=== PATIENT | male | born 1970 | race Caucasian/White ===

== ENCOUNTER 2016-05-20 09:16 | Inpatient (IN) | payer OTHER ==
[2016-05-20 10:53] VITALS: BMI 33.2
--- NOTE | 2016-05-20 13:49 | HP ---
CIWA Score - CIWA Score Nausea/Vomitin Muscle Tremors: 3 Anxiety: 3 Agitation: 3 Paroxysmal Sweats: 2 Orientation: 0-Oriented Tacttile Disturbances: 2-Mild Itch/Numbness/Burn Auditory Disturbances: 2-Mild Harshness/Frighten Visual Disturbances: 2-Mild Sensitivity Headache: 2-Mild CIWA-Ar Total Score: 22 Admission ROS BHS - HPI Chief Complaint: i need help to stop drinking Allergies/Adverse Reactions: Allergies Allergy/AdvReac Type Severity Reaction Status Date / Time Fish Containing Products Allergy Severe Rash Verified 05/20/16 13:40 No Known Drug Allergies Allergy Verified 05/20/16 13:40 lactose AdvReac Lactose Verified 05/20/16 13:40 Intolerance LACTOSE INTOLERANCE Allergy Nausea Uncoded 05/20/16 13:40 History of Present Illness: this 46 years old male with alcohol dependence.withdrawal symptom,last detox 09/27 to 04/21/16 seizure syncope anxiety and depression htn longest period of sobriety 9 months Exam Limitations: No Limitations - Ebola screening Have you traveled outside of the country in the last 21 days: No Have you had contact with anyone from an Ebola affected area: No Have you been sick,other than usual withdrawal symptoms: No Do you have a fever: No - Review of Systems Constitutional: Loss of Appetite, Malaise, Changes in sleep, Weakness EENT: reports: Nose Congestion Respiratory: reports: No Symptoms reported Cardiac: reports: Palpitations GI: reports: Diarrhea, Nausea, Vomiting, Abdominal cramping : reports: No Symptoms Reported Musculoskeletal: reports: Back Pain, Muscle Pain Integumentary: reports: Dryness Neuro: reports: Headache, Tremors Endocrine: reports: No Symptoms Reported Hematology: reports: No Symptoms Reported Psychiatric: reports: Anxious, Depressed Patient History - Patient Medical History Hx Anemia: No Hx Asthma: No Hx Chronic Obstructive Pulmonary Disease (COPD): No Hx Cancer: No Hx Cardiac Disorders: No Hx Congestive Heart Failure: No Hx Hypertension: Yes Hx Hypercholesterolemia: No Hx Pacemaker: No HX Cerebrovascular Accident: No Hx Seizures: Yes (alcohol related-last episode was 1 1/2 mos. ago) Hx Dementia: No Hx Diabetes: No Hx Gastrointestinal Disorders: No Hx Liver Disease: No Hx Genitourinary Disorders: No Hx Sexually Transmitted Disorders: Yes (syphilis) Hx Renal Disease (ESRD): No Hx Thyroid Disease: No Hx Human Immunodeficiency Virus (HIV): No (NEGATIVE HX last 03/30) Hx Hepatitis C: No Hx Depression: Yes (anxiety) Hx Suicide Attempt: No Hx Bipolar Disorder: No Hx Schizophrenia: No Other Medical History: no suicidal,no homicidal - Patient Surgical History Past Surgical History: Yes Hx Neurologic Surgery: No Hx Cataract Extraction: No Hx Cardiac Surgery: No Hx Lung Surgery: No Hx Breast Surgery: No Hx Breast Biopsy: No Hx Abdominal Surgery: No Hx Appendectomy: No Hx Cholecystectomy: Yes (08/27 laproscopic) Hx Genitourinary Surgery: No Hx Section: No Hx Orthopedic Surgery: Yes (fx, left leg at age 21) Anesthesia Reaction: No - PPD History Previous Implant?: Yes Documented Results: Positive w/proof Results: positive PPD to be Administered?: No - Smoking Cessation Smoking history: Former smoker Have you smoked in the past 12 months: No Aproximately how many cigarettes per day: 0 If you are a former smoker, when did you quit?: at age 32 Hx Chewing Tobacco Use: No Initiated information on smoking cessation: Yes 'Breaking Loose' booklet given: 05/20/16 - Substance & Tx. History Hx Alcohol Use: Yes Hx Substance Use: No Substance Use Type: Alcohol Hx Substance Use Treatment: Yes ([facility] 04/18/16 to 04/21/16) - Substances Abused Alcohol Route: Oral Frequency: Daily Amount used: 2 6PKS BEER Age of first use: 17 Date of Last Use: 05/20/16 Family Disease History - Family Disease History Family Disease History: Other: Father (ALCOHOL) Admission Physical Exam BHS - Vital Signs Vital Signs: Vital Signs - 24 hr 05/20/16 10:51 Temperature 97.2 F L Pulse Rate 94 H Respiratory 20 Rate Blood Pressure 152/96 - Physical General Appearance: Yes: Moderate Distress, Tremorous, Irritable, Sweating, Anxious HEENTM: Yes: Nasal Congestion Respiratory: Yes: Lungs Clear Neck: Yes: Within Normal Limits Breast: Yes: Within Normal Limits Cardiology: Yes: Within Normal Limits, Regular Rhythm, Regular Rate, S1, S2 Abdominal: Yes: Within Normal Limits, Normal Bowel Sounds, Non Tender, Flat, Soft Genitourinary: Yes: Within Normal Limits Back: Yes: Muscle Spasm Musculoskeletal: Yes: Back pain, Muscle Pain Extremities: Yes: Tremors Neurological: Yes: traffic rate clerk II-XII NML intact, Fully Oriented, Alert, Motor Strength 5/5 Integumentary: Yes: Dry Lymphatic: Yes: Within Normal Limits - Diagnostic (1) Alcohol dependence with uncomplicated intoxication Current Visit: No Status: Acute (2) Alcohol dependence with withdrawal, uncomplicated Current Visit: No Status: Acute (3) Alcohol related seizure Current Visit: No Status: Chronic (4) Constipation Current Visit: No Status: Chronic Qualifiers: Constipation type: unspecified constipation type Qualified Code(s): K59.00 - Constipation, unspecified (5) GERD (gastroesophageal reflux disease) Current Visit: No Status: Chronic Qualifiers: Esophagitis presence: without esophagitis Qualified Code(s): K21.9 - Gastro-esophageal reflux disease without esophagitis (6) HTN (hypertension) Current Visit: No Status: Chronic Qualifiers: Hypertension type: essential hypertension Qualified Code(s): I10 - Essential (primary) hypertension (7) Nicotine dependence Current Visit: No Status: Chronic Qualifiers: Nicotine product type: cigarettes Substance use status: uncomplicated Qualified Code(s): F17.210 - Nicotine dependence, cigarettes, uncomplicated (8) History of seizure Current Visit: No Status: Suspected (9) Syncope Current Visit: Yes Status: Acute Cleared for Admission [facility] - Detox or Rehab [facility] Level of Care: Medically Managed Detox Regimen/Protocol: Librium S Breath Alcohol Content Breath Alcohol Content: 0.187 Urine Drug Screen - Results Drug Screen Negative: No Urine Drug Screen Results: BZO-Benzodiazepines
[2016-05-20] MEDS ORDERED: P-EPHED 60MG/TRIPROLIDI 2.5MG TABLET PO PRN (14:01)
[2016-05-20] MEDS ORDERED: LOPERAMIDE HCL 2 MG CAPSULE PO PRN (14:01)
[2016-05-20] MEDS ORDERED: chlordiazePOXIDE HCL 25 MG CAPSULE PO PRN (14:01)
[2016-05-20] MEDS ORDERED: MENTHOL/PHENOL 1 EACH UD MM PRN (14:01)
[2016-05-20] MEDS ORDERED: guaiFENesin/D-METHORPHAN HB 10 ML UNIT-DOSE CUPS PO PRN (14:01)
[2016-05-20] MEDS ORDERED: MAGNESIUM CITRATE 300 ML BOTTLE PO PRN (14:01)
[2016-05-20] MEDS ORDERED: IBUPROFEN 400 MG TABLET (FP) PO PRN (14:01)
[2016-05-20] MEDS ORDERED: hydrOXYzine PAMOATE 50 MG CAPSULE (FP) PO PRN (14:01)
[2016-05-20] MEDS ORDERED: ACETAMINOPHEN 325 MG TABLET (FP) PO PRN (14:01)
[2016-05-20] MEDS ORDERED: chlordiazePOXIDE HCL 25 MG CAPSULE PO ONE (14:40)
[2016-05-20] MEDS ORDERED: cloNIDine HCL 0.1 MG TABLET PO ONE (14:41)
[2016-05-20] MEDS: chlordiazePOXIDE HCL 25 MG CAPSULE PO SCH ×2 (17:24→22:16)
[2016-05-20 19:59] LABS: URINE APPEARANCE CLEAR; URINE BILIRUBIN NEGATIVE (NEGATIVE); URINE BLOOD NEGATIVE (NEGATIVE); URINE COLOR YELLOW; URINE GLUCOSE (UA) NEGATIVE (NEGATIVE); URINE KETONE NEGATIVE (NEGATIVE); URINE LEUK ESTERASE NEGATIVE (NEGATIVE); URINE NITRITE NEGATIVE (NEGATIVE); URINE UROBILINOGEN 2.0 E.U/dl E.U./dl (0.2-1.0)
[2016-05-20 20:01] LABS: URINE PROTEIN 1+ (NEGATIVE)
[2016-05-20 20:09] LABS: URINE MUCUS FEW; URINE RBC 1 /hpf (0-3); URINE WBC 1 /hpf (3-5)
[2016-05-20] MEDS: diphenhydrAMINE HCL 50 MG CAPSULE PO PRN (22:16)
[2016-05-20] MEDS: THIAMINE HCL 100 MG TABLET (FP) PO SCH (22:16)
[2016-05-20] MEDS: MAGNESIUM HYDROX 2400MG/30ML ORAL SUSPENSION 30 ML CUP PO PRN (22:17)
[2016-05-21] MEDS: chlordiazePOXIDE HCL 25 MG CAPSULE PO SCH ×4 (05:54→22:28)
[2016-05-21] MEDS: levETIRAcetam 500 MG TABLET (FP) PO SCH (10:06)
[2016-05-21] MEDS: PRENATAL VITAMINS W/ FOLIC ACID TABLET (FP) PO SCH (10:06)
[2016-05-21] MEDS: PROPRANOLOL HCL 10 MG TABLET (FP) PO SCH (10:06)
[2016-05-21 10:40] LABS: MCH 27.4 pg (25.7-33.7); MCHC 32.7 g/dl (32.0-35.9); MEAN CELL VOLUME 83.8 fl (80-96); MEAN PLT VOLUME 9.1 fl (7.5-11.1); PLATELET COUNT 93 K/MM3 (134-434); RDW 16.2 % (11.9-15.9); WHITE BLOOD COUNT 4.3 K/mm3 (4.0-10.0)
[2016-05-21 11:03] LABS: ALBUMIN 4.3 g/dl (3.4-5.0); ALK PHOS 134 U/L (45-117); ANION GAP 10 (8-16); BILIRUBIN,TOTAL 0.7 mg/dL (0.2-1.0); CALCIUM 8.1 mg/dL (8.5-10.1); CO2 26 mmol/L (21-32); CREATININE 0.7 mg/dL (0.7-1.3); GLUCOSE,RANDOM 144 mg/dL (74-106); SGOT/AST 134 U/L (15-37); SGPT/ALT 111 U/L (12-78); TOT PROT 8.5 g/dl (6.4-8.2)
--- NOTE | 2016-05-21 12:05 | CONSULT ---
[facility] Psychiatric Consult - Data Date of interview: 05/21/16 Admission source: [facility] Identifying data: Readmission to [facility] for this 46 y/o [place]-born male seeking detox treatment on for alcohol and cocaine dependence.Patient is without children,homeless,unemployed and dependent on food stamps. Substance Abuse History: - Smoking Cessation. Smoking history: Former smoker. Have you smoked in the past 12 months: No. Aproximately how many cigarettes per day: 0. If you are a former smoker, when did you quit?: at age 32. Hx Chewing Tobacco Use: No. Initiated information on smoking cessation: Yes. ' Breaking Loose' booklet given: 05/20/16. - Substance & Tx. History. Hx Alcohol Use: Yes. Hx Substance Use: No. Substance Use Type: Alcohol. Hx Substance Use Treatment: Yes ([facility] 04/18/16 to 04/21/16). - Substances Abused. Alcohol. Route: Oral. Frequency: Daily. Amount used: 2 6PKS BEER. Age of first use: 17. Date of Last Use: 05/20/16. Patient confirmed. Medical History: Significant for hypertension,seizure disorder and past treatment for syphilis. Psychiatric History: Patient denies history of psychiatric hospitalizations.He, however,reports being on prozac and vistaril for " depression and anxiety ", diagnosed and managed by is primary care physician.Mr Owens denies history of suicide attempts. Physical/Sexual Abuse/Trauma History: Patient denies. Additional Comment: Urine Drug Screen Results: BZO-Benzodiazepines.Noted. Mental Status Exam - Mental Status Exam Alert and Oriented to: Time, Place, Person Cognitive Function: Good Patient Appearance: Well Groomed Mood: Nervous, Withdrawn, Anxious, Apprehensive Affect: Appropriate Patient Behavior: Sedated (mild sedation), Fatigued Speech Pattern: Clear Voice Loudness: Normal Thought Process: Intact Thought Disorder: Not Present Hallucinations: Denies Suicidal Ideation: Denies Homicidal Ideation: Denies Insight/Judgement: Poor Sleep: Poorly, Difficulty falling asleep Appetite: Good Muscle strength/Tone: Normal Gait/Station: Normal Psychiatric Findings - Problem List ([place] 1, 2,3) (1) Alcohol dependence with withdrawal, uncomplicated Current Visit: Yes Status: Acute (2) Alcohol-induced anxiety disorder Current Visit: Yes Status: Acute (3) Substance induced mood disorder Current Visit: Yes Status: Acute (4) Insomnia Current Visit: No Status: Acute (5) Alcohol related seizure Current Visit: Yes Status: Chronic - Initial Treatment Plan Initial Treatment Plan: Psychoeducation.Detoxification.Medications : prozac 20 mg po daily + vistaril 50 mg po q 4h prn.Side effects/benefits discussed with patient.
[2016-05-21] MEDS: MAG HYDROX/AL HYDROX/SIMETH 30 ML UNIT-DOSE CUP PO PRN ×2 (13:08→20:23)
[2016-05-21] MEDS: FLUoxetine HCL 20 MG CAPSULE (FP) PO SCH (13:08)
[2016-05-21] MEDS ORDERED: RANITIDINE HCL 150 MG TABLET (FP) PO ONE (20:58)
[2016-05-21] MEDS: diphenhydrAMINE HCL 50 MG CAPSULE PO PRN (22:28)
[2016-05-21] MEDS: THIAMINE HCL 100 MG TABLET (FP) PO SCH (22:28)
--- NOTE | 2016-05-21 23:18 | PN ---
[id number] Anxiety: 4-Mod. Anxious/Guarded Agitation: 3 Paroxysmal Sweats: 3 Orientation: 0-Oriented Tacttile Disturbances: 0-None Auditory Disturbances: 0-None Visual Disturbances: 0-None Headache: 0-None Present CIWA-Ar Total Score: 13 BHS Progress Note (SOAP) Subjective: ANXIETY,TREMORS,SWEATING,INTERRUPTED SLEEP,RESTLESS Objective: 05/21/16 23:15 Vital Signs - 8 hr 05/21/16 20:05 Temperature 97.4 F L Pulse Rate 71 Respiratory 16 Rate Blood Pressure 104/63 Assessment: 05/21/16 23:15 withdrawal sx. Plan: CONTINUE DETOX
[2016-05-22] MEDS: MAGNESIUM HYDROX 2400MG/30ML ORAL SUSPENSION 30 ML CUP PO PRN (05:07)
[2016-05-22] MEDS: chlordiazePOXIDE HCL 25 MG CAPSULE PO SCH ×2 (05:07→10:27)
[2016-05-22] MEDS ORDERED: RANITIDINE HCL 150 MG TABLET (FP) PO SCH (10:00)
[2016-05-22] MEDS ORDERED: CLOTRIMAZOLE 1% CREAM 15 GM TUBE TP SCH (10:00)
[2016-05-22] MEDS: PRENATAL VITAMINS W/ FOLIC ACID TABLET (FP) PO SCH (10:26)
[2016-05-22] MEDS: FLUoxetine HCL 20 MG CAPSULE (FP) PO SCH (10:27)
[2016-05-22] MEDS: PROPRANOLOL HCL 10 MG TABLET (FP) PO SCH (10:27)
[2016-05-22] MEDS: levETIRAcetam 500 MG TABLET (FP) PO SCH (10:27)
[2016-05-22 10:57] VITALS: BP 134/93; PULSE 89; TEMP 97.5
--- NOTE | 2016-05-22 12:40 | DS ---
[facility] Detox Discharge Summary Admission Date: 05/20/16 Discharge Date: 05/22/16 - History Present History: Alcohol Dependence Pertinent Past History: Alcohol related seizure disorder HTN - Physical Exam Results Vital Signs: Vital Signs Temperature 97.5 F L 05/22/16 10:56 Pulse Rate 89 05/22/16 10:56 Respiratory Rate 20 05/22/16 10:56 Blood Pressure 134/93 05/22/16 10:56 O2 Sat by Pulse Oximetry (%) Pertinent Admission Physical Exam Findings: Withdrawal symptoms Laboratory Tests 05/20/16 05/21/16 05/21/16 15:00 06:00 06:00 WBC 4.3 RBC 4.89 Hgb 13.4 Hct 41.0 MCV 83.8 MCHC 32.7 RDW 16.2 H Plt Count 93 L D MPV 9.1 Sodium 137 Potassium 3.8 Chloride 101 Carbon Dioxide 26 Anion Gap 10 BUN 6 L D Creatinine 0.7 Creat Clearance w eGFR > 60 Random Glucose 144 H Calcium 8.1 L Total Bilirubin 0.7 D AST 134 H D ALT 111 H D Alkaline Phosphatase 134 H D Total Protein 8.5 H D Albumin 4.3 D Urine Color Yellow Urine Appearance Clear Urine pH 6.0 Ur Specific [place] 1.018 Urine Protein 1+ H Urine Glucose (UA) Negative Urine Ketones Negative Urine Blood Negative Urine Nitrite Negative Urine Bilirubin Negative Urine Urobilinogen 2.0 e.u/dl Ur Leukocyte Esterase Negative Urine RBC 1 Urine WBC 1 Ur Epithelial Cells Rare Urine Mucus Few RPR Titer 05/21/16 06:00 WBC RBC Hgb Hct MCV MCHC RDW Plt Count MPV Sodium Potassium Chloride Carbon Dioxide Anion Gap BUN Creatinine Creat Clearance w eGFR Random Glucose Calcium Total Bilirubin AST ALT Alkaline Phosphatase Total Protein Albumin Urine Color Urine Appearance Urine pH Ur Specific [place] Urine Protein Urine Glucose (UA) Urine Ketones Urine Blood Urine Nitrite Urine Bilirubin Urine Urobilinogen Ur Leukocyte Esterase Urine RBC Urine WBC Ur Epithelial Cells Urine Mucus RPR Titer Nonreactive Labs noted: Noted with hyperglycemia, elevated LFTs, proteinuria - Medication Discharge Medications: Ambulatory Orders Fluoxetine HCl [Prozac -] 20 mg PO DAILY 06/11/15 Quetiapine Fumarate [Seroquel -] 100 mg PO BID #30 tablet 06/11/15 Propranolol HCl [Inderal -] 10 mg PO DAILY #30 tablet 06/15/15 Hydroxyzine HCl [Atarax -] 50 mg PO HS 05/20/16 Levetiracetam [Keppra -] 500 mg PO DAILY 05/20/16 Fluoxetine HCl [Prozac -] 20 mg PO DAILY #30 capsule 05/21/16 Hydroxyzine Pamoate [Vistaril -] 25 mg PO TID PRN #30 capsule 05/21/16 - Diagnosis (1) Alcohol dependence with withdrawal, uncomplicated Status: Acute (2) Alcohol related seizure Status: Chronic (3) HTN (hypertension), benign Status: Acute - AMA Did Patient Leave Against Medical Advice: Yes (refused further testing for hyperglycemia, elevated LFTs and proteinuria)
[2016-05-22] MEDS ORDERED: chlordiazePOXIDE 5 MG CAPSULE PO SCH (17:00)
[2016-05-23] MEDS ORDERED: chlordiazePOXIDE HCL 10 MG CAPSULE PO SCH (17:00)
--- NOTE | 2016-05-25 09:43 | EKG ---
Test Reason : Blood Pressure : / mmHG Vent. Rate : 095 BPM Atrial Rate : 095 BPM P-R Int : 174 ms QRS Dur : 096 ms QT Int : 350 ms P-R-T Axes : 062 -17 033 degrees QTc Int : 439 ms NORMAL SINUS RHYTHM INFERIOR INFARCT , AGE UNDETERMINED ABNORMAL ECG NO PREVIOUS ECGS AVAILABLE Confirmed by CAREY CLINE MD ([id number]) on 05/25/2016 9:42:40 AM Referred By: Confirmed By:CAREY CLINE MD
== END 2016-05-22 11:10 | disposition left against medical advice (07) | DRG 770 ==
LOC: YASAS 09:16 → Y3N 14:06
PROVIDERS: ADMIT Internal Medicine; ATTEND Internal Medicine
PROC: HZ2ZZZZ Detoxification Services for Substance Abuse Treatment (ICD-10-PCS; principal; 2016-05-20)
DX: F10.230 Alcohol dependence with withdrawal, uncomplicated (principal); F10.280 Alcohol dependence with alcohol-induced anxiety disorder; F19.24 Other psychoactive substance dependence with psychoactive substance-induced mood disorder; I10 Essential (primary) hypertension; G47.00 Insomnia, unspecified; G40.909 Epilepsy, unspecified, not intractable, without status epilepticus; K21.9 Gastro-esophageal reflux disease without esophagitis; K59.00 Constipation, unspecified; Z87.438 Personal history of other diseases of male genital organs; Z87.891 Personal history of nicotine dependence; Z86.79 Personal history of other diseases of the circulatory system
CPT/HCPCS: 36415; 80053; 81003; 81015; 85027; 86593; 93005; 93010

== ENCOUNTER 2016-07-03 09:16 | Inpatient (IN) | payer OTHER ==
[2016-07-03 09:46] VITALS: BMI 31.6
--- NOTE | 2016-07-03 11:29 | HP ---
CIWA Score - CIWA Score Nausea/Vomitin Muscle Tremors: 5 Anxiety: 4-Mod. Anxious/Guarded Agitation: 2 Paroxysmal Sweats: 3 Orientation: 0-Oriented Tacttile Disturbances: 0-None Auditory Disturbances: 3-Moderate Harsh/Frighten Visual Disturbances: 2-Mild Sensitivity Headache: 3-Moderate CIWA-Ar Total Score: 27 Admission ROS BHS - HPI Chief Complaint: "I am here to stay alive." Pt. is here to Detox from alcohol. Allergies/Adverse Reactions: Allergies Allergy/AdvReac Type Severity Reaction Status Date / Time Fish Containing Products Allergy Severe Rash Verified 07/03/16 10:41 No Known Drug Allergies Allergy Verified 07/03/16 10:41 lactose AdvReac Lactose Verified 07/03/16 10:41 Intolerance LACTOSE INTOLERANCE Allergy Nausea Uncoded 07/03/16 10:41 History of Present Illness: Pt. is a 46 YO male here to Detox from Alcohol. Pt. has had several previous Detox admissions at [facility]. Exam Limitations: Intoxication, Other (Lethargy.) - Ebola screening Have you traveled outside of the country in the last 21 days: No Have you had contact with anyone from an Ebola affected area: No Have you been sick,other than usual withdrawal symptoms: No Do you have a fever: No - Review of Systems Constitutional: Chills, Diaphoresis, Fever, Loss of Appetite, Malaise, Night Sweats, Changes in sleep EENT: reports: No Symptoms Reported Respiratory: reports: No Symptoms reported Cardiac: reports: Palpitations GI: reports: Nausea, Poor Appetite, Vomiting, Abdominal cramping : reports: No Symptoms Reported Musculoskeletal: reports: Joint Pain, Muscle Pain, Joint Stiffness Integumentary: reports: No Symptoms Reported Neuro: reports: Headache, Numbness, Seizure (Due to Withdrawal.), Tingling ( Bilateral toes), Tremors Endocrine: reports: No Symptoms Reported Hematology: reports: No Symptoms Reported Psychiatric: reports: Judgement Intact, Mood/Affect Appropiate, Orientated x3, Anxious Other Systems: Reviewed and Negative Patient History - Patient Medical History Hx Anemia: No Hx Asthma: No Hx Chronic Obstructive Pulmonary Disease (COPD): No Hx Cancer: No Hx Cardiac Disorders: No Hx Congestive Heart Failure: No Hx Hypertension: Yes (Takes medication intermittently.) Hx Hypercholesterolemia: No Hx Pacemaker: No HX Cerebrovascular Accident: No Hx Seizures: Yes (Due to Alcohol withdrawal; last one approx. 1 week ago (went to ER).) Hx Dementia: No Hx Diabetes: No Hx Gastrointestinal Disorders: No Hx Liver Disease: No Hx Genitourinary Disorders: No Hx Sexually Transmitted Disorders: No Hx Renal Disease (ESRD): No Hx Thyroid Disease: No Hx Human Immunodeficiency Virus (HIV): No (NEGATIVE HX last 03/30) Hx Hepatitis C: No (NEGATIVE HX, cannot remember when last tested.) Hx Depression: No Hx Suicide Attempt: No (PATIENT DENIES CURRENT SI / HI.) Hx Bipolar Disorder: No Hx Schizophrenia: No - Patient Surgical History Past Surgical History: Yes Hx Neurologic Surgery: No Hx Cataract Extraction: No Hx Cardiac Surgery: No Hx Lung Surgery: No Hx Breast Surgery: No Hx Breast Biopsy: No Hx Abdominal Surgery: No Hx Appendectomy: No Hx Cholecystectomy: Yes (08/27 laproscopic) Hx Genitourinary Surgery: No Hx Section: No Hx Orthopedic Surgery: Yes (fx, left leg at age 21) Anesthesia Reaction: No - PPD History Previous Implant?: Yes (+ppd) Documented Results: Positive w/o proof Implanted On Prior [facility] Admission?: No Results: positive PPD to be Administered?: No - Reproductive History Patient is a Female of Child Bearing Age (11 -55 yrs old): No (PATIENT IS MALE.) - Smoking Cessation Smoking history: Former smoker Have you smoked in the past 12 months: No Aproximately how many cigarettes per day: 0 If you are a former smoker, when did you quit?: at age 32 Cigars Per Day: 0 Hx Chewing Tobacco Use: No Initiated information on smoking cessation: No - Substance & Tx. History Hx Alcohol Use: Yes Hx Substance Use: Yes Substance Use Type: Alcohol Hx Substance Use Treatment: Yes (Previous Detox admissions at [facility].) - Substances Abused Alcohol Route: Oral Frequency: Daily Amount used: 18 beers Age of first use: 17 Date of Last Use: 07/03/16 Family Disease History - Family Disease History Family Disease History: Other: Father (ALCOHOL) Admission Physical Exam BHS - Vital Signs Vital Signs: Vital Signs - 24 hr 07/03/16 09:41 Temperature 98.1 F Pulse Rate 108 H Respiratory 20 Rate Blood Pressure 143/82 - Physical General Appearance: Yes: Nourished, Appropriately Dressed, Moderate Distress, Tremorous, Irritable, Sweating, Anxious HEENTM: Yes: Hearing grossly Normal, Normocephalic, Normal Voice, AG, Pharynx Normal Respiratory: Yes: Chest Non-Tender, Lungs Clear, No Respiratory Distress Neck: Yes: No masses,lesions,Nodules, Supple, Trachea in good position Breast: Yes: Breast Exam Deferred Cardiology: Yes: Regular Rhythm, Regular Rate, S1, S2 Abdominal: Yes: Normal Bowel Sounds, Non Tender, Soft, Protuberent Genitourinary: Yes: Within Normal Limits Back: Yes: Decreased Range of Motion Musculoskeletal: Yes: Gait Steady, Joint Stiffness, Muscle Pain Extremities: Yes: Non-Tender, Tremors Neurological: Yes: Fully Oriented, Normal Mood/Affect, Normal Response Integumentary: Yes: Normal Color, Warm, Diaphoresis Lymphatic: Yes: Within Normal Limits - Diagnostic (1) Alcohol dependence with withdrawal, uncomplicated Current Visit: Yes Status: Acute (2) Anxiety disorder Current Visit: Yes Status: Chronic Qualifiers: Anxiety disorder type: unspecified anxiety disorder Qualified Code(s ): F41.9 - Anxiety disorder, unspecified (3) Alcohol withdrawal seizure Current Visit: Yes Status: Chronic Qualifiers: Complication of substance-induced condition: uncomplicated Qualified Code(s): F10.230 - Alcohol dependence with withdrawal, uncomplicated (4) HTN (hypertension) Current Visit: Yes Status: Chronic Qualifiers: Hypertension type: essential hypertension Qualified Code(s): I10 - Essential (primary) hypertension Cleared for Admission [facility] - Detox or Rehab [facility] Level of Care: Medically Managed Detox Regimen/Protocol: Librium [facility] Breath Alcohol Content Breath Alcohol Content: 0.195 Urine Drug Screen - Results Drug Screen Negative: No Urine Drug Screen Results: KASIE-Cocaine, BZO-Benzodiazepines
[2016-07-03] MEDS ORDERED: ACETAMINOPHEN 325 MG TABLET (FP) PO PRN (11:55)
[2016-07-03] MEDS ORDERED: guaiFENesin/D-METHORPHAN HB 10 ML UNIT-DOSE CUPS PO PRN (11:55)
[2016-07-03] MEDS ORDERED: IBUPROFEN 400 MG TABLET (FP) PO PRN (11:55)
[2016-07-03] MEDS ORDERED: MAGNESIUM HYDROX 2400MG/30ML ORAL SUSPENSION 30 ML CUP PO PRN (11:55)
[2016-07-03] MEDS ORDERED: MAGNESIUM CITRATE 300 ML BOTTLE PO PRN (11:55)
[2016-07-03] MEDS ORDERED: chlordiazePOXIDE HCL 25 MG CAPSULE PO PRN (11:55)
[2016-07-03] MEDS ORDERED: MAG HYDROX/AL HYDROX/SIMETH 30 ML UNIT-DOSE CUP PO PRN (11:55)
[2016-07-03] MEDS ORDERED: hydrOXYzine PAMOATE 50 MG CAPSULE (FP) PO PRN (11:55)
[2016-07-03] MEDS ORDERED: diphenhydrAMINE HCL 50 MG CAPSULE PO PRN (11:55)
[2016-07-03] MEDS ORDERED: MENTHOL/PHENOL 1 EACH UD MM PRN (11:55)
[2016-07-03] MEDS ORDERED: P-EPHED 60MG/TRIPROLIDI 2.5MG TABLET PO PRN (11:55)
[2016-07-03] MEDS ORDERED: LOPERAMIDE HCL 2 MG CAPSULE PO PRN (11:55)
[2016-07-03] MEDS ORDERED: chlordiazePOXIDE HCL 25 MG CAPSULE PO ONE (11:55)
[2016-07-03] MEDS: levETIRAcetam 500 MG TABLET (FP) PO SCH ×2 (12:42→22:24)
[2016-07-03] MEDS: PROPRANOLOL HCL 10 MG TABLET (FP) PO SCH (12:43)
[2016-07-03 16:51] LABS: URINE APPEARANCE CLEAR; URINE BILIRUBIN NEGATIVE (NEGATIVE); URINE BLOOD NEGATIVE (NEGATIVE); URINE COLOR YELLOW; URINE GLUCOSE (UA) NEGATIVE (NEGATIVE); URINE KETONE NEGATIVE (NEGATIVE); URINE LEUK ESTERASE NEGATIVE (NEGATIVE); URINE NITRITE NEGATIVE (NEGATIVE); URINE PROTEIN NEGATIVE (NEGATIVE); URINE UROBILINOGEN NEGATIVE E.U./dl (0.2-1.0)
[2016-07-03] MEDS: chlordiazePOXIDE HCL 25 MG CAPSULE PO SCH ×2 (17:50→22:24)
[2016-07-03] MEDS: THIAMINE HCL 100 MG TABLET (FP) PO SCH (22:24)
--- NOTE | 2016-07-04 00:47 | EKG ---
Test Reason : Blood Pressure : / mmHG Vent. Rate : 108 BPM Atrial Rate : 108 BPM P-R Int : 158 ms QRS Dur : 098 ms QT Int : 326 ms P-R-T Axes : 055 -02 037 degrees QTc Int : 436 ms SINUS TACHYCARDIA POSSIBLE LEFT ATRIAL ENLARGEMENT INCOMPLETE RIGHT BUNDLE BRANCH BLOCK INFERIOR INFARCT (CITED ON OR BEFORE 20-MAY-2016) ABNORMAL ECG WHEN COMPARED WITH ECG OF 20-MAY-2016 15:18, NO SIGNIFICANT CHANGE WAS FOUND Confirmed by SYLVIA JOHN MD ([id number]) on 07/04/2016 12:47:05 AM Referred By: Confirmed By:SYLVIA JOHN MD
[2016-07-04] MEDS: chlordiazePOXIDE HCL 25 MG CAPSULE PO SCH ×4 (05:59→22:35)
[2016-07-04 10:07] LABS: ALBUMIN 3.7 g/dl (3.4-5.0); ANION GAP 11 (8-16); CALCIUM 8.5 mg/dL (8.5-10.1); CO2 26 mmol/L (21-32); GLUCOSE,RANDOM 93 mg/dL (74-106)
[2016-07-04 10:10] LABS: ALK PHOS 112 U/L (45-117); BILIRUBIN,TOTAL 0.6 mg/dL (0.2-1.0); CREATININE 0.7 mg/dL (0.7-1.3); SGOT/AST 108 U/L (15-37); SGPT/ALT 122 U/L (12-78)
[2016-07-04 10:16] LABS: MCH 26.5 pg (25.7-33.7); MEAN CELL VOLUME 82.8 fl (80-96); PLATELET COUNT 106 K/MM3 (134-434); RDW 16.7 % (11.9-15.9); WHITE BLOOD COUNT 6.4 K/mm3 (4.0-10.0)
[2016-07-04] MEDS: levETIRAcetam 500 MG TABLET (FP) PO SCH ×2 (10:48→22:35)
[2016-07-04] MEDS: PRENATAL VITAMINS W/ FOLIC ACID TABLET (FP) PO SCH (10:48)
[2016-07-04] MEDS: PROPRANOLOL HCL 10 MG TABLET (FP) PO SCH (11:19)
--- NOTE | 2016-07-04 12:04 | PN ---
S CIWA - CIWA Score Nausea/Vomitin Muscle Tremors: 3 Anxiety: 3 Agitation: 2 Paroxysmal Sweats: 1-Minimal Palms Moist Orientation: 0-Oriented Tacttile Disturbances: 1-Very Mild Itch/Numbness Auditory Disturbances: 1-Very Mild Visual Disturbances: 1-Very Mild Sensitivity Headache: 2-Mild CIWA-Ar Total Score: 17 BHS Progress Note (SOAP) Subjective: ALERT,IRRITABLE,ANXIOUS,TREMOR,INTERRUPTED SLEEP,INTERRUPTED SLEEP Objective: 07/04/16 12:01 Vital Signs Temperature 97.2 F L 07/04/16 10:00 Pulse Rate 93 H 07/04/16 10:00 Respiratory Rate 16 07/04/16 10:00 Blood Pressure 121/83 07/04/16 10:00 O2 Sat by Pulse Oximetry (%) EKG SINUS TACHYCARDIA 108/MIN Laboratory Last Values WBC 6.4 K/mm3 (4.0-10.0) D 07/04/16 06:15 RBC 5.02 M/mm3 (4.00-5.60) 07/04/16 06:15 Hgb 13.3 GM/dL (11.7-16.9) 07/04/16 06:15 Hct 41.6 % (35.4-49) 07/04/16 06:15 MCV 82.8 fl (80-96) 07/04/16 06:15 MCHC 32.0 g/dl (32.0-35.9) 07/04/16 06:15 RDW 16.7 % (11.9-15.9) H 07/04/16 06:15 Plt Count 106 K/MM3 (134-434) L 07/04/16 06:15 MPV 9.0 fl (7.5-11.1) 07/04/16 06:15 Sodium 138 mmol/L (136-145) 07/04/16 06:15 Potassium 3.7 mmol/L (3.5-5.1) 07/04/16 06:15 Chloride 101 mmol/L (98-107) 07/04/16 06:15 Carbon Dioxide 26 mmol/L (21-32) 07/04/16 06:15 Anion Gap 11 (8-16) 07/04/16 06:15 BUN 7 mg/dL (7-18) 07/04/16 06:15 Creatinine 0.7 mg/dL (0.7-1.3) 07/04/16 06:15 Creat Clearance w eGFR > 60 (>60) 07/04/16 06:15 Random Glucose 93 mg/dL (74-106) D 07/04/16 06:15 Calcium 8.5 mg/dL (8.5-10.1) 07/04/16 06:15 Total Bilirubin 0.6 mg/dL (0.2-1.0) 07/04/16 06:15 AST 108 U/L (15-37) H 07/04/16 06:15 ALT 122 U/L (12-78) H 07/04/16 06:15 Alkaline Phosphatase 112 U/L (45-117) 07/04/16 06:15 Total Protein 8.0 g/dl (6.4-8.2) 07/04/16 06:15 Albumin 3.7 g/dl (3.4-5.0) 07/04/16 06:15 Urine Color Yellow 07/03/16 16:28 Urine Appearance Clear 07/03/16 16:28 Urine pH 5.0 (5.0-8.0) 07/03/16 16:28 Ur Specific [place] 1.015 (1.001-1.035) 07/03/16 16:28 Urine Protein Negative (NEGATIVE) 07/03/16 16:28 Urine Glucose (UA) Negative (NEGATIVE) 07/03/16 16:28 Urine Ketones Negative (NEGATIVE) 07/03/16 16:28 Urine Blood Negative (NEGATIVE) 07/03/16 16:28 Urine Nitrite Negative (NEGATIVE) 07/03/16 16:28 Urine Bilirubin Negative (NEGATIVE) 07/03/16 16:28 Urine Urobilinogen Negative E.U./dl (0.2-1.0) 07/03/16 16:28 Ur Leukocyte Esterase Negative (NEGATIVE) 07/03/16 16:28 Assessment: 07/04/16 12:03 WITHDRAWAL SYMPTOM Plan: CONTINUE DETOX,AST 108.ALT 122,D/C TYLENOL,REPEAT AST,ALT,INR IN AM
--- NOTE | 2016-07-04 15:07 | CONSULT ---
[facility] Psychiatric Consult - Data Date of interview: 07/04/16 Admission source: [facility] Identifying data: Readmission to [facility] for this 46 y/o male seeking detox treatment on for alcohol dependence.Patient is single without childrendomiciled,unemployed and supported on Public Assistance. Substance Abuse History: - Smoking Cessation. Smoking history: Former smoker. Have you smoked in the past 12 months: No. Aproximately how many cigarettes per day: 0. If you are a former smoker, when did you quit?: at age 32. Cigars Per Day: 0. Hx Chewing Tobacco Use: No. Initiated information on smoking cessation: No. - Substance & Tx. History. Hx Alcohol Use: Yes. Hx Substance Use: Yes. Substance Use Type: Alcohol. Hx Substance Use Treatment: Yes ( Previous Detox admissions at [facility] - Substances Abused. Alcohol. Route: Oral. Frequency: Daily. Amount used: 18 beers. Age of first use: 17. Date of Last Use: 07/03/16 Medical History: Hypertension,seizure disorder and past treatment for syphilis. Psychiatric History: No reported history of psychiatric hospitalizations (to other clinicians this patient reported one previous psychiatric hospitalization at [facility] and the diagnoses of bipolar disorder/MDD).Mr Roman continues to get scripts for prozac from his primary care physician.No OPD care providers.Patient states that he was diagnosed with MDD and Anxiety Disorder.No history of suicide attempts. Physical/Sexual Abuse/Trauma History: Patient denies. Additional Comment: Urine Drug Screen Results: KASIE-Cocaine, BZO- Benzodiazepines.Noted. Mental Status Exam - Mental Status Exam Alert and Oriented to: Time, Place, Person Cognitive Function: Good Patient Appearance: Well Groomed Mood: Withdrawn, Apprehensive Affect: Mood Congruent Patient Behavior: Appropriate, Cooperative Speech Pattern: Clear Voice Loudness: Normal Thought Process: Goal Oriented Thought Disorder: Not Present Hallucinations: Denies Suicidal Ideation: Denies Homicidal Ideation: Denies Insight/Judgement: Poor Sleep: Poorly, Difficulty falling asleep Appetite: Good Muscle strength/Tone: Normal Gait/Station: Normal Psychiatric Findings - Problem List ([place] 1, 2,3) (1) Alcohol dependence with withdrawal, uncomplicated Current Visit: Yes Status: Acute (2) Substance induced mood disorder Current Visit: Yes Status: Acute (3) Substance-induced anxiety disorder Current Visit: Yes Status: Acute (4) HTN (hypertension) Current Visit: Yes Status: Chronic Qualifiers: Hypertension type: essential hypertension Qualified Code(s): I10 - Essential (primary) hypertension (5) Insomnia Current Visit: No Status: Acute (6) GERD (gastroesophageal reflux disease) Current Visit: Yes Status: Chronic Qualifiers: Esophagitis presence: without esophagitis Qualified Code(s): K21.9 - Gastro-esophageal reflux disease without esophagitis - Initial Treatment Plan Initial Treatment Plan: Psychoeducation.Detoxification.Medications : seroquel 50 mg po hs + prozac 20 mg po daily.Side effects/benefits discussed with the patient.[facility].Observation.
[2016-07-04] MEDS ORDERED: QUEtiapine FUMARATE 50 MG TABLET PO SCH (22:00)
[2016-07-04] MEDS: THIAMINE HCL 100 MG TABLET (FP) PO SCH (22:35)
[2016-07-04] MEDS: QUEtiapine FUMARATE 100 MG TABLET (FP) PO SCH (22:35)
[2016-07-05] MEDS: chlordiazePOXIDE HCL 25 MG CAPSULE PO SCH ×2 (06:02→10:38)
[2016-07-05 10:28] LABS: INR 1.12 (0.82-1.09); PROTHROMBIN TIME (PATIENT) 12.3 SEC (9.98-11.88)
[2016-07-05 10:31] LABS: SGOT/AST 62 U/L (15-37)
[2016-07-05] MEDS: FLUoxetine HCL 20 MG CAPSULE (FP) PO SCH (10:38)
[2016-07-05] MEDS: PRENATAL VITAMINS W/ FOLIC ACID TABLET (FP) PO SCH (10:38)
[2016-07-05] MEDS: PROPRANOLOL HCL 10 MG TABLET (FP) PO SCH (10:38)
[2016-07-05] MEDS: levETIRAcetam 500 MG TABLET (FP) PO SCH ×2 (10:38→22:23)
[2016-07-05 10:52] LABS: SGPT/ALT 91 U/L (12-78)
--- NOTE | 2016-07-05 12:25 | PN ---
[facility] CIWA - CIWA Score Nausea/Vomitin Muscle Tremors: 3 Anxiety: 3 Agitation: 2 Paroxysmal Sweats: 3 Orientation: 0-Oriented Tacttile Disturbances: 1-Very Mild Itch/Numbness Auditory Disturbances: 0-None Visual Disturbances: 0-None Headache: 0-None Present CIWA-Ar Total Score: 15 S Progress Note (SOAP) Subjective: interrupted sleep, sweats, shakes, anxiety , nausea Objective: 07/05/16 12:23 Vital Signs Temperature 97.7 F 07/05/16 09:51 Pulse Rate 98 H 07/05/16 09:51 Respiratory Rate 16 07/05/16 09:51 Blood Pressure 130/97 07/05/16 09:51 O2 Sat by Pulse Oximetry (%) Laboratory Tests 07/03/16 07/04/16 07/04/16 16:28 06:15 06:15 WBC 6.4 D RBC 5.02 Hgb 13.3 Hct 41.6 MCV 82.8 MCHC 32.0 RDW 16.7 H Plt Count 106 L MPV 9.0 INR Sodium 138 Potassium 3.7 Chloride 101 Carbon Dioxide 26 Anion Gap 11 BUN 7 Creatinine 0.7 Creat Clearance w eGFR > 60 Random Glucose 93 D Calcium 8.5 Total Bilirubin 0.6 AST 108 H ALT 122 H Alkaline Phosphatase 112 Total Protein 8.0 Albumin 3.7 Urine Color Yellow Urine Appearance Clear Urine pH 5.0 Ur Specific Dalton 1.015 Urine Protein Negative Urine Glucose (UA) Negative Urine Ketones Negative Urine Blood Negative Urine Nitrite Negative Urine Bilirubin Negative Urine Urobilinogen Negative Ur Leukocyte Esterase Negative RPR Titer T.pallidum Ab (MHA) 07/04/16 07/05/16 07/05/16 06:15 08:00 08:00 WBC RBC Hgb Hct MCV MCHC RDW Plt Count MPV INR Sodium Potassium Chloride Carbon Dioxide Anion Gap BUN Creatinine Creat Clearance w eGFR Random Glucose Calcium Total Bilirubin AST 62 H D ALT Cancelled 91 H D Alkaline Phosphatase Total Protein Albumin Urine Color Urine Appearance Urine pH Ur Specific Dalton Urine Protein Urine Glucose (UA) Urine Ketones Urine Blood Urine Nitrite Urine Bilirubin Urine Urobilinogen Ur Leukocyte Esterase RPR Titer Reactive 1:1 H D T.pallidum Ab (MHA) Reactive 07/05/16 08:00 WBC RBC Hgb Hct MCV MCHC RDW Plt Count MPV INR 1.12 Sodium Potassium Chloride Carbon Dioxide Anion Gap BUN Creatinine Creat Clearance w eGFR Random Glucose Calcium Total Bilirubin AST ALT Alkaline Phosphatase Total Protein Albumin Urine Color Urine Appearance Urine pH Ur Specific Dalton Urine Protein Urine Glucose (UA) Urine Ketones Urine Blood Urine Nitrite Urine Bilirubin Urine Urobilinogen Ur Leukocyte Esterase RPR Titer T.pallidum Ab ([facility]) pt aox3 in nad ambulating , irritable Assessment: 07/05/16 12:24 withdrawl sx;s Plan: cont. detox increase fluids librium prn gingerale imodium prn
[2016-07-05] MEDS: chlordiazePOXIDE 5 MG CAPSULE PO SCH ×2 (18:00→22:22)
[2016-07-05] MEDS: QUEtiapine FUMARATE 100 MG TABLET (FP) PO SCH (22:23)
[2016-07-05] MEDS: THIAMINE HCL 100 MG TABLET (FP) PO SCH (22:23)
[2016-07-06] MEDS: chlordiazePOXIDE 5 MG CAPSULE PO SCH ×2 (05:42→10:18)
[2016-07-06 09:56] VITALS: BP 141/87; PULSE 98; TEMP 98.2
[2016-07-06] MEDS: levETIRAcetam 500 MG TABLET (FP) PO SCH (09:56)
[2016-07-06] MEDS: PRENATAL VITAMINS W/ FOLIC ACID TABLET (FP) PO SCH (09:56)
[2016-07-06] MEDS: FLUoxetine HCL 20 MG CAPSULE (FP) PO SCH (09:56)
[2016-07-06] MEDS: PROPRANOLOL HCL 10 MG TABLET (FP) PO SCH (09:56)
--- NOTE | 2016-07-06 10:01 | DS ---
[facility] Detox Discharge Summary Admission Date: 07/03/16 Discharge Date: 07/06/16 - History Present History: Alcohol Dependence, Cocaine Dependence - Physical Exam Results Vital Signs: Vital Signs Temperature 98.2 F 07/06/16 09:55 Pulse Rate 98 H 07/06/16 09:55 Respiratory Rate 18 07/06/16 09:55 Blood Pressure 141/87 07/06/16 09:55 O2 Sat by Pulse Oximetry (%) - Treatment Hospital Course: Detox Protocol Followed, Detoxed Safely, Responded well, Discharged Condition Good - Medication Discharge Medications: Ambulatory Orders Fluoxetine HCl [Prozac -] 20 mg PO DAILY 06/11/15 Quetiapine Fumarate [Seroquel -] 100 mg PO BID #30 tablet 06/11/15 Propranolol HCl [Inderal -] 10 mg PO DAILY #30 tablet 06/15/15 Hydroxyzine HCl [Atarax -] 50 mg PO HS 05/20/16 Levetiracetam [Keppra -] 500 mg PO DAILY 05/20/16 Fluoxetine HCl [Prozac -] 20 mg PO DAILY #30 capsule 05/21/16 Hydroxyzine Pamoate [Vistaril -] 25 mg PO TID PRN #30 capsule 05/21/16 Fluoxetine HCl [Prozac] 20 mg PO DAILY #30 capsule 07/04/16 Quetiapine Fumarate [Seroquel -] 50 mg PO HS #30 tablet 07/04/16 - Diagnosis (1) Alcohol dependence with withdrawal, uncomplicated Current Visit: Yes Status: Chronic (2) Anxiety disorder Current Visit: Yes Status: Chronic Qualifiers: Anxiety disorder type: unspecified anxiety disorder Qualified Code(s ): F41.9 - Anxiety disorder, unspecified (3) GERD (gastroesophageal reflux disease) Current Visit: Yes Status: Chronic Qualifiers: Esophagitis presence: without esophagitis Qualified Code(s): K21.9 - Gastro-esophageal reflux disease without esophagitis (4) HTN (hypertension) Current Visit: Yes Status: Chronic Qualifiers: Hypertension type: essential hypertension Qualified Code(s): I10 - Essential (primary) hypertension (5) Cocaine dependence Current Visit: No Status: Acute Qualifiers: Substance use status: uncomplicated Qualified Code(s): F14.20 - Cocaine dependence, uncomplicated - AMA Did Patient Leave Against Medical Advice: No
[2016-07-06] MEDS ORDERED: chlordiazePOXIDE HCL 10 MG CAPSULE PO SCH (17:00)
== END 2016-07-06 10:18 | disposition home or self-care (01) | DRG 774 ==
LOC: YASAS 09:16 → Y6N 11:12
PROVIDERS: ADMIT Internal Medicine; ATTEND Internal Medicine Addiction Medicine
PROC: HZ2ZZZZ Detoxification Services for Substance Abuse Treatment (ICD-10-PCS; principal; 2016-07-03)
DX: F10.230 Alcohol dependence with withdrawal, uncomplicated (principal); F14.20 Cocaine dependence, uncomplicated; F19.24 Other psychoactive substance dependence with psychoactive substance-induced mood disorder; F19.280 Other psychoactive substance dependence with psychoactive substance-induced anxiety disorder; G47.00 Insomnia, unspecified; K21.9 Gastro-esophageal reflux disease without esophagitis; I10 Essential (primary) hypertension; R00.0 Tachycardia, unspecified; Z86.69 Personal history of other diseases of the nervous system and sense organs; Z87.438 Personal history of other diseases of male genital organs; Z87.891 Personal history of nicotine dependence
CPT/HCPCS: 36415; 80053; 81003; 84450; 84460; 85027; 85610; 86593; 86780; 93005; 93010

== ENCOUNTER 2016-09-02 21:45 | Emergency (ER) | payer OTHER ==
[2016-09-02 21:53] VITALS: BP 130/85; PULSE 90; TEMP 97.6; BMI 31.4
== END 2016-09-02 23:29 | disposition left against medical advice (07) ==
LOC: JER 21:45 → JERFT 21:45 → JER 23:29
DX: Z53.21 Procedure and treatment not carried out due to patient leaving prior to being seen by health care provider (principal)
CPT/HCPCS: 99281-25

== ENCOUNTER 2016-09-02 23:34 | Emergency (ER) | payer OTHER ==
[2016-09-03 00:08] VITALS: BP 100/60; PULSE 102; TEMP 98; BMI 31.4
--- NOTE | 2016-09-03 03:44 | PDOC ---
History of Present Illness - General History Source: Patient - History of Present Illness Initial Comments: 09/03/16 05:15 The patient is a 46-year-old male with a significant past medical history of syphilis, alcohol intoxication, HTN, and presents to the emergency department with alcohol intoxication and right foot pain. The patient reports that his right foot is swollen and in a boot. He requests detoxification. The patient denies chest pain, shortness of breath, headache and dizziness. The patient denies fever, chills, nausea, vomit, diarrhea and constipation. The patient denies dysuria, frequency, urgency and hematuria. Allergies: lactose, fish containing products Past Surgical History: None reported Social History: current everyday smoker, alcohol use <Lisa Wallis - Last Filed: 09/03/16 05:15> <Angeles Block - Last Filed: 09/05/16 02:36> - General Chief Complaint: Alcohol intoxication Stated Complaint: INJURY Time Seen by Provider: 09/03/16 03:29 Past History <Lisa Wallis - Last Filed: 09/03/16 05:15> - Past Medical History Anemia: No Asthma: No Cancer: No Cardiac Disorders: No CVA: No COPD: No CHF: No Dementia: No Diabetes: No GI Disorders: No Disorders: No HTN: Yes (Takes medication intermittently.) Hypercholesterolemia: No Kidney Stones: No Liver Disease: No Suicide Attempt (Hx): No (PATIENT DENIES CURRENT SI / HI.) Seizures: Yes (Due to Alcohol withdrawal; last one approx. 1 week ago (went to ER).) Thyroid Disease: No - Surgical History Abdominal Surgery: No Appendectomy: No Cardiac Surgery: No Cholecystectomy: Yes (08/27 laproscopic) Lung Surgery: No Neurologic Surgery: No Orthopedic Surgery: Yes (fx, left leg at age 21) - Reproductive History Testicular Surgery: No - Psycho/Social/Smoking Cessation Hx Anxiety: No Suicidal Ideation: No Smoking History: Current every day smoker Have you smoked in the past 12 months: Yes Number of Cigarettes Smoked Daily: 0 If you are a former smoker, when did you quit?: at age 32 Cigars Per Day: 0 Information on smoking cessation initiated: No 'Breaking Loose' booklet given: 05/20/16 Hx Alcohol Use: Yes Drug/Substance Use Hx: Yes Substance Use Type: Alcohol Hx Substance Use Treatment: Yes (Previous Detox admissions at [facility].) <Angeles Block - Last Filed: 09/05/16 02:36> - Past Medical History Allergies/Adverse Reactions: Allergies Allergy/AdvReac Type Severity Reaction Status Date / Time Fish Containing Products Allergy Severe Rash Verified 09/03/16 00:04 No Known Drug Allergies Allergy Verified 09/03/16 00:04 lactose AdvReac Lactose Verified 09/03/16 00:04 Intolerance LACTOSE INTOLERANCE Allergy Nausea Uncoded 09/03/16 00:04 Home Medications: Ambulatory Orders Hydroxyzine HCl [Atarax -] 50 mg PO HS 05/20/16 Fluoxetine HCl [Prozac] 20 mg PO DAILY #30 capsule 07/04/16 Quetiapine Fumarate [Seroquel -] 50 mg PO HS #30 tablet 07/04/16 Fluoxetine HCl [Prozac -] 20 mg PO DAILY #30 cap 09/03/16 Quetiapine Fumarate [Seroquel -] 50 mg PO HS #30 tablet 09/03/16 Tolnaftate 1% Powder [Tinactin] 1 dose TP BID #108 g 09/03/16 Review of Systems - Review of Systems Comments:: 09/03/16 05:15 CONSTITUTIONAL: Absent: fever, chills, diaphoresis, generalized weakness, malaise, loss of appetite HEENT: Absent: rhinorrhea, nasal congestion, throat pain, throat swelling, difficulty swallowing, mouth swelling, ear pain, eye pain, visual changes CARDIOVASCULAR: Absent: chest pain, syncope, palpitations, irregular heart rate, lightheadedness , peripheral edema RESPIRATORY: Absent: cough, shortness of breath, dyspnea with exertion, orthopnea, wheezing, stridor, hemoptysis GASTROINTESTINAL: Absent: abdominal pain, abdominal distension, nausea, vomiting, diarrhea, constipation, melena, hematochezia GENITOURINARY: Absent: dysuria, frequency, urgency, hesitancy, hematuria, flank pain, genital pain MUSCULOSKELETAL: Present: (+) right foot pain, (+) right foot swelling Absent: myalgia SKIN: Absent: rash, itching, pallor HEMATOLOGIC/IMMUNOLOGIC: Absent: easy bleeding, easy bruising, lymphadenopathy, frequent infections ENDOCRINE: Absent: unexplained weight gain, unexplained weight loss, heat intolerance, cold intolerance NEUROLOGIC: Absent: headache, focal weakness or paresthesias, dizziness, seizure, mental status changes, bladder or bowel incontinence PSYCHIATRIC: Absent: anxiety, depression, suicidal or homicidal ideation, hallucinations. <Lisa Wallis - Last Filed: 09/03/16 05:15> *Physical Exam - Vital Signs Last Vital Signs Temp Pulse Resp BP Pulse Ox 98 F 102 H 18 100/60 95 09/03/16 00:06 09/03/16 00:06 09/03/16 00:06 09/03/16 00:06 09/03/16 00:06 - Physical Exam Comments: 09/03/16 05:15 GENERAL: Well developed, well nourished. Awake and alert. No acute distress. (+) Afebrile. HEENT: Normocephalic, atraumatic. PERRLA, EOMI. No conjunctival pallor. Sclera are non- icteric. Moist mucous membranes. Oropharynx is clear. NECK: Supple. Full ROM. No JVD. Carotid pulses 2+ and symmetric, without bruits. No thyromegaly. No lymphadenopathy. CARDIOVASCULAR: Regular rate and rhythm. No murmurs, rubs, or gallops. Distal pulses are 2+ and symmetric. PULMONARY: No evidence of respiratory distress. Lungs clear to auscultation bilaterally. No wheezing, rales or rhonchi. ABDOMINAL: Soft. Non-tender. Non-distended. No rebound or guarding. No organomegaly. Normoactive bowel sounds. MUSCULOSKELETAL Normal range of motion at all joints. No bony deformities or tenderness. No CVA tenderness. EXTREMITIES: (+)Right foot fungal infection between the 1st and 2nd toe. No cyanosis. No clubbing. No edema. No calf tenderness. SKIN: Warm and dry. Normal capillary refill. No rashes. No jaundice. NEUROLOGICAL: Alert, awake, appropriate. Cranial nerves 2-12 intact. No deficits to light touch and temperature in face, upper extremities and lower extremities. No motor deficits in the in face, upper extremities and lower extremities. Normoreflexic in the upper and lower extremities. Normal speech. Toes are down- going bilaterally. PSYCHIATRIC: Cooperative. Good eye contact. Appropriate mood and affect. <Lisa Wallis - Last Filed: 09/03/16 05:15> - Vital Signs Last Vital Signs Temp Pulse Resp BP Pulse Ox 98 F 102 H 18 100/60 95 09/03/16 00:06 09/03/16 00:06 09/03/16 00:06 09/03/16 00:06 09/03/16 00:06 <Angeles Block - Last Filed: 09/05/16 02:36> ED Treatment Course - Medications Given in the ED: ED Medications Discontinued Medications Generic Name Dose Route Start Last Admin Trade Name Rakel PRN Reason Stop Dose Admin Penicillin G Benzathine 2,400,000 unit 09/03/16 03:52 09/03/16 04:05 Bicillin L-A - IM 09/03/16 03:53 2,400,000 unit ONCE ONE Administration <Lisa Wallis - Last Filed: 09/03/16 05:15> Medical Decision Making - Medical Decision Making 09/05/16 02:34 PT COMES WITH ALCOHOL INTOX. HE IS REQUESTING DETOX. EXAM IN THE ER IS NORMAL. HE IS DRUNK. HE HAS OLD FUNGAL INFECTION OF HIS LEFT TOES. HE WILL BE GIVEN ANTIFUNGAL POWDER. I SPOKE TO DR. FUNK, WHO ACCEPTS PATIENT TO DETOX AT [facility] [place], THEY HAVE ONE MORE BED LEFT. <Angeles Block - Last Filed: 09/05/16 02:36> *DC/Admit/Observation/Transfer - Attestations Scribe Attestion: 09/03/16 05:15 Documentation prepared by Lisa Wallis, acting as rn medical surgical for Angeles Block MD. <Lisa Wallis - Last Filed: 09/03/16 05:15> <Angeles Block - Last Filed: 09/05/16 02:36> Diagnosis at time of Disposition: Alcohol dependence - Discharge Dispostion Disposition: I.P. ALCOHOL/SUBS ABUSE REHAB Condition at time of disposition: Stable - Prescriptions Prescriptions: Tolnaftate 1% Powder [Tinactin] 1 dose TP BID #108 g - Patient Instructions Printed Discharge Instructions: DI for Alcohol Abuse, DI for Athlete's Foot
[2016-09-03] MEDS ORDERED: PENICILLIN G BENZATHINE 2,400,000 UNIT/4 ML PFS IM ONE (03:52)
[2016-09-03] MEDS ORDERED: PENICILLIN G BENZATHINE 2,400,000 UNIT/4 ML PFS ONE (04:01)
== END 2016-09-03 04:33 | disposition other institution (70) ==
LOC: JER 23:34
DX: F10.220 Alcohol dependence with intoxication, uncomplicated (principal); B35.3 Tinea pedis
CPT/HCPCS: 96372; 99282-25

== ENCOUNTER 2016-09-03 05:04 | Inpatient (IN) | payer OTHER ==
--- NOTE | 2016-09-03 05:24 | HP ---
CIWA Score - CIWA Score Nausea/Vomitin Muscle Tremors: 3 Anxiety: 3 Agitation: 3 Paroxysmal Sweats: 2 Orientation: 0-Oriented Tacttile Disturbances: 2-Mild Itch/Numbness/Burn Auditory Disturbances: 2-Mild Harshness/Frighten Visual Disturbances: 2-Mild Sensitivity Headache: 2-Mild CIWA-Ar Total Score: 22 Admission ROS BHS - HPI Chief Complaint: i need help to stop drinking alcohol,seen in er [facility] refer for alcohol detox Allergies/Adverse Reactions: Allergies Allergy/AdvReac Type Severity Reaction Status Date / Time Fish Containing Products Allergy Severe Rash Verified 09/03/16 00:04 No Known Drug Allergies Allergy Verified 09/03/16 00:04 lactose AdvReac Lactose Verified 09/03/16 00:04 Intolerance LACTOSE INTOLERANCE Allergy Nausea Uncoded 09/03/16 00:04 History of Present Illness: this 46 years old male with alcohol dependence,withdrawal symptom,seen in [facility] er refer for detox,medically clear last detox [facility] 07/03/16 to 02/03/17 seizure last 6 moths ago no med anxiety and insomnia longest period of sobriety 8 months old injury to right foot 3 weeks ago treated in [facility] wearing special shoe and ambulate with cane Exam Limitations: No Limitations - Ebola screening Have you traveled outside of the country in the last 21 days: No Have you had contact with anyone from an Ebola affected area: No Have you been sick,other than usual withdrawal symptoms: No Do you have a fever: No - Review of Systems Constitutional: Loss of Appetite, Malaise, Night Sweats, Changes in sleep, Weakness EENT: reports: Nose Congestion Respiratory: reports: No Symptoms reported Cardiac: reports: Palpitations GI: reports: Nausea, Vomiting, Abdominal cramping : reports: No Symptoms Reported Musculoskeletal: reports: Back Pain, Muscle Pain, Other (old injury right foot wearnig special shoe and cnae ambulation) Integumentary: reports: Dryness Neuro: reports: Headache, Tremors Endocrine: reports: No Symptoms Reported Hematology: reports: No Symptoms Reported Psychiatric: reports: Anxious (insomnia) Patient History - Patient Medical History Hx Anemia: No Hx Asthma: No Hx Chronic Obstructive Pulmonary Disease (COPD): No Hx Cancer: No Hx Cardiac Disorders: No Hx Congestive Heart Failure: No Hx Hypertension: Yes (Takes medication intermittently.) Hx Hypercholesterolemia: No Hx Pacemaker: No HX Cerebrovascular Accident: No Hx Seizures: Yes (Due to Alcohol withdrawal; last one approx. 1 week ago (went to ER).) Hx Dementia: No Hx Diabetes: No Hx Gastrointestinal Disorders: No Hx Liver Disease: No Hx Genitourinary Disorders: No Hx Sexually Transmitted Disorders: No Hx Renal Disease (ESRD): No Hx Thyroid Disease: No Hx Human Immunodeficiency Virus (HIV): No (NEGATIVE HX lAST 07/29) Hx Hepatitis C: No (NEGATIVE HX, cannot remember when last tested.) Hx Depression: No Hx Suicide Attempt: No (PATIENT DENIES CURRENT SI / HI.) Hx Bipolar Disorder: No Hx Schizophrenia: No Other Medical History: ANXIETY,INSOMNIA,NO SUICIDAL,NO HOMICIDAL - Patient Surgical History Past Surgical History: Yes Hx Neurologic Surgery: No Hx Cataract Extraction: No Hx Cardiac Surgery: No Hx Lung Surgery: No Hx Breast Surgery: No Hx Breast Biopsy: No Hx Abdominal Surgery: No Hx Appendectomy: No Hx Cholecystectomy: Yes (08/27 laproscopic) Hx Genitourinary Surgery: No Hx Section: No Hx Orthopedic Surgery: Yes (fx, left leg at age 21) Anesthesia Reaction: No - PPD History Previous Implant?: Yes Documented Results: Positive w/proof PPD to be Administered?: No - Smoking Cessation Smoking history: Never smoked Aproximately how many cigarettes per day: 0 If you are a former smoker, when did you quit?: at age 32 Cigars Per Day: 0 Hx Chewing Tobacco Use: No - Substance & Tx. History Hx Alcohol Use: Yes Hx Substance Use: No Substance Use Type: Alcohol Hx Substance Use Treatment: Yes ([facility] 07/03/16 TO 02/03/17) - Substances Abused Alcohol Route: Oral Frequency: Daily Amount used: 1 PINT OF VODKA/15 OD 12 OZS OF BEER Age of first use: 17 Date of Last Use: 09/02/16 Family Disease History - Family Disease History Family Disease History: Other: Father (ALCOHOL) Admission Physical Exam BHS - Vital Signs Vital Signs: Vital Signs Temperature 97.1 F L 09/03/16 05:44 Pulse Rate 84 09/03/16 05:44 Respiratory Rate 20 09/03/16 05:44 Blood Pressure 121/83 09/03/16 05:44 O2 Sat by Pulse Oximetry (%) - Physical General Appearance: Yes: Moderate Distress, Tremorous, Irritable, Sweating, Anxious HEENTM: Yes: Normal ENT Inspection, Pharynx Normal, Nasal Congestion Respiratory: Yes: Lungs Clear, Normal Breath Sounds, No Respiratory Distress Neck: Yes: Supple, Trachea in good position Breast: Yes: Within Normal Limits Cardiology: Yes: Within Normal Limits, Regular Rhythm, Regular Rate, S1, S2 Abdominal: Yes: Normal Bowel Sounds, Non Tender, Flat, Soft, Surgical Scar Genitourinary: Yes: Within Normal Limits Back: Yes: Muscle Spasm Musculoskeletal: Yes: Back pain, Muscle Pain Extremities: Yes: Within Normal Limits, Normal Range of Motion, Tremors Neurological: Yes: mental health program manager II-XII NML intact, Fully Oriented, Alert, Motor Strength 5/5 Integumentary: Yes: Dry Lymphatic: Yes: Within Normal Limits - Diagnostic (1) Alcohol dependence with withdrawal, uncomplicated Current Visit: No Status: Chronic (2) Alcohol dependence with uncomplicated intoxication Current Visit: No Status: Acute (3) Right foot injury Current Visit: Yes Status: Acute (4) Use of cane as ambulatory aid Current Visit: Yes Status: Acute (5) History of seizure Current Visit: No Status: Suspected (6) Anxiety Current Visit: Yes Status: Acute Cleared for Admission [facility] - Detox or Rehab [facility] Level of Care: Medically Managed Detox Regimen/Protocol: Librium [facility] Breath Alcohol Content Breath Alcohol Content: 0.094 Vital Signs - Vital Signs Vital Signs Refused: No Temperature: 97.1 F Temperature Source: Oral Pulse Rate: 84 Respiratory Rate: 20 Blood Pressure: 121/83 BP Location: Left Arm - Height Height: 5 ft 6 in - Weight Weight: 196 lb Body Mass Index (BMI): 31.6 Urine Drug Screen - Test Device Lot Number: [id number] Expiration Date: 04/13/18 - Control Is Test Valid: Yes - Results Drug Screen Negative: No Urine Drug Screen Results: OPI-Opiates, BZO-Benzodiazepines
[2016-09-03 05:44] VITALS: BMI 31.6
[2016-09-03] MEDS ORDERED: LOPERAMIDE HCL 2 MG CAPSULE PO PRN (05:54)
[2016-09-03] MEDS ORDERED: guaiFENesin/D-METHORPHAN HB 10 ML UNIT-DOSE CUPS PO PRN (05:54)
[2016-09-03] MEDS ORDERED: MAGNESIUM HYDROX 2400MG/30ML ORAL SUSPENSION 30 ML CUP PO PRN (05:54)
[2016-09-03] MEDS ORDERED: P-EPHED 60MG/TRIPROLIDI 2.5MG TABLET PO PRN (05:54)
[2016-09-03] MEDS ORDERED: chlordiazePOXIDE HCL 25 MG CAPSULE PO ONE (05:54)
[2016-09-03] MEDS ORDERED: MENTHOL/PHENOL 1 EACH UD MM PRN (05:54)
[2016-09-03] MEDS ORDERED: MAGNESIUM CITRATE 300 ML BOTTLE PO PRN (05:54)
--- NOTE | 2016-09-03 06:01 | PN ---
S Progress Note Note: ADDENDUM URINE FOR DRUG SCREEN SHOWED POSITIVE FOR OPIATE,TCA,PATIENT DENIED OPIATE DEPENDENCE, PSTATED THAT I AM ALCOHOLIC AND NEED HELP TO STOP DRINKING
--- NOTE | 2016-09-03 10:06 | EKG ---
Test Reason : Blood Pressure : / mmHG Vent. Rate : 071 BPM Atrial Rate : 071 BPM P-R Int : 172 ms QRS Dur : 094 ms QT Int : 406 ms P-R-T Axes : 064 023 044 degrees QTc Int : 441 ms NORMAL SINUS RHYTHM NORMAL ECG WHEN COMPARED WITH ECG OF 03-JUL-2016 12:53, VENT. RATE HAS DECREASED BY 37 BPM CRITERIA FOR INFERIOR INFARCT ARE NO LONGER PRESENT Confirmed by RICHARD PARSONS MD ([id number]) on 09/03/2016 10:05:44 AM Referred By: Confirmed By:RICHARD PARSONS MD
[2016-09-03] MEDS: ACETAMINOPHEN 325 MG TABLET (FP) PO PRN ×2 (10:10→17:46)
[2016-09-03] MEDS: PRENATAL VITAMINS W/ FOLIC ACID TABLET (FP) PO SCH (10:11)
[2016-09-03] MEDS: chlordiazePOXIDE HCL 25 MG CAPSULE PO SCH ×3 (10:12→22:01)
[2016-09-03 10:23] LABS: MCH 26.4 pg (25.7-33.7); MCHC 32.3 g/dl (32.0-35.9); MEAN CELL VOLUME 81.8 fl (80-96); MEAN PLT VOLUME 8.9 fl (7.5-11.1); PLATELET COUNT 93 K/MM3 (134-434); RDW 17.7 % (11.9-15.9); WHITE BLOOD COUNT 2.8 K/mm3 (4.0-10.0)
[2016-09-03 11:17] LABS: ALBUMIN 3.7 g/dl (3.4-5.0); ALK PHOS 125 U/L (45-117); ANION GAP 11 (8-16); BILIRUBIN,TOTAL 0.4 mg/dL (0.2-1.0); CO2 23 mmol/L (21-32); COCKROFT - GAULT 197.56; CREATININE 0.6 mg/dL (0.7-1.3); GLUCOSE,RANDOM 96 mg/dL (74-106); SGOT/AST 289 U/L (15-37); SGPT/ALT 149 U/L (12-78); TOT PROT 8.2 g/dl (6.4-8.2)
--- NOTE | 2016-09-03 12:26 | CONSULT ---
[facility] Psychiatric Consult - Data Date of interview: 09/03/16 Admission source: [facility] Identifying data: This is 46 years oold male with no psychiatroic hospoitalization history, jhistory of Bipolar Disorder, intoxicated with Alcohol , Cocaine and Opioids Substance Abuse History: - Smoking Cessation. Smoking history: Never smoked. Aproximately how many cigarettes per day: 0. If you are a former smoker, when did you quit?: at age 32. Cigars Per Day: 0. Hx Chewing Tobacco Use: No. - Substance & Tx. History. Hx Alcohol Use: Yes. Hx Substance Use: No. Substance Use Type: Alcohol. Hx Substance Use Treatment: Yes ([facility] 07/03/16 TO 02/03/17). - Substances Abused. Alcohol. Route: Oral. Frequency: Daily. Amount used: 1 PINT OF VODKA/15 OD 12 OZS OF BEER. Age of first use: 17. Date of Last Use: 09/02/16 Medical History: HTN, Syncope history, Seizure history, Right foot injury, patient using cane for ambulating, Psychiatric History: Patient reports history of anxiety, reports using prior to admission: Seroquel 5mg po qhs. Prozac 20mg poqd Physical/Sexual Abuse/Trauma History: Denies Additional Comment: Seroquel 5mg po qhs. Prozac 20mg poqd Mental Status Exam - Mental Status Exam Alert and Oriented to: Person Cognitive Function: Fair Patient Appearance: Well Groomed Mood: Anxious Affect: Mood Congruent Patient Behavior: Cooperative Speech Pattern: Appropriate Voice Loudness: Normal Thought Process: Circumstantial Thought Disorder: Being Controlled Hallucinations: Denies Suicidal Ideation: Denies Homicidal Ideation: Denies Insight/Judgement: Fair Sleep: Difficulty falling asleep Appetite: Weight gain Muscle strength/Tone: Mild Hypertonicity Gait/Station: Other Additional Comments: Seroquel 5mg po qhs. Prozac 20mg poqd Psychiatric Findings - Problem List ([place] 1, 2,3) (1) Anxiety Current Visit: Yes Status: Acute (2) Alcohol dependence with uncomplicated intoxication Current Visit: No Status: Acute (3) Alcohol intoxication Current Visit: No Status: Acute (4) Alcohol-induced anxiety disorder Current Visit: No Status: Acute (5) Cocaine dependence Current Visit: No Status: Acute Qualifiers: Substance use status: uncomplicated Qualified Code(s): F14.20 - Cocaine dependence, uncomplicated (6) Drug-induced mood disorder Current Visit: No Status: Acute (7) Heroin dependence Current Visit: No Status: Acute (8) Substance-induced anxiety disorder Current Visit: No Status: Acute (9) Alcohol dependence Current Visit: No Status: Chronic (10) Alcohol dependence with withdrawal, uncomplicated Current Visit: No Status: Chronic (11) Bipolar disorder Current Visit: No Status: Chronic (12) Cocaine abuse Current Visit: No Status: Chronic - Initial Treatment Plan Initial Treatment Plan: Seroquel 5mg po qhs. Prozac 20mg poqd
[2016-09-03] MEDS: chlordiazePOXIDE HCL 25 MG CAPSULE PO PRN (13:06)
[2016-09-03] MEDS: FLUoxetine HCL 20 MG CAPSULE (FP) PO SCH (13:06)
[2016-09-03] MEDS: IBUPROFEN 400 MG TABLET (FP) PO PRN ×2 (13:07→22:03)
[2016-09-03 19:18] LABS: URINE APPEARANCE CLEAR; URINE BILIRUBIN NEGATIVE (NEGATIVE); URINE BLOOD NEGATIVE (NEGATIVE); URINE COLOR YELLOW; URINE GLUCOSE (UA) NEGATIVE (NEGATIVE); URINE KETONE NEGATIVE (NEGATIVE); URINE LEUK ESTERASE NEGATIVE (NEGATIVE); URINE NITRITE NEGATIVE (NEGATIVE); URINE PROTEIN NEGATIVE (NEGATIVE); URINE UROBILINOGEN NEGATIVE E.U./dl (0.2-1.0)
[2016-09-03] MEDS: THIAMINE HCL 100 MG TABLET (FP) PO SCH (22:01)
[2016-09-03] MEDS: QUEtiapine FUMARATE 100 MG TABLET (FP) PO SCH (22:02)
[2016-09-03] MEDS: diphenhydrAMINE HCL 50 MG CAPSULE PO PRN (22:04)
[2016-09-04] MEDS: chlordiazePOXIDE HCL 25 MG CAPSULE PO SCH ×4 (05:31→22:11)
[2016-09-04] MEDS: ACETAMINOPHEN 325 MG TABLET (FP) PO PRN (05:32)
[2016-09-04] MEDS: FLUoxetine HCL 20 MG CAPSULE (FP) PO SCH (10:15)
[2016-09-04] MEDS: PRENATAL VITAMINS W/ FOLIC ACID TABLET (FP) PO SCH (10:15)
[2016-09-04] MEDS: IBUPROFEN 400 MG TABLET (FP) PO PRN ×2 (10:17→17:27)
[2016-09-04] MEDS: MAG HYDROX/AL HYDROX/SIMETH 30 ML UNIT-DOSE CUP PO PRN ×2 (10:17→17:33)
--- NOTE | 2016-09-04 12:40 | PN ---
[facility] CIWA - CIWA Score Nausea/Vomitin-Mild Nausea/No Vomiting Muscle Tremors: 4-Moderate,w/Arms Extend Anxiety: 4-Mod. Anxious/Guarded Agitation: 4-Moderately Restless Paroxysmal Sweats: No Perspiration Orientation: 0-Oriented Tacttile Disturbances: 1-Very Mild Itch/Numbness Auditory Disturbances: 0-None Visual Disturbances: 0-None Headache: 1-Very Mild CIWA-Ar Total Score: 15 BHS Progress Note (SOAP) Subjective: Sweating, nausea, tremor, chills; c/o right foot pain (pain scale 7/10) stated he fell outside couple days prior to coming to detox. He reports having xray of his right foot done at [facility] 2 days ago which was negative. Objective: 09/04/16 12:37 Last Vital Signs Temp Pulse Resp BP Pulse Ox 98.9 F 66 18 146/99 09/04/16 09:06 09/04/16 09:06 09/04/16 09:06 09/04/16 09:06 PE: Right foot mild swelling, ppp in both feet, no redness noted, FROM, toenails elongated Laboratory Tests 09/03/16 09/03/16 09/03/16 07:50 07:50 07:50 WBC 2.8 L D RBC 4.46 Hgb 11.8 D Hct 36.5 MCV 81.8 MCHC 32.3 RDW 17.7 H Plt Count 93 L MPV 8.9 Sodium 141 Potassium 3.7 Chloride 107 Carbon Dioxide 23 Anion Gap 11 BUN 5 L D Creatinine 0.6 L Creat Clearance w eGFR > 60 Random Glucose 96 Calcium 8.0 L Total Bilirubin 0.4 D AST 289 H D ALT 149 H D Alkaline Phosphatase 125 H Total Protein 8.2 Albumin 3.7 Urine Color Urine Appearance Urine pH Ur Specific [place] Urine Protein Urine Glucose (UA) Urine Ketones Urine Blood Urine Nitrite Urine Bilirubin Urine Urobilinogen Ur Leukocyte Esterase RPR Titer Reactive 1:1 H T.pallidum Ab (MHA) Previously reactive 09/03/16 11:55 WBC RBC Hgb Hct MCV MCHC RDW Plt Count MPV Sodium Potassium Chloride Carbon Dioxide Anion Gap BUN Creatinine Creat Clearance w eGFR Random Glucose Calcium Total Bilirubin AST ALT Alkaline Phosphatase Total Protein Albumin Urine Color Yellow Urine Appearance Clear Urine pH 5.0 Ur Specific [place] 1.018 Urine Protein Negative Urine Glucose (UA) Negative Urine Ketones Negative Urine Blood Negative Urine Nitrite Negative Urine Bilirubin Negative Urine Urobilinogen Negative Ur Leukocyte Esterase Negative RPR Titer T.pallidum Ab (A) Labs noted Assessment: 09/04/16 12:39 Withdrawal symptoms C/O right foot pain/swelling after he fell couple days prior to coming to detox Plan: Continue detox Right foot swelling/pain: encouraged motrin prn, instructed to elevate right foot on blankets/pillow while in bed, continue to monitor. Xray done at [facility] as per patient which was negative.
[2016-09-04] MEDS: chlordiazePOXIDE HCL 25 MG CAPSULE PO PRN (13:09)
[2016-09-04] MEDS: hydrOXYzine PAMOATE 50 MG CAPSULE (FP) PO PRN ×2 (14:07→18:06)
[2016-09-04] MEDS ORDERED: ONDANSETRON *ODT* 4 MG TABLET SL PRN (19:30)
[2016-09-04] MEDS: diphenhydrAMINE HCL 50 MG CAPSULE PO PRN (22:11)
[2016-09-04] MEDS: QUEtiapine FUMARATE 100 MG TABLET (FP) PO SCH (22:11)
[2016-09-04] MEDS: THIAMINE HCL 100 MG TABLET (FP) PO SCH (22:11)
[2016-09-05] MEDS: chlordiazePOXIDE HCL 25 MG CAPSULE PO SCH (05:44)
[2016-09-05 06:08] VITALS: BP 142/99; PULSE 71; TEMP 96
--- NOTE | 2016-09-05 07:42 | PN ---
[facility] Progress Note Note: MD'S NOTE: INFORMED AT ABOUT 7:15AM THAT THE PT. WANTS TO SIGN OUT AMA BECAUSE OF FAMILY EMERGENCY SO, THE PT. SIGNED OUT AMA AND ABOUT TO LEAVE THE FACILITY SOON. RECOMMENDED: TO F/U WITH PMD AND OUT PT. PROGRAMS. PROVIDER: FEDERICO HIGGINS MD
[2016-09-05] MEDS ORDERED: chlordiazePOXIDE 5 MG CAPSULE PO SCH (11:00)
[2016-09-06] MEDS ORDERED: chlordiazePOXIDE HCL 10 MG CAPSULE PO SCH (11:00)
--- NOTE | 2016-09-06 13:01 | DS ---
[facility] Detox Discharge Summary Admission Date: 09/03/16 Discharge Date: 09/05/16 - History Present History: Alcohol Dependence Pertinent Past History: GERD HTN - Physical Exam Results Vital Signs: Vital Signs Temperature 96 F L 09/05/16 06:06 Pulse Rate 71 09/05/16 06:06 Respiratory Rate 18 09/05/16 06:06 Blood Pressure 142/99 09/05/16 06:06 O2 Sat by Pulse Oximetry (%) Pertinent Admission Physical Exam Findings: Withdrawal sx. Laboratory Tests 09/03/16 09/03/16 09/03/16 07:50 07:50 07:50 WBC 2.8 L D RBC 4.46 Hgb 11.8 D Hct 36.5 MCV 81.8 MCHC 32.3 RDW 17.7 H Plt Count 93 L MPV 8.9 Sodium 141 Potassium 3.7 Chloride 107 Carbon Dioxide 23 Anion Gap 11 BUN 5 L D Creatinine 0.6 L Creat Clearance w eGFR > 60 Random Glucose 96 Calcium 8.0 L Total Bilirubin 0.4 D AST 289 H D ALT 149 H D Alkaline Phosphatase 125 H Total Protein 8.2 Albumin 3.7 Urine Color Urine Appearance Urine pH Ur Specific [place] Urine Protein Urine Glucose (UA) Urine Ketones Urine Blood Urine Nitrite Urine Bilirubin Urine Urobilinogen Ur Leukocyte Esterase RPR Titer Reactive 1:1 H T.pallidum Ab (A) Previously reactive 09/03/16 11:55 WBC RBC Hgb Hct MCV MCHC RDW Plt Count MPV Sodium Potassium Chloride Carbon Dioxide Anion Gap BUN Creatinine Creat Clearance w eGFR Random Glucose Calcium Total Bilirubin AST ALT Alkaline Phosphatase Total Protein Albumin Urine Color Yellow Urine Appearance Clear Urine pH 5.0 Ur Specific [place] 1.018 Urine Protein Negative Urine Glucose (UA) Negative Urine Ketones Negative Urine Blood Negative Urine Nitrite Negative Urine Bilirubin Negative Urine Urobilinogen Negative Ur Leukocyte Esterase Negative RPR Titer T.pallidum Ab (MHA) labs noted - Medication Discharge Medications: Ambulatory Orders Hydroxyzine HCl [Atarax -] 50 mg PO HS 05/20/16 Fluoxetine HCl [Prozac] 20 mg PO DAILY #30 capsule 07/04/16 Quetiapine Fumarate [Seroquel -] 50 mg PO HS #30 tablet 07/04/16 Fluoxetine HCl [Prozac -] 20 mg PO DAILY #30 cap 09/03/16 Quetiapine Fumarate [Seroquel -] 50 mg PO HS #30 tablet 09/03/16 Tolnaftate 1% Powder [Tinactin] 1 dose TP BID #108 g 09/03/16 - Diagnosis (1) Alcohol dependence with withdrawal, uncomplicated Status: Acute (2) GERD (gastroesophageal reflux disease) Status: Chronic Qualifiers: Esophagitis presence: without esophagitis Qualified Code(s): K21.9 - Gastro-esophageal reflux disease without esophagitis (3) HTN (hypertension) Status: Chronic Qualifiers: Hypertension type: essential hypertension Qualified Code(s): I10 - Essential (primary) hypertension - AMA Did Patient Leave Against Medical Advice: Yes
== END 2016-09-05 07:40 | disposition left against medical advice (07) | DRG 770 ==
LOC: YASAS 05:04 → Y3N 05:28
PROVIDERS: ADMIT Internal Medicine; ATTEND Internal Medicine
PROC: HZ2ZZZZ Detoxification Services for Substance Abuse Treatment (ICD-10-PCS; principal; 2016-09-03)
DX: F10.230 Alcohol dependence with withdrawal, uncomplicated (principal); F10.280 Alcohol dependence with alcohol-induced anxiety disorder; F14.20 Cocaine dependence, uncomplicated; F11.20 Opioid dependence, uncomplicated; F19.24 Other psychoactive substance dependence with psychoactive substance-induced mood disorder; F19.280 Other psychoactive substance dependence with psychoactive substance-induced anxiety disorder; F31.9 Bipolar disorder, unspecified; F41.9 Anxiety disorder, unspecified; G47.00 Insomnia, unspecified; I10 Essential (primary) hypertension; R26.2 Difficulty in walking, not elsewhere classified; M79.671 Pain in right foot; Z86.69 Personal history of other diseases of the nervous system and sense organs
CPT/HCPCS: 36415; 80053; 81003; 85027; 86593; 86780; 93005; 93010

== ENCOUNTER 2016-10-11 10:06 | Inpatient (IN) | payer OTHER ==
[2016-10-11 11:00] VITALS: BMI 29.5
--- NOTE | 2016-10-11 12:27 | HP ---
CIWA Score - CIWA Score Nausea/Vomitin-No Nausea/No Vomiting Muscle Tremors: 4-Moderate,w/Arms Extend Anxiety: 3 Agitation: 4-Moderately Restless Paroxysmal Sweats: 3 Orientation: 0-Oriented Tacttile Disturbances: 0-None Auditory Disturbances: 0-None Visual Disturbances: 0-None Headache: 0-None Present CIWA-Ar Total Score: 14 Admission ROS S - HPI Chief Complaint: I am here for detox. Allergies/Adverse Reactions: Allergies Allergy/AdvReac Type Severity Reaction Status Date / Time Fish Containing Products Allergy Severe Rash Verified 10/11/16 11:12 No Known Drug Allergies Allergy Verified 10/11/16 11:12 lactose AdvReac Lactose Verified 10/11/16 11:12 Intolerance LACTOSE INTOLERANCE AdvReac Nausea Uncoded 10/11/16 11:11 History of Present Illness: pt is a 46yr old male with a history of alcohol dependence seeking detox for treatment. Exam Limitations: No Limitations - Ebola screening Have you traveled outside of the country in the last 21 days: No Have you had contact with anyone from an Ebola affected area: No Have you been sick,other than usual withdrawal symptoms: No Do you have a fever: No - Review of Systems Constitutional: No Symptoms Reported EENT: reports: No Symptoms Reported Respiratory: reports: No Symptoms reported Cardiac: reports: No Symptoms Reported GI: reports: No Symptoms Reported : reports: No Symptoms Reported Musculoskeletal: reports: No Symptoms Reported Integumentary: reports: Flushing, Sweating Neuro: reports: Seizure (six months ago last seizure), Tingling, Tremors Endocrine: reports: Excessive Sweating, Flushing, Intolerance to Cold, Intolerance to Heat Hematology: reports: No Symptoms Reported Psychiatric: reports: Judgement Intact, Mood/Affect Appropiate, Orientated x3, Agitated, Anxious Other Systems: Reviewed and Negative Patient History - Patient Medical History Hx Anemia: No Hx Asthma: No Hx Chronic Obstructive Pulmonary Disease (COPD): No Hx Cancer: No Hx Cardiac Disorders: No Hx Congestive Heart Failure: No Hx Hypertension: No Hx Hypercholesterolemia: No Hx Pacemaker: No HX Cerebrovascular Accident: No Hx Seizures: Yes (alcohol related-last episode was 6 mos. ago) Hx Dementia: No Hx Diabetes: No Hx Gastrointestinal Disorders: No Hx Liver Disease: No Hx Genitourinary Disorders: No Hx Sexually Transmitted Disorders: Yes (syphilis) Hx Renal Disease (ESRD): No Hx Thyroid Disease: No Hx Human Immunodeficiency Virus (HIV): No (NEGATIVE HX lAST 07/29) Hx Hepatitis C: No (NEGATIVE HX, cannot remember when last tested.) Hx Depression: No Hx Suicide Attempt: No Hx Bipolar Disorder: No Hx Schizophrenia: No - Patient Surgical History Past Surgical History: Yes Hx Neurologic Surgery: No Hx Cataract Extraction: No Hx Cardiac Surgery: No Hx Lung Surgery: No Hx Breast Surgery: No Hx Breast Biopsy: No Hx Abdominal Surgery: No Hx Appendectomy: No Hx Cholecystectomy: Yes (08/27 laproscopic) Hx Genitourinary Surgery: No Hx Section: No Hx Orthopedic Surgery: Yes (fx, left leg at age 21) Anesthesia Reaction: No - PPD History Previous Implant?: Yes Documented Results: Positive w/o proof Results: cxray(-), 04/29 PPD to be Administered?: No - Reproductive History Patient is a Female of Child Bearing Age (11 -55 yrs old): No - Smoking Cessation Smoking history: Never smoked Have you smoked in the past 12 months: No Aproximately how many cigarettes per day: 0 If you are a former smoker, when did you quit?: at age 32 Cigars Per Day: 0 Hx Chewing Tobacco Use: No Initiated information on smoking cessation: No - Substance & Tx. History Hx Alcohol Use: Yes Substance Use Type: Alcohol Hx Substance Use Treatment: Yes - Substances Abused Alcohol-beer Route: Oral Frequency: Daily Amount used: 3-4 6 pks. Age of first use: 17 Date of Last Use: 10/10/16 Family Disease History - Family Disease History Family Disease History: Other: Father (ALCOHOL) Admission Physical Exam BHS - Vital Signs Vital Signs: Vital Signs - 24 hr 10/11/16 10:58 Temperature 96.4 F L Pulse Rate 95 H Respiratory 20 Rate Blood Pressure 105/67 - Physical General Appearance: Yes: Appropriately Dressed, Moderate Distress, Tremorous, Irritable, Sweating, Anxious HEENTM: Yes: Normal Voice, Nasal Congestion Respiratory: Yes: Lungs Clear, Normal Breath Sounds, No Respiratory Distress Neck: Yes: No masses,lesions,Nodules Breast: Yes: Within Normal Limits Cardiology: Yes: Regular Rhythm, Regular Rate, S1, S2 Abdominal: Yes: Normal Bowel Sounds, Non Tender, Soft Genitourinary: Yes: Within Normal Limits Back: Yes: Normal Inspection Musculoskeletal: Yes: full range of Motion Extremities: Yes: Normal Capillary Refill, Normal Inspection, Tremors Neurological: Yes: Fully Oriented, Alert, Normal Response Integumentary: Yes: Normal Color, Diaphoresis Lymphatic: Yes: Within Normal Limits - Diagnostic (1) Alcohol dependence with withdrawal, uncomplicated Current Visit: Yes Status: Chronic (2) History of seizure Current Visit: No Status: Suspected Cleared for Admission [facility] - Detox or Rehab [facility] Level of Care: Medically Managed Detox Regimen/Protocol: Librium [facility] Breath Alcohol Content Breath Alcohol Content: 0.066 Urine Drug Screen - Results Drug Screen Negative: No Urine Drug Screen Results: BZO-Benzodiazepines
[2016-10-11] MEDS ORDERED: LOPERAMIDE HCL 2 MG CAPSULE PO PRN (12:32)
[2016-10-11] MEDS ORDERED: MENTHOL/PHENOL 1 EACH UD MM PRN (12:32)
[2016-10-11] MEDS ORDERED: MAG HYDROX/AL HYDROX/SIMETH 30 ML UNIT-DOSE CUP PO PRN (12:32)
[2016-10-11] MEDS ORDERED: MAGNESIUM HYDROX 2400MG/30ML ORAL SUSPENSION 30 ML CUP PO PRN (12:32)
[2016-10-11] MEDS ORDERED: P-EPHED 60MG/TRIPROLIDI 2.5MG TABLET PO PRN (12:32)
[2016-10-11] MEDS ORDERED: guaiFENesin/D-METHORPHAN HB 10 ML UNIT-DOSE CUPS PO PRN (12:32)
[2016-10-11] MEDS ORDERED: hydrOXYzine PAMOATE 50 MG CAPSULE (FP) PO PRN (12:32)
[2016-10-11] MEDS ORDERED: ACETAMINOPHEN 325 MG TABLET (FP) PO PRN (12:32)
[2016-10-11] MEDS ORDERED: diphenhydrAMINE HCL 50 MG CAPSULE PO PRN (12:32)
[2016-10-11] MEDS ORDERED: MAGNESIUM CITRATE 300 ML BOTTLE PO PRN (12:32)
[2016-10-11] MEDS ORDERED: chlordiazePOXIDE HCL 25 MG CAPSULE PO PRN (12:32)
[2016-10-11] MEDS ORDERED: chlordiazePOXIDE HCL 25 MG CAPSULE PO ONE (14:03)
[2016-10-11] MEDS: chlordiazePOXIDE HCL 25 MG CAPSULE PO SCH ×2 (17:41→22:19)
[2016-10-11 18:44] LABS: URINE APPEARANCE CLEAR; URINE BILIRUBIN NEGATIVE (NEGATIVE); URINE BLOOD NEGATIVE (NEGATIVE); URINE COLOR LTYELLOW; URINE GLUCOSE (UA) NEGATIVE (NEGATIVE); URINE KETONE NEGATIVE (NEGATIVE); URINE LEUK ESTERASE NEGATIVE (NEGATIVE); URINE NITRITE NEGATIVE (NEGATIVE); URINE PROTEIN NEGATIVE (NEGATIVE); URINE UROBILINOGEN NEGATIVE E.U./dl (0.2-1.0)
[2016-10-11] MEDS: THIAMINE HCL 100 MG TABLET (FP) PO SCH (22:19)
[2016-10-12] MEDS: chlordiazePOXIDE HCL 25 MG CAPSULE PO SCH ×4 (05:23→22:28)
--- NOTE | 2016-10-12 09:54 | CONSULT ---
[facility] Psychiatric Consult - Data Date of interview: 10/12/16 Admission source: [facility] Identifying data: This is 46 years old male with no psychiatric hospitalization history intoxicated with Alcohol Substance Abuse History: - Smoking Cessation. Smoking history: Never smoked. Have you smoked in the past 12 months: No. Aproximately how many cigarettes per day: 0. If you are a former smoker, when did you quit?: at age 32. Cigars Per Day: 0. Hx Chewing Tobacco Use: No. Initiated information on smoking cessation: No. - Substance & Tx. History. Hx Alcohol Use: Yes. Substance Use Type: Alcohol. Hx Substance Use Treatment: Yes. - Substances Abused. Alcohol-beer. Route: Oral. Frequency: Daily. Amount used: 3-4 6 pks. Age of first use: 17. Date of Last Use: 10/10/16 Medical History: Seizure history Psychiatric History: Patient reprots history of depression and anxiety, reports taking prior to admsision: Seroquel 50mg po qhs. Prozac 20mg poqd. Vistaril 50mg p[o qhs Physical/Sexual Abuse/Trauma History: Denies Additional Comment: Seroquel 50mg po qhs. Prozac 20mg poqd. Vistaril 50mg p[o qhs Mental Status Exam - Mental Status Exam Alert and Oriented to: Person Cognitive Function: Fair Patient Appearance: Unkempt Mood: Anxious Affect: Mood Congruent Patient Behavior: Cooperative Speech Pattern: Delayed Voice Loudness: Mildly Soft/Quiet Thought Process: Circumstantial Thought Disorder: Being Controlled Hallucinations: Denies Suicidal Ideation: Denies Homicidal Ideation: Denies Insight/Judgement: Fair Sleep: Difficulty falling asleep Appetite: Weight loss Muscle strength/Tone: Mild Hypotonicity Gait/Station: Shuffling Additional Comments: Seroquel 50mg po qhs. Prozac 20mg poqd. 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 Prozac 20mg poqd. Vistaril 50mg p[o qhs
[2016-10-12] MEDS ORDERED: FLUoxetine HCL 20 MG CAPSULE (FP) PO SCH (10:00)
[2016-10-12] MEDS ORDERED: PRENATAL VITAMINS W/ FOLIC ACID TABLET (FP) PO SCH (10:00)
[2016-10-12 10:09] LABS: MCH 26.2 pg (25.7-33.7); MCHC 32.1 g/dl (32.0-35.9); MEAN CELL VOLUME 81.5 fl (80-96); MEAN PLT VOLUME 9.6 fl (7.5-11.1); PLATELET COUNT 101 K/MM3 (134-434); RDW 17.5 % (11.9-15.9); WHITE BLOOD COUNT 4.4 K/mm3 (4.0-10.0)
[2016-10-12 10:40] LABS: ALBUMIN 4.1 g/dl (3.4-5.0); ALK PHOS 118 U/L (45-117); ANION GAP 12 (8-16); BILIRUBIN,TOTAL 0.5 mg/dL (0.2-1.0); CALCIUM 8.7 mg/dL (8.5-10.1); CO2 25 mmol/L (21-32); CREATININE 0.7 mg/dL (0.7-1.3); GLUCOSE,RANDOM 85 mg/dL (74-106); SGOT/AST 165 U/L (15-37); SGPT/ALT 97 U/L (12-78); TOT PROT 8.5 g/dl (6.4-8.2)
--- NOTE | 2016-10-12 10:46 | PN ---
S CIWA - CIWA Score Nausea/Vomitin-No Nausea/No Vomiting Muscle Tremors: 4-Moderate,w/Arms Extend Anxiety: 3 Agitation: 4-Moderately Restless Paroxysmal Sweats: 3 Orientation: 0-Oriented Tacttile Disturbances: 0-None Auditory Disturbances: 0-None Visual Disturbances: 0-None Headache: 0-None Present CIWA-Ar Total Score: 14 BHS Progress Note (SOAP) Subjective: sweats shakes interrupted sleep agitation Objective: 10/12/16 10:43 Vital Signs Temperature 97.2 F L 10/12/16 10:00 Pulse Rate 80 10/12/16 10:00 Respiratory Rate 18 10/12/16 10:00 Blood Pressure 124/78 10/12/16 10:00 O2 Sat by Pulse Oximetry (%) Laboratory Tests 10/11/16 10/12/16 10/12/16 14:00 06:00 06:00 WBC 4.4 D RBC 4.49 Hgb 11.8 Hct 36.6 MCV 81.5 MCHC 32.1 RDW 17.5 H Plt Count 101 L MPV 9.6 Sodium 137 Potassium 3.4 L Chloride 100 Carbon Dioxide 25 Anion Gap 12 BUN 8 D Creatinine 0.7 Creat Clearance w eGFR > 60 Random Glucose 85 Calcium 8.7 Total Bilirubin 0.5 D AST 165 H D ALT 97 H D Alkaline Phosphatase 118 H Total Protein 8.5 H Albumin 4.1 Urine Color Ltyellow Urine Appearance Clear Urine pH 5.0 Ur Specific [place] <= 1.005 Urine Protein Negative Urine Glucose (UA) Negative Urine Ketones Negative Urine Blood Negative Urine Nitrite Negative Urine Bilirubin Negative Urine Urobilinogen Negative Ur Leukocyte Esterase Negative elevated ast/alt; tylenol d/c repeat labs potassium 3.4; k-dur 20meq x 4 days awake/alert ambulating no acute distress Assessment: 10/12/16 10:45 withdrawal sx Plan: continue detox increase fluids f/u pending labs
--- NOTE | 2016-10-12 11:59 | EKG ---
Test Reason : Blood Pressure : / mmHG Vent. Rate : 067 BPM Atrial Rate : 067 BPM P-R Int : 168 ms QRS Dur : 098 ms QT Int : 406 ms P-R-T Axes : 059 021 053 degrees QTc Int : 429 ms NORMAL SINUS RHYTHM NORMAL ECG WHEN COMPARED WITH ECG OF 03-SEP-2016 05:26, NO SIGNIFICANT CHANGE WAS FOUND Confirmed by CAREY CLINE MD ([id number]) on 10/12/2016 11:59:14 AM Referred By: Confirmed By:CAREY CLINE MD
[2016-10-12] MEDS: IBUPROFEN 400 MG TABLET (FP) PO PRN ×2 (17:38→23:30)
[2016-10-12] MEDS ORDERED: QUEtiapine FUMARATE 50 MG TABLET PO SCH (22:00)
[2016-10-12] MEDS ORDERED: hydrOXYzine PAMOATE 50 MG CAPSULE (FP) PO SCH (22:00)
[2016-10-12] MEDS: THIAMINE HCL 100 MG TABLET (FP) PO SCH (22:28)
[2016-10-13] MEDS: chlordiazePOXIDE HCL 25 MG CAPSULE PO SCH (06:03)
[2016-10-13 06:24] VITALS: BP 109/60; PULSE 64; TEMP 96.9
--- NOTE | 2016-10-13 08:12 | PN ---
S CIWA - CIWA Score Nausea/Vomitin Muscle Tremors: 3 Anxiety: 2 Agitation: 2 Paroxysmal Sweats: 1-Minimal Palms Moist Orientation: 0-Oriented Tacttile Disturbances: 1-Very Mild Itch/Numbness Auditory Disturbances: 1-Very Mild Visual Disturbances: 1-Very Mild Sensitivity Headache: 2-Mild CIWA-Ar Total Score: 16 S Progress Note (SOAP) Subjective: alert,irritable,anxious,interrupted sleep,tremor Objective: 10/13/16 08:11 Vital Signs Temperature 96.9 F L 10/13/16 06:24 Pulse Rate 64 10/13/16 06:24 Respiratory Rate 16 10/13/16 06:24 Blood Pressure 109/60 10/13/16 06:24 O2 Sat by Pulse Oximetry (%) Laboratory Last Values WBC 4.4 K/mm3 (4.0-10.0) D 10/12/16 06:00 RBC 4.49 M/mm3 (4.00-5.60) 10/12/16 06:00 Hgb 11.8 GM/dL (11.7-16.9) 10/12/16 06:00 Hct 36.6 % (35.4-49) 10/12/16 06:00 MCV 81.5 fl (80-96) 10/12/16 06:00 MCHC 32.1 g/dl (32.0-35.9) 10/12/16 06:00 RDW 17.5 % (11.9-15.9) H 10/12/16 06:00 Plt Count 101 K/MM3 (134-434) L 10/12/16 06:00 MPV 9.6 fl (7.5-11.1) 10/12/16 06:00 Sodium 137 mmol/L (136-145) 10/12/16 06:00 Potassium 3.4 mmol/L (3.5-5.1) L 10/12/16 06:00 Chloride 100 mmol/L (98-107) 10/12/16 06:00 Carbon Dioxide 25 mmol/L (21-32) 10/12/16 06:00 Anion Gap 12 (8-16) 10/12/16 06:00 BUN 8 mg/dL (7-18) D 10/12/16 06:00 Creatinine 0.7 mg/dL (0.7-1.3) 10/12/16 06:00 Creat Clearance w eGFR > 60 (>60) 10/12/16 06:00 Random Glucose 85 mg/dL (74-106) 10/12/16 06:00 Calcium 8.7 mg/dL (8.5-10.1) 10/12/16 06:00 Total Bilirubin 0.5 mg/dL (0.2-1.0) D 10/12/16 06:00 AST 165 U/L (15-37) H D 10/12/16 06:00 ALT 97 U/L (12-78) H D 10/12/16 06:00 Alkaline Phosphatase 118 U/L (45-117) H 10/12/16 06:00 Total Protein 8.5 g/dl (6.4-8.2) H 10/12/16 06:00 Albumin 4.1 g/dl (3.4-5.0) 10/12/16 06:00 Urine Color Ltyellow 10/11/16 14:00 Urine Appearance Clear 10/11/16 14:00 Urine pH 5.0 (5.0-8.0) 10/11/16 14:00 Ur Specific [place] <= 1.005 (1.005-1.025) 10/11/16 14:00 Urine Protein Negative (NEGATIVE) 10/11/16 14:00 Urine Glucose (UA) Negative (NEGATIVE) 10/11/16 14:00 Urine Ketones Negative (NEGATIVE) 10/11/16 14:00 Urine Blood Negative (NEGATIVE) 10/11/16 14:00 Urine Nitrite Negative (NEGATIVE) 10/11/16 14:00 Urine Bilirubin Negative (NEGATIVE) 10/11/16 14:00 Urine Urobilinogen Negative E.U./dl (0.2-1.0) 10/11/16 14:00 Ur Leukocyte Esterase Negative (NEGATIVE) 10/11/16 14:00 RPR Titer Reactive 1:1 (NONREACTIVE) H 10/12/16 06:00 T.pallidum Ab (MHA) Previously reactive (NONREACTIVE) 10/12/16 06:00 10/13/16 08:15 previously treated for syphilis before 10/13/16 08:15 on k dur replacement Assessment: 10/13/16 08:16 withdrawal symptom Plan: continue detox
--- NOTE | 2016-10-13 08:23 | PN ---
S Progress Note Note: patient did not want to complete treatment ,signed release ama,
--- NOTE | 2016-10-13 08:28 | DS ---
[facility] Detox Discharge Summary Admission Date: 10/11/16 Discharge Date: 10/13/16 - History Present History: Alcohol Dependence Additional Comments: patient did not want to complete treatment,signed release ama Pertinent Past History: history of seizure - Physical Exam Results Vital Signs: Vital Signs Temperature 96.9 F L 10/13/16 06:24 Pulse Rate 64 10/13/16 06:24 Respiratory Rate 16 10/13/16 06:24 Blood Pressure 109/60 10/13/16 06:24 O2 Sat by Pulse Oximetry (%) Pertinent Admission Physical Exam Findings: withdrawal symptom - Treatment Patient has Accepted a Rehab Referral to: declined - Medication Discharge Medications: Ambulatory Orders Hydroxyzine HCl [Atarax -] 50 mg PO HS 05/20/16 Quetiapine Fumarate [Seroquel -] 50 mg PO HS #30 tablet 07/04/16 Fluoxetine HCl [Prozac -] 20 mg PO DAILY #30 cap 09/03/16 Fluoxetine HCl [Prozac -] 20 mg PO DAILY #30 cap 10/12/16 Hydroxyzine Pamoate [Vistaril -] 50 mg PO HS #30 cap 10/12/16 Quetiapine Fumarate [Seroquel -] 50 mg PO HS #30 tablet 10/12/16 - Diagnosis (1) Hypokalemia Status: Acute - AMA Did Patient Leave Against Medical Advice: Yes
[2016-10-13] MEDS ORDERED: POTASSIUM CHLORIDE TABS 20 MEQ TABLET.ER (FP) PO SCH (11:23)
[2016-10-13] MEDS ORDERED: chlordiazePOXIDE 5 MG CAPSULE PO SCH (17:00)
[2016-10-14] MEDS ORDERED: chlordiazePOXIDE HCL 10 MG CAPSULE PO SCH (17:00)
== END 2016-10-13 07:15 | disposition left against medical advice (07) | DRG 770 ==
LOC: YASAS 10:06 → Y6N 13:23
PROVIDERS: ADMIT Internal Medicine Addiction Medicine; ATTEND Internal Medicine Addiction Medicine
PROC: HZ2ZZZZ Detoxification Services for Substance Abuse Treatment (ICD-10-PCS; principal; 2016-10-13)
DX: F10.230 Alcohol dependence with withdrawal, uncomplicated (principal); F10.24 Alcohol dependence with alcohol-induced mood disorder; F10.282 Alcohol dependence with alcohol-induced sleep disorder; G40.509 Epileptic seizures related to external causes, not intractable, without status epilepticus
CPT/HCPCS: 36415; 80053; 81003; 85027; 86593; 86780; 93005; 93010

== ENCOUNTER 2017-02-02 14:44 | Inpatient (IN) | payer OTHER ==
[2017-02-02 18:03] VITALS: BMI 29.0
--- NOTE | 2017-02-02 20:47 | HP ---
CIWA Score - CIWA Score Nausea/Vomitin-Mild Nausea/No Vomiting Muscle Tremors: 4-Moderate,w/Arms Extend Anxiety: 4-Mod. Anxious/Guarded Agitation: 4-Moderately Restless Paroxysmal Sweats: 1-Minimal Palms Moist Orientation: 0-Oriented Tacttile Disturbances: 0-None Auditory Disturbances: 0-None Visual Disturbances: 0-None Headache: 0-None Present CIWA-Ar Total Score: 14 Admission ROS S - HPI Chief Complaint: WITHDRAWAL SX PATIENT FELL 09/2016 TREATED AT ER, NEGATIVE X RAY Allergies/Adverse Reactions: Allergies Allergy/AdvReac Type Severity Reaction Status Date / Time Fish Containing Products Allergy Severe Rash Verified 02/02/17 18:32 No Known Drug Allergies Allergy Verified 02/02/17 18:32 lactose AdvReac Lactose Verified 02/02/17 18:32 Intolerance LACTOSE INTOLERANCE AdvReac Nausea Uncoded 02/02/17 18:32 History of Present Illness: 47 YEARS OLD MALE WITH LONG HISTORY OF ALCOHOL DEPENDENCE HAS POSITIVE PPD AND DEPRESSION IS ADMITTED TO DETOX Exam Limitations: No Limitations - Ebola screening Have you traveled outside of the country in the last 21 days: No Have you had contact with anyone from an Ebola affected area: No Have you been sick,other than usual withdrawal symptoms: No Do you have a fever: No - Review of Systems Constitutional: Changes in sleep, Weight Stable EENT: reports: No Symptoms Reported Respiratory: reports: No Symptoms reported Cardiac: reports: No Symptoms Reported GI: reports: Nausea, Poor Fluid Intake, Abdominal cramping : reports: No Symptoms Reported Musculoskeletal: reports: No Symptoms Reported Integumentary: reports: No Symptoms Reported Neuro: reports: Seizure (LAST EPISODE 08/2016 ALCOHOL RELATED), Tremors Endocrine: reports: No Symptoms Reported Hematology: reports: No Symptoms Reported Psychiatric: reports: Judgement Intact, Orientated x3, Anxious, Depressed Other Systems: Reviewed and Negative Patient History - Patient Medical History Hx Anemia: No Hx Asthma: No Hx Chronic Obstructive Pulmonary Disease (COPD): No Hx Cancer: No Hx Cardiac Disorders: No Hx Congestive Heart Failure: No Hx Hypertension: No Hx Hypercholesterolemia: No Hx Pacemaker: No HX Cerebrovascular Accident: No Hx Seizures: Yes (alcohol related 8 mos ago) Hx Dementia: No Hx Diabetes: No Hx Gastrointestinal Disorders: No Hx Liver Disease: No Hx Genitourinary Disorders: No Hx Sexually Transmitted Disorders: No Hx Renal Disease (ESRD): No Hx Thyroid Disease: No Hx Human Immunodeficiency Virus (HIV): No (NEGATIVE HX lAST 07/29) Hx Hepatitis C: No (NEGATIVE HX, cannot remember when last tested.) Hx Depression: Yes Hx Suicide Attempt: No Hx Bipolar Disorder: No Hx Schizophrenia: No - Patient Surgical History Past Surgical History: Yes Hx Neurologic Surgery: No Hx Cataract Extraction: No Hx Cardiac Surgery: No Hx Lung Surgery: No Hx Breast Surgery: No Hx Breast Biopsy: No Hx Abdominal Surgery: No Hx Appendectomy: No Hx Cholecystectomy: Yes (08/27 laproscopic) Hx Genitourinary Surgery: No Hx Orthopedic Surgery: Yes (fx, left leg at age 21) Anesthesia Reaction: No - PPD History Previous Implant?: Yes Documented Results: Positive w/o proof Implanted On Prior [facility] Admission?: No Results: cxray(-), 04/29 PPD to be Administered?: No - Smoking Cessation Smoking history: Never smoked Have you smoked in the past 12 months: No Aproximately how many cigarettes per day: 0 If you are a former smoker, when did you quit?: at age 32 Cigars Per Day: 0 Hx Chewing Tobacco Use: No Initiated information on smoking cessation: No - Substance & Tx. History Hx Alcohol Use: Yes Hx Substance Use: No Substance Use Type: Alcohol Hx Substance Use Treatment: Yes (10/06-10/13/16 [facility]) - Substances Abused Alcohol Route: Oral Frequency: Daily Amount used: 2 of 6 packs of beer 24OZ Age of first use: 17 Date of Last Use: 02/02/17 Family Disease History - Family Disease History Family Disease History: Other: Father (ALCOHOL) Admission Physical Exam [facility] - Vital Signs Vital Signs: Vital Signs - 24 hr 02/02/17 18:00 Temperature 98.3 F Pulse Rate 100 H Respiratory 18 Rate Blood Pressure 130/70 - Physical General Appearance: Yes: Appropriately Dressed, Mild Distress, Alcohol on Breath , Obese, Tremorous, Irritable, Sweating, Anxious HEENTM: Yes: Hearing grossly Normal, Normal ENT Inspection, Normocephalic, Normal Voice Respiratory: Yes: Chest Non-Tender, Lungs Clear, Normal Breath Sounds, No Respiratory Distress, No Accessory Muscle Use Neck: Yes: Supple, Trachea in good position Breast: Yes: Breasts Symetrical Cardiology: Yes: Regular Rhythm, S1, S2, Tachycardia Abdominal: Yes: Non Tender, Soft, Increased Bowel Sounds Genitourinary: Yes: Within Normal Limits Back: Yes: Normal Inspection Musculoskeletal: Yes: full range of Motion, Gait Steady Extremities: Yes: Normal Inspection, Normal Range of Motion, Non-Tender, Tremors Neurological: Yes: Fully Oriented, Alert, Motor Strength 5/5, Normal Response Integumentary: Yes: Warm Lymphatic: Yes: Within Normal Limits - Diagnostic (1) Alcohol dependence with withdrawal, uncomplicated Current Visit: Yes Status: Acute (2) Positive PPD, treated Current Visit: Yes Status: Resolved (3) Depression (emotion) Current Visit: Yes Status: Suspected Qualifiers: Depression Type: dysthymia Qualified Code(s): F34.1 - Dysthymic disorder Cleared for Admission [facility] - Detox or Rehab [facility] Level of Care: Medically Managed Detox Regimen/Protocol: Librium [facility] Breath Alcohol Content Breath Alcohol Content: 0.183 Urine Drug Screen - Results Drug Screen Negative: No Urine Drug Screen Results: BZO-Benzodiazepines
[2017-02-02] MEDS ORDERED: MAGNESIUM CITRATE 300 ML BOTTLE PO PRN (20:53)
[2017-02-02] MEDS ORDERED: guaiFENesin/D-METHORPHAN HB 10 ML UNIT-DOSE CUPS PO PRN (20:53)
[2017-02-02] MEDS ORDERED: MENTHOL/PHENOL 1 EACH UD MM PRN (20:53)
[2017-02-02] MEDS ORDERED: ACETAMINOPHEN 325 MG TABLET (FP) PO PRN (20:53)
[2017-02-02] MEDS ORDERED: LOPERAMIDE HCL 2 MG CAPSULE PO PRN (20:53)
[2017-02-02] MEDS ORDERED: chlordiazePOXIDE HCL 25 MG CAPSULE PO ONE (20:53)
[2017-02-02] MEDS ORDERED: P-EPHED 60MG/TRIPROLIDI 2.5MG TABLET PO PRN (20:53)
[2017-02-02] MEDS: chlordiazePOXIDE HCL 25 MG CAPSULE PO SCH (22:00)
[2017-02-02] MEDS: THIAMINE HCL 100 MG TABLET (FP) PO SCH (22:00)
[2017-02-02 23:36] LABS: URINE APPEARANCE CLEAR; URINE BILIRUBIN NEGATIVE (NEGATIVE); URINE BLOOD NEGATIVE (NEGATIVE); URINE COLOR STRAW; URINE GLUCOSE (UA) NEGATIVE (NEGATIVE); URINE KETONE NEGATIVE (NEGATIVE); URINE LEUK ESTERASE NEGATIVE (NEGATIVE); URINE NITRITE NEGATIVE (NEGATIVE); URINE PROTEIN NEGATIVE (NEGATIVE); URINE UROBILINOGEN NEGATIVE mg/dL (0.2-1.0)
[2017-02-03] MEDS: chlordiazePOXIDE HCL 25 MG CAPSULE PO SCH ×4 (05:38→22:10)
[2017-02-03] MEDS: MAGNESIUM HYDROX 2400MG/30ML ORAL SUSPENSION 30 ML CUP PO PRN (05:39)
[2017-02-03] MEDS: cloNIDine HCL 0.1 MG TABLET PO PRN (08:02)
--- NOTE | 2017-02-03 09:14 | CONSULT ---
[facility] Psychiatric Consult - Data Date of interview: 02/03/17 Admission source: Self-referred Identifying data: Mr Owens is a 47 years old [place]-born male, unemployed with no source of income, homeless seeking detox treatment for alcohol Substance Abuse History: Reports history of alcohol abuse. He started drinking alcohol at age 17, consumes 2x 6pk(24oz) daily. Last drink on 02/02/17 Medical History: Significant for hypertension, alcohol-related seizure, past treatment for syphilis, +PPD and history of surgery for removal of gallbladder laparoscopically and fracture of left leg. Psychiatric History: Reports receiving treatment for alcohol-related anxiety by his primary care physician. He is prescribed Prozac 20 mg po daily, Seroquel 50 mg po HS and Atarax 50 mg po HS. Denies previous hospitalization or suicidal attempt. At present, Reports feeling anxious, irritable and sleeping poorly Physical/Sexual Abuse/Trauma History: Denies history of verbal, physical or sexual abuse as well as DV relationship Additional Comment: Denies criminal history Mental Status Exam - Mental Status Exam Alert and Oriented to: Time, Place, Person Cognitive Function: Fair Patient Appearance: Well Groomed Mood: Anxious, Irritable Affect: Appropriate Patient Behavior: Cooperative (superficially) Speech Pattern: Clear Voice Loudness: Normal Thought Process: Intact, Goal Oriented Thought Disorder: Not Present Hallucinations: Denies Suicidal Ideation: Denies Homicidal Ideation: Denies Insight/Judgement: Poor Sleep: Poorly Appetite: Fair Muscle strength/Tone: Normal Gait/Station: Normal Psychiatric Findings - Problem List ([place] 1, 2,3) (1) Alcohol-induced anxiety disorder Current Visit: No Status: Acute (2) Alcohol-induced sleep disorder Current Visit: Yes Status: Acute (3) Alcohol dependence with withdrawal, uncomplicated Current Visit: Yes Status: Acute (4) Positive PPD, treated Current Visit: Yes Status: Resolved (5) History of seizure Current Visit: No Status: Suspected - Initial Treatment Plan Initial Treatment Plan: 1) Continue Prozac 20 mg po daily and Seroquel 50 mg po HS. 2) Continue inpatient detoxification
--- NOTE | 2017-02-03 09:21 | EKG ---
Test Reason : Blood Pressure : / mmHG Vent. Rate : 081 BPM Atrial Rate : 081 BPM P-R Int : 166 ms QRS Dur : 096 ms QT Int : 390 ms P-R-T Axes : 058 008 035 degrees QTc Int : 453 ms NORMAL SINUS RHYTHM NONSPECIFIC INTRAVENTRICULAR CONDUCTION DEFECT Confirmed by RICHARD PARSONS MD ([id number]) on 02/03/2017 9:20:40 AM Referred By: Johnnie Antunez Confirmed By:RICHARD PARSONS MD
[2017-02-03 10:17] LABS: MCH 22.7 pg (25.7-33.7); MCHC 30.4 g/dl (32.0-35.9); MEAN CELL VOLUME 74.5 fl (80-96); PLATELET COUNT 103 K/MM3 (134-434); RDW 19.3 % (11.9-15.9); WHITE BLOOD COUNT 2.5 K/mm3 (4.0-10.0)
[2017-02-03] MEDS: PRENATAL VITAMINS W/ FOLIC ACID TABLET (FP) PO SCH (10:18)
[2017-02-03] MEDS: FLUoxetine HCL 20 MG CAPSULE (FP) PO SCH (10:19)
[2017-02-03 11:27] LABS: ALBUMIN 3.5 g/dl (3.4-5.0); ALK PHOS 96 U/L (45-117); ANION GAP 8 (8-16); BILIRUBIN,TOTAL 0.4 mg/dL (0.2-1.0); CALCIUM 8.4 mg/dL (8.5-10.1); CO2 30 mmol/L (21-32); CREATININE 0.6 mg/dL (0.7-1.3); GLUCOSE,RANDOM 95 mg/dL (74-106); SGOT/AST 117 U/L (15-37); SGPT/ALT 97 U/L (12-78); TOT PROT 7.6 g/dl (6.4-8.2)
--- NOTE | 2017-02-03 12:06 | PN ---
[facility] CIWA - CIWA Score Nausea/Vomitin-No Nausea/No Vomiting Muscle Tremors: 4-Moderate,w/Arms Extend Anxiety: 4-Mod. Anxious/Guarded Agitation: 3 Paroxysmal Sweats: 1-Minimal Palms Moist Orientation: 0-Oriented Tacttile Disturbances: 3-Moderate Itch/Numb/Burn Auditory Disturbances: 0-None Visual Disturbances: 0-None Headache: 0-None Present CIWA-Ar Total Score: 15 S Progress Note (SOAP) Subjective: ANXIETY,SWEATS,CHILLS,INTERMITTENT SLEEP. Objective: 02/03/17 12:08 Vital Signs - 8 hr 02/03/17 02/03/17 06:09 10:29 Temperature 98 F 98.4 F Pulse Rate 111 H 80 Respiratory 18 18 Rate Blood Pressure 152/88 142/97 Laboratory Last Values WBC 2.5 K/mm3 (4.0-10.0) L D 02/03/17 07:40 RBC 4.47 M/mm3 (4.00-5.60) 02/03/17 07:40 Hgb 10.1 GM/dL (11.7-16.9) L D 02/03/17 07:40 Hct 33.3 % (35.4-49) L 02/03/17 07:40 MCV 74.5 fl (80-96) L 02/03/17 07:40 MCH 22.7 pg (25.7-33.7) L 02/03/17 07:40 MCHC 30.4 g/dl (32.0-35.9) L 02/03/17 07:40 RDW 19.3 % (11.9-15.9) H D 02/03/17 07:40 Plt Count 103 K/MM3 (134-434) L 02/03/17 07:40 MPV 9.0 fl (7.5-11.1) 02/03/17 07:40 Sodium 142 mmol/L (136-145) 02/03/17 07:40 Potassium 3.7 mmol/L (3.5-5.1) 02/03/17 07:40 Chloride 104 mmol/L (98-107) 02/03/17 07:40 Carbon Dioxide 30 mmol/L (21-32) 02/03/17 07:40 Anion Gap 8 (8-16) 02/03/17 07:40 BUN 6 mg/dL (7-18) L D 02/03/17 07:40 Creatinine 0.6 mg/dL (0.7-1.3) L 02/03/17 07:40 Creat Clearance w eGFR > 60 (>60) 02/03/17 07:40 Random Glucose 95 mg/dL (74-106) 02/03/17 07:40 Calcium 8.4 mg/dL (8.5-10.1) L 02/03/17 07:40 Total Bilirubin 0.4 mg/dL (0.2-1.0) 02/03/17 07:40 AST 117 U/L (15-37) H D 02/03/17 07:40 ALT 97 U/L (12-78) H 02/03/17 07:40 Alkaline Phosphatase 96 U/L (45-117) 02/03/17 07:40 Total Protein 7.6 g/dl (6.4-8.2) 02/03/17 07:40 Albumin 3.5 g/dl (3.4-5.0) 02/03/17 07:40 Urine Color Straw 02/02/17 15:44 Urine Appearance Clear 02/02/17 15:44 Urine pH 6.0 (5.0-8.0) 02/02/17 15:44 Ur Specific [place] <= 1.005 (1.005-1.025) 02/02/17 15:44 Urine Protein Negative (NEGATIVE) 02/02/17 15:44 Urine Glucose (UA) Negative (NEGATIVE) 02/02/17 15:44 Urine Ketones Negative (NEGATIVE) 02/02/17 15:44 Urine Blood Negative (NEGATIVE) 02/02/17 15:44 Urine Nitrite Negative (NEGATIVE) 02/02/17 15:44 Urine Bilirubin Negative (NEGATIVE) 02/02/17 15:44 Urine Urobilinogen Negative mg/dL (0.2-1.0) 02/02/17 15:44 RPR Titer Reactive 1:1 (NONREACTIVE) H 02/03/17 07:40 T.pallidum Ab ([facility]) Previously reactive (NONREACTIVE) 02/03/17 07:40 Assessment: 02/03/17 12:12 WITHDRAWAL SX Plan: CONTINUE DETOX
[2017-02-03] MEDS: chlordiazePOXIDE HCL 25 MG CAPSULE PO PRN ×2 (12:24→21:14)
[2017-02-03] MEDS: MAG HYDROX/AL HYDROX/SIMETH 30 ML UNIT-DOSE CUP PO PRN (17:08)
[2017-02-03] MEDS: hydrOXYzine PAMOATE 50 MG CAPSULE (FP) PO PRN (17:52)
[2017-02-03] MEDS: THIAMINE HCL 100 MG TABLET (FP) PO SCH (22:10)
[2017-02-03] MEDS: QUEtiapine FUMARATE 50 MG TABLET PO SCH (22:10)
[2017-02-03] MEDS: diphenhydrAMINE HCL 50 MG CAPSULE PO PRN (22:11)
[2017-02-04] MEDS: chlordiazePOXIDE HCL 25 MG CAPSULE PO SCH ×3 (05:46→17:33)
[2017-02-04] MEDS: MAGNESIUM HYDROX 2400MG/30ML ORAL SUSPENSION 30 ML CUP PO PRN (05:47)
[2017-02-04] MEDS: FLUoxetine HCL 20 MG CAPSULE (FP) PO SCH (10:14)
[2017-02-04] MEDS: PRENATAL VITAMINS W/ FOLIC ACID TABLET (FP) PO SCH (10:14)
[2017-02-04] MEDS: hydrOXYzine PAMOATE 50 MG CAPSULE (FP) PO PRN ×2 (10:16→17:35)
[2017-02-04 10:30] LABS: BASOPHIL 2.4 % (0-2.0); EOSINOPHIL 4.5 % (0-4.5); MCH 22.8 pg (25.7-33.7); MCHC 30.8 g/dl (32.0-35.9); NEUTROPHILS 47.4 % (42.8-82.8); PLATELET COUNT 120 K/MM3 (134-434); RDW 18.9 % (11.9-15.9); WHITE BLOOD COUNT 2.7 K/mm3 (4.0-10.0)
[2017-02-04 11:22] LABS: ALBUMIN 3.5 g/dl (3.4-5.0); ANION GAP 6 (8-16); CALCIUM 8.7 mg/dL (8.5-10.1); CO2 30 mmol/L (21-32); CREATININE 0.5 mg/dL (0.7-1.3); GLUCOSE,RANDOM 99 mg/dL (74-106); SGOT/AST 97 U/L (15-37); SGPT/ALT 85 U/L (12-78)
[2017-02-04 11:23] LABS: ALK PHOS 92 U/L (45-117); BILIRUBIN,TOTAL 0.6 mg/dL (0.2-1.0); TOT PROT 7.8 g/dl (6.4-8.2)
[2017-02-04] MEDS: chlordiazePOXIDE HCL 25 MG CAPSULE PO PRN (12:53)
--- NOTE | 2017-02-04 14:38 | PN ---
[facility] CIWA - CIWA Score Nausea/Vomitin-No Nausea/No Vomiting Muscle Tremors: 4-Moderate,w/Arms Extend Anxiety: 3 Agitation: 3 Paroxysmal Sweats: 3 Orientation: 0-Oriented Tacttile Disturbances: 1-Very Mild Itch/Numbness Auditory Disturbances: 2-Mild Harshness/Frighten Visual Disturbances: 2-Mild Sensitivity Headache: 0-None Present CIWA-Ar Total Score: 18 S Progress Note (SOAP) Subjective: Interrupted sleep, Tremors, Sweating, Body Aches, Sweating. Objective: PT. A & O X 3, OBSERVED AMBULATING ON UNIT. NO ACUTE DISTRESS. PT. DENIES CHEST PAIN. 02/04/17 14:35 Vital Signs Temperature 96.8 F L 02/04/17 09:43 Pulse Rate 75 02/04/17 09:43 Respiratory Rate 18 02/04/17 09:43 Blood Pressure 132/90 02/04/17 09:43 O2 Sat by Pulse Oximetry (%) Laboratory Tests 02/02/17 02/03/17 02/03/17 15:44 07:40 07:40 WBC 2.5 L D RBC 4.47 Hgb 10.1 L D Hct 33.3 L MCV 74.5 L MCH 22.7 L MCHC 30.4 L RDW 19.3 H D Plt Count 103 L MPV 9.0 Neutrophils % Lymphocytes % Monocytes % Eosinophils % Basophils % Sodium 142 Potassium 3.7 Chloride 104 Carbon Dioxide 30 Anion Gap 8 BUN 6 L D Creatinine 0.6 L Creat Clearance w eGFR > 60 Random Glucose 95 Calcium 8.4 L Total Bilirubin 0.4 AST 117 H D ALT 97 H Alkaline Phosphatase 96 Total Protein 7.6 Albumin 3.5 Urine Color Straw Urine Appearance Clear Urine pH 6.0 Ur Specific [place] <= 1.005 Urine Protein Negative Urine Glucose (UA) Negative Urine Ketones Negative Urine Blood Negative Urine Nitrite Negative Urine Bilirubin Negative Urine Urobilinogen Negative RPR Titer T.pallidum Ab ([facility]) 02/03/17 02/04/17 02/04/17 07:40 08:00 08:00 WBC 2.7 L RBC 4.72 Hgb 10.8 L Hct 34.9 L MCV 74.0 L MCH 22.8 L MCHC 30.8 L RDW 18.9 H Plt Count 120 L MPV 9.0 Neutrophils % 47.4 Lymphocytes % 30.0 Monocytes % 15.7 H Eosinophils % 4.5 Basophils % 2.4 H Sodium 139 Potassium 3.7 Chloride 103 Carbon Dioxide 30 Anion Gap 6 L BUN 6 L Creatinine 0.5 L Creat Clearance w eGFR > 60 Random Glucose 99 Calcium 8.7 Total Bilirubin 0.6 D AST 97 H ALT 85 H Alkaline Phosphatase 92 Total Protein 7.8 Albumin 3.5 Urine Color Urine Appearance Urine pH Ur Specific [place] Urine Protein Urine Glucose (UA) Urine Ketones Urine Blood Urine Nitrite Urine Bilirubin Urine Urobilinogen RPR Titer Reactive 1:1 H T.pallidum Ab ([facility]) Previously reactive LABS NOTED. RESULTS OF REPEAT CBC AND CMP NOTED. PT. HAS HAD LOW WBC LEVELS ON MULTIPLE PREVIOUS ADMISSIONS. PT. REPORTS THAT HE COMPLETED ANTIBIOTIC TREATMENT FOR SYPHILIS APPROX. 3 MONTHS AGO. 02/04/17 14:43 02/04/17 14:50 Assessment: 02/04/17 14:36 WITHDRAWAL SYMPTOMS. Plan: CONTINUE DETOX. FEOSOL, 325 MG PO BIDWM. INCREASE DAILY PO FLUID INTAKE.
[2017-02-04] MEDS: FERROUS SO4 325 MG TABLET (FP) PO SCH (17:34)
[2017-02-04] MEDS: MAG HYDROX/AL HYDROX/SIMETH 30 ML UNIT-DOSE CUP PO PRN (17:35)
[2017-02-04] MEDS: ONDANSETRON *ODT* 4 MG TABLET SL PRN (20:23)
[2017-02-04] MEDS: chlordiazePOXIDE 5 MG CAPSULE PO SCH (22:19)
[2017-02-04] MEDS: THIAMINE HCL 100 MG TABLET (FP) PO SCH (22:19)
[2017-02-04] MEDS: QUEtiapine FUMARATE 50 MG TABLET PO SCH (22:19)
[2017-02-04] MEDS: diphenhydrAMINE HCL 50 MG CAPSULE PO PRN (22:20)
[2017-02-05] MEDS: MAGNESIUM HYDROX 2400MG/30ML ORAL SUSPENSION 30 ML CUP PO PRN (05:45)
[2017-02-05] MEDS: chlordiazePOXIDE 5 MG CAPSULE PO SCH ×3 (05:45→17:37)
[2017-02-05] MEDS: FERROUS SO4 325 MG TABLET (FP) PO SCH ×2 (08:45→17:34)
[2017-02-05] MEDS: FLUoxetine HCL 20 MG CAPSULE (FP) PO SCH (10:03)
[2017-02-05] MEDS: hydrOXYzine PAMOATE 50 MG CAPSULE (FP) PO PRN (10:03)
[2017-02-05] MEDS: PRENATAL VITAMINS W/ FOLIC ACID TABLET (FP) PO SCH (10:05)
[2017-02-05] MEDS: cloNIDine HCL 0.1 MG TABLET PO PRN (10:57)
[2017-02-05] MEDS: MAG HYDROX/AL HYDROX/SIMETH 30 ML UNIT-DOSE CUP PO PRN (10:57)
[2017-02-05] MEDS: chlordiazePOXIDE HCL 25 MG CAPSULE PO PRN (13:09)
--- NOTE | 2017-02-05 13:58 | PN ---
[facility] Progress Note (SOAP) Subjective: Anxious, restless, sweating, tremor, chills, nausea Objective: 02/05/17 13:57 Last Vital Signs Temp Pulse Resp BP Pulse Ox 97.9 F 88 18 122/70 02/05/17 13:43 02/05/17 13:43 02/05/17 13:43 02/05/17 13:43 Laboratory Tests 02/02/17 02/03/17 02/03/17 15:44 07:40 07:40 WBC 2.5 L D RBC 4.47 Hgb 10.1 L D Hct 33.3 L MCV 74.5 L MCH 22.7 L MCHC 30.4 L RDW 19.3 H D Plt Count 103 L MPV 9.0 Neutrophils % Lymphocytes % Monocytes % Eosinophils % Basophils % Sodium 142 Potassium 3.7 Chloride 104 Carbon Dioxide 30 Anion Gap 8 BUN 6 L D Creatinine 0.6 L Creat Clearance w eGFR > 60 Random Glucose 95 Calcium 8.4 L Total Bilirubin 0.4 AST 117 H D ALT 97 H Alkaline Phosphatase 96 Total Protein 7.6 Albumin 3.5 Urine Color Straw Urine Appearance Clear Urine pH 6.0 Ur Specific [place] <= 1.005 Urine Protein Negative Urine Glucose (UA) Negative Urine Ketones Negative Urine Blood Negative Urine Nitrite Negative Urine Bilirubin Negative Urine Urobilinogen Negative RPR Titer T.pallidum Ab ([facility]) 02/03/17 02/04/17 02/04/17 07:40 08:00 08:00 WBC 2.7 L RBC 4.72 Hgb 10.8 L Hct 34.9 L MCV 74.0 L MCH 22.8 L MCHC 30.8 L RDW 18.9 H Plt Count 120 L MPV 9.0 Neutrophils % 47.4 Lymphocytes % 30.0 Monocytes % 15.7 H Eosinophils % 4.5 Basophils % 2.4 H Sodium 139 Potassium 3.7 Chloride 103 Carbon Dioxide 30 Anion Gap 6 L BUN 6 L Creatinine 0.5 L Creat Clearance w eGFR > 60 Random Glucose 99 Calcium 8.7 Total Bilirubin 0.6 D AST 97 H ALT 85 H Alkaline Phosphatase 92 Total Protein 7.8 Albumin 3.5 Urine Color Urine Appearance Urine pH Ur Specific [place] Urine Protein Urine Glucose (UA) Urine Ketones Urine Blood Urine Nitrite Urine Bilirubin Urine Urobilinogen RPR Titer Reactive 1:1 H T.pallidum Ab (A) Previously reactive Labs noted Assessment: 02/05/17 13:58 Withdrawal symptoms Plan: Continue detox
[2017-02-05] MEDS: IBUPROFEN 400 MG TABLET (FP) PO PRN ×2 (17:36→23:47)
[2017-02-05] MEDS: ONDANSETRON *ODT* 4 MG TABLET SL PRN ×2 (17:37→23:12)
[2017-02-05] MEDS: QUEtiapine FUMARATE 50 MG TABLET PO SCH (22:19)
[2017-02-05] MEDS: THIAMINE HCL 100 MG TABLET (FP) PO SCH (22:19)
[2017-02-05] MEDS: chlordiazePOXIDE HCL 10 MG CAPSULE PO SCH (22:20)
[2017-02-05] MEDS: diphenhydrAMINE HCL 50 MG CAPSULE PO PRN (22:20)
[2017-02-06] MEDS: chlordiazePOXIDE HCL 10 MG CAPSULE PO SCH (05:25)
[2017-02-06] MEDS: IBUPROFEN 400 MG TABLET (FP) PO PRN (06:27)
[2017-02-06] MEDS: FERROUS SO4 325 MG TABLET (FP) PO SCH (07:19)
--- NOTE | 2017-02-06 09:05 | DS ---
[facility] Detox Discharge Summary Admission Date: 02/02/17 Discharge Date: 02/06/17 - History Present History: Alcohol Dependence Pertinent Past History: PPD+ - Physical Exam Results Vital Signs: Vital Signs Temperature 96.6 F L 02/06/17 06:12 Pulse Rate 69 02/06/17 06:12 Respiratory Rate 18 02/06/17 06:12 Blood Pressure 128/88 02/06/17 06:12 O2 Sat by Pulse Oximetry (%) Pertinent Admission Physical Exam Findings: Withdrawal sx Laboratory Last Values WBC 2.7 K/mm3 (4.0-10.0) L 02/04/17 08:00 RBC 4.72 M/mm3 (4.00-5.60) 02/04/17 08:00 Hgb 10.8 GM/dL (11.7-16.9) L 02/04/17 08:00 Hct 34.9 % (35.4-49) L 02/04/17 08:00 MCV 74.0 fl (80-96) L 02/04/17 08:00 MCH 22.8 pg (25.7-33.7) L 02/04/17 08:00 MCHC 30.8 g/dl (32.0-35.9) L 02/04/17 08:00 RDW 18.9 % (11.9-15.9) H 02/04/17 08:00 Plt Count 120 K/MM3 (134-434) L 02/04/17 08:00 MPV 9.0 fl (7.5-11.1) 02/04/17 08:00 Neutrophils % 47.4 % (42.8-82.8) 02/04/17 08:00 Lymphocytes % 30.0 % (8-40) 02/04/17 08:00 Monocytes % 15.7 % (3.8-10.2) H 02/04/17 08:00 Eosinophils % 4.5 % (0-4.5) 02/04/17 08:00 Basophils % 2.4 % (0-2.0) H 02/04/17 08:00 Sodium 139 mmol/L (136-145) 02/04/17 08:00 Potassium 3.7 mmol/L (3.5-5.1) 02/04/17 08:00 Chloride 103 mmol/L (98-107) 02/04/17 08:00 Carbon Dioxide 30 mmol/L (21-32) 02/04/17 08:00 Anion Gap 6 (8-16) L 02/04/17 08:00 BUN 6 mg/dL (7-18) L 02/04/17 08:00 Creatinine 0.5 mg/dL (0.7-1.3) L 02/04/17 08:00 Creat Clearance w eGFR > 60 (>60) 02/04/17 08:00 Random Glucose 99 mg/dL (74-106) 02/04/17 08:00 Calcium 8.7 mg/dL (8.5-10.1) 02/04/17 08:00 Total Bilirubin 0.6 mg/dL (0.2-1.0) D 02/04/17 08:00 AST 97 U/L (15-37) H 02/04/17 08:00 ALT 85 U/L (12-78) H 02/04/17 08:00 Alkaline Phosphatase 92 U/L (45-117) 02/04/17 08:00 Total Protein 7.8 g/dl (6.4-8.2) 02/04/17 08:00 Albumin 3.5 g/dl (3.4-5.0) 02/04/17 08:00 Urine Color Straw 02/02/17 15:44 Urine Appearance Clear 02/02/17 15:44 Urine pH 6.0 (5.0-8.0) 02/02/17 15:44 Ur Specific [place] <= 1.005 (1.005-1.025) 02/02/17 15:44 Urine Protein Negative (NEGATIVE) 02/02/17 15:44 Urine Glucose (UA) Negative (NEGATIVE) 02/02/17 15:44 Urine Ketones Negative (NEGATIVE) 02/02/17 15:44 Urine Blood Negative (NEGATIVE) 02/02/17 15:44 Urine Nitrite Negative (NEGATIVE) 02/02/17 15:44 Urine Bilirubin Negative (NEGATIVE) 02/02/17 15:44 Urine Urobilinogen Negative mg/dL (0.2-1.0) 02/02/17 15:44 RPR Titer Reactive 1:1 (NONREACTIVE) H 02/03/17 07:40 T.pallidum Ab ([facility]) Previously reactive (NONREACTIVE) 02/03/17 07:40 labs noted - Treatment Hospital Course: Detox Protocol Followed, Detoxed Safely, Responded well, Discharged Condition Good Patient has Accepted a Rehab Referral to: [facility] out-pt. - Medication Discharge Medications: Ambulatory Orders Hydroxyzine HCl [Atarax -] 50 mg PO HS 05/20/16 Quetiapine Fumarate [Seroquel -] 50 mg PO HS #30 tablet 07/04/16 Fluoxetine HCl [Prozac -] 20 mg PO DAILY #30 cap 10/12/16 Fluoxetine HCl [Prozac] 20 mg PO DAILY #30 capsule 02/03/17 Quetiapine Fumarate [Seroquel -] 50 mg PO HS #30 tablet 02/03/17 - Diagnosis (1) Alcohol dependence with withdrawal, uncomplicated Current Visit: Yes Status: Acute (2) Alcohol-induced sleep disorder Current Visit: Yes Status: Acute (3) Positive PPD, treated Current Visit: Yes Status: Resolved (4) Alcohol-induced anxiety disorder Current Visit: Yes Status: Acute - AMA Did Patient Leave Against Medical Advice: No
[2017-02-06 09:07] VITALS: BP 128/79; PULSE 75; TEMP 97.8
[2017-02-06] MEDS: FLUoxetine HCL 20 MG CAPSULE (FP) PO SCH (09:25)
[2017-02-06] MEDS: PRENATAL VITAMINS W/ FOLIC ACID TABLET (FP) PO SCH (09:25)
[2017-02-06] MEDS: hydrOXYzine PAMOATE 50 MG CAPSULE (FP) PO PRN (09:25)
[2017-02-06] MEDS: cloNIDine HCL 0.1 MG TABLET PO PRN (09:26)
== END 2017-02-06 09:45 | disposition home or self-care (01) | DRG 775 ==
LOC: YASAS 14:44 → Y3N 19:35
PROVIDERS: ADMIT Internal Medicine; ATTEND Internal Medicine
PROC: HZ2ZZZZ Detoxification Services for Substance Abuse Treatment (ICD-10-PCS; principal; 2017-02-02)
DX: F10.230 Alcohol dependence with withdrawal, uncomplicated (principal); F10.280 Alcohol dependence with alcohol-induced anxiety disorder; F10.282 Alcohol dependence with alcohol-induced sleep disorder; F34.1 Dysthymic disorder; E87.6 Hypokalemia; E66.9 Obesity, unspecified; E73.9 Lactose intolerance, unspecified; R76.11 Nonspecific reaction to tuberculin skin test without active tuberculosis; R00.0 Tachycardia, unspecified; Z86.69 Personal history of other diseases of the nervous system and sense organs; Z87.438 Personal history of other diseases of male genital organs; Z91.013 Allergy to seafood; Z91.011 Allergy to milk products; Z68.29 Body mass index [BMI] 29.0-29.9, adult
CPT/HCPCS: 36415; 80053; 81003; 85025; 85027; 86593; 86780; 93005; 93010

== ENCOUNTER 2018-02-24 10:54 | Inpatient (IN) | payer OTHER ==
[2018-02-24 11:56] VITALS: BMI 31.6
--- NOTE | 2018-02-24 12:05 | HP ---
CIWA Score - CIWA Score Nausea/Vomitin-Mild Nausea/No Vomiting Muscle Tremors: 1-None Visible, but [place] Anxiety: 4-Mod. Anxious/Guarded Agitation: 0-Normal Activity Paroxysmal Sweats: No Perspiration Orientation: 0-Oriented Tacttile Disturbances: 0-None Auditory Disturbances: 1-Very Mild Visual Disturbances: 2-Mild Sensitivity Headache: 3-Moderate CIWA-Ar Total Score: 12 Admission ROS S - HPI Allergies/Adverse Reactions: Allergies Allergy/AdvReac Type Severity Reaction Status Date / Time Fish Containing Products Allergy Severe Rash Verified 02/24/18 12:18 No Known Drug Allergies Allergy Verified 02/24/18 12:18 lactose AdvReac Lactose Verified 02/24/18 12:18 Intolerance LACTOSE INTOLERANCE AdvReac Nausea Uncoded 02/24/18 12:18 History of Present Illness: pt here requesting detox from etoh use , reports 12 beers/day , relapse x 2 mo ago ,prior sobriety x 1 yr , h/o etoh abuse x 15 years , + w/d seizures most recently 1 mo ago , denies prior detox . Denies blackouts, + tremors , nausea , sweating , diarrhea . latest use yesterday 10 p.m. Starts drinking around 1 p.m. . denies illicits and tobacco . JUAN FRANCISCO 0.04 utox + BAR, + BZO pmhx :insomnia pshx :mike 5 yrs ago , left knee [employer]IF hardware 10 years ago 2/2 fall denies intoxication at the time meds : denies Exam Limitations: Clinical Condition - Ebola screening Have you been sick,other than usual withdrawal symptoms: No - Review of Systems Constitutional: See HPI EENT: reports: See HPI Respiratory: reports: No Symptoms reported Cardiac: reports: No Symptoms Reported GI: reports: See HPI : reports: No Symptoms Reported Musculoskeletal: reports: No Symptoms Reported Integumentary: reports: No Symptoms Reported Neuro: reports: See HPI Endocrine: reports: No Symptoms Reported Hematology: reports: No Symptoms Reported Psychiatric: reports: Orientated x3, Anxious Patient History - Patient Medical History Hx Anemia: No Hx Asthma: No Hx Chronic Obstructive Pulmonary Disease (COPD): No Hx Cancer: No Hx Cardiac Disorders: No Hx Congestive Heart Failure: No Hx Hypertension: Yes Hx Hypercholesterolemia: No Hx Pacemaker: No HX Cerebrovascular Accident: No Hx Seizures: Yes (alcohol related-last episode was in 09/2017) Hx Dementia: No Hx Diabetes: No Hx Gastrointestinal Disorders: No Hx Liver Disease: No Hx Genitourinary Disorders: No Hx Sexually Transmitted Disorders: No Hx Renal Disease (ESRD): No Hx Thyroid Disease: No Hx Human Immunodeficiency Virus (HIV): No (NEGATIVE HX lAST 07/29) Hx Hepatitis C: No (NEGATIVE HX, cannot remember when last tested.) Hx Depression: No Hx Suicide Attempt: No Hx Bipolar Disorder: No Hx Schizophrenia: No - Patient Surgical History Past Surgical History: Yes Hx Neurologic Surgery: No Hx Cataract Extraction: No Hx Cardiac Surgery: No Hx Lung Surgery: No Hx Breast Surgery: No Hx Breast Biopsy: No Hx Abdominal Surgery: No Hx Appendectomy: No Hx Cholecystectomy: Yes (08/27 laproscopic) Hx Genitourinary Surgery: No Hx Section: No Hx Orthopedic Surgery: Yes (fx, left leg at age 21) Anesthesia Reaction: No - PPD History Results: cxray(-)04/19/16 - Smoking Cessation Smoking history: Never smoked Have you smoked in the past 12 months: No Aproximately how many cigarettes per day: 0 If you are a former smoker, when did you quit?: at age 32 Cigars Per Day: 0 Hx Chewing Tobacco Use: No - Substances Abused Alcohol Route: Oral Frequency: Daily Amount used: 12-12 oz cans of beer Age of first use: 17 Date of Last Use: 02/23/18 Family Disease History - Family Disease History Family Disease History: Other: Father (ALCOHOL) Admission Physical Exam [facility] - Vital Signs Vital Signs: Vital Signs - 24 hr 02/24/18 11:54 Temperature 97.8 F Pulse Rate 78 Respiratory 18 Rate Blood Pressure 134/86 - Physical General Appearance: Yes: Moderate Distress, Irritable, Anxious HEENTM: Yes: Hearing grossly Normal, Normocephalic, Normal Voice Respiratory: Yes: Chest Non-Tender, Lungs Clear, Normal Breath Sounds, No Respiratory Distress Neck: Yes: No masses,lesions,Nodules, Trachea in good position Breast: Yes: Breast Exam Deferred Cardiology: Yes: Regular Rhythm, Regular Rate Abdominal: Yes: Normal Bowel Sounds, Soft Genitourinary: Yes: Within Normal Limits Back: Yes: Normal Inspection Musculoskeletal: Yes: Gait Steady Extremities: Yes: Normal Capillary Refill, Normal Range of Motion, Tremors Neurological: Yes: Fully Oriented, Motor Strength 5/5 Integumentary: Yes: Within Normal Limits, Normal Color, Warm - Diagnostic (1) Alcohol dependence with withdrawal, uncomplicated Current Visit: Yes Status: Acute Comment: . (2) History of seizure Current Visit: No Status: Suspected [facility] Breath Alcohol Content Breath Alcohol Content: 0.014 Urine Drug Screen - Results Drug Screen Negative: No Urine Drug Screen Results: BAR-Barbiturates, BZO-Benzodiazepines
[2018-02-24] MEDS ORDERED: IBUPROFEN 400 MG TABLET (FP) PO PRN (12:09)
[2018-02-24] MEDS ORDERED: chlordiazePOXIDE HCL 25 MG CAPSULE PO PRN (12:09)
[2018-02-24] MEDS ORDERED: MAGNESIUM HYDROX 2400MG/30ML ORAL SUSPENSION 30 ML CUP PO PRN (12:09)
[2018-02-24] MEDS ORDERED: MENTHOL/PHENOL 1 EACH UD MM PRN (12:09)
[2018-02-24] MEDS ORDERED: guaiFENesin/D-METHORPHAN HB 10 ML UNIT-DOSE CUPS PO PRN (12:09)
[2018-02-24] MEDS ORDERED: P-EPHED 60MG/TRIPROLIDI 2.5MG TABLET PO PRN (12:09)
[2018-02-24] MEDS ORDERED: MAGNESIUM CITRATE 300 ML BOTTLE PO PRN (12:09)
[2018-02-24] MEDS: chlordiazePOXIDE HCL 25 MG CAPSULE PO SCH ×2 (16:23→23:00)
[2018-02-24] MEDS: MAG HYDROX/AL HYDROX/SIMETH 30 ML UNIT-DOSE CUP PO PRN (16:25)
[2018-02-24] MEDS: ACETAMINOPHEN 325 MG TABLET (FP) PO PRN (20:16)
[2018-02-24] MEDS: MELATONIN 5 MG TABLETS PO PRN (23:00)
[2018-02-24] MEDS: THIAMINE HCL 100 MG TABLET (FP) PO SCH (23:00)
[2018-02-25] MEDS: chlordiazePOXIDE HCL 25 MG CAPSULE PO SCH ×4 (06:01→22:35)
[2018-02-25] MEDS: MAG HYDROX/AL HYDROX/SIMETH 30 ML UNIT-DOSE CUP PO PRN ×3 (06:02→22:57)
--- NOTE | 2018-02-25 10:28 | CONSULT ---
[facility] Psychiatric Consult - Data Date of interview: 02/25/18 Admission source: [facility] Identifying data: Patient is a 48 y/o male, , unemeployed, homeless, childless, on public assistance Substance Abuse History: Patient reports past admissions to [facility]. Admitted for alcohol abuse. He drinks 6 packs of beer daily , he had an alcohol related seizure last month, denies black out spells. Please refer to addiction counsleor note for more detailed chronological history of his substance use disorder Medical History: Medical history of HTN. Past treatment for Zyphilis,. Treated for PPD converter. Surgical repair of fracture leg during his teenage years and a histry of Cholescystectomy Psychiatric History: He denies prior psychiatric admission, he experiences anxiety symptoms and mecciated by his PCP with Prozac and Hydroxyzine. Compliance with medication treatment is unclear. He denies depression, psychosis, jair or mood swings, feels somewhat anxious. Denies suicidal or homicidal ideation Physical/Sexual Abuse/Trauma History: Denied Additional Comment: No history of domestic violence or prior trouble with the law Mental Status Exam - Mental Status Exam Alert and Oriented to: Place, Person Cognitive Function: Fair Patient Appearance: Well Groomed Mood: Nervous, Anxious, Apprehensive Affect: Constricted Patient Behavior: Fatigued, Distractible, Cooperative Speech Pattern: Slurred Voice Loudness: Mildly Loud Thought Process: Intact Thought Disorder: Not Present Hallucinations: Denies Suicidal Ideation: Denies Homicidal Ideation: Denies Insight/Judgement: Poor Sleep: Poorly Appetite: Fair Muscle strength/Tone: Normal Gait/Station: Normal Psychiatric Findings - Problem List ([place] 1, 2,3) (1) Alcohol dependence with withdrawal, uncomplicated Current Visit: No Status: Acute (2) Alcohol induced insomnia Current Visit: No Status: Acute (3) Alcohol-induced anxiety disorder Current Visit: No Status: Acute (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 Psychoeducation. Renew Prozac 20 mg po daily. Atarax 50 mg po q hs. Monitor response
[2018-02-25] MEDS: PRENATAL VITAMINS W/ FOLIC ACID TABLET (FP) PO SCH (10:38)
[2018-02-25] MEDS ORDERED: FLUoxetine HCL 20 MG CAPSULE (FP) PO ONE (10:39)
[2018-02-25 11:12] LABS: HEMATOCRIT 33.1 % (35.4-49); HEMOGLOBIN 10.3 GM/dL (11.7-16.9); MCH 23.4 pg (25.7-33.7); MEAN CELL VOLUME 75.4 fl (80-96); MEAN PLT VOLUME 9.1 fl (7.5-11.1); PLATELET COUNT 47 K/MM3 (134-434); RBC 4.39 M/mm3 (4.00-5.60); RDW 19.2 % (11.9-15.9); WHITE BLOOD COUNT 3.3 K/mm3 (4.0-10.0)
[2018-02-25 11:38] LABS: ALBUMIN 3.1 g/dl (3.4-5.0); ALK PHOS 131 U/L (45-117); ANION GAP 2 MMOL/L (8-16); BILIRUBIN,TOTAL 0.8 mg/dL (0.2-1); BLOOD UREA NITROGEN 5 mg/dL (7-18); CALCIUM 8.5 mg/dL (8.5-10.1); CHLORIDE 104 mmol/L (98-107); CO2 28 mmol/L (21-32); CREATININE 0.5 mg/dL (0.55-1.3); GLUCOSE,RANDOM 96 mg/dL (74-106); POTASSIUM 3.4 mmol/L (3.5-5.1); SGOT/AST 124 U/L (15-37); SGPT/ALT 46 U/L (13-61); SODIUM 135 mmol/L (136-145); TOT PROT 7.6 g/dl (6.4-8.2)
[2018-02-25 12:02] LABS: URINE APPEARANCE TURBID; URINE BILIRUBIN NEGATIVE (<2.0 mg/dL); URINE COLOR YELLOW; URINE GLUCOSE (UA) NEGATIVE (NEGATIVE); URINE KETONE NEGATIVE (NEGATIVE); URINE LEUK ESTERASE TRACE (NEGATIVE); URINE NITRITE NEGATIVE (NEGATIVE); URINE PROTEIN 1+ (NEGATIVE); URINE UROBILINOGEN 4.0 E.U/dl mg/dL (0.2-1.0)
[2018-02-25 12:06] LABS: URINE BACTERIA FEW /hpf (NONE SEEN); URINE MUCUS MANY
[2018-02-25] MEDS: ONDANSETRON *ODT* 4 MG TABLET SL PRN (12:09)
[2018-02-25 12:20] LABS: RPR REACTIVE 1:1 (NONREACTIVE)
[2018-02-25 12:21] LABS: TREPONEMA ANTIBODY PREVIOUSLY REACTIVE (NONREACTIVE)
--- NOTE | 2018-02-25 17:22 | PN ---
S CIWA - CIWA Score Nausea/Vomitin Muscle Tremors: 4-Moderate,w/Arms Extend Anxiety: 4-Mod. Anxious/Guarded Agitation: 4-Moderately Restless Paroxysmal Sweats: 3 Orientation: 0-Oriented Tacttile Disturbances: 0-None Auditory Disturbances: 0-None Visual Disturbances: 0-None Headache: 0-None Present CIWA-Ar Total Score: 18 [facility] Progress Note (SOAP) Subjective: Nausea, tremor, anxious Objective: 02/25/18 17:17 Last Vital Signs Temp Pulse Resp BP Pulse Ox 97.5 F L 86 16 104/73 02/25/18 13:59 02/25/18 13:59 02/25/18 13:59 02/25/18 13:59 Laboratory Tests 02/25/18 02/25/18 02/25/18 07:30 07:30 07:30 WBC 3.3 L RBC 4.39 Hgb 10.3 L Hct 33.1 L MCV 75.4 L MCH 23.4 L MCHC 31.0 L RDW 19.2 H Plt Count 47 L D MPV 9.1 Sodium 135 L Potassium 3.4 L Chloride 104 Carbon Dioxide 28 Anion Gap 2 L BUN 5 L Creatinine 0.5 L Creat Clearance w eGFR > 60 Random Glucose 96 Calcium 8.5 Total Bilirubin 0.8 AST 124 H ALT 46 Alkaline Phosphatase 131 H Total Protein 7.6 Albumin 3.1 L Urine Color Yellow Urine Appearance Turbid Urine pH 5.0 Ur Specific [place] 1.025 Urine Protein 1+ H Urine Glucose (UA) Negative Urine Ketones Negative Urine Blood Negative Urine Nitrite Negative Urine Bilirubin Negative Urine Urobilinogen 4.0 e.u/dl Ur Leukocyte Esterase Trace Urine WBC (Auto) 5 Urine RBC (Auto) None Urine Bacteria Few Urine Mucus Many RPR Titer T.pallidum Ab (MHA) 02/25/18 07:30 WBC RBC Hgb Hct MCV MCH MCHC RDW Plt Count MPV Sodium Potassium Chloride Carbon Dioxide Anion Gap BUN Creatinine Creat Clearance w eGFR Random Glucose Calcium Total Bilirubin AST ALT Alkaline Phosphatase Total Protein Albumin Urine Color Urine Appearance Urine pH Ur Specific [place] Urine Protein Urine Glucose (UA) Urine Ketones Urine Blood Urine Nitrite Urine Bilirubin Urine Urobilinogen Ur Leukocyte Esterase Urine WBC (Auto) Urine RBC (Auto) Urine Bacteria Urine Mucus RPR Titer Reactive 1:1 H T.pallidum Ab (MHA) Previously reactive Labs reviewed: RPR 1:1, abnormal UA, k 3.4 Assessment: 02/25/18 17:18 Withdrawal sxs Noted with mild hypokalemia and abnormal UA Plan: Continue detox Will follow up on RPR test result (need to discuss with patient regarding any previous treatment) Mild hypokalemia: K Dur 40 Meq PO x 1 dose, repeat K level in AM Abnormal UA: encouraged PO water intake, repeat UA
[2018-02-25] MEDS ORDERED: POTASSIUM CHLORIDE TABS 20 MEQ TABLET.ER (FP) PO ONE (17:23)
[2018-02-25] MEDS: ACETAMINOPHEN 325 MG TABLET (FP) PO PRN (17:27)
[2018-02-25] MEDS: hydrOXYzine PAMOATE 50 MG CAPSULE (FP) PO PRN ×2 (17:27→22:36)
[2018-02-25] MEDS: THIAMINE HCL 100 MG TABLET (FP) PO SCH (22:35)
[2018-02-25] MEDS: MELATONIN 5 MG TABLETS PO PRN (22:35)
[2018-02-26] MEDS: chlordiazePOXIDE HCL 25 MG CAPSULE PO SCH ×2 (05:08→10:24)
[2018-02-26] MEDS: PRENATAL VITAMINS W/ FOLIC ACID TABLET (FP) PO SCH (10:25)
[2018-02-26] MEDS: ONDANSETRON *ODT* 4 MG TABLET SL PRN (10:26)
[2018-02-26 10:40] LABS: URINE APPEARANCE CLEAR; URINE BILIRUBIN NEGATIVE (<2.0 mg/dL); URINE COLOR YELLOW; URINE GLUCOSE (UA) NEGATIVE (NEGATIVE); URINE KETONE NEGATIVE (NEGATIVE); URINE LEUK ESTERASE NEGATIVE (NEGATIVE); URINE NITRITE NEGATIVE (NEGATIVE); URINE PROTEIN NEGATIVE (NEGATIVE); URINE UROBILINOGEN NEGATIVE mg/dL (0.2-1.0)
--- NOTE | 2018-02-26 13:57 | PN ---
Psychiatric Progress Note Vital Signs: Vital Signs Period Temp Pulse Resp BP Sys/Fox Pulse Ox Last 24 Hr 97.3 F-98.6 F 71-92 16-20 104-142/73-101 Date of Session: 02/26/18 Chief Complaint:: " I need my seroquel for sleep ." ROS: Psychiatric re-evaluation requested to address patient's complaint of insomnia. Mr Owens indicates that he has done well in the past with 100 mg of seroquel at bedtime. wants to resume that medication. Hospital course is unremarkable otherwise. Current Medications: Active Medications Generic Name Dose Route Start Last Admin Trade Name Freq PRN Reason Stop Dose Admin Acetaminophen 650 mg 02/24/18 12:09 02/25/18 17:27 Tylenol - PO 650 mg Q4H PRN Administration FEVER Al Hydroxide/Mg Hydroxide 30 ml 02/24/18 12:09 02/25/18 22:57 Mylanta Oral Suspension - PO 30 ml Q6H PRN Administration DYSPEPSIA Chlordiazepoxide HCl 15 mg 02/26/18 17:00 Librium - PO 02/27/18 11:01 [id number] CASI Chlordiazepoxide HCl 25 mg 02/24/18 12:09 02/24/18 20:16 Librium - PO 02/27/18 12:08 25 mg Q4H PRN Administration WITHDRAWAL(CONT SUBST) Chlordiazepoxide HCl 10 mg 02/27/18 17:00 Librium - PO 02/28/18 11:01 [id number] CASI Eucalyptus/Menthol/Phenol/Sorbitol 1 each 02/24/18 12:09 Cepastat Lozenge - MM Q4H PRN SORE THROAT Guaifenesin 10 ml 02/24/18 12:09 Robitussin Dm - PO Q6H PRN COUGH Hydroxyzine Pamoate 50 mg 02/25/18 09:43 02/25/18 22:36 Vistaril - PO 50 mg Q6H PRN Administration FOR ITCHING Ibuprofen 400 mg 02/24/18 12:09 Motrin - PO Q6H PRN PAIN LEVEL 4-6 Magnesium Citrate 300 ml 02/24/18 12:09 Citroma - PO Q48H PRN CONSTIPATION Magnesium Hydroxide 30 ml 02/24/18 12:09 Milk Of Magnesia - PO DAILY PRN CONSTIPATION Melatonin 5 mg 02/24/18 22:00 02/25/18 22:35 Melatonin PO 5 mg HS PRN Administration INSOMNIA Ondansetron HCl 4 mg 02/25/18 09:41 02/26/18 10:26 Zofran Odt - SL 4 mg Q8H PRN Administration NAUSEA AND/OR VOMITING Multivit/Folic Acid/Iron 1 tab 02/25/18 10:00 02/26/18 10:25 Vitamins (Sjr) - PO 1 tab DAILY CASI Administration Pseudoephedrine/Triprolidine 1 combo 02/24/18 12:09 Actifed - PO TID PRN NASAL CONGESTION Thiamine HCl 100 mg 02/24/18 22:00 02/25/18 22:35 Vitamin B1 - PO 100 mg HS CASI Administration Medication(s) Change(s): Seroquel 100 mg po hs is added to the regimen. Patient is made aware of side effects/benefits.Agrees to this careplan. Current Side Effect: No Lab tests ordered: No Lab tests reviewed: Yes Provider note:: Chart reviewed.Dr Velez's consult note of 02/25/18 : revisited. Patient seen at bedside. Mr Owens indicates that he needs seroquel for sleep management. No other issue. Unremarkable mental status. Total face to face time:: 15 Mental Status Exam - Mental Status Exam Alert and Oriented to: Time, Place, Person Cognitive Function: Good Patient Appearance: Well Groomed Mood: Withdrawn Affect: Appropriate, Normal Range Patient Behavior: Fatigued, Cooperative Speech Pattern: Clear Voice Loudness: Normal Thought Process: Goal Oriented Thought Disorder: Not Present Hallucinations: Denies Suicidal Ideation: Denies Homicidal Ideation: Denies Insight/Judgement: Fair Sleep: Poorly, Difficulty falling asleep Appetite: Good Muscle strength/Tone: Normal Gait/Station: Other (not observed ; in bed for entire interview) Psychiatric Treatment Plan - Problem List (1) Alcohol dependence with withdrawal, uncomplicated Current Visit: Yes Comment: . (2) Insomnia Current Visit: Yes Comment: .
--- NOTE | 2018-02-26 14:10 | PN ---
S CIWA - CIWA Score Nausea/Vomitin Muscle Tremors: 3 Anxiety: 4-Mod. Anxious/Guarded Agitation: 3 Paroxysmal Sweats: 3 Orientation: 0-Oriented Tacttile Disturbances: 0-None Auditory Disturbances: 0-None Visual Disturbances: 0-None Headache: 0-None Present CIWA-Ar Total Score: 15 S Progress Note (SOAP) Subjective: Interrupted sleep, sweating, nausea; patient noted with Positive Syphilis titer stating he was treated in 2017 with 3 injections at [facility] in [facility]. Objective: 02/26/18 14:09 Last Vital Signs Temp Pulse Resp BP Pulse Ox 97.4 F L 92 H 18 142/97 02/26/18 13:35 02/26/18 13:35 02/26/18 13:35 02/26/18 13:35 Laboratory Tests 02/25/18 02/25/18 02/25/18 07:30 07:30 07:30 WBC 3.3 L RBC 4.39 Hgb 10.3 L Hct 33.1 L MCV 75.4 L MCH 23.4 L MCHC 31.0 L RDW 19.2 H Plt Count 47 L D MPV 9.1 Sodium 135 L Potassium 3.4 L Chloride 104 Carbon Dioxide 28 Anion Gap 2 L BUN 5 L Creatinine 0.5 L Creat Clearance w eGFR > 60 Random Glucose 96 Calcium 8.5 Total Bilirubin 0.8 AST 124 H ALT 46 Alkaline Phosphatase 131 H Total Protein 7.6 Albumin 3.1 L Urine Color Yellow Urine Appearance Turbid Urine pH 5.0 Ur Specific [place] 1.025 Urine Protein 1+ H Urine Glucose (UA) Negative Urine Ketones Negative Urine Blood Negative Urine Nitrite Negative Urine Bilirubin Negative Urine Urobilinogen 4.0 e.u/dl Ur Leukocyte Esterase Trace Urine WBC (Auto) 5 Urine RBC (Auto) None Urine Bacteria Few Urine Mucus Many RPR Titer T.pallidum Ab (A) 02/25/18 02/26/18 02/26/18 07:30 06:17 07:00 WBC RBC Hgb Hct MCV MCH MCHC RDW Plt Count MPV Sodium Potassium 3.9 Chloride Carbon Dioxide Anion Gap BUN Creatinine Creat Clearance w eGFR Random Glucose Calcium Total Bilirubin AST ALT Alkaline Phosphatase Total Protein Albumin Urine Color Yellow Urine Appearance Clear Urine pH 8.0 D Ur Specific [place] 1.018 Urine Protein Negative Urine Glucose (UA) Negative Urine Ketones Negative Urine Blood Negative Urine Nitrite Negative Urine Bilirubin Negative Urine Urobilinogen Negative Ur Leukocyte Esterase Negative Urine WBC (Auto) Urine RBC (Auto) Urine Bacteria Urine Mucus RPR Titer Reactive 1:1 H T.pallidum Ab (MHA) Previously reactive Labs reviewed: RPR titer reactive, 1:1 Assessment: 02/26/18 14:10 Withdrawal sxs Noted with latent syphilis Plan: Continue detox Latent syphilis: treated in 2017 as per patient, denies any present symptoms
[2018-02-26] MEDS: hydrOXYzine PAMOATE 50 MG CAPSULE (FP) PO PRN (15:10)
[2018-02-26] MEDS: chlordiazePOXIDE 5 MG CAPSULE PO SCH ×2 (17:22→22:51)
[2018-02-26] MEDS: THIAMINE HCL 100 MG TABLET (FP) PO SCH (22:51)
[2018-02-26] MEDS: QUEtiapine FUMARATE 100 MG TABLET (FP) PO SCH (22:51)
[2018-02-26] MEDS: MAG HYDROX/AL HYDROX/SIMETH 30 ML UNIT-DOSE CUP PO PRN (22:52)
[2018-02-27] MEDS: MELATONIN 5 MG TABLETS PO PRN ×2 (00:38→22:22)
[2018-02-27] MEDS: chlordiazePOXIDE 5 MG CAPSULE PO SCH ×2 (05:31→10:32)
[2018-02-27] MEDS: PRENATAL VITAMINS W/ FOLIC ACID TABLET (FP) PO SCH (10:32)
[2018-02-27] MEDS: MAG HYDROX/AL HYDROX/SIMETH 30 ML UNIT-DOSE CUP PO PRN ×2 (10:33→17:31)
[2018-02-27] MEDS: ONDANSETRON *ODT* 4 MG TABLET SL PRN (13:17)
--- NOTE | 2018-02-27 14:08 | PN ---
[facility] Progress Note (SOAP) Subjective: Interrupted sleep, sweating Objective: 02/27/18 14:07 Last Vital Signs Temp Pulse Resp BP Pulse Ox 97.6 F 81 18 118/76 02/27/18 13:42 02/27/18 13:42 02/27/18 13:42 02/27/18 13:42 Laboratory Tests 02/25/18 02/25/18 02/25/18 07:30 07:30 07:30 WBC 3.3 L RBC 4.39 Hgb 10.3 L Hct 33.1 L MCV 75.4 L MCH 23.4 L MCHC 31.0 L RDW 19.2 H Plt Count 47 L D MPV 9.1 Sodium 135 L Potassium 3.4 L Chloride 104 Carbon Dioxide 28 Anion Gap 2 L BUN 5 L Creatinine 0.5 L Creat Clearance w eGFR > 60 Random Glucose 96 Calcium 8.5 Total Bilirubin 0.8 AST 124 H ALT 46 Alkaline Phosphatase 131 H Total Protein 7.6 Albumin 3.1 L Urine Color Yellow Urine Appearance Turbid Urine pH 5.0 Ur Specific [place] 1.025 Urine Protein 1+ H Urine Glucose (UA) Negative Urine Ketones Negative Urine Blood Negative Urine Nitrite Negative Urine Bilirubin Negative Urine Urobilinogen 4.0 e.u/dl Ur Leukocyte Esterase Trace Urine WBC (Auto) 5 Urine RBC (Auto) None Urine Bacteria Few Urine Mucus Many RPR Titer T.pallidum Ab (MHA) 02/25/18 02/26/18 02/26/18 07:30 06:17 07:00 WBC RBC Hgb Hct MCV MCH MCHC RDW Plt Count MPV Sodium Potassium 3.9 Chloride Carbon Dioxide Anion Gap BUN Creatinine Creat Clearance w eGFR Random Glucose Calcium Total Bilirubin AST ALT Alkaline Phosphatase Total Protein Albumin Urine Color Yellow Urine Appearance Clear Urine pH 8.0 D Ur Specific [place] 1.018 Urine Protein Negative Urine Glucose (UA) Negative Urine Ketones Negative Urine Blood Negative Urine Nitrite Negative Urine Bilirubin Negative Urine Urobilinogen Negative Ur Leukocyte Esterase Negative Urine WBC (Auto) Urine RBC (Auto) Urine Bacteria Urine Mucus RPR Titer Reactive 1:1 H T.pallidum Ab (MHA) Previously reactive Labs reviewed Assessment: 02/27/18 14:07 Withdrawal symptoms Plan: Continue detox Encouraged PO water hydration
[2018-02-27] MEDS: hydrOXYzine PAMOATE 50 MG CAPSULE (FP) PO PRN (14:15)
[2018-02-27] MEDS: chlordiazePOXIDE HCL 10 MG CAPSULE PO SCH ×2 (17:26→22:21)
[2018-02-27] MEDS: QUEtiapine FUMARATE 100 MG TABLET (FP) PO SCH (22:21)
[2018-02-27] MEDS: THIAMINE HCL 100 MG TABLET (FP) PO SCH (22:21)
[2018-02-28] MEDS: hydrOXYzine PAMOATE 50 MG CAPSULE (FP) PO PRN ×2 (01:03→09:07)
[2018-02-28] MEDS: chlordiazePOXIDE HCL 10 MG CAPSULE PO SCH (05:53)
[2018-02-28 06:37] VITALS: BP 123/80; PULSE 75; TEMP 97.1
[2018-02-28] MEDS: MAG HYDROX/AL HYDROX/SIMETH 30 ML UNIT-DOSE CUP PO PRN (09:07)
--- NOTE | 2018-02-28 10:10 | DS ---
[facility] Detox Discharge Summary Admission Date: 02/24/18 - History Present History: Alcohol Dependence Pertinent Past History: Denies - Physical Exam Results Vital Signs: Vital Signs Temperature 97.1 F L 02/28/18 06:37 Pulse Rate 75 02/28/18 06:37 Respiratory Rate 18 02/28/18 06:37 Blood Pressure 123/80 02/28/18 06:37 O2 Sat by Pulse Oximetry (%) Pertinent Admission Physical Exam Findings: Withdrawal symptoms Laboratory Tests 02/25/18 02/25/18 02/25/18 07:30 07:30 07:30 WBC 3.3 L RBC 4.39 Hgb 10.3 L Hct 33.1 L MCV 75.4 L MCH 23.4 L MCHC 31.0 L RDW 19.2 H Plt Count 47 L D MPV 9.1 Sodium 135 L Potassium 3.4 L Chloride 104 Carbon Dioxide 28 Anion Gap 2 L BUN 5 L Creatinine 0.5 L Creat Clearance w eGFR > 60 Random Glucose 96 Calcium 8.5 Total Bilirubin 0.8 AST 124 H ALT 46 Alkaline Phosphatase 131 H Total Protein 7.6 Albumin 3.1 L Urine Color Yellow Urine Appearance Turbid Urine pH 5.0 Ur Specific [place] 1.025 Urine Protein 1+ H Urine Glucose (UA) Negative Urine Ketones Negative Urine Blood Negative Urine Nitrite Negative Urine Bilirubin Negative Urine Urobilinogen 4.0 e.u/dl Ur Leukocyte Esterase Trace Urine WBC (Auto) 5 Urine RBC (Auto) None Urine Bacteria Few Urine Mucus Many RPR Titer T.pallidum Ab (MHA) 02/25/18 02/26/18 02/26/18 07:30 06:17 07:00 WBC RBC Hgb Hct MCV MCH MCHC RDW Plt Count MPV Sodium Potassium 3.9 Chloride Carbon Dioxide Anion Gap BUN Creatinine Creat Clearance w eGFR Random Glucose Calcium Total Bilirubin AST ALT Alkaline Phosphatase Total Protein Albumin Urine Color Yellow Urine Appearance Clear Urine pH 8.0 D Ur Specific [place] 1.018 Urine Protein Negative Urine Glucose (UA) Negative Urine Ketones Negative Urine Blood Negative Urine Nitrite Negative Urine Bilirubin Negative Urine Urobilinogen Negative Ur Leukocyte Esterase Negative Urine WBC (Auto) Urine RBC (Auto) Urine Bacteria Urine Mucus RPR Titer Reactive 1:1 H T.pallidum Ab (MHA) Previously reactive Labs reviewed - Treatment Hospital Course: Detox Protocol Followed, Detoxed Safely, Responded well, Discharged Condition Good - Medication Discharge Medications: Ambulatory Orders hydrOXYzine HCL [Atarax -] 50 mg PO HS 05/20/16 Fluoxetine HCl [Prozac] 20 mg PO DAILY #30 capsule 02/03/17 Quetiapine Fumarate [Seroquel -] 100 mg PO HS 12/15/17 Hydralazine HCl 50 mg PO BID 02/24/18 - Diagnosis (1) Hypokalemia Current Visit: Yes Status: Resolved (2) Abnormal finding on urinalysis Current Visit: Yes Status: Resolved (3) Alcohol dependence with withdrawal, uncomplicated Current Visit: Yes Status: Acute (4) 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
== END 2018-02-28 11:04 | disposition home or self-care (01) | DRG 775 ==
LOC: YASAS 10:54 → Y3N 14:50
PROC: HZ2ZZZZ Detoxification Services for Substance Abuse Treatment (ICD-10-PCS; principal; 2018-02-24)
DX: F10.230 Alcohol dependence with withdrawal, uncomplicated (principal); F10.24 Alcohol dependence with alcohol-induced mood disorder; F10.280 Alcohol dependence with alcohol-induced anxiety disorder; F10.282 Alcohol dependence with alcohol-induced sleep disorder; I10 Essential (primary) hypertension; E87.6 Hypokalemia; R82.90 Unspecified abnormal findings in urine; A53.0 Latent syphilis, unspecified as early or late; G47.00 Insomnia, unspecified; Z91.011 Allergy to milk products; Z91.013 Allergy to seafood; Z86.69 Personal history of other diseases of the nervous system and sense organs
CPT/HCPCS: 36415; 71046-TC-FY; 80053; 81003; 81015; 84132; 85027; 86593; 86780; Q0162

== ENCOUNTER 2018-05-11 08:16 | Inpatient (IN) | payer OTHER ==
[2018-05-11 08:53] VITALS: BMI 35.2
--- NOTE | 2018-05-11 09:05 | HP ---
CIWA Score Nausea/Vomitin Muscle Tremors: 2 Anxiety: 2 Agitation: 2 Paroxysmal Sweats: 1-Minimal Palms Moist Orientation: 0-Oriented Tacttile Disturbances: 1-Very Mild Itch/Numbness Auditory Disturbances: 0-None Visual Disturbances: 1-Very Mild Sensitivity Headache: 2-Mild CIWA-Ar Total Score: 13 - Admission Criteria OASAS Guidelines: Admission for Medically Managed Detox: Requires at least one of the followin. CIWA greater than 12 2. Seizures within the past 24 hours 3. Delirium tremens within the past 24 hours 4. Hallucinations within the past 24 hours 5. Acute intervention needed for co occurring medical disorder 6. Acute intervention needed for co occurring psychiatric disorder 7. Severe withdrawal that cannot be handled at a lower level of care (continued vomiting, continued diarrhea, abnormal vital signs) requiring intravenous medication and/or fluids 8. Patient presents the following: CIWA greater than 12 Admission Criteria Met: Admission criteria met Admission ROS S - [facility] Chief Complaint: i nne help to stop drinking alcohol Allergies/Adverse Reactions: Allergies Allergy/AdvReac Type Severity Reaction Status Date / Time Fish Containing Products Allergy Severe Rash Verified 05/11/18 08:52 No Known Drug Allergies Allergy Verified 05/11/18 08:52 lactose AdvReac Lactose Verified 05/11/18 08:52 Intolerance LACTOSE INTOLERANCE AdvReac Nausea Uncoded 05/11/18 08:52 History of Present Illness: this 48 years old male with alcohol dependence,seeking detox,withdrawal symptom, multiple admissions in detox but keep relapsing,seen in [facility] last week ,seen in [place] this morning, has been coughing for 2 days syncope alcohol related obesity last detox [facility] 02/24/18 to longest period of sobriety 1 year history of lap cholecystectomy in 1014 history of fx of left leg 10 years ago Exam Limitations: No Limitations - Ebola screening Have you traveled outside of the country in the last 21 days: No Have you had contact with anyone from an Ebola affected area: No Do you have a fever: No - Review of Systems Constitutional: Loss of Appetite, Malaise, Night Sweats, Changes in sleep EENT: reports: Nose Congestion Respiratory: reports: No Symptoms reported Cardiac: reports: No Symptoms Reported GI: reports: Diarrhea, Nausea, Vomiting, Abdominal cramping : reports: No Symptoms Reported Musculoskeletal: reports: Back Pain, Muscle Pain Integumentary: reports: Dryness Neuro: reports: Headache, Tremors Endocrine: reports: No Symptoms Reported Hematology: reports: No Symptoms Reported Psychiatric: reports: No Sypmtoms Reported, Judgement Intact, Mood/Affect Appropiate, Orientated x3, other (insomnia) Patient History - Patient Medical History Hx Anemia: No Hx Asthma: No Hx Chronic Obstructive Pulmonary Disease (COPD): No Hx Cancer: No Hx Cardiac Disorders: No Hx Congestive Heart Failure: No Hx Hypertension: Yes (non compliance ,no med) Hx Hypercholesterolemia: No Hx Pacemaker: No HX Cerebrovascular Accident: No Hx Seizures: Yes (alcohol related-last episode was in 09/2017) Hx Dementia: No Hx Diabetes: No Hx Gastrointestinal Disorders: No Hx Liver Disease: No Hx Genitourinary Disorders: No Hx Sexually Transmitted Disorders: Yes (syphilis) Hx Renal Disease (ESRD): No Hx Thyroid Disease: No Hx Human Immunodeficiency Virus (HIV): No (NEGATIVE HX lAST 2017) Hx Hepatitis C: No (NEGATIVE HX, cannot remember when last tested.) Hx Depression: No Hx Suicide Attempt: No Hx Bipolar Disorder: No Hx Schizophrenia: No Other Medical History: insomnia,no suicidal,no homicidal - Patient Surgical History Past Surgical History: Yes Hx Neurologic Surgery: No Hx Cataract Extraction: No Hx Cardiac Surgery: No Hx Lung Surgery: No Hx Breast Surgery: No Hx Breast Biopsy: No Hx Abdominal Surgery: No Hx Appendectomy: No Hx Cholecystectomy: Yes (08/27 laproscopic) Hx Genitourinary Surgery: No Hx Section: No Hx Orthopedic Surgery: Yes (fx, left leg at age 21) Anesthesia Reaction: No - PPD History Previous Implant?: Yes Documented Results: Positive w/proof Implanted On Prior [facility] Admission?: No Results: chest 02/28/18 PPD to be Administered?: No - Smoking Cessation Smoking history: Never smoked Have you smoked in the past 12 months: No Aproximately how many cigarettes per day: 0 If you are a former smoker, when did you quit?: at age 32 Cigars Per Day: 0 Hx Chewing Tobacco Use: No - Substance & Tx. History Hx Alcohol Use: Yes Hx Substance Use: No Substance Use Type: Alcohol Hx Substance Use Treatment: Yes ([facility] 02/24/18 to 02/28/18) - Substances Abused Alcohol Route: Oral Frequency: Daily Amount used: 12 6/ PACK Age of first use: 17 Date of Last Use: 05/10/18 Family Disease History - Family Disease History Family Disease History: Other: Father (ALCOHOL) Admission Physical Exam [facility] - Vital Signs Vital Signs: Vital Signs Temperature 98.8 F 05/11/18 08:51 Pulse Rate 106 H 05/11/18 08:51 Respiratory Rate 20 05/11/18 08:51 Blood Pressure 137/81 05/11/18 08:51 O2 Sat by Pulse Oximetry (%) - Physical General Appearance: Yes: Moderate Distress, Obese, Tremorous, Irritable, Sweating, Anxious HEENTM: Yes: Normal ENT Inspection, Normocephalic, AG, Pharynx Normal Respiratory: Yes: Lungs Clear, Normal Breath Sounds, No Respiratory Distress Neck: Yes: Supple, Trachea in good position Breast: Yes: Within Normal Limits Cardiology: Yes: Within Normal Limits, Regular Rhythm, Regular Rate, S1, S2 Abdominal: Yes: Within Normal Limits, Normal Bowel Sounds, Non Tender, Flat, Soft, Surgical Scar (s/p lap cholecystectomy) Genitourinary: Yes: Within Normal Limits Musculoskeletal: Yes: Back pain, Muscle Pain Extremities: Yes: Tremors 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 (2) Insomnia Status: Acute Qualifiers: Insomnia type: unspecified Qualified Code(s): G47.00 - Insomnia, unspecified Comment: . (3) History of seizure Status: Chronic (4) Obese Status: Chronic Qualifiers: Obesity type: unspecified obesity type Obesity classification: adult class 2 (BMI 35 - 39.9) Serious obesity comorbidity presence: unspecified whether serious comorbidity present Body mass index: BMI 35.0-35.9 Qualified Code(s) : E66.9 - Obesity, unspecified; Z68.35 - Body mass index (BMI) 35.0-35.9, adult (5) History of laparoscopic cholecystectomy Status: Acute (6) Fracture of left lower extremity Status: Acute Qualifiers: Encounter type: sequela Fracture type: closed Qualified Code(s): S82.92XS - Unspecified fracture of left lower leg, sequela Cleared for Admission [facility] - Detox or Rehab [facility] Level of Care: Medically Managed Detox Regimen/Protocol: Librium [facility] Breath Alcohol Content Breath Alcohol Content: 0.014
[2018-05-11] MEDS ORDERED: MENTHOL/PHENOL 1 EACH UD MM PRN (09:17)
[2018-05-11] MEDS ORDERED: MAGNESIUM HYDROX 2400MG/30ML ORAL SUSPENSION 30 ML CUP PO PRN (09:17)
[2018-05-11] MEDS ORDERED: P-EPHED 60MG/TRIPROLIDI 2.5MG TABLET PO PRN (09:17)
[2018-05-11] MEDS ORDERED: guaiFENesin/D-METHORPHAN HB 10 ML UNIT-DOSE CUPS PO PRN (09:17)
[2018-05-11] MEDS ORDERED: chlordiazePOXIDE HCL 25 MG CAPSULE PO PRN (09:17)
[2018-05-11] MEDS ORDERED: ACETAMINOPHEN 325 MG TABLET (FP) PO PRN (09:17)
[2018-05-11] MEDS ORDERED: LOPERAMIDE HCL 2 MG CAPSULE PO PRN (09:17)
[2018-05-11] MEDS ORDERED: hydrOXYzine PAMOATE 50 MG CAPSULE (FP) PO PRN (09:17)
[2018-05-11] MEDS ORDERED: MAGNESIUM CITRATE 300 ML BOTTLE PO PRN (09:17)
[2018-05-11] MEDS ORDERED: IBUPROFEN 400 MG TABLET (FP) PO PRN (09:17)
[2018-05-11] MEDS: chlordiazePOXIDE HCL 25 MG CAPSULE PO SCH ×3 (11:35→22:19)
[2018-05-11] MEDS: PRENATAL VITAMINS W/ FOLIC ACID TABLET (FP) PO SCH (11:36)
[2018-05-11] MEDS: MAG HYDROX/AL HYDROX/SIMETH 30 ML UNIT-DOSE CUP PO PRN (17:31)
--- NOTE | 2018-05-11 18:54 | PN ---
S Progress Note Note: Called patient's home pharmacy ([facility]) and patient picked up a 1x prescription for Keppra 500 mg PO BID on 02/12/18. No prior Keppra pick-ups. Patient states seizures are r/t alcohol withdrawal and he has not taken keppra in weeks. Will maintain patient on Librium detox and monitor. [facility] has nothing on Seroquel or Proxac.
[2018-05-11] MEDS: THIAMINE HCL 100 MG TABLET (FP) PO SCH (22:19)
[2018-05-11] MEDS: MELATONIN 5 MG TABLETS PO PRN (22:19)
[2018-05-11 23:04] LABS: URINE APPEARANCE CLEAR; URINE BILIRUBIN NEGATIVE (<2.0 mg/dL); URINE COLOR YELLOW; URINE GLUCOSE (UA) NEGATIVE (NEGATIVE); URINE KETONE NEGATIVE (NEGATIVE); URINE LEUK ESTERASE NEGATIVE (NEGATIVE); URINE NITRITE NEGATIVE (NEGATIVE); URINE PROTEIN NEGATIVE (NEGATIVE); URINE UROBILINOGEN NEGATIVE mg/dL (0.2-1.0)
[2018-05-12] MEDS: chlordiazePOXIDE HCL 25 MG CAPSULE PO SCH ×4 (05:38→22:03)
[2018-05-12] MEDS: PRENATAL VITAMINS W/ FOLIC ACID TABLET (FP) PO SCH (10:18)
[2018-05-12 11:11] LABS: HEMATOCRIT 30.7 % (35.4-49); HEMOGLOBIN 9.4 GM/dL (11.7-16.9); MCH 22.8 pg (25.7-33.7); MCHC 30.7 g/dl (32.0-35.9); MEAN CELL VOLUME 74.2 fl (80-96); MEAN PLT VOLUME 9.5 fl (7.5-11.1); PLATELET COUNT 119 K/MM3 (134-434); RBC 4.14 M/mm3 (4.00-5.60); RDW 19.9 % (11.9-15.9)
[2018-05-12 11:47] LABS: ALBUMIN 3.3 g/dl (3.4-5.0); ALK PHOS 117 U/L (45-117); ANION GAP 8 MMOL/L (8-16); BILIRUBIN,TOTAL 0.5 mg/dL (0.2-1); BLOOD UREA NITROGEN 4 mg/dL (7-18); CALCIUM 7.3 mg/dL (8.5-10.1); CHLORIDE 104 mmol/L (98-107); CO2 26 mmol/L (21-32); CREATININE 0.7 mg/dL (0.55-1.3); GLUCOSE,RANDOM 157 mg/dL (74-106); POTASSIUM 3.7 mmol/L (3.5-5.1); SGOT/AST 94 U/L (15-37); SGPT/ALT 61 U/L (13-61); SODIUM 139 mmol/L (136-145)
[2018-05-12 13:17] LABS: RPR REACTIVE 1:1 (NONREACTIVE)
[2018-05-12 13:35] LABS: TREPONEMA ANTIBODY PREVIOUSLY REACTIVE (NONREACTIVE)
--- NOTE | 2018-05-12 15:08 | PN ---
S CIWA - CIWA Score Nausea/Vomitin-No Nausea/No Vomiting Muscle Tremors: 3 Anxiety: 4-Mod. Anxious/Guarded Agitation: 1-Slight > Activity Paroxysmal Sweats: 3 Orientation: 0-Oriented Tacttile Disturbances: 2-Mild Itch/Numbness/Burn Auditory Disturbances: 1-Very Mild Visual Disturbances: 0-None Headache: 3-Moderate CIWA-Ar Total Score: 17 [facility] Progress Note (SOAP) Subjective: Diarrhea, Sweating, Poor Appetite, Body Aches, H/A, Tremors. Objective: PATIENT A & O X 3, OBSERVED AMBULATING ON UNIT. IN NO ACUTE DISTRESS. 05/12/18 15:11 Vital Signs Temperature 97.9 F 05/12/18 14:00 Pulse Rate 70 05/12/18 14:00 Respiratory Rate 18 05/12/18 14:00 Blood Pressure 103/68 05/12/18 14:00 O2 Sat by Pulse Oximetry (%) Laboratory Tests 05/11/18 05/12/18 05/12/18 23:10 05:45 05:45 WBC 3.0 L RBC 4.14 Hgb 9.4 L Hct 30.7 L MCV 74.2 L MCH 22.8 L MCHC 30.7 L RDW 19.9 H Plt Count 119 L D MPV 9.5 Sodium 139 Potassium 3.7 Chloride 104 Carbon Dioxide 26 Anion Gap 8 BUN 4 L Creatinine 0.7 Creat Clearance w eGFR > 60 Random Glucose 157 H Calcium 7.3 L Total Bilirubin 0.5 AST 94 H ALT 61 Alkaline Phosphatase 117 Total Protein 8.0 Albumin 3.3 L Urine Color Yellow Urine Appearance Clear Urine pH 6.0 D Ur Specific [place] 1.013 Urine Protein Negative Urine Glucose (UA) Negative Urine Ketones Negative Urine Blood Negative Urine Nitrite Negative Urine Bilirubin Negative Urine Urobilinogen Negative Ur Leukocyte Esterase Negative RPR Titer T.pallidum Ab (A) 05/12/18 05:45 WBC RBC Hgb Hct MCV MCH MCHC RDW Plt Count MPV Sodium Potassium Chloride Carbon Dioxide Anion Gap BUN Creatinine Creat Clearance w eGFR Random Glucose Calcium Total Bilirubin AST ALT Alkaline Phosphatase Total Protein Albumin Urine Color Urine Appearance Urine pH Ur Specific [place] Urine Protein Urine Glucose (UA) Urine Ketones Urine Blood Urine Nitrite Urine Bilirubin Urine Urobilinogen Ur Leukocyte Esterase RPR Titer Reactive 1:1 H T.pallidum Ab (A) Previously reactive LABS NOTED. PATIENT REPORTS THAT HE COMPLETED A FULL COURSE OF ANTIBIOTIC TREATMENT FOR SYPHILIS IN THE PAST. 05/12/18 15:58 Assessment: 05/12/18 15:12 WITHDRAWAL SYMPTOMS. Plan: CONTINUE DETOX.
[2018-05-12] MEDS: MAG HYDROX/AL HYDROX/SIMETH 30 ML UNIT-DOSE CUP PO PRN (18:30)
[2018-05-12] MEDS: THIAMINE HCL 100 MG TABLET (FP) PO SCH (22:03)
[2018-05-12] MEDS: MELATONIN 5 MG TABLETS PO PRN (22:03)
[2018-05-12] MEDS: TRIMETHOBENZAMIDE HCL 200MG/2ML INJ IM PRN (22:07)
[2018-05-13] MEDS: chlordiazePOXIDE HCL 25 MG CAPSULE PO SCH (05:12)
[2018-05-13] MEDS: PRENATAL VITAMINS W/ FOLIC ACID TABLET (FP) PO SCH (10:39)
[2018-05-13] MEDS: chlordiazePOXIDE 5 MG CAPSULE PO SCH ×3 (10:39→22:22)
--- NOTE | 2018-05-13 11:51 | PN ---
[facility] CIWA - CIWA Score Nausea/Vomitin Muscle Tremors: 3 Anxiety: 3 Agitation: 3 Paroxysmal Sweats: 3 Orientation: 0-Oriented Tacttile Disturbances: 0-None Auditory Disturbances: 0-None Visual Disturbances: 0-None Headache: 0-None Present CIWA-Ar Total Score: 14 [facility] Progress Note (SOAP) Subjective: Chills, sweating, tremor, diarrhea, interrupted sleep Objective: 05/13/18 11:48 Last Vital Signs Temp Pulse Resp BP Pulse Ox 97.9 F 89 18 116/76 05/13/18 09:49 05/13/18 09:49 05/13/18 09:49 05/13/18 09:49 Laboratory Tests 05/11/18 05/12/18 05/12/18 23:10 05:45 05:45 WBC 3.0 L RBC 4.14 Hgb 9.4 L Hct 30.7 L MCV 74.2 L MCH 22.8 L MCHC 30.7 L RDW 19.9 H Plt Count 119 L D MPV 9.5 Sodium 139 Potassium 3.7 Chloride 104 Carbon Dioxide 26 Anion Gap 8 BUN 4 L Creatinine 0.7 Creat Clearance w eGFR > 60 Random Glucose 157 H Calcium 7.3 L Total Bilirubin 0.5 AST 94 H ALT 61 Alkaline Phosphatase 117 Total Protein 8.0 Albumin 3.3 L Urine Color Yellow Urine Appearance Clear Urine pH 6.0 D Ur Specific [place] 1.013 Urine Protein Negative Urine Glucose (UA) Negative Urine Ketones Negative Urine Blood Negative Urine Nitrite Negative Urine Bilirubin Negative Urine Urobilinogen Negative Ur Leukocyte Esterase Negative RPR Titer T.pallidum Ab (A) 05/12/18 05:45 WBC RBC Hgb Hct MCV MCH MCHC RDW Plt Count MPV Sodium Potassium Chloride Carbon Dioxide Anion Gap BUN Creatinine Creat Clearance w eGFR Random Glucose Calcium Total Bilirubin AST ALT Alkaline Phosphatase Total Protein Albumin Urine Color Urine Appearance Urine pH Ur Specific [place] Urine Protein Urine Glucose (UA) Urine Ketones Urine Blood Urine Nitrite Urine Bilirubin Urine Urobilinogen Ur Leukocyte Esterase RPR Titer Reactive 1:1 H T.pallidum Ab (MHA) Previously reactive Labs reviewed: pancytopenia noted; elevated glucose 157 and low calcium 7.3 Assessment: 05/13/18 11:50 Withdrawal symptoms Noted with pancytopenia, hyperglycemia and hypocalcemia Plan: Continue detox Encouraged PO water hydration Pancytopenia: chronic; stable, follow up with PCP for monitoring/management; no need to repeat CBC as this is chronic Hyperglycemia: most likely withdrawal related, repeat fasting glucose in AM Hypocalcemia: start calcium carbonate 650mg PO bid, repeat serum calcium level in AM
[2018-05-13] MEDS: CALCIUM CARBONATE 650 MG TABLET PO SCH ×2 (17:09→22:22)
[2018-05-13] MEDS: MAG HYDROX/AL HYDROX/SIMETH 30 ML UNIT-DOSE CUP PO PRN (17:10)
[2018-05-13] MEDS: TRIMETHOBENZAMIDE HCL 200MG/2ML INJ IM PRN (19:00)
[2018-05-13] MEDS: MELATONIN 5 MG TABLETS PO PRN (22:22)
[2018-05-13] MEDS: THIAMINE HCL 100 MG TABLET (FP) PO SCH (22:22)
[2018-05-14] MEDS: chlordiazePOXIDE 5 MG CAPSULE PO SCH (05:17)
[2018-05-14 09:18] VITALS: BP 103/56; PULSE 88; TEMP 97.4
[2018-05-14] MEDS: PRENATAL VITAMINS W/ FOLIC ACID TABLET (FP) PO SCH (10:13)
[2018-05-14] MEDS: CALCIUM CARBONATE 650 MG TABLET PO SCH (10:13)
[2018-05-14] MEDS: MAG HYDROX/AL HYDROX/SIMETH 30 ML UNIT-DOSE CUP PO PRN (10:14)
[2018-05-14] MEDS ORDERED: chlordiazePOXIDE HCL 10 MG CAPSULE PO SCH (11:00)
--- NOTE | 2018-05-14 11:43 | DS ---
[facility] Detox Discharge Summary Admission Date: 05/11/18 Discharge Date: 05/14/18 - History Present History: Alcohol Dependence Additional Comments: 48 years old male admitted on 05/11/18 for alcohol withdrawal stabilization feeling better today alert no acute distress no suicidal no homocidall no self destructive behavior aftercare [facility] - Physical Exam Results Vital Signs: Vital Signs Temperature 97.4 F L 05/14/18 09:18 Pulse Rate 88 05/14/18 09:18 Respiratory Rate 18 05/14/18 09:18 Blood Pressure 103/56 L 05/14/18 09:18 O2 Sat by Pulse Oximetry (%) Pertinent Admission Physical Exam Findings: alcohol withdrawal sx Vital Signs Temperature 97.4 F L 05/14/18 09:18 Pulse Rate 88 05/14/18 09:18 Respiratory Rate 18 05/14/18 09:18 Blood Pressure 103/56 L 05/14/18 09:18 O2 Sat by Pulse Oximetry (%) Laboratory Last Values WBC 3.0 K/mm3 (4.0-10.0) L 05/12/18 05:45 RBC 4.14 M/mm3 (4.00-5.60) 05/12/18 05:45 Hgb 9.4 GM/dL (11.7-16.9) L 05/12/18 05:45 Hct 30.7 % (35.4-49) L 05/12/18 05:45 MCV 74.2 fl (80-96) L 05/12/18 05:45 MCH 22.8 pg (25.7-33.7) L 05/12/18 05:45 MCHC 30.7 g/dl (32.0-35.9) L 05/12/18 05:45 RDW 19.9 % (11.9-15.9) H 05/12/18 05:45 Plt Count 119 K/MM3 (134-434) L D 05/12/18 05:45 MPV 9.5 fl (7.5-11.1) 05/12/18 05:45 Sodium 139 mmol/L (136-145) 05/12/18 05:45 Potassium 3.7 mmol/L (3.5-5.1) 05/12/18 05:45 Chloride 104 mmol/L (98-107) 05/12/18 05:45 Carbon Dioxide 26 mmol/L (21-32) 05/12/18 05:45 Anion Gap 8 MMOL/L (8-16) 05/12/18 05:45 BUN 4 mg/dL (7-18) L 05/12/18 05:45 Creatinine 0.7 mg/dL (0.55-1.3) 05/12/18 05:45 Creat Clearance w eGFR > 60 (>60) 05/12/18 05:45 Random Glucose 157 mg/dL (74-106) H 05/12/18 05:45 Fasting Glucose 131 mg/dL (74-106) H 05/14/18 07:30 Calcium 8.3 mg/dL (8.5-10.1) L 05/14/18 07:30 Total Bilirubin 0.5 mg/dL (0.2-1) 05/12/18 05:45 AST 94 U/L (15-37) H 05/12/18 05:45 ALT 61 U/L (13-61) 05/12/18 05:45 Alkaline Phosphatase 117 U/L (45-117) 05/12/18 05:45 Total Protein 8.0 g/dl (6.4-8.2) 05/12/18 05:45 Albumin 3.3 g/dl (3.4-5.0) L 05/12/18 05:45 Urine Color Yellow 05/11/18 23:10 Urine Appearance Clear 05/11/18 23:10 Urine pH 6.0 (5.0-8.0) D 05/11/18 23:10 Ur Specific [place] 1.013 (1.010-1.035) 05/11/18 23:10 Urine Protein Negative (NEGATIVE) 05/11/18 23:10 Urine Glucose (UA) Negative (NEGATIVE) 05/11/18 23:10 Urine Ketones Negative (NEGATIVE) 05/11/18 23:10 Urine Blood Negative (NEGATIVE) 05/11/18 23:10 Urine Nitrite Negative (NEGATIVE) 05/11/18 23:10 Urine Bilirubin Negative (<2.0 mg/dL) 05/11/18 23:10 Urine Urobilinogen Negative mg/dL (0.2-1.0) 05/11/18 23:10 Ur Leukocyte Esterase Negative (NEGATIVE) 05/11/18 23:10 RPR Titer Reactive 1:1 (NONREACTIVE) H 05/12/18 05:45 T.pallidum Ab (MHA) Previously reactive (NONREACTIVE) 05/12/18 05:45 lab noted - Treatment Hospital Course: Detox Protocol Followed, Detoxed Safely, Responded well, Discharged Condition Good, Rehab Referral Accepted Patient has Accepted a Rehab Referral to: [facility] - Medication Discharge Medications: Ambulatory Orders Fluoxetine HCl [Prozac] 20 mg PO DAILY #30 capsule 02/03/17 Quetiapine Fumarate [Seroquel -] 100 mg PO HS 12/15/17 - Diagnosis (1) Alcohol dependence with withdrawal, uncomplicated Current Visit: Yes Status: Acute (2) HTN (hypertension), benign Current Visit: Yes Status: Chronic (3) PPD positive Current Visit: Yes Status: Resolved - AMA Did Patient Leave Against Medical Advice: No
== END 2018-05-14 11:57 | disposition home or self-care (01) | DRG 775 ==
LOC: YASAS 08:16 → Y3N 09:13
PROC: HZ2ZZZZ Detoxification Services for Substance Abuse Treatment (ICD-10-PCS; principal; 2018-05-11)
DX: F10.230 Alcohol dependence with withdrawal, uncomplicated (principal); I10 Essential (primary) hypertension; G47.00 Insomnia, unspecified; R76.11 Nonspecific reaction to tuberculin skin test without active tuberculosis; R73.9 Hyperglycemia, unspecified; E83.51 Hypocalcemia; E66.9 Obesity, unspecified; Z68.35 Body mass index [BMI] 35.0-35.9, adult; E73.9 Lactose intolerance, unspecified; Z86.69 Personal history of other diseases of the nervous system and sense organs; Z91.013 Allergy to seafood; Z87.438 Personal history of other diseases of male genital organs; Z91.14 Patient's other noncompliance with medication regimen
CPT/HCPCS: 36415; 80053; 81003; 82310; 82947; 85027; 86593; 86780

== ENCOUNTER 2018-06-06 08:24 | Inpatient (IN) | payer OTHER ==
[2018-06-06 08:57] VITALS: BMI 33.2
--- NOTE | 2018-06-06 11:19 | HP ---
CIWA Score Nausea/Vomitin-No Nausea/No Vomiting Muscle Tremors: 4-Moderate,w/Arms Extend Anxiety: 3 Agitation: 3 Paroxysmal Sweats: 3 Orientation: 0-Oriented Tacttile Disturbances: 0-None Auditory Disturbances: 0-None Visual Disturbances: 0-None Headache: 3-Moderate CIWA-Ar Total Score: 16 - Admission Criteria [facility] Guidelines: Admission for Medically Managed Detox: Requires at least one of the followin. CIWA greater than 12 2. Seizures within the past 24 hours 3. Delirium tremens within the past 24 hours 4. Hallucinations within the past 24 hours 5. Acute intervention needed for co occurring medical disorder 6. Acute intervention needed for co occurring psychiatric disorder 7. Severe withdrawal that cannot be handled at a lower level of care (continued vomiting, continued diarrhea, abnormal vital signs) requiring intravenous medication and/or fluids 8. Admission ROS [facility] Chief Complaint: I was sober for a while and recently relapsed Allergies/Adverse Reactions: Allergies Allergy/AdvReac Type Severity Reaction Status Date / Time Fish Containing Products Allergy Severe Rash Verified 06/06/18 10:02 No Known Drug Allergies Allergy Verified 06/06/18 10:02 lactose AdvReac Lactose Verified 06/06/18 10:02 Intolerance LACTOSE INTOLERANCE AdvReac Nausea Uncoded 06/06/18 10:02 History of Present Illness: pt is a 48yr old male with a history of alcohol dependence seeking detox for treatment. Exam Limitations: No Limitations - Ebola screening Have you traveled outside of the country in the last 21 days: No Have you had contact with anyone from an Ebola affected area: No Have you been sick,other than usual withdrawal symptoms: No Do you have a fever: No - Review of Systems Constitutional: Chills, Diaphoresis, Loss of Appetite, Night Sweats, Changes in sleep EENT: reports: No Symptoms Reported Respiratory: reports: No Symptoms reported Cardiac: reports: No Symptoms Reported GI: reports: Nausea, Poor Fluid Intake, Indigestion : reports: No Symptoms Reported Musculoskeletal: reports: No Symptoms Reported, Joint Pain Integumentary: reports: Flushing, Sweating Neuro: reports: Headache, Tingling, Tremors Endocrine: reports: Excessive Sweating, Flushing, Intolerance to Cold, Intolerance to Heat Hematology: reports: No Symptoms Reported Psychiatric: reports: Judgement Intact, Mood/Affect Appropiate, Orientated x3, Agitated, Anxious Other Systems: Reviewed and Negative Patient History - Patient Medical History Hx Anemia: No Hx Asthma: No Hx Chronic Obstructive Pulmonary Disease (COPD): No Hx Cancer: No Hx Cardiac Disorders: No Hx Congestive Heart Failure: No Hx Hypertension: No Hx Hypercholesterolemia: No Hx Pacemaker: No HX Cerebrovascular Accident: No Hx Seizures: No Hx Dementia: No Hx Diabetes: No Hx Gastrointestinal Disorders: No Hx Liver Disease: No Hx Genitourinary Disorders: No Hx Sexually Transmitted Disorders: Yes (syphilis) Hx Renal Disease (ESRD): No Hx Thyroid Disease: No Hx Human Immunodeficiency Virus (HIV): No (NEGATIVE HX lAST 2017) Hx Hepatitis C: No (NEGATIVE HX, cannot remember when last tested.) Hx Depression: No Hx Suicide Attempt: No Hx Bipolar Disorder: No Hx Schizophrenia: No Other Medical History: insomnia - Patient Surgical History Past Surgical History: Yes Hx Neurologic Surgery: No Hx Cataract Extraction: No Hx Cardiac Surgery: No Hx Lung Surgery: No Hx Breast Surgery: No Hx Breast Biopsy: No Hx Abdominal Surgery: No Hx Appendectomy: No Hx Cholecystectomy: Yes (08/27 laproscopic) Hx Genitourinary Surgery: No Hx Section: No Hx Orthopedic Surgery: Yes (fx, left leg at age 21) Anesthesia Reaction: No - PPD History Previous Implant?: Yes Documented Results: Positive w/o proof Results: CXR(-)02/28/18 PPD to be Administered?: No - Reproductive History Patient is a Female of Child Bearing Age (11 -55 yrs old): No - Smoking Cessation Smoking history: Never smoked Have you smoked in the past 12 months: No Aproximately how many cigarettes per day: 0 If you are a former smoker, when did you quit?: at age 32 Cigars Per Day: 0 Hx Chewing Tobacco Use: No Initiated information on smoking cessation: No - Substance & Tx. History Hx Alcohol Use: Yes Hx Substance Use: No Substance Use Type: Alcohol Hx Substance Use Treatment: Yes (last detox [facility] 2017) - Substances Abused Alcohol-beer Route: Oral Frequency: Daily Amount used: 2-6 pks. Age of first use: 17 Date of Last Use: 06/05/18 Family Disease History - Family Disease History Family Disease History: Other: Father (ALCOHOL) Admission Physical Exam [facility] - Vital Signs Vital Signs: Vital Signs - 24 hr 06/06/18 08:51 Temperature 98 F Pulse Rate 106 H Respiratory 18 Rate Blood Pressure 120/64 - Physical General Appearance: Yes: Appropriately Dressed, Moderate Distress, Obese, Tremorous, Irritable, Sweating, Anxious HEENTM: Yes: Hearing grossly Normal, Normal Voice, Nasal Congestion, Rhinorrhea Respiratory: Yes: Lungs Clear, Normal Breath Sounds, No Respiratory Distress Neck: Yes: No masses,lesions,Nodules Breast: Yes: Within Normal Limits Cardiology: Yes: Regular Rhythm, Regular Rate, S1, S2 Abdominal: Yes: Normal Bowel Sounds, Non Tender, Flat Genitourinary: Yes: Within Normal Limits Back: Yes: Normal Inspection Musculoskeletal: Yes: Back pain, Muscle Pain Extremities: Yes: Normal Capillary Refill, Normal Inspection, Non-Tender, Tremors Neurological: Yes: Fully Oriented, Alert, Normal Response Integumentary: Yes: Normal Color, Diaphoresis Lymphatic: Yes: Within Normal Limits - Diagnostic (1) Alcohol dependence with withdrawal, uncomplicated Current Visit: Yes Status: Chronic Comment: . (2) Alcohol-induced anxiety disorder Current Visit: No Status: Acute (3) Fracture of left lower extremity Current Visit: No Status: Resolved Qualifiers: Encounter type: sequela Fracture type: closed Qualified Code(s): S82.92XS - Unspecified fracture of left lower leg, sequela (4) History of laparoscopic cholecystectomy Current Visit: No Status: Resolved (5) Insomnia Current Visit: Yes Status: Chronic Qualifiers: Insomnia type: alcohol-induced Qualified Code(s): F10.982 - Alcohol use, unspecified with alcohol-induced sleep disorder Comment: . (6) HTN (hypertension), benign Current Visit: Yes Status: Chronic (7) Obese Current Visit: Yes Status: Chronic Qualifiers: Obesity type: due to excess calories Obesity classification: unspecified obesity classification Serious obesity comorbidity presence: unspecified whether serious comorbidity present Qualified Code(s): E66.09 - Other obesity due to excess calories (8) Depression (emotion) Current Visit: No Status: Suspected Qualifiers: (9) PPD positive Current Visit: No Status: Chronic Cleared for Admission S - Detox or Rehab [facility] Level of Care: Medically Managed Detox Regimen/Protocol: Librium [facility] Breath Alcohol Content Breath Alcohol Content: 0.203 Urine Drug Screen - Results Drug Screen Negative: No Urine Drug Screen Results: BZO-Benzodiazepines
[2018-06-06] MEDS ORDERED: ACETAMINOPHEN 325 MG TABLET (FP) PO PRN (11:22)
[2018-06-06] MEDS ORDERED: LOPERAMIDE HCL 2 MG CAPSULE PO PRN (11:22)
[2018-06-06] MEDS ORDERED: guaiFENesin/D-METHORPHAN HB 10 ML UNIT-DOSE CUPS PO PRN (11:22)
[2018-06-06] MEDS ORDERED: MENTHOL/PHENOL 1 EACH UD MM PRN (11:22)
[2018-06-06] MEDS ORDERED: P-EPHED 60MG/TRIPROLIDI 2.5MG TABLET PO PRN (11:22)
[2018-06-06] MEDS ORDERED: MAGNESIUM HYDROX 2400MG/30ML ORAL SUSPENSION 30 ML CUP PO PRN (11:22)
[2018-06-06] MEDS ORDERED: IBUPROFEN 400 MG TABLET (FP) PO PRN ×2 (11:22→11:25)
[2018-06-06] MEDS ORDERED: MAGNESIUM CITRATE 300 ML BOTTLE PO PRN (11:22)
[2018-06-06] MEDS ORDERED: chlordiazePOXIDE HCL 25 MG CAPSULE PO ONE (11:22)
[2018-06-06] MEDS: RANITIDINE HCL 150 MG TABLET (FP) PO SCH ×2 (12:23→22:15)
[2018-06-06] MEDS: BACLOFEN 10 MG TABLET (FP) PO SCH ×2 (14:57→22:15)
[2018-06-06] MEDS: chlordiazePOXIDE HCL 25 MG CAPSULE PO SCH ×2 (17:20→22:15)
[2018-06-06] MEDS: MAG HYDROX/AL HYDROX/SIMETH 30 ML UNIT-DOSE CUP PO PRN (17:22)
[2018-06-06] MEDS ORDERED: MELATONIN 5 MG TABLETS PO PRN (22:00)
[2018-06-06] MEDS: THIAMINE HCL 100 MG TABLET (FP) PO SCH (22:15)
[2018-06-07] MEDS: chlordiazePOXIDE HCL 25 MG CAPSULE PO SCH ×4 (04:27→22:24)
[2018-06-07] MEDS: BACLOFEN 10 MG TABLET (FP) PO SCH ×3 (06:18→22:24)
--- NOTE | 2018-06-07 08:42 | CONSULT ---
[facility] Psychiatric Consult - Data Date of interview: 06/07/18 Admission source: [facility] Identifying data: This is a 48 years old male, father of one, living with friend, unemployed, on [place] support, with no psychiatric hospitalization history, with long history of Alcohol dependdence, reports withdrawal symptoms and seeking detox. Substance Abuse History: Smoking history: Never smoked. Have you smoked in the past 12 months: No. Aproximately how many cigarettes per day: 0. If you are a former smoker, when did you quit?: at age 32. Cigars Per Day: 0. Hx Chewing Tobacco Use: No. Initiated information on smoking cessation: No. - Substance & Tx. History. Hx Alcohol Use: Yes. Hx Substance Use: No. Substance Use Type : Alcohol. Hx Substance Use Treatment: Yes (last detox [facility] 2017). - Substances Abused. Alcohol-beer. Route: Oral. Frequency: Daily. Amount used: 2-6 pks. Age of first use: 17. Date of Last Use: 06/05/18 Medical History: HTN, Obesity, PPD history, , Cholecystectomy history Psychiatric History: Patient reports history of anxiety and depression, reports no psychiatric hospitalization history, reports no suicidal, hosmicidal history. Patient tajisng prior to admission: Prozac 20mg poqd. Seroquel 100mg po qhs Physical/Sexual Abuse/Trauma History: Denies Additional Comment: Prozac 20mg poqd. Seroquel 100mg po qhs Mental Status Exam - Mental Status Exam Alert and Oriented to: Person Cognitive Function: Fair Patient Appearance: Unkempt Mood: Sad Affect: Flat Patient Behavior: Sedated Speech Pattern: Delayed Voice Loudness: Mildly Soft/Quiet Thought Process: Circumstantial Thought Disorder: Being Controlled Hallucinations: Denies Suicidal Ideation: Denies Homicidal Ideation: Denies Insight/Judgement: Fair Sleep: Difficulty falling asleep Appetite: Weight gain Muscle strength/Tone: Mild Hypotonicity Gait/Station: Shuffling Additional Comments: Prozac 20mg poqd. Seroquel 100mg po qhs Psychiatric Findings - Problem List ([place] 1, 2,3) (1) Alcohol dependence with withdrawal, uncomplicated Current Visit: Yes Status: Chronic Comment: . (2) HTN (hypertension), benign Current Visit: Yes Status: Chronic (3) Obese Current Visit: Yes Status: Chronic Qualifiers: Obesity type: due to excess calories Obesity classification: unspecified obesity classification Serious obesity comorbidity presence: unspecified whether serious comorbidity present Qualified Code(s): E66.09 - Other obesity due to excess calories (4) Alcohol-induced anxiety disorder Current Visit: No Status: Acute (5) PPD positive Current Visit: No Status: Chronic (6) Fracture of left lower extremity Current Visit: No Status: Resolved Qualifiers: Encounter type: sequela Fracture type: closed Qualified Code(s): S82.92XS - Unspecified fracture of left lower leg, sequela (7) History of laparoscopic cholecystectomy Current Visit: No Status: Resolved - Initial Treatment Plan Initial Treatment Plan: Prozac 20mg poqd. Seroquel 100mg po qhs
[2018-06-07] MEDS: RANITIDINE HCL 150 MG TABLET (FP) PO SCH ×2 (10:11→22:24)
[2018-06-07] MEDS: PRENATAL VITAMINS W/ FOLIC ACID TABLET (FP) PO SCH (10:11)
[2018-06-07] MEDS: MAG HYDROX/AL HYDROX/SIMETH 30 ML UNIT-DOSE CUP PO PRN ×2 (10:12→22:26)
[2018-06-07] MEDS: FLUoxetine HCL 20 MG CAPSULE (FP) PO SCH (10:12)
[2018-06-07 10:21] LABS: HEMATOCRIT 33.2 % (35.4-49); HEMOGLOBIN 10.4 GM/dL (11.7-16.9); MCH 23.1 pg (25.7-33.7); MCHC 31.4 g/dl (32.0-35.9); MEAN CELL VOLUME 73.5 fl (80-96); MEAN PLT VOLUME 9.6 fl (7.5-11.1); PLATELET COUNT 160 K/MM3 (134-434); RBC 4.52 M/mm3 (4.00-5.60); RDW 19.9 % (11.9-15.9); WHITE BLOOD COUNT 6.2 K/mm3 (4.0-10.0)
[2018-06-07 10:23] LABS: ALBUMIN 3.8 g/dl (3.4-5.0); ALK PHOS 100 U/L (45-117); ANION GAP 11 MMOL/L (8-16); BILIRUBIN,TOTAL 0.4 mg/dL (0.2-1); BLOOD UREA NITROGEN 8 mg/dL (7-18); CHLORIDE 106 mmol/L (98-107); CO2 23 mmol/L (21-32); CREATININE 0.7 mg/dL (0.55-1.3); GLUCOSE,RANDOM 97 mg/dL (74-106); POTASSIUM 3.7 mmol/L (3.5-5.1); SGOT/AST 167 U/L (15-37); SGPT/ALT 82 U/L (13-61); SODIUM 140 mmol/L (136-145); TOT PROT 8.7 g/dl (6.4-8.2)
[2018-06-07 11:41] LABS: RPR REACTIVE 1:1 (NONREACTIVE)
[2018-06-07 11:45] LABS: TREPONEMA ANTIBODY PREVIOUSLY REACTIVE (NONREACTIVE)
[2018-06-07] MEDS ORDERED: CYCLOBENZAPRINE HCL 10 MG TABLET (FP) PO PRN (12:01)
[2018-06-07] MEDS: chlordiazePOXIDE HCL 25 MG CAPSULE PO PRN (13:07)
--- NOTE | 2018-06-07 14:07 | PN ---
S CIWA - CIWA Score Nausea/Vomitin Muscle Tremors: 3 Anxiety: 3 Agitation: 1-Slight > Activity Paroxysmal Sweats: 3 Orientation: 0-Oriented Tacttile Disturbances: 0-None Auditory Disturbances: 0-None Visual Disturbances: 2-Mild Sensitivity Headache: 3-Moderate CIWA-Ar Total Score: 18 [facility] Progress Note (SOAP) Subjective: Nausea, Sweating, Body Aches, Tremors, Interrupted Sleep, H/A, Poor Appetite. Objective: PATIENT A & O X 3, OBSERVED AMBULATING ON UNIT. IN NO ACUTE DISTRESS. 06/07/18 14:05 Vital Signs Temperature 97.5 F L 06/07/18 13:37 Pulse Rate 69 06/07/18 13:37 Respiratory Rate 18 06/07/18 13:37 Blood Pressure 121/65 06/07/18 13:37 O2 Sat by Pulse Oximetry (%) Laboratory Tests 06/07/18 06/07/18 06/07/18 06:00 06:00 06:00 WBC 6.2 RBC 4.52 Hgb 10.4 L Hct 33.2 L MCV 73.5 L MCH 23.1 L MCHC 31.4 L RDW 19.9 H Plt Count 160 D MPV 9.6 Sodium 140 Potassium 3.7 Chloride 106 Carbon Dioxide 23 Anion Gap 11 BUN 8 Creatinine 0.7 Creat Clearance w eGFR > 60 Random Glucose 97 Calcium 8.0 L Total Bilirubin 0.4 AST 167 H ALT 82 H Alkaline Phosphatase 100 Total Protein 8.7 H Albumin 3.8 RPR Titer Reactive 1:1 H T.pallidum Ab (MHA) Previously reactive LABS NOTED. RPR RESULT NOTED (1:1, MHATP: PREVIOUSLY REACTIVE). PATIENT REPORTED HISTORY OF SYPHILIS ON ADMISSION. 06/07/18 14:10 Assessment: 06/07/18 14:06 WITHDRAWAL SYMPTOMS. ANEMIA (MICOCYTIC). 06/07/18 14:10 Plan: CONTINUE DETOX. FEOSOL, 325 MG PO BIDWM FOR ANEMIA. RE-CHECK CBC TO SEE FOR EFFECT OF FEOSOL ON 06/09/2018. PATIENT CURRENTLY RECEIVING DAILY MVI THAT CONTAINS B-VITAMINS AND IRON WHILE ADMITTED FOR DETOX. RE-CHECK AST ON 06/09/2018 FOR ELEVATED ADMISSION LEVEL. PRN ZOFRAN SL FOR NAUSEA.
[2018-06-07] MEDS: ONDANSETRON *ODT* 4 MG TABLET SL PRN (17:48)
[2018-06-07] MEDS: FERROUS SO4 325 MG TABLET (FP) PO SCH (17:48)
[2018-06-07] MEDS: QUEtiapine FUMARATE 100 MG TABLET (FP) PO SCH (22:24)
[2018-06-07] MEDS: THIAMINE HCL 100 MG TABLET (FP) PO SCH (22:25)
[2018-06-08] MEDS: BACLOFEN 10 MG TABLET (FP) PO SCH ×3 (05:59→22:20)
[2018-06-08] MEDS: chlordiazePOXIDE HCL 25 MG CAPSULE PO SCH ×2 (05:59→10:16)
[2018-06-08] MEDS: FERROUS SO4 325 MG TABLET (FP) PO SCH ×2 (07:07→18:38)
[2018-06-08] MEDS: RANITIDINE HCL 150 MG TABLET (FP) PO SCH ×2 (10:16→22:20)
[2018-06-08] MEDS: FLUoxetine HCL 20 MG CAPSULE (FP) PO SCH (10:16)
[2018-06-08] MEDS: PRENATAL VITAMINS W/ FOLIC ACID TABLET (FP) PO SCH (10:16)
[2018-06-08] MEDS: chlordiazePOXIDE HCL 25 MG CAPSULE PO PRN (12:26)
--- NOTE | 2018-06-08 12:36 | PN ---
S CIWA - CIWA Score Nausea/Vomitin-No Nausea/No Vomiting Muscle Tremors: 4-Moderate,w/Arms Extend Anxiety: 3 Agitation: 3 Paroxysmal Sweats: 3 Orientation: 0-Oriented Tacttile Disturbances: 0-None Auditory Disturbances: 0-None Visual Disturbances: 0-None Headache: 0-None Present CIWA-Ar Total Score: 13 [facility] Progress Note (SOAP) Subjective: anxiety sweats irritable agitation Objective: 06/08/18 12:34 Vital Signs Temperature 99.9 F H 06/08/18 09:20 Pulse Rate 103 H 06/08/18 09:20 Respiratory Rate 18 06/08/18 09:20 Blood Pressure 133/76 06/08/18 09:20 O2 Sat by Pulse Oximetry (%) Laboratory Tests 06/07/18 06/07/18 06/07/18 06:00 06:00 06:00 WBC 6.2 RBC 4.52 Hgb 10.4 L Hct 33.2 L MCV 73.5 L MCH 23.1 L MCHC 31.4 L RDW 19.9 H Plt Count 160 D MPV 9.6 Sodium 140 Potassium 3.7 Chloride 106 Carbon Dioxide 23 Anion Gap 11 BUN 8 Creatinine 0.7 Creat Clearance w eGFR > 60 Random Glucose 97 Calcium 8.0 L Total Bilirubin 0.4 AST 167 H ALT 82 H Alkaline Phosphatase 100 Total Protein 8.7 H Albumin 3.8 RPR Titer Reactive 1:1 H T.pallidum Ab (MHA) Previously reactive aaox3 ambulating no acute distress Assessment: 06/08/18 12:34 withdrawal sx Plan: continue detox increase fluids
[2018-06-08] MEDS: chlordiazePOXIDE 5 MG CAPSULE PO SCH ×2 (18:25→22:19)
[2018-06-08] MEDS: QUEtiapine FUMARATE 100 MG TABLET (FP) PO SCH (22:20)
[2018-06-08] MEDS: THIAMINE HCL 100 MG TABLET (FP) PO SCH (22:20)
[2018-06-09] MEDS: hydrOXYzine PAMOATE 50 MG CAPSULE (FP) PO PRN ×2 (03:51→14:38)
[2018-06-09] MEDS: chlordiazePOXIDE 5 MG CAPSULE PO SCH ×2 (05:14→10:17)
[2018-06-09] MEDS: BACLOFEN 10 MG TABLET (FP) PO SCH ×3 (05:15→23:29)
[2018-06-09] MEDS: PRENATAL VITAMINS W/ FOLIC ACID TABLET (FP) PO SCH (10:16)
[2018-06-09] MEDS: FLUoxetine HCL 20 MG CAPSULE (FP) PO SCH (10:17)
[2018-06-09] MEDS: RANITIDINE HCL 150 MG TABLET (FP) PO SCH ×2 (10:17→23:30)
[2018-06-09] MEDS: FERROUS SO4 325 MG TABLET (FP) PO SCH (10:20)
[2018-06-09 11:12] LABS: BASO % 0.8 % (0-2.0); EOS % 2.5 % (0-4.5); HEMATOCRIT 33.8 % (35.4-49); HEMOGLOBIN 10.9 GM/dL (11.7-16.9); LYMPH % 25.5 % (8-40); MCH 23.8 pg (25.7-33.7); MCHC 32.1 g/dl (32.0-35.9); MEAN CELL VOLUME 74.2 fl (80-96); MEAN PLT VOLUME 8.9 fl (7.5-11.1); MONO % 9.8 % (3.8-10.2); NEUT % 61.4 % (42.8-82.8); PLATELET COUNT 135 K/MM3 (134-434); RBC 4.55 M/mm3 (4.00-5.60); RDW 20.4 % (11.9-15.9); WHITE BLOOD COUNT 5.3 K/mm3 (4.0-10.0)
--- NOTE | 2018-06-09 13:04 | PN ---
[facility] Progress Note (SOAP) Subjective: Sweats, tremors,nausea without vomiting, anxiety and interrupted sleep Objective: 06/09/18 13:02 Vital Signs 06/09/18 06/09/18 06/09/18 06:00 06:21 09:44 Temperature 97.7 F 97.8 F Pulse Rate 68 69 Respiratory 18 18 18 Rate Blood Pressure 134/86 138/84 Laboratory Last Values WBC 5.3 K/mm3 (4.0-10.0) 06/09/18 07:50 RBC 4.55 M/mm3 (4.00-5.60) 06/09/18 07:50 Hgb 10.9 GM/dL (11.7-16.9) L 06/09/18 07:50 Hct 33.8 % (35.4-49) L 06/09/18 07:50 MCV 74.2 fl (80-96) L 06/09/18 07:50 MCH 23.8 pg (25.7-33.7) L 06/09/18 07:50 MCHC 32.1 g/dl (32.0-35.9) 06/09/18 07:50 RDW 20.4 % (11.9-15.9) H 06/09/18 07:50 Plt Count 135 K/MM3 (134-434) 06/09/18 07:50 MPV 8.9 fl (7.5-11.1) 06/09/18 07:50 Absolute Neuts (auto) 3.2 K/mm3 (1.5-8.0) 06/09/18 07:50 Neutrophils % 61.4 % (42.8-82.8) D 06/09/18 07:50 Lymphocytes % 25.5 % (8-40) 06/09/18 07:50 Monocytes % 9.8 % (3.8-10.2) 06/09/18 07:50 Eosinophils % 2.5 % (0-4.5) 06/09/18 07:50 Basophils % 0.8 % (0-2.0) 06/09/18 07:50 Nucleated RBC % 0 % (0-0) 06/09/18 07:50 Sodium 140 mmol/L (136-145) 06/07/18 06:00 Potassium 3.7 mmol/L (3.5-5.1) 06/07/18 06:00 Chloride 106 mmol/L (98-107) 06/07/18 06:00 Carbon Dioxide 23 mmol/L (21-32) 06/07/18 06:00 Anion Gap 11 MMOL/L (8-16) 06/07/18 06:00 BUN 8 mg/dL (7-18) 06/07/18 06:00 Creatinine 0.7 mg/dL (0.55-1.3) 06/07/18 06:00 Creat Clearance w eGFR > 60 (>60) 06/07/18 06:00 Random Glucose 97 mg/dL (74-106) 06/07/18 06:00 Calcium 8.0 mg/dL (8.5-10.1) L 06/07/18 06:00 Total Bilirubin 0.4 mg/dL (0.2-1) 06/07/18 06:00 AST 103 U/L (15-37) H 06/09/18 07:50 ALT 74 U/L (13-61) H 06/09/18 08:29 Alkaline Phosphatase 100 U/L (45-117) 06/07/18 06:00 Total Protein 8.7 g/dl (6.4-8.2) H 06/07/18 06:00 Albumin 3.8 g/dl (3.4-5.0) 06/07/18 06:00 RPR Titer Reactive 1:1 (NONREACTIVE) H 06/07/18 06:00 T.pallidum Ab (MHA) Previously reactive (NONREACTIVE) 06/07/18 06:00 Labs noted, no panic values Assessment: 06/09/18 13:03 Withdrawal sx Plan: Continue detox
[2018-06-09] MEDS: chlordiazePOXIDE HCL 10 MG CAPSULE PO SCH ×2 (17:41→23:29)
[2018-06-09] MEDS: ONDANSETRON *ODT* 4 MG TABLET SL PRN (17:42)
[2018-06-09] MEDS: QUEtiapine FUMARATE 100 MG TABLET (FP) PO SCH (23:31)
[2018-06-09] MEDS: THIAMINE HCL 100 MG TABLET (FP) PO SCH (23:31)
[2018-06-10] MEDS: chlordiazePOXIDE HCL 10 MG CAPSULE PO SCH (05:59)
[2018-06-10] MEDS: BACLOFEN 10 MG TABLET (FP) PO SCH (05:59)
[2018-06-10 06:14] VITALS: BP 121/76; PULSE 74; TEMP 97.5
[2018-06-10] MEDS: FERROUS SO4 325 MG TABLET (FP) PO SCH (07:17)
[2018-06-10] MEDS: FLUoxetine HCL 20 MG CAPSULE (FP) PO SCH (09:20)
[2018-06-10] MEDS: RANITIDINE HCL 150 MG TABLET (FP) PO SCH (09:20)
[2018-06-10] MEDS: PRENATAL VITAMINS W/ FOLIC ACID TABLET (FP) PO SCH (09:20)
--- NOTE | 2018-06-10 16:16 | DS ---
[facility] Detox Discharge Summary Admission Date: 06/06/18 Discharge Date: 06/10/18 - History Present History: Alcohol Dependence Additional Comments: Patient completed detox successfully and discharged safely. Patient instructed to follow up with his PCP within 1-2 weeks. Pertinent Past History: Obesity Alcohol dependence - Physical Exam Results Vital Signs: Vital Signs Temperature 97.5 F L 06/10/18 06:00 Pulse Rate 74 06/10/18 06:00 Respiratory Rate 18 06/10/18 06:00 Blood Pressure 121/76 06/10/18 06:00 O2 Sat by Pulse Oximetry (%) Pertinent Admission Physical Exam Findings: Withdrawal symptoms Laboratory Tests 06/07/18 06/07/18 06/07/18 06:00 06:00 06:00 WBC 6.2 RBC 4.52 Hgb 10.4 L Hct 33.2 L MCV 73.5 L MCH 23.1 L MCHC 31.4 L RDW 19.9 H Plt Count 160 D MPV 9.6 Absolute Neuts (auto) Neutrophils % Lymphocytes % Monocytes % Eosinophils % Basophils % Nucleated RBC % Sodium 140 Potassium 3.7 Chloride 106 Carbon Dioxide 23 Anion Gap 11 BUN 8 Creatinine 0.7 Creat Clearance w eGFR > 60 Random Glucose 97 Calcium 8.0 L Total Bilirubin 0.4 AST 167 H ALT 82 H Alkaline Phosphatase 100 Total Protein 8.7 H Albumin 3.8 RPR Titer Reactive 1:1 H T.pallidum Ab ([facility]) Previously reactive 06/09/18 06/09/18 06/09/18 07:50 07:50 08:29 WBC 5.3 RBC 4.55 Hgb 10.9 L Hct 33.8 L MCV 74.2 L MCH 23.8 L MCHC 32.1 RDW 20.4 H Plt Count 135 MPV 8.9 Absolute Neuts (auto) 3.2 Neutrophils % 61.4 D Lymphocytes % 25.5 Monocytes % 9.8 Eosinophils % 2.5 Basophils % 0.8 Nucleated RBC % 0 Sodium Potassium Chloride Carbon Dioxide Anion Gap BUN Creatinine Creat Clearance w eGFR Random Glucose Calcium Total Bilirubin AST 103 H ALT 74 H Alkaline Phosphatase Total Protein Albumin RPR Titer T.pallidum Ab ([facility]) Labs reviewed - Treatment Hospital Course: Detox Protocol Followed, Detoxed Safely, Responded well, Discharged Condition Good - Medication Discharge Medications: Ambulatory Orders Quetiapine Fumarate [Seroquel -] 100 mg PO HS 12/15/17 Fluoxetine HCl [Prozac -] 20 mg PO DAILY #30 capsule 06/07/18 Fluoxetine HCl [Prozac] 20 mg PO DAILY #30 capsule 06/07/18 - Diagnosis (1) Alcohol dependence with withdrawal, uncomplicated Status: Acute (2) Insomnia Status: Chronic Qualifiers: Insomnia type: alcohol-induced Qualified Code(s): F10.982 - Alcohol use, unspecified with alcohol-induced sleep disorder (3) Obese Status: Chronic Qualifiers: Obesity type: due to excess calories Obesity classification: unspecified obesity classification Serious obesity comorbidity presence: unspecified whether serious comorbidity present Qualified Code(s): E66.09 - Other obesity due to excess calories (4) PPD positive Status: Chronic - AMA Did Patient Leave Against Medical Advice: No (F/U with PCP within 1-2 weeks)
== END 2018-06-10 09:29 | disposition home or self-care (01) | DRG 775 ==
LOC: YASAS 08:24 → Y6N 11:35
PROVIDERS: ADMIT Neuromusculoskeletal Medicine & OMM; ATTEND Neuromusculoskeletal Medicine & OMM
PROC: HZ2ZZZZ Detoxification Services for Substance Abuse Treatment (ICD-10-PCS; principal; 2018-06-06)
DX: F10.230 Alcohol dependence with withdrawal, uncomplicated (principal); F10.980 Alcohol use, unspecified with alcohol-induced anxiety disorder; F10.982 Alcohol use, unspecified with alcohol-induced sleep disorder; G47.00 Insomnia, unspecified; I10 Essential (primary) hypertension; D50.9 Iron deficiency anemia, unspecified; R76.11 Nonspecific reaction to tuberculin skin test without active tuberculosis; E66.09 Other obesity due to excess calories; Z68.31 Body mass index [BMI] 31.0-31.9, adult; Z86.19 Personal history of other infectious and parasitic diseases; Z86.69 Personal history of other diseases of the nervous system and sense organs
CPT/HCPCS: 36415; 80053; 84450; 84460; 85025; 85027; 86593; 86780; J0475; Q0162

== ENCOUNTER 2018-07-23 14:55 | Inpatient (IN) | payer OTHER ==
[2018-07-23 17:22] VITALS: BMI 34.4
--- NOTE | 2018-07-23 17:35 | HP ---
"CIWA Score Nausea/Vomitin Muscle Tremors: 4-Moderate,w/Arms Extend Anxiety: 4-Mod. Anxious/Guarded Agitation: 4-Moderately Restless Paroxysmal Sweats: 3 (Increased facial moisture) Orientation: 3-Disoriented Date>2 days Tacttile Disturbances: 0-None Auditory Disturbances: 0-None Visual Disturbances: 0-None Headache: 4-Moderately Severe (States really bad r/t not drinking) CIWA-Ar Total Score: 25 - Admission Criteria OAS Guidelines: Admission for Medically Managed Detox: Requires at least one of the followin. CIWA greater than 12 2. Seizures within the past 24 hours 3. Delirium tremens within the past 24 hours 4. Hallucinations within the past 24 hours 5. Acute intervention needed for co occurring medical disorder 6. Acute intervention needed for co occurring psychiatric disorder 7. Severe withdrawal that cannot be handled at a lower level of care (continued vomiting, continued diarrhea, abnormal vital signs) requiring intravenous medication and/or fluids 8. Patient presents the following: CIWA greater than 12 Admission Criteria Met: Admission criteria met Admission ROS [facility] Chief Complaint: Alcohol withdrawal. Allergies/Adverse Reactions: Allergies Allergy/AdvReac Type Severity Reaction Status Date / Time Fish Containing Products Allergy Severe Rash Verified 07/23/18 19:00 No Known Drug Allergies Allergy Verified 07/23/18 19:00 lactose AdvReac Lactose Verified 07/23/18 19:00 Intolerance LACTOSE INTOLERANCE AdvReac Nausea Uncoded 07/23/18 19:00 History of Present Illness: Here for alcohol detox. Alcohol use began at age 16. Has used crack in past. Denies other illicit drug use at this time. Hx seizures. Last 6 months ago. Denies blackouts. Hx: PPD (+). Last CXR 02/28/18. Hx: Arthritis (L) Knee and muscle spasms. Wears a long knee brace States PCP is giving MH meds. Hx anxiety. States on Gabapentin, Prozac, Seroquel, and vistaril. [facility] Pharmacy contacted and the following medications confirmed: Keppra, gabapentin, omeprazole, fluoxetine, folic acid, tylenol) Denies depression. Denies thoughts of harming self or others. Search Terms: George Bolton, 1970 Search Date: 07/23/2018 05:36:32 PM The Drug Utilization Report below displays all of the controlled substance prescriptions, if any, that your patient has filled in the last twelve months. The information displayed on this report is compiled from pharmacy submissions to the Department, and accurately reflects the information as submitted by the pharmacies. This report was requested by: Raysa Velazquez | Reference #: [id number] There are no results for the search terms that you entered. Exam Limitations: No Limitations - Ebola screening Have you traveled outside of the country in the last 21 days: No Have you had contact with anyone from an Ebola affected area: No Have you been sick,other than usual withdrawal symptoms: No Do you have a fever: No - Review of Systems Constitutional: Diaphoresis, Changes in sleep (Difficulty falling and staying asleep) EENT: reports: No Symptoms Reported Respiratory: reports: No Symptoms reported Cardiac: reports: No Symptoms Reported GI: reports: Nausea, Indigestion (Occ acid reflux - relieved w/ mylanta) : reports: No Symptoms Reported Musculoskeletal: reports: Joint Pain ((L) knee) Integumentary: reports: No Symptoms Reported Neuro: reports: Headache (States bad - r/t withdrawal), Seizure (6 months ago), Tremors Endocrine: reports: No Symptoms Reported Hematology: reports: No Symptoms Reported Psychiatric: reports: Judgement Intact, Agitated, Anxious, Disorientated (Knows year. Unsure of month) Patient History - Patient Medical History Hx Anemia: No Hx Asthma: No Hx Chronic Obstructive Pulmonary Disease (COPD): No Hx Cancer: No Hx Cardiac Disorders: No Hx Congestive Heart Failure: No Hx Hypertension: No Hx Hypercholesterolemia: No Hx Pacemaker: No HX Cerebrovascular Accident: No Hx Seizures: No Hx Dementia: No Hx Diabetes: No Hx Gastrointestinal Disorders: No Hx Liver Disease: No Hx Genitourinary Disorders: No Hx Sexually Transmitted Disorders: Yes (syphilis) Hx Renal Disease (ESRD): No Hx Thyroid Disease: No Hx Human Immunodeficiency Virus (HIV): No (NEGATIVE HX lAST 2018) Hx Hepatitis C: No (NEGATIVE HX, cannot remember when last tested.) Hx Depression: No Hx Suicide Attempt: No Hx Bipolar Disorder: No Hx Schizophrenia: No - Patient Surgical History Past Surgical History: Yes Hx Neurologic Surgery: No Hx Cataract Extraction: No Hx Cardiac Surgery: No Hx Lung Surgery: No Hx Breast Surgery: No Hx Breast Biopsy: No Hx Abdominal Surgery: No Hx Appendectomy: No Hx Cholecystectomy: Yes (08/27 laproscopic) Hx Genitourinary Surgery: No Hx Section: No Hx Orthopedic Surgery: Yes (fx, left leg at age 21) Anesthesia Reaction: No - PPD History Previous Implant?: Yes Results: CXR(-)02/28/18 PPD to be Administered?: No - Smoking Cessation Smoking history: Never smoked Have you smoked in the past 12 months: No Aproximately how many cigarettes per day: 0 If you are a former smoker, when did you quit?: at age 32 Cigars Per Day: 0 Hx Chewing Tobacco Use: No Initiated information on smoking cessation: No - Substance & Tx. History Hx Alcohol Use: Yes Hx Substance Use: Yes Substance Use Type: Alcohol Hx Substance Use Treatment: Yes (detox, rehab) Family Disease History - Family Disease History Family Disease History: Other: Father (ALCOHOL) Admission Physical Exam BHS - Vital Signs Vital Signs: Vital Signs - 24 hr 07/23/18 17:20 Temperature 98.7 F Pulse Rate 106 H Respiratory 18 Rate Blood Pressure 130/90 - Physical General Appearance: Yes: Nourished, Appropriately Dressed, Moderate Distress, Obese, Tremorous, Irritable, Sweating, Anxious HEENTM: Yes: EOMI, Hearing grossly Normal, Normocephalic, Normal Voice, AG Respiratory: Yes: Chest Non-Tender, Lungs Clear, Normal Breath Sounds, No Respiratory Distress Neck: Yes: No masses,lesions,Nodules, Supple Breast: Yes: Within Normal Limits Cardiology: Yes: Regular Rate, S1, S2, Irregular (Irregular rhythm) Abdominal: Yes: Non Tender, Soft, Protuberent (Increased abdominal adiposity) Genitourinary: Yes: Within Normal Limits Back: Yes: Normal Inspection Musculoskeletal: Yes: Joint Stiffness ((L) knee stiffness. No swelling. No increased warmth. Indentations r/t tightness of kaylynn bandage.), Other (Gait unsteady.) Extremities: Yes: Swelling ((L) foot and ankle area. 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 Knows year. Conversation appropriate.), Other Integumentary: Yes: Normal Color, Warm, Diaphoresis (Increased facial misture) Lymphatic: Yes: Within Normal Limits - Diagnostic (1) Alcohol dependence with withdrawal, uncomplicated Current Visit: No Status: Acute Comment: . (2) Obese Current Visit: No Status: Chronic Qualifiers: Obesity type: due to excess calories Obesity classification: unspecified obesity classification Serious obesity comorbidity presence: unspecified whether serious comorbidity present Qualified Code(s): E66.09 - Other obesity due to excess calories (3) History of positive PPD Current Visit: Yes Status: Acute (4) Chronic pain of left knee Current Visit: Yes Status: Acute Cleared for Admission [facility] - Detox or Rehab [facility] Level of Care: Medically Managed Detox Regimen/Protocol: Librium [facility] Breath Alcohol Content Breath Alcohol Content: 0.020 Urine Drug Screen - Results Drug Screen Negative: No Urine Drug Screen Results: BZO-Benzodiazepines Inpatient Rehab Admission - Rehab Decision to Admit Inpatient rehab admission?: No"
[2018-07-23] MEDS ORDERED: ACETAMINOPHEN 325 MG TABLET (FP) PO PRN (18:08)
[2018-07-23] MEDS ORDERED: MAGNESIUM HYDROX 2400MG/30ML ORAL SUSPENSION 30 ML CUP PO PRN (18:08)
[2018-07-23] MEDS ORDERED: MENTHOL/PHENOL 1 EACH UD MM PRN (18:08)
[2018-07-23] MEDS ORDERED: IBUPROFEN 400 MG TABLET (FP) PO PRN (18:08)
[2018-07-23] MEDS ORDERED: chlordiazePOXIDE HCL 25 MG CAPSULE PO ONE (18:08)
[2018-07-23] MEDS ORDERED: chlordiazePOXIDE HCL 25 MG CAPSULE PO PRN (18:08)
[2018-07-23] MEDS ORDERED: hydrOXYzine PAMOATE 25 MG CAPSULE (FP) PO PRN (18:08)
[2018-07-23] MEDS ORDERED: BISMUTH SUBSALICYLATE 524 MG/30 ML UD PO PRN (18:08)
[2018-07-23] MEDS ORDERED: MAGNESIUM CITRATE 300 ML BOTTLE PO PRN (18:08)
[2018-07-23] MEDS: THIAMINE HCL 100 MG TABLET (FP) PO SCH (21:13)
[2018-07-23] MEDS: METHOCARBAMOL 500 MG TABLET PO PRN (21:14)
[2018-07-23] MEDS: levETIRAcetam 500 MG TABLET (FP) PO SCH (21:15)
[2018-07-23] MEDS: MELATONIN 5 MG TABLETS PO PRN (21:15)
[2018-07-23] MEDS: GABAPENTIN 100 MG CAPSULE (FP) PO SCH (21:15)
[2018-07-23] MEDS: chlordiazePOXIDE HCL 25 MG CAPSULE PO SCH (22:00)
[2018-07-24] MEDS: GABAPENTIN 100 MG CAPSULE (FP) PO SCH ×3 (05:24→22:23)
[2018-07-24] MEDS: chlordiazePOXIDE HCL 25 MG CAPSULE PO SCH ×4 (05:24→22:23)
[2018-07-24] MEDS ORDERED: IBUPROFEN 600 MG TABLET (FP) PO PRN (05:26)
[2018-07-24] MEDS: ACETAMINOPHEN 325 MG TABLET (FP) PO PRN ×3 (05:27→22:24)
[2018-07-24] MEDS: levETIRAcetam 500 MG TABLET (FP) PO SCH ×2 (10:22→22:23)
[2018-07-24] MEDS: PANTOPRAZOLE 20 MG TABLET (FP) PO SCH (10:22)
[2018-07-24] MEDS: PRENATAL VITAMINS W/ FOLIC ACID TABLET (FP) PO SCH (10:22)
--- NOTE | 2018-07-24 11:06 | PN ---
S CIWA - CIWA Score Nausea/Vomitin-Mild Nausea/No Vomiting Muscle Tremors: 4-Moderate,w/Arms Extend Anxiety: 4-Mod. Anxious/Guarded Agitation: 4-Moderately Restless Paroxysmal Sweats: 1-Minimal Palms Moist Orientation: 3-Disoriented Date>2 days Tacttile Disturbances: 0-None Auditory Disturbances: 1-Very Mild Visual Disturbances: 0-None Headache: 2-Mild CIWA-Ar Total Score: 20 BHS Progress Note (SOAP) Subjective: tremor sweating report doing well with the detox regimen Objective: 07/24/18 11:08 Vital Signs Temperature 98.4 F 07/24/18 09:39 Pulse Rate 99 H 07/24/18 09:39 Respiratory Rate 18 07/24/18 09:39 Blood Pressure 142/94 07/24/18 09:39 O2 Sat by Pulse Oximetry (%) lab pending Assessment: 07/24/18 11:08 alcohol withdrawal sx Plan: continue detox
--- NOTE | 2018-07-24 11:17 | CONSULT ---
[facility] Psychiatric Consult - Data Date of interview: 07/24/18 Admission source: [facility] Substance Abuse History: Smoking Cessation. Smoking history: Never smoked. Have you smoked in the past 12 months: No. Aproximately how many cigarettes per day: 0. If you are a former smoker, when did you quit?: at age 32. Cigars Per Day: 0. Hx Chewing Tobacco Use: No. Initiated information on smoking cessation: No. - Substance & Tx. History. Hx Alcohol Use: Yes. Hx Substance Use: Yes. Substance Use Type: Alcohol. Hx Substance Use Treatment: Yes (detox , rehab)
[2018-07-24 12:43] LABS: ALBUMIN 3.1 g/dl (3.4-5.0); ALK PHOS 95 U/L (45-117); ANION GAP 5 MMOL/L (8-16); BILIRUBIN,TOTAL 0.4 mg/dL (0.2-1); BLOOD UREA NITROGEN 8 mg/dL (7-18); CALCIUM 7.9 mg/dL (8.5-10.1); CHLORIDE 106 mmol/L (98-107); CO2 28 mmol/L (21-32); CREATININE 0.7 mg/dL (0.55-1.3); GLUCOSE,RANDOM 123 mg/dL (74-106); POTASSIUM 3.7 mmol/L (3.5-5.1); SGOT/AST 91 U/L (15-37); SGPT/ALT 56 U/L (13-61); SODIUM 138 mmol/L (136-145); TOT PROT 7.6 g/dl (6.4-8.2)
[2018-07-24 13:09] LABS: HEMATOCRIT 32.1 % (35.4-49); HEMOGLOBIN 9.9 GM/dL (11.7-16.9); MCH 22.9 pg (25.7-33.7); MCHC 30.9 g/dl (32.0-35.9); MEAN CELL VOLUME 74.2 fl (80-96); MEAN PLT VOLUME 8.8 fl (7.5-11.1); PLATELET COUNT 107 K/MM3 (134-434); RBC 4.33 M/mm3 (4.00-5.60); RDW 20.8 % (11.9-15.9); WHITE BLOOD COUNT 3.2 K/mm3 (4.0-10.0)
[2018-07-24 16:03] LABS: RPR REACTIVE 1:1 (NONREACTIVE)
[2018-07-24 16:06] LABS: TREPONEMA ANTIBODY PREVIOUSLY REACTIVE (NONREACTIVE)
[2018-07-24 17:30] LABS: URINE APPEARANCE TURBID; URINE BILIRUBIN NEGATIVE (<2.0 mg/dL); URINE COLOR YELLOW; URINE GLUCOSE (UA) NEGATIVE (NEGATIVE); URINE KETONE NEGATIVE (NEGATIVE); URINE LEUK ESTERASE NEGATIVE (NEGATIVE); URINE NITRITE NEGATIVE (NEGATIVE); URINE PROTEIN NEGATIVE (NEGATIVE); URINE UROBILINOGEN 4.0 E.U/dl mg/dL (0.2-1.0)
[2018-07-24] MEDS: THIAMINE HCL 100 MG TABLET (FP) PO SCH (22:23)
[2018-07-24] MEDS: MELATONIN 5 MG TABLETS PO PRN (22:26)
[2018-07-25] MEDS: GABAPENTIN 100 MG CAPSULE (FP) PO SCH ×3 (05:11→22:08)
[2018-07-25] MEDS: chlordiazePOXIDE HCL 25 MG CAPSULE PO SCH ×3 (05:12→17:43)
[2018-07-25] MEDS: ACETAMINOPHEN 325 MG TABLET (FP) PO PRN ×3 (05:12→22:09)
[2018-07-25] MEDS: PRENATAL VITAMINS W/ FOLIC ACID TABLET (FP) PO SCH (10:14)
[2018-07-25] MEDS: PANTOPRAZOLE 20 MG TABLET (FP) PO SCH (10:14)
[2018-07-25] MEDS: levETIRAcetam 500 MG TABLET (FP) PO SCH ×2 (10:14→22:08)
--- NOTE | 2018-07-25 10:57 | PN ---
S CIWA - CIWA Score Nausea/Vomitin-Mild Nausea/No Vomiting Muscle Tremors: 3 Anxiety: 3 Agitation: 2 Paroxysmal Sweats: 1-Minimal Palms Moist Orientation: 2-Disoriented Date<2 days Tacttile Disturbances: 0-None Auditory Disturbances: 0-None Visual Disturbances: 0-None Headache: 2-Mild CIWA-Ar Total Score: 14 S Progress Note (SOAP) Subjective: left knee arthritis pain treated with lidocaine patch at home trouble to fall a sleep at night treated with trazodone tremor sweating restlessness feeling of overwhelmed left knee skin intact denies trauma no swell none tender Objective: 07/25/18 10:54 Vital Signs Temperature 96.5 F L 07/25/18 09:05 Pulse Rate 60 07/25/18 09:05 Respiratory Rate 18 07/25/18 09:05 Blood Pressure 109/62 07/25/18 09:05 O2 Sat by Pulse Oximetry (%) Laboratory Last Values WBC 3.2 K/mm3 (4.0-10.0) L 07/24/18 07:00 RBC 4.33 M/mm3 (4.00-5.60) 07/24/18 07:00 Hgb 9.9 GM/dL (11.7-16.9) L 07/24/18 07:00 Hct 32.1 % (35.4-49) L 07/24/18 07:00 MCV 74.2 fl (80-96) L 07/24/18 07:00 MCH 22.9 pg (25.7-33.7) L 07/24/18 07:00 MCHC 30.9 g/dl (32.0-35.9) L 07/24/18 07:00 RDW 20.8 % (11.9-15.9) H 07/24/18 07:00 Plt Count 107 K/MM3 (134-434) L D 07/24/18 07:00 MPV 8.8 fl (7.5-11.1) 07/24/18 07:00 Sodium 138 mmol/L (136-145) 07/24/18 07:00 Potassium 3.7 mmol/L (3.5-5.1) 07/24/18 07:00 Chloride 106 mmol/L (98-107) 07/24/18 07:00 Carbon Dioxide 28 mmol/L (21-32) 07/24/18 07:00 Anion Gap 5 MMOL/L (8-16) L 07/24/18 07:00 BUN 8 mg/dL (7-18) 07/24/18 07:00 Creatinine 0.7 mg/dL (0.55-1.3) 07/24/18 07:00 Creat Clearance w eGFR > 60 (>60) 07/24/18 07:00 Random Glucose 123 mg/dL (74-106) H 07/24/18 07:00 Calcium 7.9 mg/dL (8.5-10.1) L 07/24/18 07:00 Total Bilirubin 0.4 mg/dL (0.2-1) 07/24/18 07:00 AST 91 U/L (15-37) H 07/24/18 07:00 ALT 56 U/L (13-61) 07/24/18 07:00 Alkaline Phosphatase 95 U/L (45-117) 07/24/18 07:00 Total Protein 7.6 g/dl (6.4-8.2) 07/24/18 07:00 Albumin 3.1 g/dl (3.4-5.0) L 07/24/18 07:00 Urine Color Yellow 07/24/18 15:45 Urine Appearance Turbid 07/24/18 15:45 Urine pH 5.0 (5.0-8.0) 07/24/18 15:45 Ur Specific [place] 1.021 (1.010-1.035) 07/24/18 15:45 Urine Protein Negative (NEGATIVE) 07/24/18 15:45 Urine Glucose (UA) Negative (NEGATIVE) 07/24/18 15:45 Urine Ketones Negative (NEGATIVE) 07/24/18 15:45 Urine Blood Negative (NEGATIVE) 07/24/18 15:45 Urine Nitrite Negative (NEGATIVE) 07/24/18 15:45 Urine Bilirubin Negative (<2.0 mg/dL) 07/24/18 15:45 Urine Urobilinogen 4.0 e.u/dl mg/dL (0.2-1.0) 07/24/18 15:45 Ur Leukocyte Esterase Negative (NEGATIVE) 07/24/18 15:45 RPR Titer Reactive 1:1 (NONREACTIVE) H 07/24/18 07:00 T.pallidum Ab ([facility]) Previously reactive (NONREACTIVE) 07/24/18 07:00 lab noted low calcium Assessment: 07/25/18 10:55 alcohol withdrawal sx hypocalcemia arthritis insomnia Plan: continue detox oscal supplement trazodone for insomnia lidocain patch for left knee arthritis
[2018-07-25] MEDS: LIDOCAINE 5% TOPICAL PATCH TP SCH (12:46)
[2018-07-25] MEDS: CALCIUM 250MG/VIT-D 125 UNITS 1 COMBO TABLET PO SCH ×2 (12:46→22:08)
[2018-07-25] MEDS: MAG HYDROX/AL HYDROX/SIMETH 30 ML UNIT-DOSE CUP PO PRN (12:48)
[2018-07-25] MEDS: METHOCARBAMOL 500 MG TABLET PO PRN (17:45)
[2018-07-25] MEDS ORDERED: traZODone HCL 50 MG TABLET (FP) PO ONE (22:00)
[2018-07-25] MEDS: LIDOCAINE PATCH REMOVAL MC SCH (22:08)
[2018-07-25] MEDS: THIAMINE HCL 100 MG TABLET (FP) PO SCH (22:08)
[2018-07-25] MEDS: chlordiazePOXIDE HCL 10 MG CAPSULE PO SCH (22:08)
[2018-07-25] MEDS ORDERED: chlordiazePOXIDE HCL 10 MG CAPSULE PO PRN (23:00)
[2018-07-26] MEDS: GABAPENTIN 100 MG CAPSULE (FP) PO SCH ×3 (05:15→22:16)
[2018-07-26] MEDS: chlordiazePOXIDE HCL 10 MG CAPSULE PO SCH ×4 (05:15→22:16)
[2018-07-26] MEDS: ACETAMINOPHEN 325 MG TABLET (FP) PO PRN (05:16)
[2018-07-26] MEDS: CALCIUM 250MG/VIT-D 125 UNITS 1 COMBO TABLET PO SCH ×2 (12:39→22:17)
[2018-07-26] MEDS: levETIRAcetam 500 MG TABLET (FP) PO SCH ×2 (12:39→22:16)
[2018-07-26] MEDS: LIDOCAINE 5% TOPICAL PATCH TP SCH (12:40)
[2018-07-26] MEDS: PANTOPRAZOLE 20 MG TABLET (FP) PO SCH (12:40)
[2018-07-26] MEDS: PRENATAL VITAMINS W/ FOLIC ACID TABLET (FP) PO SCH (12:40)
--- NOTE | 2018-07-26 16:58 | PN ---
BHS Progress Note (SOAP) Subjective: Fatigue, Body Aches, Interrupted Sleep. Objective: PATIENT A & O X 3. IN NO ACUTE DISTRESS. 07/26/18 16:56 Vital Signs Temperature 96.7 F L 07/26/18 13:53 Pulse Rate 94 H 07/26/18 13:53 Respiratory Rate 18 07/26/18 13:53 Blood Pressure 121/83 07/26/18 13:53 O2 Sat by Pulse Oximetry (%) Laboratory Tests 07/24/18 07/24/18 07/24/18 07:00 07:00 07:00 WBC 3.2 L RBC 4.33 Hgb 9.9 L Hct 32.1 L MCV 74.2 L MCH 22.9 L MCHC 30.9 L RDW 20.8 H Plt Count 107 L D MPV 8.8 Sodium 138 Potassium 3.7 Chloride 106 Carbon Dioxide 28 Anion Gap 5 L BUN 8 Creatinine 0.7 Creat Clearance w eGFR > 60 Random Glucose 123 H Calcium 7.9 L Total Bilirubin 0.4 AST 91 H ALT 56 Alkaline Phosphatase 95 Total Protein 7.6 Albumin 3.1 L Urine Color Urine Appearance Urine pH Ur Specific [place] Urine Protein Urine Glucose (UA) Urine Ketones Urine Blood Urine Nitrite Urine Bilirubin Urine Urobilinogen Ur Leukocyte Esterase RPR Titer Reactive 1:1 H T.pallidum Ab ([facility]) Previously reactive 07/24/18 15:45 WBC RBC Hgb Hct MCV MCH MCHC RDW Plt Count MPV Sodium Potassium Chloride Carbon Dioxide Anion Gap BUN Creatinine Creat Clearance w eGFR Random Glucose Calcium Total Bilirubin AST ALT Alkaline Phosphatase Total Protein Albumin Urine Color Yellow Urine Appearance Turbid Urine pH 5.0 Ur Specific [place] 1.021 Urine Protein Negative Urine Glucose (UA) Negative Urine Ketones Negative Urine Blood Negative Urine Nitrite Negative Urine Bilirubin Negative Urine Urobilinogen 4.0 e.u/dl Ur Leukocyte Esterase Negative RPR Titer T.pallidum Ab ([facility]) LABS NOTED. PATIENT HAS BEEN ANEMIC ON PREVIOUS DETOX ADMISSIONS. PATIENT NOTED TO HAVE REACTIVE 1:1 RPR (MHATP: PREVIOUSLY REACTIVE. PATIENT REPORTED HISTORY OF SYPHILIS IN PAST. 07/26/18 16:58 Assessment: 07/26/18 16:56 WITHDRAWAL SYMPTOMS. PANCYTOPENIA. 07/26/18 16:57 Plan: CONTINUE DETOX. FEOSOL, 325 MG PO TIDCM. REPEAT CBC TOMORROW AM FOR ANEMIA NOTED ON ADMISSION TO DETOX UNIT.
[2018-07-26] MEDS: FERROUS SO4 325 MG TABLET (FP) PO SCH (17:29)
--- NOTE | 2018-07-26 17:42 | CONSULT ---
[facility] Psychiatric Consult - Data Date of interview: 07/26/18 Admission source: [facility] Identifying data: Patient is 48 year old male, father of two, unemployed, homeless, and is supported by [facility]. This is one of multiple admissions for patient. Patient admitted to for alcohol dependence. Substance Abuse History: Smoking Cessation. Smoking history: Never smoked. Have you smoked in the past 12 months: No. Aproximately how many cigarettes per day: 0. If you are a former smoker, when did you quit?: at age 32. Cigars Per Day: 0. Hx Chewing Tobacco Use: No. Initiated information on smoking cessation: No. - Substance & Tx. History. Hx Alcohol Use: Yes. Hx Substance Use: Yes. Substance Use Type: Alcohol. Hx Substance Use Treatment: Yes (detox , rehab) Medical History: Arthritis (L) Knee and muscle spasms Psychiatric History: Patient denies h/o psychiatric hospitalizations, outpatient care and suicide attempts. Patient reports being prescribed prozac 10mg + seroquel 100mg by his PCP to address his anxiety and insomnia. Patient denies thoughts or urges to hurt himself others. Physical/Sexual Abuse/Trauma History: denies. Mental Status Exam - Mental Status Exam Alert and Oriented to: Time, Place, Person Cognitive Function: Good Patient Appearance: Well Groomed Mood: Anxious Affect: Mood Congruent Patient Behavior: Appropriate Speech Pattern: Appropriate Voice Loudness: Normal Thought Process: Intact, Goal Oriented Thought Disorder: Not Present Hallucinations: Denies Suicidal Ideation: Denies Homicidal Ideation: Denies Insight/Judgement: Poor Sleep: Poorly Appetite: Fair Muscle strength/Tone: Normal Gait/Station: Normal Psychiatric Findings - Problem List ([place] 1, 2,3) (1) Alcohol dependence with withdrawal, uncomplicated Current Visit: Yes Status: Acute Comment: . (2) Alcohol-induced sleep disorder Current Visit: Yes Status: Acute (3) Alcohol-induced anxiety disorder Current Visit: Yes Status: Acute - Initial Treatment Plan Initial Treatment Plan: Psychoeducation provided. Detoxification in progress. Will order prozac 10mg + seroquel 100mg HS. Benefits and side effects dicussed. Verbal consent given.
[2018-07-26] MEDS: QUEtiapine FUMARATE 50 MG TABLET PO SCH (22:16)
[2018-07-26] MEDS: LIDOCAINE PATCH REMOVAL MC SCH (22:17)
[2018-07-26] MEDS: THIAMINE HCL 100 MG TABLET (FP) PO SCH (22:17)
[2018-07-26] MEDS: METHOCARBAMOL 500 MG TABLET PO PRN (22:18)
[2018-07-27] MEDS: GABAPENTIN 100 MG CAPSULE (FP) PO SCH ×3 (05:23→22:07)
[2018-07-27] MEDS: FERROUS SO4 325 MG TABLET (FP) PO SCH ×3 (07:07→18:04)
[2018-07-27] MEDS: METHOCARBAMOL 500 MG TABLET PO PRN (07:09)
[2018-07-27 09:48] LABS: BASO % 0.6 % (0-2.0); EOS % 2.2 % (0-4.5); HEMATOCRIT 35.3 % (35.4-49); HEMOGLOBIN 11.5 GM/dL (11.7-16.9); LYMPH % 23.8 % (8-40); MCHC 32.5 g/dl (32.0-35.9); MEAN CELL VOLUME 73.8 fl (80-96); MEAN PLT VOLUME 9.1 fl (7.5-11.1); MONO % 8.6 % (3.8-10.2); NEUT % 64.8 % (42.8-82.8); PLATELET COUNT 122 K/MM3 (134-434); RBC 4.78 M/mm3 (4.00-5.60); RDW 20.1 % (11.9-15.9); WHITE BLOOD COUNT 5.3 K/mm3 (4.0-10.0)
[2018-07-27] MEDS ORDERED: FLUoxetine HCL 10 MG CAPSULE (FP) PO SCH (10:00)
[2018-07-27] MEDS: PRENATAL VITAMINS W/ FOLIC ACID TABLET (FP) PO SCH (10:28)
[2018-07-27] MEDS: levETIRAcetam 500 MG TABLET (FP) PO SCH ×2 (10:28→22:07)
[2018-07-27] MEDS: PANTOPRAZOLE 20 MG TABLET (FP) PO SCH (10:28)
[2018-07-27] MEDS: LIDOCAINE 5% TOPICAL PATCH TP SCH (10:28)
[2018-07-27] MEDS: CALCIUM 250MG/VIT-D 125 UNITS 1 COMBO TABLET PO SCH ×2 (10:28→22:07)
[2018-07-27] MEDS: chlordiazePOXIDE HCL 10 MG CAPSULE PO SCH ×2 (10:31→22:07)
--- NOTE | 2018-07-27 14:46 | PN ---
S Progress Note (SOAP) Subjective: Seating, Fatigue, Diarrhea, Body Aches. Objective: PATIENT A & O X 2 (UNCERTAIN ABOUT CURRENT DAY / DATE). PATIENT OBSERVED AMBULATING ON UNIT. IN NO ACUTE DISTRESS. 07/27/18 14:42 Vital Signs Temperature 98.1 F 07/27/18 13:39 Pulse Rate 114 H 07/27/18 13:39 Respiratory Rate 18 07/27/18 13:39 Blood Pressure 101/60 07/27/18 13:39 O2 Sat by Pulse Oximetry (%) Laboratory Tests 07/24/18 07/24/18 07/24/18 07:00 07:00 07:00 WBC 3.2 L RBC 4.33 Hgb 9.9 L Hct 32.1 L MCV 74.2 L MCH 22.9 L MCHC 30.9 L RDW 20.8 H Plt Count 107 L D MPV 8.8 Absolute Neuts (auto) Neutrophils % Lymphocytes % Monocytes % Eosinophils % Basophils % Nucleated RBC % Sodium 138 Potassium 3.7 Chloride 106 Carbon Dioxide 28 Anion Gap 5 L BUN 8 Creatinine 0.7 Creat Clearance w eGFR > 60 Random Glucose 123 H Calcium 7.9 L Total Bilirubin 0.4 AST 91 H ALT 56 Alkaline Phosphatase 95 Total Protein 7.6 Albumin 3.1 L Urine Color Urine Appearance Urine pH Ur Specific [place] Urine Protein Urine Glucose (UA) Urine Ketones Urine Blood Urine Nitrite Urine Bilirubin Urine Urobilinogen Ur Leukocyte Esterase RPR Titer Reactive 1:1 H T.pallidum Ab ([facility]) Previously reactive 07/24/18 07/27/18 15:45 07:40 WBC 5.3 RBC 4.78 Hgb 11.5 L Hct 35.3 L MCV 73.8 L MCH 24.0 L MCHC 32.5 RDW 20.1 H Plt Count 122 L MPV 9.1 Absolute Neuts (auto) 3.4 Neutrophils % 64.8 Lymphocytes % 23.8 Monocytes % 8.6 Eosinophils % 2.2 Basophils % 0.6 Nucleated RBC % 0 Sodium Potassium Chloride Carbon Dioxide Anion Gap BUN Creatinine Creat Clearance w eGFR Random Glucose Calcium Total Bilirubin AST ALT Alkaline Phosphatase Total Protein Albumin Urine Color Yellow Urine Appearance Turbid Urine pH 5.0 Ur Specific [place] 1.021 Urine Protein Negative Urine Glucose (UA) Negative Urine Ketones Negative Urine Blood Negative Urine Nitrite Negative Urine Bilirubin Negative Urine Urobilinogen 4.0 e.u/dl Ur Leukocyte Esterase Negative RPR Titer T.pallidum Ab ([facility]) LABS NOTED. RESULTS OF REPEAT CBC NOTED. IMPROVEMENT NOTED IN WBC, HGB, HCT, PLATELET LEVELS. PATIENT REPORTS THAT HE COMPLETED A FULL COURSE OF ANTIBIOTIC TREATMENT FOR SYPHILIS IN THE PAST. 07/27/18 14:43 Assessment: 07/27/18 14:42 WITHDRAWAL SYMPTOMS. ANEMIA. 07/27/18 14:46 Plan: CONTINUE DETOX. INCREASE DAILY PO FLUID INTAKE. ANEMIA. THROMBOCYTOPENIA.
[2018-07-27] MEDS: LOPERAMIDE HCL 2 MG CAPSULE PO PRN (19:14)
[2018-07-27 21:19] VITALS: BP 132/84; PULSE 116; TEMP 98.1
[2018-07-27] MEDS ORDERED: LOPERAMIDE HCL 2 MG CAPSULE PO ONE (21:50)
[2018-07-27] MEDS: LIDOCAINE PATCH REMOVAL MC SCH (22:07)
[2018-07-27] MEDS: THIAMINE HCL 100 MG TABLET (FP) PO SCH (22:07)
[2018-07-27] MEDS: QUEtiapine FUMARATE 50 MG TABLET PO SCH (22:07)
[2018-07-28] MEDS: LOPERAMIDE HCL 2 MG CAPSULE PO PRN (05:09)
[2018-07-28] MEDS: GABAPENTIN 100 MG CAPSULE (FP) PO SCH (05:10)
[2018-07-28] MEDS: MAG HYDROX/AL HYDROX/SIMETH 30 ML UNIT-DOSE CUP PO PRN (06:39)
--- NOTE | 2018-07-28 19:41 | DS ---
[facility] Detox Discharge Summary Admission Date: 07/23/18 Discharge Date: 07/28/18 - History Present History: Alcohol Dependence Additional Comments: PATIENT DECLINES AFTERCARE REFERRAL AT THIS TIME. PATIENT ADVISED TO CONSIDER LOCAL 12-STEP OUTPATIENT SUPPORT GROUP PROGRAM FOR AFTERCARE. PATIENT ADVISED TO FOLLOW-UP WITH PRACTICE SPECIALIST WHEN POSSIBLE AFTER DISCHARGE FROM DETOX UNIT FOR GENERAL MEDICAL ASSESSMENT AND FOR HISTORY OF PANCYTOPENIA NOTED ON LABORATORY ASSESSMENT WHILE ADMITTED FOR DETOX. COPIES OF RESULTS OF ALL LABS DRAWN WHILE ADMITTED FOR DETOX (INCLUDING ADMISSION AND REPEAT CBC'S) GIVEN TO PATIENT AT TIME OF DISCHARGE FROM DETOX UNIT. PATIENT VERBALIZED UNDERSTANDING OF RECOMMENDATION. PATIENT WAS DISCHARGED FROM DETOX UNIT IN STABLE MEDICAL CONDITION. Pertinent Past History: Chronic Pain Of Left Knee, History Of Positive PPD, Pancytopenia, Positive RPR, History of Syphilis (with Treatment). - Physical Exam Results Vital Signs: Vital Signs Temperature 98.1 F 07/27/18 21:14 Pulse Rate 116 H 07/27/18 21:14 Respiratory Rate 18 07/27/18 21:14 Blood Pressure 132/84 07/27/18 21:14 O2 Sat by Pulse Oximetry (%) Pertinent Admission Physical Exam Findings: WITHDRAWAL SYMPTOMS. Laboratory Tests 07/24/18 07/24/18 07/24/18 07:00 07:00 07:00 WBC 3.2 L RBC 4.33 Hgb 9.9 L Hct 32.1 L MCV 74.2 L MCH 22.9 L MCHC 30.9 L RDW 20.8 H Plt Count 107 L D MPV 8.8 Absolute Neuts (auto) Neutrophils % Lymphocytes % Monocytes % Eosinophils % Basophils % Nucleated RBC % Sodium 138 Potassium 3.7 Chloride 106 Carbon Dioxide 28 Anion Gap 5 L BUN 8 Creatinine 0.7 Creat Clearance w eGFR > 60 Random Glucose 123 H Calcium 7.9 L Total Bilirubin 0.4 AST 91 H ALT 56 Alkaline Phosphatase 95 Total Protein 7.6 Albumin 3.1 L Urine Color Urine Appearance Urine pH Ur Specific [place] Urine Protein Urine Glucose (UA) Urine Ketones Urine Blood Urine Nitrite Urine Bilirubin Urine Urobilinogen Ur Leukocyte Esterase RPR Titer Reactive 1:1 H T.pallidum Ab (MHA) Previously reactive 07/24/18 07/27/18 15:45 07:40 WBC 5.3 RBC 4.78 Hgb 11.5 L Hct 35.3 L MCV 73.8 L MCH 24.0 L MCHC 32.5 RDW 20.1 H Plt Count 122 L MPV 9.1 Absolute Neuts (auto) 3.4 Neutrophils % 64.8 Lymphocytes % 23.8 Monocytes % 8.6 Eosinophils % 2.2 Basophils % 0.6 Nucleated RBC % 0 Sodium Potassium Chloride Carbon Dioxide Anion Gap BUN Creatinine Creat Clearance w eGFR Random Glucose Calcium Total Bilirubin AST ALT Alkaline Phosphatase Total Protein Albumin Urine Color Yellow Urine Appearance Turbid Urine pH 5.0 Ur Specific [place] 1.021 Urine Protein Negative Urine Glucose (UA) Negative Urine Ketones Negative Urine Blood Negative Urine Nitrite Negative Urine Bilirubin Negative Urine Urobilinogen 4.0 e.u/dl Ur Leukocyte Esterase Negative RPR Titer T.pallidum Ab (MHA) LABS NOTED. - Treatment Hospital Course: Detox Protocol Followed, Detoxed Safely, Responded well, Discharged Condition Good Patient has Accepted a Rehab Referral to: PT. DECLINED, ADVISED TO CONSIDER LOCAL 12-STEP/AA OP PROGRAMS. - Medication Discharge Medications: Ambulatory Orders Quetiapine Fumarate [Seroquel -] 100 mg PO HS 12/15/17 Fluoxetine HCl [Prozac] 20 mg PO DAILY #30 capsule 06/07/18 Gabapentin 100 mg PO TID 07/23/18 Omeprazole 20 mg PO DAILY 07/23/18 levETIRAcetam [Keppra -] 500 mg PO BID 30 Days #60 tablet 07/27/18 - Diagnosis (1) Alcohol dependence with withdrawal, uncomplicated Status: Acute (2) Alcohol-induced anxiety disorder Status: Acute (3) Alcohol-induced sleep disorder Status: Acute (4) Chronic pain of left knee Status: Chronic (5) History of positive PPD Status: Acute (6) Obese Status: Chronic Qualifiers: Obesity type: due to excess calories Obesity classification: unspecified obesity classification Serious obesity comorbidity presence: unspecified whether serious comorbidity present Qualified Code(s): E66.09 - Other obesity due to excess calories (7) Pancytopenia Status: Acute - AMA Did Patient Leave Against Medical Advice: No
== END 2018-07-28 08:40 | disposition home or self-care (01) | DRG 775 ==
LOC: YASAS 14:55 → Y3N 19:36
PROVIDERS: ADMIT Surgery; ATTEND Surgery
PROC: HZ2ZZZZ Detoxification Services for Substance Abuse Treatment (ICD-10-PCS; principal; 2018-07-23)
DX: F10.230 Alcohol dependence with withdrawal, uncomplicated (principal); F10.280 Alcohol dependence with alcohol-induced anxiety disorder; F10.282 Alcohol dependence with alcohol-induced sleep disorder; D61.818 Other pancytopenia; M25.562 Pain in left knee; G89.29 Other chronic pain; R76.11 Nonspecific reaction to tuberculin skin test without active tuberculosis; M62.838 Other muscle spasm; G47.00 Insomnia, unspecified; E83.51 Hypocalcemia; E66.9 Obesity, unspecified; Z68.34 Body mass index [BMI] 34.0-34.9, adult; Z86.19 Personal history of other infectious and parasitic diseases
CPT/HCPCS: 36415; 80053; 81003; 85025; 85027; 86593; 86780

== ENCOUNTER 2018-09-06 22:59 | Inpatient (IN) | payer OTHER ==
[2018-09-06 23:27] VITALS: BMI 33.3
--- NOTE | 2018-09-06 23:57 | HP ---
CIWA Score Nausea/Vomitin Muscle Tremors: 4-Moderate,w/Arms Extend Anxiety: 3 Agitation: 3 Paroxysmal Sweats: 2 Orientation: 1-Uncertain about Date Tacttile Disturbances: 0-None Auditory Disturbances: 0-None Visual Disturbances: 0-None Headache: 3-Moderate CIWA-Ar Total Score: 19 - Admission Criteria OASAS Guidelines: Admission for Medically Managed Detox: Requires at least one of the followin. CIWA greater than 12 2. Seizures within the past 24 hours 3. Delirium tremens within the past 24 hours 4. Hallucinations within the past 24 hours 5. Acute intervention needed for co occurring medical disorder 6. Acute intervention needed for co occurring psychiatric disorder 7. Severe withdrawal that cannot be handled at a lower level of care (continued vomiting, continued diarrhea, abnormal vital signs) requiring intravenous medication and/or fluids 8. Admission ROS [facility] Chief Complaint: Alcohol withdrawal symptoms Allergies/Adverse Reactions: Allergies Allergy/AdvReac Type Severity Reaction Status Date / Time Fish Containing Products Allergy Severe Rash Verified 09/06/18 23:20 No Known Drug Allergies Allergy Verified 09/06/18 23:20 lactose AdvReac Lactose Verified 09/06/18 23:20 Intolerance LACTOSE INTOLERANCE AdvReac Nausea Uncoded 09/06/18 23:20 History of Present Illness: 48 years old male with a long history of alcohol dependence is seeking admission to detox. Patient has been in previous detox multiple times and reports 18 months of sobriety. He has medical of seizure, anemia, hypertension, PPD positive and anxiety. He denies suicidal ideation at this time. Exam Limitations: No Limitations - Ebola screening Have you traveled outside of the country in the last 21 days: No Have you had contact with anyone from an Ebola affected area: No Have you been sick,other than usual withdrawal symptoms: No Do you have a fever: No - Review of Systems Constitutional: Chills, Loss of Appetite, Changes in sleep, Weakness EENT: reports: No Symptoms Reported Respiratory: reports: No Symptoms reported Cardiac: reports: No Symptoms Reported GI: reports: Nausea, Poor Appetite, Poor Fluid Intake, Abdominal cramping : reports: No Symptoms Reported Musculoskeletal: reports: Back Pain, Joint Pain Integumentary: reports: Dryness, Flushing Endocrine: reports: No Symptoms Reported Hematology: reports: No Symptoms Reported Psychiatric: reports: Mood/Affect Appropiate, Anxious Other Systems: Reviewed and Negative Patient History - Patient Medical History Hx Anemia: No Hx Asthma: No Hx Chronic Obstructive Pulmonary Disease (COPD): No Hx Cancer: No Hx Cardiac Disorders: No Hx Congestive Heart Failure: No Hx Hypertension: No Hx Hypercholesterolemia: No Hx Pacemaker: No HX Cerebrovascular Accident: No Hx Seizures: Yes (Levetiracetam) Hx Dementia: No Hx Diabetes: No Hx Gastrointestinal Disorders: No Hx Liver Disease: No Hx Genitourinary Disorders: No Hx Sexually Transmitted Disorders: Yes (syphilis) Hx Renal Disease (ESRD): No Hx Thyroid Disease: No Hx Human Immunodeficiency Virus (HIV): No (NEGATIVE HX lAST 2018) Hx Hepatitis C: No (NEGATIVE HX, cannot remember when last tested.) Hx Depression: No Hx Suicide Attempt: No Hx Bipolar Disorder: No Hx Schizophrenia: No Other Medical History: Anxiety - Prozac - Patient Surgical History Past Surgical History: Yes Hx Neurologic Surgery: No Hx Cataract Extraction: No Hx Cardiac Surgery: No Hx Lung Surgery: No Hx Breast Surgery: No Hx Breast Biopsy: No Hx Abdominal Surgery: No Hx Appendectomy: No Hx Cholecystectomy: Yes (08/27 laproscopic) Hx Genitourinary Surgery: No Hx Section: No Hx Orthopedic Surgery: Yes (fx, left leg at age 21) Anesthesia Reaction: No - PPD History Previous Implant?: No Documented Results: Positive w/o proof Results: CXR(-)02/28/18 PPD to be Administered?: No - Reproductive History Patient is a Female of Child Bearing Age (11 -55 yrs old): No (Male) - Smoking Cessation Smoking history: Never smoked Have you smoked in the past 12 months: No Aproximately how many cigarettes per day: 0 If you are a former smoker, when did you quit?: at age 32 Cigars Per Day: 0 Hx Chewing Tobacco Use: No Initiated information on smoking cessation: No - Substance & Tx. History Hx Alcohol Use: Yes Hx Substance Use: No Substance Use Type: Alcohol Hx Substance Use Treatment: Yes ([facility]) - Substances abused Alcohol Substance route: Oral Frequency: Daily Amount used: 12 CANS OF BEER (12 OUNCES) Age of first use: 17 Date of last use: 09/05/18 Family Disease History - Family Disease History Family Disease History: Other: Father (ALCOHOL) Admission Physical Exam BHS - Vital Signs Vital Signs: Vital Signs - 24 hr 09/06/18 23:23 Temperature 98.0 F Pulse Rate 92 H Respiratory 18 Rate Blood Pressure 117/81 - Physical General Appearance: Yes: Moderate Distress, Alcohol on Breath, Tremorous, Sweating, Anxious HEENTM: Yes: EOMI, Normal ENT Inspection, Normal Voice, AG Respiratory: Yes: Lungs Clear, Normal Breath Sounds, No Respiratory Distress Neck: Yes: Supple Breast: Yes: Breast Exam Deferred Cardiology: Yes: Tachycardia Abdominal: Yes: Normal Bowel Sounds, Protuberent Genitourinary: Yes: Within Normal Limits Back: Yes: Normal Inspection Musculoskeletal: Yes: Back pain, Muscle Pain Extremities: Yes: Tremors Neurological: Yes: Alert, Normal Mood/Affect Integumentary: Yes: Warm Lymphatic: Yes: Within Normal Limits - Diagnostic (1) Alcohol dependence with withdrawal, uncomplicated Current Visit: Yes Status: Acute Comment: . (2) Anemia Current Visit: Yes Status: Chronic Qualifiers: Anemia type: unspecified type Qualified Code(s): D64.9 - Anemia, unspecified (3) History of positive PPD Current Visit: Yes Status: Chronic (4) HTN (hypertension), benign Current Visit: Yes Status: Chronic (5) PPD positive Current Visit: No Status: Chronic (6) Depression (emotion) Current Visit: Yes Status: Chronic Qualifiers: (7) Seizure Current Visit: Yes Status: Chronic Cleared for Admission S - Detox or Rehab [facility] Level of Care: Medically Managed Detox Regimen/Protocol: Librium Breathalyzer - Breathalyzer Breathalyzer: 0.167 Urine Drug Screen - Test Device Lot number: [id number] Expiration date: 04/13/20 - Control Is test valid?: Yes - Results Drug screen NEGATIVE: No Urine drug screen results: BZO-Benzodiazepines Inpatient Rehab Admission - Rehab Decision to Admit Inpatient rehab admission?: No
[2018-09-07] MEDS ORDERED: ACETAMINOPHEN 325 MG TABLET (FP) PO PRN ×2 (00:12)
[2018-09-07] MEDS ORDERED: BISMUTH SUBSALICYLATE 524 MG/30 ML UD PO PRN (00:12)
[2018-09-07] MEDS ORDERED: chlordiazePOXIDE HCL 25 MG CAPSULE PO PRN (00:12)
[2018-09-07] MEDS ORDERED: METHOCARBAMOL 500 MG TABLET PO PRN (00:12)
[2018-09-07] MEDS ORDERED: MAGNESIUM HYDROX 2400MG/30ML ORAL SUSPENSION 30 ML CUP PO PRN (00:12)
[2018-09-07] MEDS ORDERED: MENTHOL/PHENOL 1 EACH UD MM PRN (00:12)
[2018-09-07] MEDS ORDERED: IBUPROFEN 400 MG TABLET (FP) PO PRN (00:12)
[2018-09-07] MEDS ORDERED: MAGNESIUM CITRATE 300 ML BOTTLE PO PRN (00:12)
[2018-09-07] MEDS: MELATONIN 5 MG TABLETS PO PRN ×2 (01:10→22:12)
[2018-09-07] MEDS: chlordiazePOXIDE HCL 25 MG CAPSULE PO SCH ×4 (05:47→22:11)
[2018-09-07] MEDS: PRENATAL VITAMINS W/ FOLIC ACID TABLET (FP) PO SCH (10:16)
[2018-09-07] MEDS: MAG HYDROX/AL HYDROX/SIMETH 30 ML UNIT-DOSE CUP PO PRN (10:16)
[2018-09-07] MEDS: levETIRAcetam 500 MG TABLET (FP) PO SCH ×2 (10:16→22:12)
--- NOTE | 2018-09-07 11:15 | CONSULT ---
[facility] Psychiatric Consult - Data Date of interview: 09/07/18 Admission source: [facility] Identifying data: Another admission to [facility] for this 48 y/o [place]-born male, self-referred for detoxification (alcohol). Examined at [address] [place] [address]. Patient is single, a father of two (both living in [place]), domiciled, unemployed and supported on Public Assistance. Substance Abuse History: Confirmed by the patient in this interview. details in current [facility] report : Smoking history: Never smoked. Have you smoked in the past 12 months: No. Aproximately how many cigarettes per day: 0. If you are a former smoker, when did you quit?: at age 32. Cigars Per Day: 0. Hx Chewing Tobacco Use: No. Initiated information on smoking cessation: No. - Substance & Tx. History. Hx Alcohol Use: Yes. Hx Substance Use: No. Substance Use Type : Alcohol. Hx Substance Use Treatment: Yes ([facility]). - Substances abused. Alcohol. Substance route: Oral. Frequency: Daily. Amount used: 12 CANS OF BEER (12 OUNCES). Age of first use: 17. Date of last use: 09/05/18 Medical History: Remarkable for hypertension, seizure disorder, history of positive PPD, antecedent of cholecystectomy and past treatment for syphilis. Psychiatric History: Patient denies history of psychiatric hospitalizations (as per [facility] records, this patient reported one psychiatric hospitalization at [facility] and he endorsed bipolar disorder / MDD). Mr Owens ignores referrals for psychiatric aftercare. Patient gets scripts for prozac + seroquel from primary care. No history of suicide attempts. Physical/Sexual Abuse/Trauma History: No reported history of abuse. Additional Comment: Urine drug screen results: BZO-Benzodiazepines. Noted. Mental Status Exam - Mental Status Exam Alert and Oriented to: Time, Place, Person Cognitive Function: Good Patient Appearance: Unkempt, Disheveled Mood: Nervous, Withdrawn, Anxious Affect: Mood Congruent, Constricted Patient Behavior: Fatigued, Appropriate, Cooperative Speech Pattern: Clear, Appropriate (fluent in polish) Voice Loudness: Normal Thought Process: Goal Oriented Thought Disorder: Not Present Hallucinations: Denies Suicidal Ideation: Denies Homicidal Ideation: Denies Insight/Judgement: Poor Sleep: Poorly, Difficulty falling asleep Appetite: Good Muscle strength/Tone: Normal Gait/Station: Normal Psychiatric Findings - Problem List (Martin 1, 2,3) (1) Alcohol dependence with withdrawal, uncomplicated Current Visit: Yes Status: Acute Comment: . (2) Substance induced mood disorder Current Visit: Yes Status: Chronic (3) Insomnia Current Visit: Yes Status: Chronic Qualifiers: Insomnia type: alcohol-induced Qualified Code(s): F10.982 - Alcohol use, unspecified with alcohol-induced sleep disorder Comment: . (4) Non-compliance Current Visit: Yes Status: Chronic - Initial Treatment Plan Initial Treatment Plan: Psychoeducation. Sleep hygiene. Support. Detoxification in progress. Seroquel 100 mg po hs + prozac 20 mg po daily. Side effects/ benefits of both drugs are discussed with the patient. Consent (verbal) given to MD. Benefits of rehabilitative care + resources for relapse prevention (MAT) : discussed with patient. Observation.
--- NOTE | 2018-09-07 15:59 | PN ---
S CIWA - CIWA Score Nausea/Vomitin Muscle Tremors: 3 Anxiety: 3 Agitation: 0-Normal Activity Paroxysmal Sweats: 2 Orientation: 0-Oriented Tacttile Disturbances: 0-None Auditory Disturbances: 1-Very Mild Visual Disturbances: 2-Mild Sensitivity Headache: 0-None Present CIWA-Ar Total Score: 13 S Progress Note (SOAP) Subjective: Fatigue, Tremors, anxious, Sweating. Objective: PATIENT A & O X 3. IN NO ACUTE DISTRESS. 09/07/18 15:56 Vital Signs Temperature 98.8 F 09/07/18 13:13 Pulse Rate 79 09/07/18 13:13 Respiratory Rate 18 09/07/18 13:13 Blood Pressure 122/72 09/07/18 13:13 O2 Sat by Pulse Oximetry (%) ADMISSION LAB RESULTS PENDING. 09/07/18 15:58 Assessment: 09/07/18 15:58 WITHDRAWAL SYMPTOMS. Plan: CONTINUE DETOX.
[2018-09-07] MEDS: ONDANSETRON *ODT* 4 MG TABLET SL PRN (17:19)
[2018-09-07] MEDS: hydrOXYzine PAMOATE 25 MG CAPSULE (FP) PO PRN (17:20)
[2018-09-07] MEDS: THIAMINE HCL 100 MG TABLET (FP) PO SCH (22:12)
[2018-09-07] MEDS: QUEtiapine FUMARATE 100 MG TABLET (FP) PO SCH (22:12)
[2018-09-08] MEDS: chlordiazePOXIDE HCL 25 MG CAPSULE PO SCH ×4 (05:47→22:12)
[2018-09-08] MEDS: hydrOXYzine PAMOATE 25 MG CAPSULE (FP) PO PRN (05:48)
[2018-09-08 10:30] LABS: BASO % 1.1 % (0-2.0); EOS % 2.3 % (0-4.5); HEMATOCRIT 35.6 % (35.4-49); HEMOGLOBIN 11.4 GM/dL (11.7-16.9); LYMPH % 28.8 % (8-40); MCH 24.3 pg (25.7-33.7); MCHC 32.1 g/dl (32.0-35.9); MEAN CELL VOLUME 75.7 fl (80-96); MEAN PLT VOLUME 9.2 fl (7.5-11.1); MONO % 12.3 % (3.8-10.2); NEUT % 55.5 % (42.8-82.8); PLATELET COUNT 144 K/MM3 (134-434); RBC 4.71 M/mm3 (4.00-5.60); RDW 21.3 % (11.9-15.9); WHITE BLOOD COUNT 3.4 K/mm3 (4.0-10.0)
[2018-09-08] MEDS: FLUoxetine HCL 20 MG CAPSULE (FP) PO SCH (10:40)
[2018-09-08] MEDS: PRENATAL VITAMINS W/ FOLIC ACID TABLET (FP) PO SCH (10:40)
[2018-09-08] MEDS: levETIRAcetam 500 MG TABLET (FP) PO SCH ×2 (10:40→22:12)
[2018-09-08 11:04] LABS: ALBUMIN 3.3 g/dl (3.4-5.0); ALK PHOS 125 U/L (45-117); ANION GAP 7 MMOL/L (8-16); BILIRUBIN,TOTAL 0.5 mg/dL (0.2-1); BLOOD UREA NITROGEN 8 mg/dL (7-18); CALCIUM 8.6 mg/dL (8.5-10.1); CHLORIDE 104 mmol/L (98-107); CO2 30 mmol/L (21-32); CREATININE 0.7 mg/dL (0.55-1.3); GLUCOSE,RANDOM 96 mg/dL (74-106); SGOT/AST 36 U/L (15-37); SGPT/ALT 42 U/L (13-61); SODIUM 141 mmol/L (136-145); TOT PROT 7.7 g/dl (6.4-8.2)
[2018-09-08 12:22] LABS: RPR REACTIVE 1:1 (NONREACTIVE)
[2018-09-08 12:23] LABS: TREPONEMA ANTIBODY PREVIOUSLY REACTIVE (NONREACTIVE)
--- NOTE | 2018-09-08 15:07 | PN ---
S CIWA - CIWA Score Nausea/Vomitin-No Nausea/No Vomiting Muscle Tremors: 3 Anxiety: 3 Agitation: 1-Slight > Activity Paroxysmal Sweats: 2 Orientation: 2-Disoriented Date<2 days Tacttile Disturbances: 0-None Auditory Disturbances: 0-None Visual Disturbances: 2-Mild Sensitivity Headache: 0-None Present CIWA-Ar Total Score: 13 BHS Progress Note (SOAP) Subjective: Anxious, Fatigue, Tremors, Sweating. Objective: PATIENT A & O X 2 (UNCERTAIN ABOUT CURRENT DAY / DATE). PATIENT OBSERVED AMBULATING ON UNIT UNASSISTED. IN NO ACUTE DISTRESS. 09/08/18 15:04 Vital Signs Temperature 98.6 F 09/08/18 10:07 Pulse Rate 91 H 09/08/18 10:07 Respiratory Rate 18 09/08/18 10:07 Blood Pressure 119/81 09/08/18 10:07 O2 Sat by Pulse Oximetry (%) Laboratory Tests 09/08/18 09/08/18 09/08/18 05:30 05:30 05:30 WBC 3.4 L RBC 4.71 Hgb 11.4 L Hct 35.6 MCV 75.7 L MCH 24.3 L MCHC 32.1 RDW 21.3 H Plt Count 144 MPV 9.2 Absolute Neuts (auto) 1.9 Neutrophils % 55.5 Lymphocytes % 28.8 D Monocytes % 12.3 H Eosinophils % 2.3 Basophils % 1.1 Nucleated RBC % 0 Sodium 141 Potassium 4.0 Chloride 104 Carbon Dioxide 30 Anion Gap 7 L BUN 8 Creatinine 0.7 Creat Clearance w eGFR 121.41 Random Glucose 96 Calcium 8.6 Total Bilirubin 0.5 AST 36 ALT 42 Alkaline Phosphatase 125 H Total Protein 7.7 Albumin 3.3 L RPR Titer Reactive 1:1 H T.pallidum Ab (MHA) Previously reactive LABS NOTED. RESULT OF RPR NOTED (REACTIVE 1:1; MHATP: PREVIOUSLY REACTIVE). PATIENT REPORTS THAT HE COMPLETED A FULL COURSE OF ANTIBIOTIC TREATMENT FOR SYPHILIS IN THE PAST. PATIENT HAS HAD LOW WBC LEVELS ON PREVIOUS ADMISSIONS. 09/08/18 15:07 Assessment: 09/08/18 15:05 WITHDRAWAL SYMPTOMS. REACTIVE RPR RESULT. LEUKOPENIA. ANEMIA. 09/08/18 15:08 Plan: CONTINUE DETOX. PATIENT IS CURRENTLY RECEIVING DAILY MVI CONTAINING B VITAMINS AND IRON WHILE ADMITTED FOR DETOX.
[2018-09-08] MEDS: MAG HYDROX/AL HYDROX/SIMETH 30 ML UNIT-DOSE CUP PO PRN (17:17)
[2018-09-08] MEDS: QUEtiapine FUMARATE 100 MG TABLET (FP) PO SCH (22:12)
[2018-09-08] MEDS: GABAPENTIN 100 MG CAPSULE (FP) PO SCH (22:12)
[2018-09-08] MEDS: THIAMINE HCL 100 MG TABLET (FP) PO SCH (22:12)
[2018-09-08] MEDS: MELATONIN 5 MG TABLETS PO PRN (22:13)
[2018-09-09] MEDS ORDERED: chlordiazePOXIDE HCL 10 MG CAPSULE PO PRN (05:00)
[2018-09-09] MEDS: GABAPENTIN 100 MG CAPSULE (FP) PO SCH ×3 (05:51→22:17)
[2018-09-09] MEDS: chlordiazePOXIDE HCL 10 MG CAPSULE PO SCH ×4 (05:52→22:16)
[2018-09-09] MEDS: hydrOXYzine PAMOATE 25 MG CAPSULE (FP) PO PRN ×2 (05:54→14:25)
[2018-09-09] MEDS ORDERED: levETIRAcetam 250 MG TABLET (FP) PO ONE (09:44)
[2018-09-09] MEDS: FLUoxetine HCL 20 MG CAPSULE (FP) PO SCH (10:22)
[2018-09-09] MEDS: PRENATAL VITAMINS W/ FOLIC ACID TABLET (FP) PO SCH (10:22)
[2018-09-09] MEDS: levETIRAcetam 500 MG TABLET (FP) PO SCH ×2 (10:22→22:17)
--- NOTE | 2018-09-09 11:03 | PN ---
S CIWA - CIWA Score Nausea/Vomitin-Mild Nausea/No Vomiting Muscle Tremors: 2 Anxiety: 2 Agitation: 2 Paroxysmal Sweats: 1-Minimal Palms Moist Orientation: 1-Uncertain about Date Tacttile Disturbances: 0-None Auditory Disturbances: 0-None Visual Disturbances: 0-None Headache: 1-Very Mild CIWA-Ar Total Score: 10 S Progress Note (SOAP) Subjective: tremor otherwise doing ok today Objective: 09/09/18 11:07 Vital Signs Temperature 97.3 F L 09/09/18 09:22 Pulse Rate 94 H 09/09/18 09:22 Respiratory Rate 18 09/09/18 09:22 Blood Pressure 129/75 09/09/18 09:22 O2 Sat by Pulse Oximetry (%) Laboratory Last Values WBC 3.4 K/mm3 (4.0-10.0) L 09/08/18 05:30 RBC 4.71 M/mm3 (4.00-5.60) 09/08/18 05:30 Hgb 11.4 GM/dL (11.7-16.9) L 09/08/18 05:30 Hct 35.6 % (35.4-49) 09/08/18 05:30 MCV 75.7 fl (80-96) L 09/08/18 05:30 MCH 24.3 pg (25.7-33.7) L 09/08/18 05:30 MCHC 32.1 g/dl (32.0-35.9) 09/08/18 05:30 RDW 21.3 % (11.9-15.9) H 09/08/18 05:30 Plt Count 144 K/MM3 (134-434) 09/08/18 05:30 MPV 9.2 fl (7.5-11.1) 09/08/18 05:30 Absolute Neuts (auto) 1.9 K/mm3 (1.5-8.0) 09/08/18 05:30 Neutrophils % 55.5 % (42.8-82.8) 09/08/18 05:30 Lymphocytes % 28.8 % (8-40) D 09/08/18 05:30 Monocytes % 12.3 % (3.8-10.2) H 09/08/18 05:30 Eosinophils % 2.3 % (0-4.5) 09/08/18 05:30 Basophils % 1.1 % (0-2.0) 09/08/18 05:30 Nucleated RBC % 0 % (0-0) 09/08/18 05:30 Sodium 141 mmol/L (136-145) 09/08/18 05:30 Potassium 4.0 mmol/L (3.5-5.1) 09/08/18 05:30 Chloride 104 mmol/L (98-107) 09/08/18 05:30 Carbon Dioxide 30 mmol/L (21-32) 09/08/18 05:30 Anion Gap 7 MMOL/L (8-16) L 09/08/18 05:30 BUN 8 mg/dL (7-18) 09/08/18 05:30 Creatinine 0.7 mg/dL (0.55-1.3) 09/08/18 05:30 Creat Clearance w eGFR 121.41 (>60) 09/08/18 05:30 Random Glucose 96 mg/dL (74-106) 09/08/18 05:30 Calcium 8.6 mg/dL (8.5-10.1) 09/08/18 05:30 Total Bilirubin 0.5 mg/dL (0.2-1) 09/08/18 05:30 AST 36 U/L (15-37) 09/08/18 05:30 ALT 42 U/L (13-61) 09/08/18 05:30 Alkaline Phosphatase 125 U/L (45-117) H 09/08/18 05:30 Total Protein 7.7 g/dl (6.4-8.2) 09/08/18 05:30 Albumin 3.3 g/dl (3.4-5.0) L 09/08/18 05:30 RPR Titer Reactive 1:1 (NONREACTIVE) H 09/08/18 05:30 T.pallidum Ab (MHA) Previously reactive (NONREACTIVE) 09/08/18 05:30 lab noted Assessment: 09/09/18 11:07 alcohol withdrawal sx Plan: continue detox
[2018-09-09] MEDS: QUEtiapine FUMARATE 100 MG TABLET (FP) PO SCH (22:16)
[2018-09-09] MEDS: THIAMINE HCL 100 MG TABLET (FP) PO SCH (22:17)
[2018-09-09] MEDS: MELATONIN 5 MG TABLETS PO PRN (22:17)
[2018-09-10] MEDS: GABAPENTIN 100 MG CAPSULE (FP) PO SCH ×3 (05:42→22:15)
[2018-09-10] MEDS: chlordiazePOXIDE HCL 10 MG CAPSULE PO SCH ×2 (05:42→17:00)
--- NOTE | 2018-09-10 09:39 | PN ---
S CIWA - CIWA Score Nausea/Vomitin-Mild Nausea/No Vomiting Muscle Tremors: 1-None Visible, but [place] Anxiety: 1-Mildly Anxious Agitation: 1-Slight > Activity Paroxysmal Sweats: No Perspiration Orientation: 1-Uncertain about Date Tacttile Disturbances: 0-None Auditory Disturbances: 0-None Visual Disturbances: 0-None Headache: 0-None Present CIWA-Ar Total Score: 5 BHS Progress Note (SOAP) Subjective: feeling better ambulating on hallway tolerate food and fluid well well rested Objective: 09/10/18 09:38 Vital Signs Temperature 96.4 F L 09/10/18 09:08 Pulse Rate 64 09/10/18 09:08 Respiratory Rate 18 09/10/18 09:08 Blood Pressure 106/73 09/10/18 09:08 O2 Sat by Pulse Oximetry (%) Laboratory Last Values WBC 3.4 K/mm3 (4.0-10.0) L 09/08/18 05:30 RBC 4.71 M/mm3 (4.00-5.60) 09/08/18 05:30 Hgb 11.4 GM/dL (11.7-16.9) L 09/08/18 05:30 Hct 35.6 % (35.4-49) 09/08/18 05:30 MCV 75.7 fl (80-96) L 09/08/18 05:30 MCH 24.3 pg (25.7-33.7) L 09/08/18 05:30 MCHC 32.1 g/dl (32.0-35.9) 09/08/18 05:30 RDW 21.3 % (11.9-15.9) H 09/08/18 05:30 Plt Count 144 K/MM3 (134-434) 09/08/18 05:30 MPV 9.2 fl (7.5-11.1) 09/08/18 05:30 Absolute Neuts (auto) 1.9 K/mm3 (1.5-8.0) 09/08/18 05:30 Neutrophils % 55.5 % (42.8-82.8) 09/08/18 05:30 Lymphocytes % 28.8 % (8-40) D 09/08/18 05:30 Monocytes % 12.3 % (3.8-10.2) H 09/08/18 05:30 Eosinophils % 2.3 % (0-4.5) 09/08/18 05:30 Basophils % 1.1 % (0-2.0) 09/08/18 05:30 Nucleated RBC % 0 % (0-0) 09/08/18 05:30 Sodium 141 mmol/L (136-145) 09/08/18 05:30 Potassium 4.0 mmol/L (3.5-5.1) 09/08/18 05:30 Chloride 104 mmol/L (98-107) 09/08/18 05:30 Carbon Dioxide 30 mmol/L (21-32) 09/08/18 05:30 Anion Gap 7 MMOL/L (8-16) L 09/08/18 05:30 BUN 8 mg/dL (7-18) 09/08/18 05:30 Creatinine 0.7 mg/dL (0.55-1.3) 09/08/18 05:30 Creat Clearance w eGFR 121.41 (>60) 09/08/18 05:30 Random Glucose 96 mg/dL (74-106) 09/08/18 05:30 Calcium 8.6 mg/dL (8.5-10.1) 09/08/18 05:30 Total Bilirubin 0.5 mg/dL (0.2-1) 09/08/18 05:30 AST 36 U/L (15-37) 09/08/18 05:30 ALT 42 U/L (13-61) 09/08/18 05:30 Alkaline Phosphatase 125 U/L (45-117) H 09/08/18 05:30 Total Protein 7.7 g/dl (6.4-8.2) 09/08/18 05:30 Albumin 3.3 g/dl (3.4-5.0) L 09/08/18 05:30 RPR Titer Reactive 1:1 (NONREACTIVE) H 09/08/18 05:30 T.pallidum Ab (MHA) Previously reactive (NONREACTIVE) 09/08/18 05:30 lab noted Assessment: 09/10/18 09:39 mild alcohol withdrawal sx Plan: continue detox
[2018-09-10] MEDS: levETIRAcetam 500 MG TABLET (FP) PO SCH ×2 (10:15→22:15)
[2018-09-10] MEDS: hydrOXYzine PAMOATE 25 MG CAPSULE (FP) PO PRN ×2 (10:15→17:01)
[2018-09-10] MEDS: FLUoxetine HCL 20 MG CAPSULE (FP) PO SCH (10:16)
[2018-09-10] MEDS: PRENATAL VITAMINS W/ FOLIC ACID TABLET (FP) PO SCH (10:16)
[2018-09-10] MEDS: MAG HYDROX/AL HYDROX/SIMETH 30 ML UNIT-DOSE CUP PO PRN (18:29)
[2018-09-10] MEDS: THIAMINE HCL 100 MG TABLET (FP) PO SCH (22:15)
[2018-09-10] MEDS: QUEtiapine FUMARATE 100 MG TABLET (FP) PO SCH (22:15)
[2018-09-10] MEDS: MELATONIN 5 MG TABLETS PO PRN (22:15)
[2018-09-11] MEDS: GABAPENTIN 100 MG CAPSULE (FP) PO SCH (05:43)
[2018-09-11] MEDS: chlordiazePOXIDE HCL 10 MG CAPSULE PO SCH (05:43)
[2018-09-11] MEDS: ONDANSETRON *ODT* 4 MG TABLET SL PRN (05:46)
[2018-09-11 09:11] VITALS: BP 106/67; PULSE 76; TEMP 96.7
--- NOTE | 2018-09-11 10:58 | DS ---
[facility] Detox Discharge Summary Admission Date: 09/06/18 Discharge Date: 09/11/18 - History Present History: Alcohol Dependence Additional Comments: 48 years old male admitted on 09/06/18 for alcohol withdrawal stabilization completed detox regimen aftercare [facility] Pertinent Past History: bring in medication list and lab report to aftercare appointment - Physical Exam Results Vital Signs: Vital Signs Temperature 96.7 F L 09/11/18 09:10 Pulse Rate 76 09/11/18 09:10 Respiratory Rate 18 09/11/18 09:10 Blood Pressure 106/67 09/11/18 09:10 O2 Sat by Pulse Oximetry (%) Pertinent Admission Physical Exam Findings: alcohol withdrawal sx Laboratory Last Values WBC 3.4 K/mm3 (4.0-10.0) L 09/08/18 05:30 RBC 4.71 M/mm3 (4.00-5.60) 09/08/18 05:30 Hgb 11.4 GM/dL (11.7-16.9) L 09/08/18 05:30 Hct 35.6 % (35.4-49) 09/08/18 05:30 MCV 75.7 fl (80-96) L 09/08/18 05:30 MCH 24.3 pg (25.7-33.7) L 09/08/18 05:30 MCHC 32.1 g/dl (32.0-35.9) 09/08/18 05:30 RDW 21.3 % (11.9-15.9) H 09/08/18 05:30 Plt Count 144 K/MM3 (134-434) 09/08/18 05:30 MPV 9.2 fl (7.5-11.1) 09/08/18 05:30 Absolute Neuts (auto) 1.9 K/mm3 (1.5-8.0) 09/08/18 05:30 Neutrophils % 55.5 % (42.8-82.8) 09/08/18 05:30 Lymphocytes % 28.8 % (8-40) D 09/08/18 05:30 Monocytes % 12.3 % (3.8-10.2) H 09/08/18 05:30 Eosinophils % 2.3 % (0-4.5) 09/08/18 05:30 Basophils % 1.1 % (0-2.0) 09/08/18 05:30 Nucleated RBC % 0 % (0-0) 09/08/18 05:30 Sodium 141 mmol/L (136-145) 09/08/18 05:30 Potassium 4.0 mmol/L (3.5-5.1) 09/08/18 05:30 Chloride 104 mmol/L (98-107) 09/08/18 05:30 Carbon Dioxide 30 mmol/L (21-32) 09/08/18 05:30 Anion Gap 7 MMOL/L (8-16) L 09/08/18 05:30 BUN 8 mg/dL (7-18) 09/08/18 05:30 Creatinine 0.7 mg/dL (0.55-1.3) 09/08/18 05:30 Creat Clearance w eGFR 121.41 (>60) 09/08/18 05:30 Random Glucose 96 mg/dL (74-106) 09/08/18 05:30 Calcium 8.6 mg/dL (8.5-10.1) 09/08/18 05:30 Total Bilirubin 0.5 mg/dL (0.2-1) 09/08/18 05:30 AST 36 U/L (15-37) 09/08/18 05:30 ALT 42 U/L (13-61) 09/08/18 05:30 Alkaline Phosphatase 125 U/L (45-117) H 09/08/18 05:30 Total Protein 7.7 g/dl (6.4-8.2) 09/08/18 05:30 Albumin 3.3 g/dl (3.4-5.0) L 09/08/18 05:30 RPR Titer Reactive 1:1 (NONREACTIVE) H 09/08/18 05:30 T.pallidum Ab (MHA) Previously reactive (NONREACTIVE) 09/08/18 05:30 lab noted - Treatment Hospital Course: Detox Protocol Followed, Detoxed Safely, Responded well, Discharged Condition Good, Rehab Referral Accepted Patient has Accepted a Rehab Referral to: [facility] - Medication Discharge Medications: Ambulatory Orders Quetiapine Fumarate [Seroquel -] 100 mg PO HS 12/15/17 Fluoxetine HCl [Prozac] 20 mg PO DAILY #30 capsule 06/07/18 Gabapentin 100 mg PO TID 07/23/18 Omeprazole 20 mg PO DAILY 07/23/18 Hydroxyzine HCl 50 mg PO BID 09/06/18 Ondansetron [Zofran -] 4 mg PO DAILY PRN 09/06/18 levETIRAcetam [Keppra -] 1,000 mg PO BID #60 tablet 09/10/18 Fluoxetine HCl [Prozac] 20 mg PO DAILY #30 capsule 09/11/18 - Diagnosis (1) Alcohol dependence with withdrawal, uncomplicated Status: Acute (2) Positive RPR test Status: Chronic (3) HTN (hypertension), benign Status: Chronic (4) PPD positive Status: Resolved (5) Seizure Status: Chronic (6) Substance induced mood disorder Status: Suspected - AMA Did Patient Leave Against Medical Advice: No
== END 2018-09-11 09:28 | disposition home or self-care (01) | DRG 775 ==
LOC: YASAS 22:59 → Y3N 23:59
PROVIDERS: ADMIT Surgery; ATTEND Surgery
PROC: HZ2ZZZZ Detoxification Services for Substance Abuse Treatment (ICD-10-PCS; principal; 2018-09-06)
DX: F10.230 Alcohol dependence with withdrawal, uncomplicated (principal); F19.24 Other psychoactive substance dependence with psychoactive substance-induced mood disorder; F34.1 Dysthymic disorder; F41.9 Anxiety disorder, unspecified; G47.00 Insomnia, unspecified; I10 Essential (primary) hypertension; D72.819 Decreased white blood cell count, unspecified; G40.909 Epilepsy, unspecified, not intractable, without status epilepticus; R76.11 Nonspecific reaction to tuberculin skin test without active tuberculosis; Z86.19 Personal history of other infectious and parasitic diseases; Z91.19 Patient's noncompliance with other medical treatment and regimen
CPT/HCPCS: 36415; 80053; 85025; 86593; 86780; Q0162

== ENCOUNTER 2018-12-01 08:36 | Inpatient (IN) | payer OTHER ==
[2018-12-01 09:17] VITALS: BMI 33.2
--- NOTE | 2018-12-01 09:47 | HP ---
CIWA Score Nausea/Vomitin Muscle Tremors: 3 Anxiety: 3 Agitation: 2 Paroxysmal Sweats: 3 Orientation: 0-Oriented Tacttile Disturbances: 2-Mild Itch/Numbness/Burn Auditory Disturbances: 0-None Visual Disturbances: 2-Mild Sensitivity Headache: 2-Mild CIWA-Ar Total Score: 20 - Admission Criteria [facility]ASAS Guidelines: Admission for Medically Managed Detox: Requires at least one of the followin. CIWA greater than 12 2. Seizures within the past 24 hours 3. Delirium tremens within the past 24 hours 4. Hallucinations within the past 24 hours 5. Acute intervention needed for co occurring medical disorder 6. Acute intervention needed for co occurring psychiatric disorder 7. Severe withdrawal that cannot be handled at a lower level of care (continued vomiting, continued diarrhea, abnormal vital signs) requiring intravenous medication and/or fluids 8. Patient presents the following: CIWA greater than 12 Admission Criteria Met: Admission criteria met Admission ROS [facility] Chief Complaint: "I here for alcohol, I have too much alcohol and I have too much anxiety" Allergies/Adverse Reactions: Allergies Allergy/AdvReac Type Severity Reaction Status Date / Time Fish Containing Products Allergy Severe Rash Verified 12/01/18 09:10 No Known Drug Allergies Allergy Verified 12/01/18 09:10 lactose AdvReac Lactose Verified 12/01/18 09:10 Intolerance LACTOSE INTOLERANCE AdvReac Nausea Uncoded 12/01/18 09:10 History of Present Illness: Patient is a 48 years old male with long standing history of alcohol dependence who presents for alcohol detox. Patient has been in previous detox treatments multiple times and reports 18 months of sobriety. He was at [facility] detox in August of this year, denies any treatments since then. He denies blackouts but reports alcohol related seizures for which he is on keppra. He walks with a cane due to chronic left knee pain related to injury, s/p surgery 15 years ago. Exam Limitations: No Limitations - Ebola screening Have you traveled outside of the country in the last 21 days: No (N) Have you had contact with anyone from an Ebola affected area: No Have you been sick,other than usual withdrawal symptoms: No Do you have a fever: No - Review of Systems Constitutional: Chills, Loss of Appetite, Changes in sleep EENT: reports: No Symptoms Reported Respiratory: reports: No Symptoms reported Cardiac: reports: No Symptoms Reported GI: reports: Poor Appetite, Poor Fluid Intake, Abdominal cramping : reports: No Symptoms Reported Musculoskeletal: reports: Joint Pain, Muscle Pain, Other (walks with cane) Neuro: reports: Seizure (remote from alcohol), Tremors Endocrine: reports: No Symptoms Reported Hematology: reports: No Symptoms Reported Psychiatric: reports: Anxious Other Systems: Reviewed and Negative Patient History - Patient Medical History Hx Anemia: No Hx Asthma: No Hx Chronic Obstructive Pulmonary Disease (COPD): No Hx Cancer: No Hx Cardiac Disorders: No Hx Congestive Heart Failure: No Hx Hypertension: No Hx Hypercholesterolemia: No Hx Pacemaker: No HX Cerebrovascular Accident: No Hx Seizures: Yes (Levetiracetam) Hx Dementia: No Hx Diabetes: No Hx Gastrointestinal Disorders: No Hx Liver Disease: No Hx Genitourinary Disorders: No Hx Sexually Transmitted Disorders: Yes (syphilis) Hx Renal Disease (ESRD): No Hx Thyroid Disease: No Hx Human Immunodeficiency Virus (HIV): No Hx Hepatitis C: No Hx Depression: No Hx Suicide Attempt: No Hx Bipolar Disorder: No Hx Schizophrenia: No - Patient Surgical History Past Surgical History: Yes Hx Neurologic Surgery: No Hx Cataract Extraction: No Hx Cardiac Surgery: No Hx Lung Surgery: No Hx Breast Surgery: No Hx Breast Biopsy: No Hx Abdominal Surgery: No Hx Appendectomy: No Hx Cholecystectomy: Yes (08/27 laproscopic) Hx Genitourinary Surgery: No Hx Section: No Hx Orthopedic Surgery: Yes (fx, left leg at age 21) Anesthesia Reaction: No - PPD History Previous Implant?: No Implanted On Prior [facility] Admission?: No Results: CXR(-)02/28/18 PPD to be Administered?: No - Smoking Cessation Smoking history: Never smoked Have you smoked in the past 12 months: No Aproximately how many cigarettes per day: 0 If you are a former smoker, when did you quit?: at age 32 Cigars Per Day: 0 Hx Chewing Tobacco Use: No Initiated information on smoking cessation: No - Substances abused Alcohol Substance route: Oral Frequency: Daily Amount used: 12 CANS OF BEER (12 OUNCES) Age of first use: 17 Date of last use: 12/01/18 Family Disease History - Family Disease History Family Disease History: Other: Father (ALCOHOL) Admission Physical Exam [facility] - Vital Signs Vital Signs: Vital Signs - 24 hr 12/01/18 09:14 Temperature 97.0 F L Pulse Rate 75 Respiratory 16 Rate Blood Pressure 151/100 - Physical General Appearance: Yes: No Apparent Distress HEENTM: Yes: EOMI, Hearing grossly Normal, Normal ENT Inspection, Normocephalic , Normal Voice, AG, Pharynx Normal Respiratory: Yes: Chest Non-Tender, Lungs Clear, Normal Breath Sounds, No Respiratory Distress, No Accessory Muscle Use Neck: Yes: No masses,lesions,Nodules, Supple Breast: Yes: Breast Exam Deferred Cardiology: Yes: Regular Rhythm, Regular Rate, S1, S2 Abdominal: Yes: Normal Bowel Sounds, Non Tender, Soft Genitourinary: Yes: Within Normal Limits Back: Yes: Normal Inspection Musculoskeletal: Yes: Muscle weakness, Other (knee pain due to old injury) Extremities: Yes: Tremors Neurological: Yes: child health associate II-XII NML intact, Fully Oriented, Alert, Normal Mood/ Affect, Normal Response Integumentary: Yes: Clammy Lymphatic: Yes: Within Normal Limits - Diagnostic (1) Alcohol dependence with withdrawal, uncomplicated Current Visit: Yes Status: Acute Comment: . (2) Chronic pain of left knee Current Visit: No Status: Chronic Cleared for Admission [facility] - Detox or Rehab [facility] Level of Care: Medically Managed Detox Regimen/Protocol: Librium Breathalyzer - Breathalyzer Breathalyzer: 0.062 Urine Drug Screen - Test Device Lot number: [id number] Expiration date: 09/11/20 - Control Is test valid?: Yes - Results Drug screen NEGATIVE: No Urine drug screen results: MET-Methamphetamine, BZO-Benzodiazepines Inpatient Rehab Admission - Rehab Decision to Admit Inpatient rehab admission?: No
[2018-12-01] MEDS ORDERED: MENTHOL/PHENOL 1 EACH UD MM PRN (09:54)
[2018-12-01] MEDS ORDERED: ACETAMINOPHEN 325 MG TABLET (FP) PO PRN (09:54)
[2018-12-01] MEDS ORDERED: BISMUTH SUBSALICYLATE 524 MG/30 ML UD PO PRN (09:54)
[2018-12-01] MEDS ORDERED: MAGNESIUM CITRATE 300 ML BOTTLE PO PRN (09:54)
[2018-12-01] MEDS: PRENATAL VITAMINS W/ FOLIC ACID TABLET (FP) PO SCH (11:47)
[2018-12-01] MEDS: levETIRAcetam 500 MG TABLET (FP) PO SCH ×2 (11:47→22:08)
[2018-12-01] MEDS: ACETAMINOPHEN 325 MG TABLET (FP) PO PRN (11:49)
[2018-12-01] MEDS: chlordiazePOXIDE HCL 25 MG CAPSULE PO SCH ×2 (12:01→22:11)
[2018-12-01] MEDS: hydrOXYzine PAMOATE 50 MG CAPSULE (FP) PO PRN (12:03)
[2018-12-01] MEDS: GABAPENTIN 100 MG CAPSULE (FP) PO SCH ×2 (14:05→22:10)
[2018-12-01] MEDS: chlordiazePOXIDE HCL 10 MG CAPSULE PO PRN (14:05)
[2018-12-01] MEDS: THIAMINE HCL 100 MG TABLET (FP) PO SCH (22:10)
[2018-12-01] MEDS: MELATONIN 5 MG TABLETS PO PRN (22:11)
[2018-12-01] MEDS: IBUPROFEN 400 MG TABLET (FP) PO PRN (22:12)
[2018-12-02] MEDS: chlordiazePOXIDE HCL 25 MG CAPSULE PO SCH ×3 (06:41→22:19)
[2018-12-02] MEDS: GABAPENTIN 100 MG CAPSULE (FP) PO SCH ×3 (06:41→22:21)
[2018-12-02] MEDS: levETIRAcetam 500 MG TABLET (FP) PO SCH ×2 (10:17→22:20)
[2018-12-02] MEDS: PRENATAL VITAMINS W/ FOLIC ACID TABLET (FP) PO SCH (10:17)
[2018-12-02] MEDS: ONDANSETRON *ODT* 4 MG TABLET SL PRN (10:18)
[2018-12-02] MEDS: chlordiazePOXIDE HCL 10 MG CAPSULE PO PRN ×2 (10:19→18:02)
[2018-12-02] MEDS: MAGNESIUM HYDROX 2400MG/30ML ORAL SUSPENSION 30 ML CUP PO PRN (10:20)
[2018-12-02] MEDS: ACETAMINOPHEN 325 MG TABLET (FP) PO PRN (10:21)
[2018-12-02 10:45] LABS: BILIRUBIN,TOTAL 0.8 mg/dL (0.2-1); BLOOD UREA NITROGEN 12.8 mg/dL (7-18); CALCIUM 8.5 mg/dL (8.5-10.1); CREATININE 0.8 mg/dL (0.55-1.3); POTASSIUM 3.9 mmol/L (3.5-5.1); TOT PROT 8.8 g/dl (6.4-8.2)
[2018-12-02 10:50] LABS: HEMATOCRIT 36.7 % (35.4-49); HEMOGLOBIN 11.6 GM/dL (11.7-16.9); MCH 23.9 pg (25.7-33.7); MCHC 31.5 g/dl (32.0-35.9); MEAN CELL VOLUME 75.7 fl (80-96); MEAN PLT VOLUME 8.8 fl (7.5-11.1); PLATELET COUNT 105 K/MM3 (134-434); RBC 4.85 M/mm3 (4.00-5.60); RDW 23.2 % (11.9-15.9); WHITE BLOOD COUNT 6.8 K/mm3 (4.0-10.0)
[2018-12-02 11:56] LABS: RPR REACTIVE 1:1 (NONREACTIVE)
[2018-12-02 11:57] LABS: TREPONEMA ANTIBODY PREVIOUSLY REACTIVE (NONREACTIVE)
[2018-12-02] MEDS: MAG HYDROX/AL HYDROX/SIMETH 30 ML UNIT-DOSE CUP PO PRN (12:30)
--- NOTE | 2018-12-02 12:48 | PN ---
S CIWA - CIWA Score Nausea/Vomitin-Mild Nausea/No Vomiting Muscle Tremors: 2 Anxiety: 3 Agitation: 3 Paroxysmal Sweats: 2 Orientation: 0-Oriented Tacttile Disturbances: 0-None Auditory Disturbances: 0-None Visual Disturbances: 0-None Headache: 0-None Present CIWA-Ar Total Score: 11 [facility] Progress Note (SOAP) Subjective: Patient c/o insomnia (despite tx with melatonin), shakes, nausea without vomiting and knee pain, mainly left knee. Objective: 12/02/18 12:45 Laboratory Tests 12/02/18 12/02/18 12/02/18 07:50 07:50 07:50 WBC 6.8 RBC 4.85 Hgb 11.6 L Hct 36.7 MCV 75.7 L MCH 23.9 L MCHC 31.5 L RDW 23.2 H Plt Count 105 L D MPV 8.8 Sodium 140 Potassium 3.9 Chloride 108 H Carbon Dioxide 25 Anion Gap 7 L BUN 12.8 Creatinine 0.8 Est GFR (CKD-EPI)AfAm 124.16 Est GFR (CKD-EPI)NonAf 107.13 Random Glucose 100 Calcium 8.5 Total Bilirubin 0.8 AST 55 H ALT 49 Alkaline Phosphatase 127 H Total Protein 8.8 H Albumin 4.0 RPR Titer Reactive 1:1 H T.pallidum Ab (MHA) Previously reactive Vital Signs Temperature 99.1 F 12/02/18 09:32 Pulse Rate 102 H 12/02/18 09:32 Respiratory Rate 18 12/02/18 09:32 Blood Pressure 150/95 12/02/18 09:32 O2 Sat by Pulse Oximetry (%) PE: alert and oriented x 3 skin warm, + facial flushing +perrla, eoms intact bl gi nt, nd ext full rom, amb ad madhav mild tremors felt restless/anxious/pacing in hallway Assessment: 12/02/18 12:47 withdrawal sx knee discomfort nausea insomnia Plan: continue detox add zofran sl prn psych consult cool compress to knees rest as needed monitor
[2018-12-02] MEDS: IBUPROFEN 400 MG TABLET (FP) PO PRN (18:02)
[2018-12-02] MEDS: hydrOXYzine PAMOATE 50 MG CAPSULE (FP) PO PRN (18:04)
[2018-12-02] MEDS: THIAMINE HCL 100 MG TABLET (FP) PO SCH (22:19)
[2018-12-02] MEDS: MELATONIN 5 MG TABLETS PO PRN (22:23)
[2018-12-03] MEDS: GABAPENTIN 100 MG CAPSULE (FP) PO SCH ×3 (06:01→22:23)
[2018-12-03] MEDS: chlordiazePOXIDE 5 MG CAPSULE PO SCH ×3 (06:01→22:22)
--- NOTE | 2018-12-03 09:23 | CONSULT ---
[facility] Psychiatric Consult - Data Date of interview: 12/03/18 Admission source: Self-referred Identifying data: Mr Owens is a 48 years old [place]-born male, father of 2 children, unemployed receiving public assistance, homeless seeking detox treatment for alcohol Substance Abuse History: Reports history of alcohol use. Refer to addiction counselor's summary for further information Medical History: Remarkable for anemia, hypertension, seizure disorder, GERD, left knee pain, history of treatment positive PPD, syphilis, lap cholecystectomy and orthosurgery for fracture left leg. Psychiatric History: Patient is very irritable, hostile and uncooperative in providing a coherent history. He reports that he has been receiving treatment for anxiety by his primary care physician. He has been prescribed Prozac 20 mg po daily, Seroquel 50 mg po HS and Atarax 50 mg po HS. External medication history shows scripts for 30 days supply of Prozac 20 mg/day & Seroquel 50 mg/ hs prescribed by provider Jacque Alvarez and filled on 09/03/18 at [facility] pharmacy. Denies previous hospitalization or suicidal attempt. However he told insurance underwriter that once he was admitted on a psychiatric unit for detox. At present, reports feeling anxious, irritable and sleeping poorly Physical/Sexual Abuse/Trauma History: Denies history of emotional, physical or sexual abuse as well as DV relationship Mental Status Exam - Mental Status Exam Alert and Oriented to: Time, Place, Person Cognitive Function: Fair Patient Appearance: Well Groomed Mood: Irritable Patient Behavior: Uncooperative Speech Pattern: Clear Psychiatric Findings - Problem List ([place] 1, 2,3) (1) Alcohol-induced mood disorder Current Visit: Yes Status: Acute (2) Alcohol-induced sleep disorder Current Visit: No Status: Acute (3) Alcohol dependence with withdrawal, uncomplicated Current Visit: Yes Status: Acute Comment: . (4) GERD (gastroesophageal reflux disease) Current Visit: Yes Status: Chronic (5) Anemia Current Visit: No Status: Chronic Qualifiers: Anemia type: unspecified type Qualified Code(s): D64.9 - Anemia, unspecified (6) Chronic pain of left knee Current Visit: No Status: Chronic (7) HTN (hypertension), benign Current Visit: No Status: Chronic (8) History of positive PPD Current Visit: No Status: Resolved (9) Obese Current Visit: No Status: Chronic Qualifiers: Obesity type: due to excess calories Obesity classification: unspecified obesity classification Serious obesity comorbidity presence: unspecified whether serious comorbidity present Qualified Code(s): E66.09 - Other obesity due to excess calories (10) Positive RPR test Current Visit: No Status: Chronic (11) Seizure Current Visit: No Status: Chronic (12) Fracture of left lower extremity Current Visit: No Status: Resolved Qualifiers: Encounter type: sequela Fracture type: closed Qualified Code(s): S82.92XS - Unspecified fracture of left lower leg, sequela - Initial Treatment Plan Initial Treatment Plan: 1) Resume Seroquel 50 mg po HS. 2) Continue inpatient detoxification
[2018-12-03] MEDS: PRENATAL VITAMINS W/ FOLIC ACID TABLET (FP) PO SCH (10:07)
[2018-12-03] MEDS: levETIRAcetam 500 MG TABLET (FP) PO SCH ×2 (10:07→22:24)
[2018-12-03] MEDS: MAGNESIUM HYDROX 2400MG/30ML ORAL SUSPENSION 30 ML CUP PO PRN (10:09)
[2018-12-03] MEDS: IBUPROFEN 400 MG TABLET (FP) PO PRN ×2 (10:10→22:23)
[2018-12-03] MEDS: hydrOXYzine PAMOATE 50 MG CAPSULE (FP) PO PRN (10:10)
[2018-12-03] MEDS: chlordiazePOXIDE HCL 10 MG CAPSULE PO PRN ×2 (10:13→17:33)
--- NOTE | 2018-12-03 13:20 | PN ---
[facility] Progress Note Note: pt states the keppra of 1000mg bid is too strong for me. Please lower the dose. pharmacy was called and pt last keppra dose is 500mg bid will order keppra 500mg bid as per pt request.
--- NOTE | 2018-12-03 14:08 | PN ---
S CIWA - CIWA Score Nausea/Vomitin-No Nausea/No Vomiting Muscle Tremors: 3 Anxiety: 2 Agitation: 2 Paroxysmal Sweats: 3 Orientation: 0-Oriented Tacttile Disturbances: 0-None Auditory Disturbances: 0-None Visual Disturbances: 0-None Headache: 0-None Present CIWA-Ar Total Score: 10 [facility] Progress Note (SOAP) Subjective: sweats shakes interrupted sleep body aches knee pain/discomfort irritable Objective: 12/03/18 14:07 Vital Signs Temperature 97.8 F 12/03/18 13:17 Pulse Rate 80 12/03/18 13:17 Respiratory Rate 18 12/03/18 13:17 Blood Pressure 149/90 12/03/18 13:17 O2 Sat by Pulse Oximetry (%) Laboratory Tests 12/02/18 12/02/18 12/02/18 07:50 07:50 07:50 WBC 6.8 RBC 4.85 Hgb 11.6 L Hct 36.7 MCV 75.7 L MCH 23.9 L MCHC 31.5 L RDW 23.2 H Plt Count 105 L D MPV 8.8 Sodium 140 Potassium 3.9 Chloride 108 H Carbon Dioxide 25 Anion Gap 7 L BUN 12.8 Creatinine 0.8 Est GFR (CKD-EPI)AfAm 124.16 Est GFR (CKD-EPI)NonAf 107.13 Random Glucose 100 Calcium 8.5 Total Bilirubin 0.8 AST 55 H ALT 49 Alkaline Phosphatase 127 H Total Protein 8.8 H Albumin 4.0 RPR Titer Reactive 1:1 H T.pallidum Ab (MHA) Previously reactive labs noted aaox3 ambulating no acute distress Assessment: 12/03/18 14:08 withdrawal sx Plan: continue detox increase fluids
[2018-12-03] MEDS: MAG HYDROX/AL HYDROX/SIMETH 30 ML UNIT-DOSE CUP PO PRN (17:32)
[2018-12-03] MEDS: METHOCARBAMOL 500 MG TABLET PO PRN (17:33)
[2018-12-03] MEDS: MELATONIN 5 MG TABLETS PO PRN (22:24)
[2018-12-03] MEDS: THIAMINE HCL 100 MG TABLET (FP) PO SCH (22:24)
[2018-12-04] MEDS: chlordiazePOXIDE HCL 10 MG CAPSULE PO SCH ×3 (05:34→22:05)
[2018-12-04] MEDS: GABAPENTIN 100 MG CAPSULE (FP) PO SCH ×3 (05:34→22:05)
[2018-12-04] MEDS: PRENATAL VITAMINS W/ FOLIC ACID TABLET (FP) PO SCH (10:08)
[2018-12-04] MEDS: levETIRAcetam 500 MG TABLET (FP) PO SCH ×2 (10:08→22:05)
[2018-12-04] MEDS: IBUPROFEN 400 MG TABLET (FP) PO PRN ×2 (10:09→22:07)
[2018-12-04] MEDS: METHOCARBAMOL 500 MG TABLET PO PRN ×2 (10:10→17:09)
[2018-12-04] MEDS: chlordiazePOXIDE HCL 10 MG CAPSULE PO PRN ×2 (10:12→17:09)
[2018-12-04] MEDS: MAG HYDROX/AL HYDROX/SIMETH 30 ML UNIT-DOSE CUP PO PRN (10:13)
--- NOTE | 2018-12-04 10:39 | PN ---
S CIWA - CIWA Score Nausea/Vomitin-Mild Nausea/No Vomiting Muscle Tremors: 2 Anxiety: 2 Agitation: 2 Paroxysmal Sweats: No Perspiration Orientation: 0-Oriented Tacttile Disturbances: 1-Very Mild Itch/Numbness Auditory Disturbances: 0-None Visual Disturbances: 0-None Headache: 2-Mild CIWA-Ar Total Score: 10 S Progress Note (SOAP) Subjective: alert,irritable,anxious,interrupted sleep,pain in the body Objective: 12/04/18 10:38 Vital Signs Temperature 97.7 F 12/04/18 09:55 Pulse Rate 89 12/04/18 09:55 Respiratory Rate 16 12/04/18 09:55 Blood Pressure 139/81 12/04/18 09:55 O2 Sat by Pulse Oximetry (%) Assessment: 12/04/18 10:38 withdrawal symptom Plan: continue detox librium regimen,discharge in am
[2018-12-04] MEDS: ONDANSETRON *ODT* 4 MG TABLET SL PRN (13:09)
[2018-12-04] MEDS: THIAMINE HCL 100 MG TABLET (FP) PO SCH (22:05)
[2018-12-04] MEDS: MELATONIN 5 MG TABLETS PO PRN (22:07)
[2018-12-05] MEDS ORDERED: chlordiazePOXIDE HCL 10 MG CAPSULE PO ONE (05:00)
[2018-12-05] MEDS: GABAPENTIN 100 MG CAPSULE (FP) PO SCH (05:52)
--- NOTE | 2018-12-05 08:51 | DS ---
[facility] Detox Discharge Summary Admission Date: 12/01/18 Discharge Date: 12/05/18 - History Present History: Alcohol Dependence - Physical Exam Results Vital Signs: Vital Signs Temperature 97.5 F L 12/05/18 06:48 Pulse Rate 63 12/05/18 06:48 Respiratory Rate 18 12/05/18 06:48 Blood Pressure 133/76 12/05/18 06:48 O2 Sat by Pulse Oximetry (%) Pertinent Admission Physical Exam Findings: pt arrived in withdrawals Laboratory Tests 12/02/18 12/02/18 12/02/18 07:50 07:50 07:50 WBC 6.8 RBC 4.85 Hgb 11.6 L Hct 36.7 MCV 75.7 L MCH 23.9 L MCHC 31.5 L RDW 23.2 H Plt Count 105 L D MPV 8.8 Sodium 140 Potassium 3.9 Chloride 108 H Carbon Dioxide 25 Anion Gap 7 L BUN 12.8 Creatinine 0.8 Est GFR (CKD-EPI)AfAm 124.16 Est GFR (CKD-EPI)NonAf 107.13 Random Glucose 100 Calcium 8.5 Total Bilirubin 0.8 AST 55 H ALT 49 Alkaline Phosphatase 127 H Total Protein 8.8 H Albumin 4.0 RPR Titer Reactive 1:1 H T.pallidum Ab (MHA) Previously reactive pt today is aaox3 ambulating no acute distress no s/s of withdrawals - Treatment Hospital Course: Detox Protocol Followed, Detoxed Safely, Responded well, Discharged Condition Good, Rehab Referral Accepted - Medication Discharge Medications: Ambulatory Orders Quetiapine Fumarate [Seroquel -] 100 mg PO HS 12/15/17 Gabapentin 100 mg PO TID 07/23/18 Omeprazole 20 mg PO DAILY 07/23/18 Hydroxyzine HCl 50 mg PO BID 09/06/18 levETIRAcetam [Keppra -] 1,000 mg PO BID #60 tablet 09/10/18 Fluoxetine HCl [Prozac] 20 mg PO DAILY #30 capsule 09/11/18 - Diagnosis (1) Alcohol dependence with withdrawal, uncomplicated Current Visit: Yes Status: Chronic (2) Alcohol-induced mood disorder Current Visit: Yes Status: Acute (3) GERD (gastroesophageal reflux disease) Current Visit: Yes Status: Chronic Qualifiers: Esophagitis presence: without esophagitis Qualified Code(s): K21.9 - Gastro -esophageal reflux disease without esophagitis (4) Alcohol-induced anxiety disorder Current Visit: No Status: Acute (5) Alcohol-induced sleep disorder Current Visit: No Status: Acute (6) Elevated liver enzymes Current Visit: No Status: Acute (7) Anemia Current Visit: Yes Status: Chronic Qualifiers: Anemia type: unspecified type Qualified Code(s): D64.9 - Anemia, unspecified (8) Chronic pain of left knee Current Visit: Yes Status: Chronic (9) Depression (emotion) Current Visit: No Status: Chronic Qualifiers: (10) HTN (hypertension), benign Current Visit: Yes Status: Chronic (11) Insomnia Current Visit: No Status: Chronic Qualifiers: Insomnia type: alcohol-induced Qualified Code(s): F10.982 - Alcohol use, unspecified with alcohol-induced sleep disorder (12) Obese Current Visit: Yes Status: Chronic Qualifiers: Obesity type: due to excess calories Obesity classification: unspecified obesity classification Serious obesity comorbidity presence: unspecified whether serious comorbidity present Qualified Code(s): E66.09 - Other obesity due to excess calories (13) Positive RPR test Current Visit: No Status: Chronic (14) Seizure Current Visit: No Status: Chronic (15) Substance induced mood disorder Current Visit: No Status: Suspected (16) History of positive PPD Current Visit: No Status: Resolved - AMA Did Patient Leave Against Medical Advice: No (pt referred to [facility])
[2018-12-05 09:18] VITALS: BP 157/98; PULSE 100; TEMP 98.1
[2018-12-05] MEDS: levETIRAcetam 500 MG TABLET (FP) PO SCH (10:05)
[2018-12-05] MEDS: PRENATAL VITAMINS W/ FOLIC ACID TABLET (FP) PO SCH (10:05)
[2018-12-05] MEDS: IBUPROFEN 400 MG TABLET (FP) PO PRN (10:06)
== END 2018-12-05 12:25 | disposition other institution (70) | DRG 775 ==
LOC: YASAS 08:36 → Y6N 10:02
PROVIDERS: ADMIT Surgery; ATTEND Surgery
PROC: HZ2ZZZZ Detoxification Services for Substance Abuse Treatment (ICD-10-PCS; principal; 2018-12-01)
DX: F10.230 Alcohol dependence with withdrawal, uncomplicated (principal); F10.24 Alcohol dependence with alcohol-induced mood disorder; F10.280 Alcohol dependence with alcohol-induced anxiety disorder; F10.282 Alcohol dependence with alcohol-induced sleep disorder; F19.24 Other psychoactive substance dependence with psychoactive substance-induced mood disorder; F32.9 Major depressive disorder, single episode, unspecified; D64.9 Anemia, unspecified; K21.9 Gastro-esophageal reflux disease without esophagitis; R94.5 Abnormal results of liver function studies; M25.562 Pain in left knee; G89.29 Other chronic pain; G47.00 Insomnia, unspecified; R76.11 Nonspecific reaction to tuberculin skin test without active tuberculosis; G40.909 Epilepsy, unspecified, not intractable, without status epilepticus; E66.9 Obesity, unspecified; Z68.33 Body mass index [BMI] 33.0-33.9, adult; Z87.438 Personal history of other diseases of male genital organs; Z91.013 Allergy to seafood
CPT/HCPCS: 36415; 80053; 85027; 86593; 86780; Q0162

== ENCOUNTER 2018-12-05 12:35 | Inpatient (IN) | payer OTHER ==
--- NOTE | 2018-12-05 12:04 | HP ---
[facility] Rehab Assess/Revision - Admission History Ad[facility] - Findings Detox History & Physical reviewed: Yes Concur with findings: Yes Inpatient Rehab Admission - Rehab Decision to Admit Inpatient rehab admission?: Yes - Initial Determination Are CD services needed?: Yes Free of communicable disease: Yes Not in need of hospitalization: Yes - Rehab Admission Criteria Previous failed treatment: Yes Poor recovery environment: Yes Comorbidities: Yes Lacks judgement: Yes Patient is meeting Inpatient Rehab admission criteria:: Yes
[~2018-12-05 12:35] MED LIST: LOPERAMIDE HCL 2 MG CAPSULE PO PRN; MAG HYDROX/AL HYDROX/SIMETH 30 ML UNIT-DOSE CUP PO PRN; MAGNESIUM CITRATE 300 ML BOTTLE PO PRN; MENTHOL/PHENOL 1 EACH UD MM PRN; NICOTINE POLACRILEX 4 MG GUM BUC PRN; P-EPHED 60MG/TRIPROLIDI 2.5MG TABLET PO PRN; cloNIDine HCL 0.1 MG TABLET PO PRN; guaiFENesin 200 MG/10 ML 10 ML UNIT-DOSE CUPS PO PRN
[2018-12-05] MEDS: GABAPENTIN 100 MG CAPSULE (FP) PO SCH ×2 (14:33→21:36)
[2018-12-05] MEDS: IBUPROFEN 400 MG TABLET (FP) PO PRN (14:33)
[2018-12-05] MEDS: hydrOXYzine PAMOATE 50 MG CAPSULE (FP) PO PRN ×2 (14:33→21:39)
[2018-12-05] MEDS: THIAMINE HCL 100 MG TABLET (FP) PO SCH (21:36)
[2018-12-05] MEDS: QUEtiapine FUMARATE 50 MG TABLET PO SCH (21:36)
[2018-12-05] MEDS: levETIRAcetam 500 MG TABLET (FP) PO SCH (21:36)
[2018-12-05] MEDS: METHYL SALICYLATE/MENTHOL OINT 30 GM TUBE TP SCH (21:37)
[2018-12-05] MEDS: MAGNESIUM HYDROX 2400MG/30ML ORAL SUSPENSION 30 ML CUP PO PRN (21:40)
[2018-12-05] MEDS ORDERED: MELATONIN 5 MG TABLETS PO PRN (22:00)
[2018-12-06] MEDS: IBUPROFEN 400 MG TABLET (FP) PO PRN ×3 (06:22→21:46)
[2018-12-06] MEDS: hydrOXYzine PAMOATE 50 MG CAPSULE (FP) PO PRN ×3 (06:22→21:46)
[2018-12-06] MEDS: GABAPENTIN 100 MG CAPSULE (FP) PO SCH ×3 (06:25→21:43)
[2018-12-06] MEDS: PANTOPRAZOLE 20 MG TABLET (FP) PO SCH (10:33)
[2018-12-06] MEDS: levETIRAcetam 500 MG TABLET (FP) PO SCH ×2 (10:33→21:47)
[2018-12-06] MEDS: FLUoxetine HCL 20 MG CAPSULE (FP) PO SCH (10:33)
[2018-12-06] MEDS: METHYL SALICYLATE/MENTHOL OINT 30 GM TUBE TP SCH ×2 (10:34→21:47)
[2018-12-06] MEDS: PRENATAL VITAMINS W/ FOLIC ACID TABLET (FP) PO SCH (10:34)
[2018-12-06] MEDS: NICOTINE 21 MG/24 HOURS TOPICAL PATCH TD SCH (10:34)
[2018-12-06] MEDS: QUEtiapine FUMARATE 50 MG TABLET PO SCH (21:43)
[2018-12-06] MEDS: THIAMINE HCL 100 MG TABLET (FP) PO SCH (21:43)
[2018-12-07] MEDS: GABAPENTIN 100 MG CAPSULE (FP) PO SCH ×3 (06:37→21:41)
[2018-12-07] MEDS: hydrOXYzine PAMOATE 50 MG CAPSULE (FP) PO PRN ×3 (06:37→21:42)
--- NOTE | 2018-12-07 07:44 | CONSULT ---
[facility] Psychiatric Consult - Data Date of interview: 12/07/18 Admission source: 6N Identifying data: Mr Owens is a 48 years old [place]-born male, father of 2 children, unemployed receiving public assistance, homeless seeking detox treatment for alcohol Substance Abuse History: Reports history of alcohol use. Refer to addiction counselor's summary for further information Medical History: Significant for anemia, hypertension, seizure disorder, GERD, left knee pain, history of treatment positive PPD, syphilis, lap cholecystectomy and orthosurgery for fracture left leg. Psychiatric History: Patient seen previously by junior copywriter on 12/03/18 while admitted to detox in this facility. History has not changed. He reports that he has been receiving treatment for anxiety by his primary care physician. He has been prescribed Prozac 20 mg po daily, Seroquel 50 mg po HS and Atarax 50 mg po HS. External medication history shows scripts for 30 days supply of Seroquel 50 mg/hs prescribed by provider Leticia Johnson and filled on 09/03/18 at [facility] pharmacy. Denies previous hospitalization or suicidal attempt. However he told junior copywriter that once he was admitted on a psychiatric unit for detox. At present, reports feeling anxious, irritable and sleeping poorly. Patient insists on being ordered Prozac and Seroquel Physical/Sexual Abuse/Trauma History: Denies history of emotional, physical or sexual abuse as well as DV relationship Mental Status Exam - Mental Status Exam Alert and Oriented to: Time, Place, Person Cognitive Function: Fair Patient Appearance: Well Groomed Mood: Irritable Affect: Appropriate Patient Behavior: Cooperative (superficially) Speech Pattern: Clear Voice Loudness: Normal Thought Process: Intact Thought Disorder: Not Present Hallucinations: Denies Suicidal Ideation: Denies Homicidal Ideation: Denies Insight/Judgement: Fair Sleep: Poorly Appetite: Good Muscle strength/Tone: Normal Gait/Station: Normal Psychiatric Findings - Problem List ([place] 1, 2,3) (1) Alcohol-induced mood disorder Current Visit: No Status: Acute (2) Alcohol-induced sleep disorder Current Visit: No Status: Acute (3) Alcohol dependence Current Visit: Yes Status: Acute (4) Anemia Current Visit: No Status: Chronic Qualifiers: Anemia type: unspecified type Qualified Code(s): D64.9 - Anemia, unspecified (5) GERD (gastroesophageal reflux disease) Current Visit: No Status: Chronic Qualifiers: Esophagitis presence: without esophagitis Qualified Code(s): K21.9 - Gastro -esophageal reflux disease without esophagitis (6) HTN (hypertension), benign Current Visit: No Status: Chronic (7) History of positive PPD Current Visit: No Status: Resolved (8) Chronic pain of left knee Current Visit: No Status: Chronic (9) Obese Current Visit: No Status: Chronic Qualifiers: Obesity type: due to excess calories Obesity classification: unspecified obesity classification Serious obesity comorbidity presence: unspecified whether serious comorbidity present Qualified Code(s): E66.09 - Other obesity due to excess calories (10) Positive RPR test Current Visit: No Status: Chronic (11) Seizure Current Visit: No Status: Chronic - Initial Treatment Plan Initial Treatment Plan: 1) Start Seroquel 100 mg po HS and Prozac 20 mg po daily. 2) Continue inpatient detoxification
[2018-12-07] MEDS: levETIRAcetam 500 MG TABLET (FP) PO SCH ×2 (10:38→21:43)
[2018-12-07] MEDS: PRENATAL VITAMINS W/ FOLIC ACID TABLET (FP) PO SCH (10:38)
[2018-12-07] MEDS: PANTOPRAZOLE 20 MG TABLET (FP) PO SCH (10:38)
[2018-12-07] MEDS: COLLOIDAL OATMEAL 1 BAR EACH TP PRN (10:38)
[2018-12-07] MEDS: FLUoxetine HCL 20 MG CAPSULE (FP) PO SCH (10:38)
[2018-12-07] MEDS: NICOTINE 21 MG/24 HOURS TOPICAL PATCH TD SCH (10:39)
[2018-12-07] MEDS: METHYL SALICYLATE/MENTHOL OINT 30 GM TUBE TP SCH ×2 (10:40→21:43)
[2018-12-07] MEDS: IBUPROFEN 400 MG TABLET (FP) PO PRN ×2 (10:42→21:42)
[2018-12-07] MEDS: QUEtiapine FUMARATE 50 MG TABLET PO SCH (21:41)
[2018-12-07] MEDS: THIAMINE HCL 100 MG TABLET (FP) PO SCH (21:59)
[2018-12-08] MEDS: hydrOXYzine PAMOATE 50 MG CAPSULE (FP) PO PRN ×2 (06:50→13:04)
[2018-12-08] MEDS: GABAPENTIN 100 MG CAPSULE (FP) PO SCH ×3 (06:50→21:29)
[2018-12-08] MEDS: PRENATAL VITAMINS W/ FOLIC ACID TABLET (FP) PO SCH (10:12)
[2018-12-08] MEDS: FLUoxetine HCL 20 MG CAPSULE (FP) PO SCH (10:13)
[2018-12-08] MEDS: NICOTINE 21 MG/24 HOURS TOPICAL PATCH TD SCH (10:13)
[2018-12-08] MEDS: levETIRAcetam 500 MG TABLET (FP) PO SCH ×2 (10:13→21:29)
[2018-12-08] MEDS: PANTOPRAZOLE 20 MG TABLET (FP) PO SCH (10:13)
[2018-12-08] MEDS: IBUPROFEN 400 MG TABLET (FP) PO PRN (10:14)
[2018-12-08] MEDS: METHYL SALICYLATE/MENTHOL OINT 30 GM TUBE TP SCH ×2 (10:16→21:29)
[2018-12-08] MEDS: ACETAMINOPHEN 325 MG TABLET (FP) PO PRN (13:04)
--- NOTE | 2018-12-08 13:21 | PN ---
[facility] Progress Note Note: Patient is referred for worsening left knee pain. Patient was admitted to detox on 12/01 and at admission, reported chronic left knee pain due to injury with recent fall, negative x-ray in outside hospital. On exam, he reports the pain is worse, 10/10, cannot walk, he reports motrin has not been effective. He denies fever or chills PE The knee has mild swelling and warmth, no redness A/P Left knee pain (chronic) Stop motrin, start naproxen 500mg BID Lidocaine patch 5% once daily.
[2018-12-08] MEDS: LIDOCAINE 5% TOPICAL PATCH TP SCH (14:06)
[2018-12-08] MEDS: NAPROXEN 500 MG TABLET (FP) PO SCH ×2 (14:07→21:29)
[2018-12-08] MEDS: LIDOCAINE PATCH REMOVAL MC SCH (21:30)
[2018-12-08] MEDS: THIAMINE HCL 100 MG TABLET (FP) PO SCH (21:30)
[2018-12-08] MEDS: QUEtiapine FUMARATE 50 MG TABLET PO SCH (21:30)
[2018-12-08] MEDS: MAGNESIUM HYDROX 2400MG/30ML ORAL SUSPENSION 30 ML CUP PO PRN (21:31)
[2018-12-09] MEDS: GABAPENTIN 100 MG CAPSULE (FP) PO SCH ×3 (06:42→21:30)
[2018-12-09] MEDS: hydrOXYzine PAMOATE 50 MG CAPSULE (FP) PO PRN ×3 (06:42→21:31)
[2018-12-09] MEDS: PANTOPRAZOLE 20 MG TABLET (FP) PO SCH (10:35)
[2018-12-09] MEDS: FLUoxetine HCL 20 MG CAPSULE (FP) PO SCH (10:35)
[2018-12-09] MEDS: levETIRAcetam 500 MG TABLET (FP) PO SCH ×2 (10:36→21:30)
[2018-12-09] MEDS: LIDOCAINE 5% TOPICAL PATCH TP SCH (10:36)
[2018-12-09] MEDS: NAPROXEN 500 MG TABLET (FP) PO SCH ×2 (10:36→21:29)
[2018-12-09] MEDS: NICOTINE 21 MG/24 HOURS TOPICAL PATCH TD SCH (10:39)
[2018-12-09] MEDS: METHYL SALICYLATE/MENTHOL OINT 30 GM TUBE TP SCH ×2 (10:39→21:32)
[2018-12-09] MEDS: PRENATAL VITAMINS W/ FOLIC ACID TABLET (FP) PO SCH (10:39)
[2018-12-09] MEDS: ACETAMINOPHEN 325 MG TABLET (FP) PO PRN (13:59)
[2018-12-09] MEDS: THIAMINE HCL 100 MG TABLET (FP) PO SCH (21:30)
[2018-12-09] MEDS: QUEtiapine FUMARATE 50 MG TABLET PO SCH (21:30)
[2018-12-09] MEDS: LIDOCAINE PATCH REMOVAL MC SCH (21:32)
[2018-12-10] MEDS: GABAPENTIN 100 MG CAPSULE (FP) PO SCH ×3 (06:30→22:13)
[2018-12-10] MEDS: hydrOXYzine PAMOATE 50 MG CAPSULE (FP) PO PRN ×3 (06:31→22:13)
[2018-12-10 07:09] VITALS: TEMP 97.9
[2018-12-10] MEDS: PANTOPRAZOLE 20 MG TABLET (FP) PO SCH (10:59)
[2018-12-10] MEDS: NAPROXEN 500 MG TABLET (FP) PO SCH ×2 (10:59→22:13)
[2018-12-10] MEDS: PRENATAL VITAMINS W/ FOLIC ACID TABLET (FP) PO SCH (10:59)
[2018-12-10] MEDS: LIDOCAINE 5% TOPICAL PATCH TP SCH (11:00)
[2018-12-10] MEDS: levETIRAcetam 500 MG TABLET (FP) PO SCH ×2 (11:00→22:14)
[2018-12-10] MEDS: MAGNESIUM HYDROX 2400MG/30ML ORAL SUSPENSION 30 ML CUP PO PRN (11:01)
[2018-12-10] MEDS: METHYL SALICYLATE/MENTHOL OINT 30 GM TUBE TP SCH ×2 (11:02→22:16)
[2018-12-10] MEDS: NICOTINE 21 MG/24 HOURS TOPICAL PATCH TD SCH (11:02)
[2018-12-10] MEDS ORDERED: DOCUSATE SODIUM 100 MG CAPSULE (FP) PO ONE (12:30)
[2018-12-10] MEDS: FLUoxetine HCL 20 MG CAPSULE (FP) PO SCH (13:08)
[2018-12-10] MEDS: QUEtiapine FUMARATE 50 MG TABLET PO SCH (22:13)
[2018-12-10] MEDS: DOCUSATE SODIUM 100 MG CAPSULE (FP) PO SCH (22:13)
[2018-12-10] MEDS: THIAMINE HCL 100 MG TABLET (FP) PO SCH (22:14)
[2018-12-10] MEDS: LIDOCAINE PATCH REMOVAL MC SCH (22:14)
[2018-12-11] MEDS: ACETAMINOPHEN 325 MG TABLET (FP) PO PRN (06:39)
[2018-12-11] MEDS: hydrOXYzine PAMOATE 50 MG CAPSULE (FP) PO PRN ×3 (06:40→22:07)
[2018-12-11] MEDS: GABAPENTIN 100 MG CAPSULE (FP) PO SCH ×3 (06:41→22:09)
[2018-12-11] MEDS: PRENATAL VITAMINS W/ FOLIC ACID TABLET (FP) PO SCH (10:47)
[2018-12-11] MEDS: LIDOCAINE 5% TOPICAL PATCH TP SCH (10:47)
[2018-12-11] MEDS: NAPROXEN 500 MG TABLET (FP) PO SCH ×2 (10:47→22:05)
[2018-12-11] MEDS: PANTOPRAZOLE 20 MG TABLET (FP) PO SCH (10:48)
[2018-12-11] MEDS: DOCUSATE SODIUM 100 MG CAPSULE (FP) PO SCH ×2 (10:48→22:06)
[2018-12-11] MEDS: FLUoxetine HCL 20 MG CAPSULE (FP) PO SCH (10:48)
[2018-12-11] MEDS: COLLOIDAL OATMEAL 1 BAR EACH TP PRN (10:48)
[2018-12-11] MEDS: levETIRAcetam 500 MG TABLET (FP) PO SCH ×2 (10:48→22:08)
[2018-12-11] MEDS: NICOTINE 21 MG/24 HOURS TOPICAL PATCH TD SCH (10:48)
[2018-12-11] MEDS: METHYL SALICYLATE/MENTHOL OINT 30 GM TUBE TP SCH ×2 (10:51→22:08)
[2018-12-11] MEDS: MAGNESIUM HYDROX 2400MG/30ML ORAL SUSPENSION 30 ML CUP PO PRN (14:18)
[2018-12-11] MEDS: THIAMINE HCL 100 MG TABLET (FP) PO SCH (22:06)
[2018-12-11] MEDS: QUEtiapine FUMARATE 50 MG TABLET PO SCH (22:06)
[2018-12-11] MEDS: LIDOCAINE PATCH REMOVAL MC SCH (22:08)
[2018-12-12] MEDS: hydrOXYzine PAMOATE 50 MG CAPSULE (FP) PO PRN (06:35)
[2018-12-12] MEDS: GABAPENTIN 100 MG CAPSULE (FP) PO SCH (06:35)
[2018-12-12 06:54] VITALS: BP 146/72; PULSE 96
--- NOTE | 2018-12-12 08:37 | PN ---
S Progress Note Note: Psychiatric nurse practitioner note: Patient scheduled for an early discharge today. A 30 day prescription of Prozac 20mg and seroquel 100mg was electronically sent to [facility], [address] [place] [address].
--- NOTE | 2018-12-12 09:38 | PN ---
[facility] Progress Note (SOAP) Subjective: Pt is a 48 y/o male admitted to rehab on 12/05/18 after detox on and discharged today. Pt tolerated rehab well. Reports primary care at [facility]/ Dr. stefani elizondo and had orthopedic appointment at [facility] clinic for left knee pain which was not done before detox/rehab admission here. Discussed with patient the need to call to reschedule appointment after discharge from rehab today. Pt reports he has own medications. denies s/h/i. Objective: 12/12/18 10:56 Alert o x3; Appropriately groomed Ambulates with steady gait Vital Signs - 24 hr 12/12/18 12/12/18 12/12/18 00:30 03:30 06:53 Temperature 97.9 F Pulse Rate 96 H Respiratory 18 18 20 Rate Blood Pressure 146/72 Assessment: 12/12/18 10:58 Nad medically stable 12/12/18 11:05 [facility] Inpatient Services Medical - Diagnosis (1) Alcohol dependence Qualifiers: Substance use status: uncomplicated Qualified Code(s): F10.20 - Alcohol dependence, uncomplicated Current Visit: Yes Status: Chronic (2) GERD (gastroesophageal reflux disease) Qualifiers: Esophagitis presence: esophagitis presence not specified Qualified Code(s) : K21.9 - Gastro-esophageal reflux disease without esophagitis Current Visit: Yes Status: Chronic (3) HTN (hypertension), benign Current Visit: Yes Status: Chronic (4) Obese Qualifiers: Obesity type: unspecified obesity type Obesity classification: adult class 1 (BMI 30 - 34.9) Body mass index: BMI 33.0-33.9 Current Visit: Yes Status: Chronic (5) Seizure Current Visit: Yes Status: Chronic (6) Anemia Qualifiers: Anemia type: unspecified type Qualified Code(s): D64.9 - Anemia, unspecified Current Visit: Yes Status: Chronic (7) Knee pain, left Qualifiers: Chronicity: chronic Qualified Code(s): M25.562 - Pain in left knee; G89.29 - Other chronic pain Current Visit: Yes Status: Chronic Initialized on 12/12/18 09:38 - END OF NOTE Plan: Discharge pt today as scheduled. Follow up with Cd aftercare referral [facility] @ [address] [place], [place] Follow up with housing at [facility] @ [address], [place] Follow up with primary care with pcp at [facility] @ [address] [place], [place].
[2018-12-12] MEDS: PANTOPRAZOLE 20 MG TABLET (FP) PO SCH (10:41)
[2018-12-12] MEDS: levETIRAcetam 500 MG TABLET (FP) PO SCH (10:41)
[2018-12-12] MEDS: LIDOCAINE 5% TOPICAL PATCH TP SCH (10:42)
[2018-12-12] MEDS: DOCUSATE SODIUM 100 MG CAPSULE (FP) PO SCH (10:42)
[2018-12-12] MEDS: PRENATAL VITAMINS W/ FOLIC ACID TABLET (FP) PO SCH (10:42)
[2018-12-12] MEDS: FLUoxetine HCL 20 MG CAPSULE (FP) PO SCH (10:42)
[2018-12-12] MEDS: NAPROXEN 500 MG TABLET (FP) PO SCH (10:42)
[2018-12-12] MEDS: NICOTINE 21 MG/24 HOURS TOPICAL PATCH TD SCH (10:43)
[2018-12-12] MEDS: METHYL SALICYLATE/MENTHOL OINT 30 GM TUBE TP SCH (10:44)
== END 2018-12-12 11:05 | disposition home or self-care (01) | DRG 772 ==
LOC: YASAS 12:35 → Y5N 12:37
PROVIDERS: ADMIT Neuromusculoskeletal Medicine & OMM; ATTEND Neuromusculoskeletal Medicine & OMM
PROC: HZ42ZZZ Group Counseling for Substance Abuse Treatment, Cognitive-Behavioral (ICD-10-PCS; principal; 2018-12-07)
DX: F10.20 Alcohol dependence, uncomplicated (principal); F10.24 Alcohol dependence with alcohol-induced mood disorder; F10.282 Alcohol dependence with alcohol-induced sleep disorder; I10 Essential (primary) hypertension; K21.9 Gastro-esophageal reflux disease without esophagitis; D64.9 Anemia, unspecified; M25.562 Pain in left knee; G89.29 Other chronic pain; G40.909 Epilepsy, unspecified, not intractable, without status epilepticus; R76.8 Other specified abnormal immunological findings in serum; E66.9 Obesity, unspecified; Z68.33 Body mass index [BMI] 33.0-33.9, adult; Z87.438 Personal history of other diseases of male genital organs

== ENCOUNTER 2019-01-20 08:09 | Inpatient (IN) | payer OTHER ==
[2019-01-20 10:20] VITALS: BMI 34.4
--- NOTE | 2019-01-20 11:24 | HP ---
CIWA Score Nausea/Vomitin-Mild Nausea/No Vomiting Muscle Tremors: 3 Anxiety: 2 Agitation: 3 Paroxysmal Sweats: 1-Minimal Palms Moist Orientation: 0-Oriented Tacttile Disturbances: 0-None Auditory Disturbances: 0-None Visual Disturbances: 0-None Headache: 2-Mild CIWA-Ar Total Score: 12 - Admission Criteria OASAS Guidelines: Admission for Medically Managed Detox: Requires at least one of the followin. CIWA greater than 12 2. Seizures within the past 24 hours 3. Delirium tremens within the past 24 hours 4. Hallucinations within the past 24 hours 5. Acute intervention needed for co occurring medical disorder 6. Acute intervention needed for co occurring psychiatric disorder 7. Severe withdrawal that cannot be handled at a lower level of care (continued vomiting, continued diarrhea, abnormal vital signs) requiring intravenous medication and/or fluids 8. Admission ROS [facility] Chief Complaint: here for alcohol detox Allergies/Adverse Reactions: Allergies Allergy/AdvReac Type Severity Reaction Status Date / Time Fish Containing Products Allergy Severe Rash Verified 01/20/19 10:06 No Known Drug Allergies Allergy Verified 01/20/19 10:06 lactose AdvReac Lactose Verified 01/20/19 10:06 Intolerance LACTOSE INTOLERANCE AdvReac Nausea Uncoded 01/20/19 10:06 History of Present Illness: 48 yo with anxiety on meds, last here in detox/rehab in 12/12/18. Left on 12/12. Did not have any f/u. Pt states he relapsed. Has PCP at [facility]. alcohol-12 beers/day, and some liqour, h/o seizures- takes Keppra. no other meds- no tobacco use DUR- no meds noted Utox- BZO will start on Ativan for detox- scleral icterus on exam, last set of liver enzymes 11/2018 were mildly abnormal - Ebola screening Have you traveled outside of the country in the last 21 days: No (N) Have you had contact with anyone from an Ebola affected area: No Do you have a fever: No - Review of Systems Constitutional: No Symptoms Reported EENT: reports: No Symptoms Reported Respiratory: reports: No Symptoms reported Cardiac: reports: No Symptoms Reported GI: reports: No Symptoms Reported : reports: No Symptoms Reported Musculoskeletal: reports: No Symptoms Reported Integumentary: reports: No Symptoms Reported Neuro: reports: No Symptoms reported Endocrine: reports: No Symptoms Reported Hematology: reports: No Symptoms Reported Psychiatric: reports: No Sypmtoms Reported Other Systems: Reviewed and Negative Patient History - Patient Medical History Hx Anemia: No Hx Asthma: No Hx Chronic Obstructive Pulmonary Disease (COPD): No Hx Cancer: No Hx Cardiac Disorders: No Hx Congestive Heart Failure: No Hx Hypertension: No Hx Hypercholesterolemia: No Hx Pacemaker: No HX Cerebrovascular Accident: No Hx Seizures: Yes (on Keppra) Hx Dementia: No Hx Diabetes: No Hx Gastrointestinal Disorders: Yes (GERD) Hx Liver Disease: No Hx Genitourinary Disorders: No Hx Sexually Transmitted Disorders: Yes (patient reported treated for syphillis 10 yrs ago) Hx Renal Disease (ESRD): No Hx Thyroid Disease: No Hx Human Immunodeficiency Virus (HIV): No Hx Hepatitis C: No Hx Depression: Yes Hx Suicide Attempt: No Hx Bipolar Disorder: No Hx Schizophrenia: No Other Medical History: anxiety - Patient Surgical History Past Surgical History: Yes Hx Neurologic Surgery: No Hx Cataract Extraction: No Hx Cardiac Surgery: No Hx Lung Surgery: No Hx Breast Surgery: No Hx Breast Biopsy: No Hx Abdominal Surgery: No Hx Appendectomy: No Hx Cholecystectomy: Yes (laproscopic 5 yrs ago) Hx Genitourinary Surgery: No Hx Section: No Hx Orthopedic Surgery: Yes (fx, left leg at age 21) Anesthesia Reaction: No - PPD History Results: CXR(-)02/28/18 - Smoking Cessation Smoking history: Never smoked Have you smoked in the past 12 months: No Aproximately how many cigarettes per day: 0 If you are a former smoker, when did you quit?: at age 32 Cigars Per Day: 0 Hx Chewing Tobacco Use: No Initiated information on smoking cessation: No - Substances abused Alcohol Substance route: Oral Frequency: Daily Amount used: 12 CANS OF BEER (12 OUNCES) Age of first use: 17 Date of last use: 01/20/19 Family Disease History - Family Disease History Family Disease History: Other: Father (ALCOHOL) Admission Physical Exam [facility] - Vital Signs Vital Signs: Vital Signs - 24 hr 01/20/19 10:12 Temperature 97.1 F L Pulse Rate 106 H Respiratory 16 Rate Blood Pressure 138/93 - Physical General Appearance: Yes: Mild Distress, Intoxicated HEENTM: Yes: EOMI (scleral icterus) Respiratory: Yes: Within Normal Limits, Lungs Clear Neck: Yes: Within Normal Limits, No masses,lesions,Nodules Cardiology: Yes: Within Normal Limits, Regular Rhythm Abdominal: Yes: Protuberent, Other (liver not palpated) Back: Yes: Normal Inspection Musculoskeletal: Yes: Within Normal Limits Extremities: Yes: Other (1+ pitting edema bilaterally extending to mid leg) Lymphatic: Yes: Within Normal Limits - Diagnostic (1) Alcohol-induced anxiety disorder Current Visit: No Status: Acute (2) Alcohol-induced mood disorder Current Visit: No Status: Acute (3) Alcohol-induced sleep disorder Current Visit: No Status: Acute (4) Elevated liver enzymes Current Visit: No Status: Acute (5) Obese Current Visit: No Status: Chronic Qualifiers: Obesity type: unspecified obesity type Obesity classification: adult class 1 (BMI 30 - 34.9) Body mass index: BMI 33.0-33.9 Breathalyzer - Breathalyzer Breathalyzer: 0.187 Urine Drug Screen - Test Device Lot number: [id number] Expiration date: 10/12/20 - Control Is test valid?: Yes - Results Drug screen NEGATIVE: Yes Urine drug screen results: BZO-Benzodiazepines Inpatient Rehab Admission - Rehab Decision to Admit Inpatient rehab admission?: No
[2019-01-20] MEDS ORDERED: IBUPROFEN 400 MG TABLET (FP) PO PRN (11:33)
[2019-01-20] MEDS ORDERED: ONDANSETRON *ODT* 4 MG TABLET SL PRN (11:33)
[2019-01-20] MEDS ORDERED: hydrOXYzine PAMOATE 25 MG CAPSULE (FP) PO PRN (11:33)
[2019-01-20] MEDS ORDERED: MAGNESIUM CITRATE 300 ML BOTTLE PO PRN (11:33)
[2019-01-20] MEDS ORDERED: MENTHOL/PHENOL 1 EACH UD MM PRN (11:33)
[2019-01-20] MEDS ORDERED: MELATONIN 5 MG TABLETS PO PRN (11:33)
[2019-01-20] MEDS ORDERED: LORazepam 1 MG TABLET PO PRN (11:33)
[2019-01-20] MEDS ORDERED: BISMUTH SUBSALICYLATE 524 MG/30 ML UD PO PRN (11:33)
[2019-01-20] MEDS ORDERED: METHOCARBAMOL 500 MG TABLET PO PRN (11:33)
[2019-01-20] MEDS ORDERED: ACETAMINOPHEN 325 MG TABLET (FP) PO PRN ×2 (11:33)
[2019-01-20] MEDS ORDERED: PNEUMOC 13-VAL CONJ-DIP CRM/PF 0.5 ML DISP.SYRIN IM ONE (11:54)
[2019-01-20] MEDS ORDERED: PNEUMOCOCCAL 23 VACCINE 0.5 ML VIAL IM ONE (12:30)
[2019-01-20] MEDS ORDERED: LORazepam 2 MG TABLET PO ONE (12:30)
[2019-01-20] MEDS: MAGNESIUM HYDROX 2400MG/30ML ORAL SUSPENSION 30 ML CUP PO PRN (13:20)
[2019-01-20] MEDS: LORazepam 2 MG TABLET PO SCH ×2 (18:48→22:41)
[2019-01-20] MEDS: hydrALAZINE HCL 25 MG TABLET (FP) PO SCH (22:41)
[2019-01-20] MEDS: levETIRAcetam 500 MG TABLET (FP) PO SCH (22:41)
[2019-01-20] MEDS: THIAMINE HCL 100 MG TABLET (FP) PO SCH (22:41)
[2019-01-20] MEDS: QUEtiapine FUMARATE 100 MG TABLET (FP) PO PRN (22:43)
[2019-01-21] MEDS: MAGNESIUM HYDROX 2400MG/30ML ORAL SUSPENSION 30 ML CUP PO PRN (06:10)
[2019-01-21] MEDS: LORazepam 2 MG TABLET PO SCH ×4 (06:10→22:10)
--- NOTE | 2019-01-21 09:55 | PN ---
S CIWA - CIWA Score Nausea/Vomitin-Mild Nausea/No Vomiting Muscle Tremors: 3 Anxiety: 4-Mod. Anxious/Guarded Agitation: 3 Paroxysmal Sweats: 2 Orientation: 0-Oriented Tacttile Disturbances: 0-None Auditory Disturbances: 0-None Visual Disturbances: 0-None Headache: 1-Very Mild CIWA-Ar Total Score: 14 S Progress Note (SOAP) Subjective: 49 years old male multiple patient [facility] admission since 2013 was admitted on 01/20/19 for alcohol withdrawal sx management doing well with librium detox regimen c/o constipation x 2 days normally daily abdomen soft no rebound tenderness mild nausea from alcohol withdrawal bowel sound x 4 hyperactive on left lower quadrant denies pain begin colace 100 mg po tid with senna 2 tabs hs encourage MOM Objective: 01/21/19 09:58 Vital Signs Temperature 98.4 F 01/21/19 09:29 Pulse Rate 110 H 01/21/19 09:29 Respiratory Rate 18 01/21/19 09:29 Blood Pressure 119/70 01/21/19 09:29 O2 Sat by Pulse Oximetry (%) 01/21/19 09:58 lab pending 01/21/19 09:59 chart reviewed last ekg 2016 repeat ekg rule out underline diagnosis Assessment: 01/21/19 10:00 alcohol withdrawal sx Plan: continue librium detox regimen
[2019-01-21] MEDS: FLUoxetine HCL 20 MG CAPSULE (FP) PO SCH (10:30)
[2019-01-21] MEDS: levETIRAcetam 500 MG TABLET (FP) PO SCH ×2 (10:30→22:10)
[2019-01-21] MEDS: PRENATAL VITAMINS W/ FOLIC ACID TABLET (FP) PO SCH (10:30)
[2019-01-21] MEDS: hydrALAZINE HCL 25 MG TABLET (FP) PO SCH (10:32)
[2019-01-21 12:45] LABS: HEMATOCRIT 34.1 % (35.4-49); HEMOGLOBIN 10.7 GM/dL (11.7-16.9); MCH 23.8 pg (25.7-33.7); MCHC 31.5 g/dl (32.0-35.9); MEAN CELL VOLUME 75.6 fl (80-96); MEAN PLT VOLUME 8.8 fl (7.5-11.1); PLATELET COUNT 134 K/MM3 (134-434); RBC 4.51 M/mm3 (4.00-5.60); RDW 20.4 % (11.9-15.9); WHITE BLOOD COUNT 3.1 K/mm3 (4.0-10.0)
[2019-01-21 12:57] LABS: ALBUMIN 3.1 g/dl (3.4-5.0); BILIRUBIN,TOTAL 0.3 mg/dL (0.2-1); BLOOD UREA NITROGEN 7.9 mg/dL (7-18); CALCIUM 8.7 mg/dL (8.5-10.1); CREATININE 0.7 mg/dL (0.55-1.3); POTASSIUM 3.5 mmol/L (3.5-5.1); TOT PROT 7.6 g/dl (6.4-8.2)
[2019-01-21] MEDS: DOCUSATE SODIUM 100 MG CAPSULE (FP) PO SCH ×2 (15:21→22:11)
--- NOTE | 2019-01-21 15:46 | CONSULT ---
[facility] Psychiatric Consult - Data Date of interview: 01/21/19 Admission source: [facility] Identifying data: This is one of multiple admissions to [facility] for this 49 y/ o [place]born male, self-referred for detoxification (alcohol). Examined at [address] [place] [address]. Patient is single, a father of two, homeless (self-report), unemployed and supported on Public Assistance. Substance Abuse History: Confirmed by patient in this interview. Details in current [facility] report as follows : Smoking history: Never smoked. Have you smoked in the past 12 months: No. Aproximately how many cigarettes per day: 0. If you are a former smoker, when did you quit?: at age 32. Cigars Per Day: 0. Hx Chewing Tobacco Use: No. Initiated information on smoking cessation: No. - Substances abused. Alcohol. Substance route: Oral. Frequency: Daily. Amount used: 12 CANS OF BEER (12 OUNCES). Age of first use: 17. Date of last use: 01/20/19 Medical History: Medical profile is remarkable for hypertension, seizure disorder, history of positive PPD, antecedent of cholecystectomy and treatment for syphilis. Psychiatric History: Patient denies history of psychiatric hospitalizations (as per [facility] records, this patient reported one psychiatric hospitalization at [facility]; diagnosed with bipolar disorder/MDD). Mr Roman admits to chronic non-adherence to psychiatric aftercare. Patient gets scripts for prozac + vistaril + seroquel (doses not recalled) from his primary care doctor. No history of suicide attempts. Physical/Sexual Abuse/Trauma History: Patient denies history of abuse. Additional Comment: Urine drug screen results: BZO-Benzodiazepines. Noted. Mental Status Exam - Mental Status Exam Alert and Oriented to: Time, Place, Person Cognitive Function: Grossly Intact Patient Appearance: Unkempt, Disheveled Mood: Angry, Hostile, Nervous, Withdrawn, Irritable Patient Behavior: Fatigued, Cooperative (superficially cooperative) Speech Pattern: Clear Voice Loudness: Normal Thought Process: Goal Oriented Thought Disorder: Not Present Hallucinations: Denies Suicidal Ideation: Denies Homicidal Ideation: Denies Insight/Judgement: Poor Sleep: Poorly, Difficulty falling asleep Appetite: Good Muscle strength/Tone: Normal Gait/Station: Normal Psychiatric Findings - Problem List ([place] 1, 2,3) (1) Alcohol dependence with withdrawal, uncomplicated Current Visit: Yes Status: Acute Comment: . (2) Substance induced mood disorder Current Visit: Yes Status: Chronic (3) History of major depression Current Visit: Yes Status: Chronic (4) Insomnia Current Visit: Yes Status: Chronic (5) Non compliance w medication regimen Current Visit: Yes Status: Chronic Comment: As an outpatient. - Initial Treatment Plan Initial Treatment Plan: Psychoeducation. Sleep hygiene. Support. AA meetings. Resumed : prozac 20 mg po daily + seroquel 100 mg po hs. Side effects/benefits of both drugs are discussed with the patient. Mr Owens gave verbal consent to Observation.
--- NOTE | 2019-01-21 15:59 | EKG ---
Test Reason : Blood Pressure : / mmHG Vent. Rate : 129 BPM Atrial Rate : 129 BPM P-R Int : 144 ms QRS Dur : 090 ms QT Int : 302 ms P-R-T Axes : 062 -07 043 degrees QTc Int : 442 ms SINUS TACHYCARDIA POSSIBLE INFERIOR INFARCT , AGE UNDETERMINED ABNORMAL ECG WHEN COMPARED WITH ECG OF 02-FEB-2017 22:04, VENT. RATE HAS INCREASED BY 48 BPM Confirmed by ALVARO HADLEY, SYLVIA ([id number]) on 01/21/2019 3:59:24 PM Referred By: Liz Mcrae Confirmed By:SYLVIA JOHN MD
[2019-01-21] MEDS: THIAMINE HCL 100 MG TABLET (FP) PO SCH (22:10)
[2019-01-21] MEDS: SENNOSIDES 8.6MG TABLET (FP) PO SCH (22:11)
[2019-01-21] MEDS: QUEtiapine FUMARATE 100 MG TABLET (FP) PO PRN (22:11)
[2019-01-21] MEDS: hydrALAZINE HCL 50 MG TABLET (FP) PO SCH (22:11)
[2019-01-22] MEDS: DOCUSATE SODIUM 100 MG CAPSULE (FP) PO SCH ×3 (05:23→22:11)
[2019-01-22] MEDS: LORazepam 1 MG TABLET PO SCH ×4 (05:23→22:13)
--- NOTE | 2019-01-22 09:38 | PN ---
S CIWA - CIWA Score Nausea/Vomitin-Mild Nausea/No Vomiting Muscle Tremors: 2 Anxiety: 3 Agitation: 2 Paroxysmal Sweats: 1-Minimal Palms Moist Orientation: 0-Oriented Tacttile Disturbances: 1-Very Mild Itch/Numbness Auditory Disturbances: 0-None Visual Disturbances: 0-None Headache: 1-Very Mild CIWA-Ar Total Score: 11 S Progress Note (SOAP) Subjective: doing well with ativan detox regimen less anxious mild tremor sleep batter at night plan for [facility] follow up with toby zayas Objective: 01/22/19 09:38 Vital Signs Temperature 97.9 F 01/22/19 06:11 Pulse Rate 93 H 01/22/19 06:11 Respiratory Rate 18 01/22/19 06:11 Blood Pressure 116/71 01/22/19 06:11 O2 Sat by Pulse Oximetry (%) Laboratory Last Values WBC 3.1 K/mm3 (4.0-10.0) L 01/21/19 09:00 RBC 4.51 M/mm3 (4.00-5.60) 01/21/19 09:00 Hgb 10.7 GM/dL (11.7-16.9) L 01/21/19 09:00 Hct 34.1 % (35.4-49) L 01/21/19 09:00 MCV 75.6 fl (80-96) L 01/21/19 09:00 MCH 23.8 pg (25.7-33.7) L 01/21/19 09:00 MCHC 31.5 g/dl (32.0-35.9) L 01/21/19 09:00 RDW 20.4 % (11.9-15.9) H 01/21/19 09:00 Plt Count 134 K/MM3 (134-434) D 01/21/19 09:00 MPV 8.8 fl (7.5-11.1) 01/21/19 09:00 Sodium 140 mmol/L (136-145) 01/21/19 09:00 Potassium 3.5 mmol/L (3.5-5.1) 01/21/19 09:00 Chloride 103 mmol/L (98-107) 01/21/19 09:00 Carbon Dioxide 31 mmol/L (21-32) 01/21/19 09:00 Anion Gap 6 MMOL/L (8-16) L 01/21/19 09:00 BUN 7.9 mg/dL (7-18) 01/21/19 09:00 Creatinine 0.7 mg/dL (0.55-1.3) 01/21/19 09:00 Est GFR (CKD-EPI)AfAm 130.25 01/21/19 09:00 Est GFR (CKD-EPI)NonAf 112.38 01/21/19 09:00 Random Glucose 128 mg/dL (74-106) H 01/21/19 09:00 Calcium 8.7 mg/dL (8.5-10.1) 01/21/19 09:00 Total Bilirubin 0.3 mg/dL (0.2-1) 01/21/19 09:00 AST 44 U/L (15-37) H 01/21/19 09:00 ALT 41 U/L (13-61) 01/21/19 09:00 Alkaline Phosphatase 122 U/L (45-117) H 01/21/19 09:00 Total Protein 7.6 g/dl (6.4-8.2) 01/21/19 09:00 Albumin 3.1 g/dl (3.4-5.0) L 01/21/19 09:00 lab noted Assessment: 01/22/19 09:39 alcohol withdrawal sx seizure treated with keppra Plan: continue ativan detox regimen and keppra
[2019-01-22] MEDS ORDERED: FLUoxetine HCL 20 MG CAPSULE (FP) PO SCH (10:00)
[2019-01-22] MEDS: PRENATAL VITAMINS W/ FOLIC ACID TABLET (FP) PO SCH (10:15)
[2019-01-22] MEDS: FLUoxetine HCL 20 MG CAPSULE (FP) PO SCH (10:15)
[2019-01-22] MEDS: levETIRAcetam 500 MG TABLET (FP) PO SCH ×2 (10:15→22:17)
[2019-01-22] MEDS: hydrALAZINE HCL 50 MG TABLET (FP) PO SCH (10:15)
[2019-01-22] MEDS: MAGNESIUM HYDROX 2400MG/30ML ORAL SUSPENSION 30 ML CUP PO PRN (16:31)
[2019-01-22] MEDS: SENNOSIDES 8.6MG TABLET (FP) PO SCH (22:11)
[2019-01-22] MEDS: THIAMINE HCL 100 MG TABLET (FP) PO SCH (22:11)
[2019-01-22] MEDS: QUEtiapine FUMARATE 100 MG TABLET (FP) PO PRN (22:16)
[2019-01-22] MEDS: MAG HYDROX/AL HYDROX/SIMETH 30 ML UNIT-DOSE CUP PO PRN (22:19)
[2019-01-23] MEDS ORDERED: LORazepam 0.5 MG TABLET PO PRN
[2019-01-23] MEDS: LORazepam 0.5 MG TABLET PO SCH ×4 (05:52→22:04)
[2019-01-23] MEDS: DOCUSATE SODIUM 100 MG CAPSULE (FP) PO SCH ×3 (05:52→22:04)
[2019-01-23] MEDS ORDERED: levETIRAcetam 500 MG TABLET (FP) PO SCH (09:38)
--- NOTE | 2019-01-23 09:44 | PN ---
[facility] CIWA - CIWA Score Nausea/Vomitin-No Nausea/No Vomiting Muscle Tremors: 2 Anxiety: 2 Agitation: 2 Paroxysmal Sweats: 1-Minimal Palms Moist Orientation: 0-Oriented Tacttile Disturbances: 0-None Auditory Disturbances: 0-None Visual Disturbances: 0-None Headache: 0-None Present CIWA-Ar Total Score: 7 S Progress Note (SOAP) Subjective: doing well with ativan detox regimen ambulating on hallway social with peers in day room less tremor sleep better at night discuss aftercare with staff [facility] Objective: 01/23/19 09:42 Vital Signs Temperature 99.1 F 01/23/19 09:14 Pulse Rate 125 H 01/23/19 09:14 Respiratory Rate 18 01/23/19 09:14 Blood Pressure 135/89 01/23/19 09:14 O2 Sat by Pulse Oximetry (%) Laboratory Last Values WBC 3.1 K/mm3 (4.0-10.0) L 01/21/19 09:00 RBC 4.51 M/mm3 (4.00-5.60) 01/21/19 09:00 Hgb 10.7 GM/dL (11.7-16.9) L 01/21/19 09:00 Hct 34.1 % (35.4-49) L 01/21/19 09:00 MCV 75.6 fl (80-96) L 01/21/19 09:00 MCH 23.8 pg (25.7-33.7) L 01/21/19 09:00 MCHC 31.5 g/dl (32.0-35.9) L 01/21/19 09:00 RDW 20.4 % (11.9-15.9) H 01/21/19 09:00 Plt Count 134 K/MM3 (134-434) D 01/21/19 09:00 MPV 8.8 fl (7.5-11.1) 01/21/19 09:00 Sodium 140 mmol/L (136-145) 01/21/19 09:00 Potassium 3.5 mmol/L (3.5-5.1) 01/21/19 09:00 Chloride 103 mmol/L (98-107) 01/21/19 09:00 Carbon Dioxide 31 mmol/L (21-32) 01/21/19 09:00 Anion Gap 6 MMOL/L (8-16) L 01/21/19 09:00 BUN 7.9 mg/dL (7-18) 01/21/19 09:00 Creatinine 0.7 mg/dL (0.55-1.3) 01/21/19 09:00 Est GFR (CKD-EPI)AfAm 130.25 01/21/19 09:00 Est GFR (CKD-EPI)NonAf 112.38 01/21/19 09:00 Random Glucose 128 mg/dL (74-106) H 01/21/19 09:00 Calcium 8.7 mg/dL (8.5-10.1) 01/21/19 09:00 Total Bilirubin 0.3 mg/dL (0.2-1) 01/21/19 09:00 AST 44 U/L (15-37) H 01/21/19 09:00 ALT 41 U/L (13-61) 01/21/19 09:00 Alkaline Phosphatase 122 U/L (45-117) H 01/21/19 09:00 Total Protein 7.6 g/dl (6.4-8.2) 01/21/19 09:00 Albumin 3.1 g/dl (3.4-5.0) L 01/21/19 09:00 lab noted bp within acceptable range denies headache denies chest pain denies dizziness no shortness of breath 01/23/19 09:44 S1S2 regular rhythm patient agrees to return to primary care territory account representative for chronic tachycardia rule out inferior infract strong recommend possible therapeutic heart rate reduction upon appointment with the primary care provider 01/23/19 09:48 consultation referral Assessment: 01/23/19 09:47 alcohol withdrawal sx Plan: continue ativan detox regimen
[2019-01-23] MEDS: PRENATAL VITAMINS W/ FOLIC ACID TABLET (FP) PO SCH (10:22)
[2019-01-23] MEDS: FLUoxetine HCL 20 MG CAPSULE (FP) PO SCH (10:22)
[2019-01-23] MEDS: MAG HYDROX/AL HYDROX/SIMETH 30 ML UNIT-DOSE CUP PO PRN ×2 (10:25→17:06)
[2019-01-23] MEDS ORDERED: TRIMETHOBENZAMIDE HCL 200MG/2ML INJ IM ONE (11:23)
[2019-01-23] MEDS ORDERED: levETIRAcetam 250 MG TABLET (FP) PO ONE (11:27)
[2019-01-23] MEDS ORDERED: levETIRAcetam 500 MG TABLET (FP) PO ONE (11:27)
[2019-01-23] MEDS: ONDANSETRON *ODT* 4 MG TABLET SL PRN (18:36)
[2019-01-23] MEDS: THIAMINE HCL 100 MG TABLET (FP) PO SCH (22:04)
[2019-01-23] MEDS: QUEtiapine FUMARATE 100 MG TABLET (FP) PO PRN (22:04)
[2019-01-23] MEDS: SENNOSIDES 8.6MG TABLET (FP) PO SCH (22:04)
[2019-01-24] MEDS ORDERED: LORazepam 0.5 MG TABLET PO ONE (05:00)
[2019-01-24] MEDS: ONDANSETRON *ODT* 4 MG TABLET SL PRN (05:16)
[2019-01-24] MEDS: DOCUSATE SODIUM 100 MG CAPSULE (FP) PO SCH (05:16)
[2019-01-24 06:24] VITALS: BP 101/62; PULSE 78; TEMP 97.8
--- NOTE | 2019-01-24 12:21 | DS ---
[facility] Detox Discharge Summary Admission Date: 01/20/19 Discharge Date: 01/24/19 - History Present History: Alcohol Dependence Additional Comments: 49 years old male admitted on 01/20/19 for alcohol withdrawal sx management doing well with ativan detox regimen no complication through out the detox stay seen by psychiatrist treated with prozac and seroquel patient tolerate well patient is alert oriented x 3 cardiac S1S2 regular rate rhythm respiratory clear lung sound bilaterally on auscultation - Physical Exam Results Vital Signs: Vital Signs Temperature 97.8 F 01/24/19 06:23 Pulse Rate 78 01/24/19 06:23 Respiratory Rate 18 01/24/19 06:23 Blood Pressure 101/62 01/24/19 06:23 O2 Sat by Pulse Oximetry (%) Pertinent Admission Physical Exam Findings: alcohol withdrawal sx Laboratory Last Values WBC 3.1 K/mm3 (4.0-10.0) L 01/21/19 09:00 RBC 4.51 M/mm3 (4.00-5.60) 01/21/19 09:00 Hgb 10.7 GM/dL (11.7-16.9) L 01/21/19 09:00 Hct 34.1 % (35.4-49) L 01/21/19 09:00 MCV 75.6 fl (80-96) L 01/21/19 09:00 MCH 23.8 pg (25.7-33.7) L 01/21/19 09:00 MCHC 31.5 g/dl (32.0-35.9) L 01/21/19 09:00 RDW 20.4 % (11.9-15.9) H 01/21/19 09:00 Plt Count 134 K/MM3 (134-434) D 01/21/19 09:00 MPV 8.8 fl (7.5-11.1) 01/21/19 09:00 Sodium 140 mmol/L (136-145) 01/21/19 09:00 Potassium 3.5 mmol/L (3.5-5.1) 01/21/19 09:00 Chloride 103 mmol/L (98-107) 01/21/19 09:00 Carbon Dioxide 31 mmol/L (21-32) 01/21/19 09:00 Anion Gap 6 MMOL/L (8-16) L 01/21/19 09:00 BUN 7.9 mg/dL (7-18) 01/21/19 09:00 Creatinine 0.7 mg/dL (0.55-1.3) 01/21/19 09:00 Est GFR (CKD-EPI)AfAm 130.25 01/21/19 09:00 Est GFR (CKD-EPI)NonAf 112.38 01/21/19 09:00 Random Glucose 128 mg/dL (74-106) H 01/21/19 09:00 Calcium 8.7 mg/dL (8.5-10.1) 01/21/19 09:00 Total Bilirubin 0.3 mg/dL (0.2-1) 01/21/19 09:00 AST 44 U/L (15-37) H 01/21/19 09:00 ALT 41 U/L (13-61) 01/21/19 09:00 Alkaline Phosphatase 122 U/L (45-117) H 01/21/19 09:00 Total Protein 7.6 g/dl (6.4-8.2) 01/21/19 09:00 Albumin 3.1 g/dl (3.4-5.0) L 01/21/19 09:00 lab noted - Treatment Hospital Course: Detox Protocol Followed, Detoxed Safely, Responded well, Discharged Condition Good, Rehab Referral Accepted Patient has Accepted a Rehab Referral to: [facility] - Medication Discharge Medications: Ambulatory Orders Quetiapine Fumarate [Seroquel -] 200 mg PO HS 12/15/17 Gabapentin 100 mg PO TID 07/23/18 Omeprazole 20 mg PO DAILY 07/23/18 Hydroxyzine HCl 50 mg PO BID 09/06/18 Fluoxetine HCl [Prozac] 20 mg PO DAILY #30 capsule 09/11/18 Fluoxetine HCl [Prozac -] 20 mg PO DAILY #30 capsule 12/12/18 Quetiapine Fumarate [Seroquel -] 200 mg PO HS 01/20/19 Ranitidine HCl 01/20/19 levETIRAcetam [Keppra -] 500 mg PO BID 01/20/19 levETIRAcetam [Keppra -] 750 mg PO BID #60 tablet 01/23/19 - Diagnosis (1) Alcohol dependence with withdrawal, uncomplicated Status: Acute (2) GERD (gastroesophageal reflux disease) Status: Chronic Qualifiers: Esophagitis presence: esophagitis presence not specified Qualified Code(s) : K21.9 - Gastro-esophageal reflux disease without esophagitis (3) HTN (hypertension), benign Status: Chronic (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
== END 2019-01-24 10:05 | disposition home or self-care (01) | DRG 775 ==
LOC: YASAS 08:09 → Y3N 12:24
PROVIDERS: ADMIT Surgery; ATTEND Surgery
PROC: HZ2ZZZZ Detoxification Services for Substance Abuse Treatment (ICD-10-PCS; principal; 2019-01-20)
DX: F10.230 Alcohol dependence with withdrawal, uncomplicated (principal); F19.24 Other psychoactive substance dependence with psychoactive substance-induced mood disorder; F32.9 Major depressive disorder, single episode, unspecified; I10 Essential (primary) hypertension; K21.9 Gastro-esophageal reflux disease without esophagitis; G40.909 Epilepsy, unspecified, not intractable, without status epilepticus; G47.00 Insomnia, unspecified; E73.9 Lactose intolerance, unspecified; E66.9 Obesity, unspecified; Z68.34 Body mass index [BMI] 34.0-34.9, adult; Z87.438 Personal history of other diseases of male genital organs; Z91.14 Patient's other noncompliance with medication regimen; Z91.013 Allergy to seafood
CPT/HCPCS: 36415; 80053; 85027; 93005; 93010; Q0162

== ENCOUNTER 2019-02-21 09:11 | Inpatient (IN) | payer OTHER ==
[2019-02-21 09:38] VITALS: BMI 34.6
--- NOTE | 2019-02-21 12:11 | HP ---
CIWA Score Nausea/Vomitin Muscle Tremors: 3 Anxiety: 2 Agitation: 2 Paroxysmal Sweats: 1-Minimal Palms Moist Orientation: 1-Uncertain about Date Tacttile Disturbances: 0-None Auditory Disturbances: 0-None Visual Disturbances: 0-None Headache: 3-Moderate CIWA-Ar Total Score: 15 - Admission Criteria OASAS Guidelines: Admission for Medically Managed Detox: Requires at least one of the followin. CIWA greater than 12 2. Seizures within the past 24 hours 3. Delirium tremens within the past 24 hours 4. Hallucinations within the past 24 hours 5. Acute intervention needed for co occurring medical disorder 6. Acute intervention needed for co occurring psychiatric disorder 7. Severe withdrawal that cannot be handled at a lower level of care (continued vomiting, continued diarrhea, abnormal vital signs) requiring intravenous medication and/or fluids 8. Admitting History and Physical - Smoking History Smoking history: Never smoked Have you smoked in the past 12 months: No Aproximately how many cigarettes per day: 0 If you are a former smoker, when did you quit?: at age 32 - Alcohol/Substance Use Hx Alcohol Use: Yes Admission [facility] Chief Complaint: "detox off of alcohol" Allergies/Adverse Reactions: Allergies Allergy/AdvReac Type Severity Reaction Status Date / Time Fish Containing Products Allergy Severe Rash Verified 02/21/19 09:22 No Known Drug Allergies Allergy Verified 02/21/19 09:22 lactose AdvReac Lactose Verified 02/21/19 09:22 Intolerance tomato sauce AdvReac Mild Swelling Uncoded 02/21/19 09:22 History of Present Illness: 49 year old male with a past medical history of liver damage, alcohol withdrawal seizures presents for alcohol detox. Been to detox multiple times in the past, >6 times over the last 2 years. Last labs show changes related to chronic liver damage (pancytopenia, low albumin). Would like to do rehab. Alcohol: 10-12 beers every day, last drink last night. Has had alcohol withdrawal seizures Cigarettes: never Benzodiazepines: occasional xanax use Live: live with friend Family: does not have or kids in this country. - Ebola screening Have you traveled outside of the country in the last 21 days: No Have you had contact with anyone from an Ebola affected area: No Do you have a fever: No - Review of Systems Constitutional: Chills, Diaphoresis, Fever EENT: reports: No Symptoms Reported Respiratory: reports: No Symptoms reported Cardiac: reports: No Symptoms Reported GI: reports: No Symptoms Reported, Diarrhea, Nausea : reports: No Symptoms Reported Musculoskeletal: reports: Back Pain Integumentary: reports: No Symptoms Reported Neuro: reports: Headache Endocrine: reports: No Symptoms Reported Hematology: reports: Anemia Psychiatric: reports: Judgement Intact, Mood/Affect Appropiate, Orientated x3, Agitated, Anxious Patient History - Patient Medical History Hx Anemia: No Hx Asthma: No Hx Chronic Obstructive Pulmonary Disease (COPD): No Hx Cancer: No Hx Cardiac Disorders: No Hx Congestive Heart Failure: No Hx Hypertension: No Hx Hypercholesterolemia: No Hx Pacemaker: No HX Cerebrovascular Accident: No Hx Seizures: Yes (07/2018) Hx Dementia: No Hx Diabetes: No Hx Gastrointestinal Disorders: No Hx Liver Disease: No Hx Genitourinary Disorders: No Hx Sexually Transmitted Disorders: No Hx Renal Disease (ESRD): No Hx Thyroid Disease: No Hx Human Immunodeficiency Virus (HIV): No Hx Hepatitis C: No Hx Depression: No Hx Suicide Attempt: No Hx Bipolar Disorder: No Hx Schizophrenia: No - Patient Surgical History Past Surgical History: Yes Hx Neurologic Surgery: No Hx Cataract Extraction: No Hx Cardiac Surgery: No Hx Lung Surgery: No Hx Breast Surgery: No Hx Breast Biopsy: No Hx Abdominal Surgery: No Hx Appendectomy: No Hx Cholecystectomy: Yes (laproscopic 5 yrs ago) Hx Genitourinary Surgery: No Hx Section: No Hx Orthopedic Surgery: Yes (fx, left leg at age 21) Anesthesia Reaction: No - PPD History Results: CXR(-)02/28/18 - Smoking Cessation Smoking history: Never smoked Have you smoked in the past 12 months: No Aproximately how many cigarettes per day: 0 If you are a former smoker, when did you quit?: at age 32 Cigars Per Day: 0 Hx Chewing Tobacco Use: No - Substances abused Alcohol Substance route: Oral Frequency: Daily Amount used: 12 CANS OF BEER (12 OUNCES) Age of first use: 17 Date of last use: 02/21/19 Admission Physical Exam [facility] - Vital Signs Vital Signs: Vital Signs - 24 hr 02/21/19 02/21/19 09:30 10:03 Temperature 97.3 F L 97.3 F L Pulse Rate 94 H 94 H Respiratory 18 18 Rate Blood Pressure 108/74 108/74 - Physical General Appearance: Yes: Disheveled, Intoxicated HEENTM: Yes: Normocephalic, Pharynx Normal, Scleral Ictenus R, Scleral Ictenus L Respiratory: Yes: Within Normal Limits, Chest Non-Tender, Lungs Clear, Normal Breath Sounds Neck: Yes: Within Normal Limits Breast: Yes: Within Normal Limits Cardiology: Yes: Regular Rhythm, Regular Rate Abdominal: Yes: Normal Bowel Sounds, Non Tender, Soft, Protuberent Genitourinary: Yes: Within Normal Limits Back: Yes: Within Normal Limits, Normal Inspection Musculoskeletal: Yes: Within Normal Limits, full range of Motion, Gait Steady Extremities: Yes: Within Normal Limits, Normal Capillary Refill, Normal Inspection, Non-Tender 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
[2019-02-21] MEDS ORDERED: MAGNESIUM HYDROX 2400MG/30ML ORAL SUSPENSION 30 ML CUP PO PRN (13:05)
[2019-02-21] MEDS ORDERED: ACETAMINOPHEN 325 MG TABLET (FP) PO PRN (13:05)
[2019-02-21] MEDS ORDERED: hydrOXYzine PAMOATE 25 MG CAPSULE (FP) PO PRN (13:05)
[2019-02-21] MEDS ORDERED: MAG HYDROX/AL HYDROX/SIMETH 30 ML UNIT-DOSE CUP PO PRN (13:05)
[2019-02-21] MEDS ORDERED: MENTHOL/PHENOL 1 EACH UD MM PRN (13:05)
[2019-02-21] MEDS ORDERED: IBUPROFEN 400 MG TABLET (FP) PO PRN (13:05)
[2019-02-21] MEDS ORDERED: BISMUTH SUBSALICYLATE 524 MG/30 ML UD PO PRN (13:05)
[2019-02-21] MEDS ORDERED: MAGNESIUM CITRATE 300 ML BOTTLE PO PRN (13:05)
[2019-02-21] MEDS ORDERED: METHOCARBAMOL 500 MG TABLET PO PRN (13:05)
[2019-02-21] MEDS ORDERED: LORazepam 1 MG TABLET PO PRN (13:05)
--- NOTE | 2019-02-21 13:37 | PN ---
Teaching Attending Note Name of Resident: Erick Leblanc ATTENDING PHYSICIAN STATEMENT I saw and evaluated the patient. I reviewed the resident's note and discussed the case with the resident. I agree with the resident's findings and plan as documented. SUBJECTIVE:49 year old male here for etoh detox , reports 10-12 beers/day , latest yesterday , current symptoms as above , reports w/d seizures. Pt is poor historian 2/2 intoxication / drowsiness, sleeping throughout interview, awakened by verbal stimuli , irritable , declines to answer most questions. OBJECTIVE: wwnd , drowsy , intoxicated . Vital Signs - 24 hr 02/21/19 02/21/19 09:30 10:03 Temperature 97.3 F L 97.3 F L Pulse Rate 94 H 94 H Respiratory 18 18 Rate Blood Pressure 108/74 108/74 ASSESSMENT AND PLAN: alcohol intoxication - Ativan detox .
[2019-02-21] MEDS: GABAPENTIN 100 MG CAPSULE (FP) PO SCH ×2 (14:15→22:28)
[2019-02-21 17:46] LABS: HEMATOCRIT 34.7 % (35.4-49); HEMOGLOBIN 10.7 GM/dL (11.7-16.9); MCH 23.3 pg (25.7-33.7); MCHC 30.9 g/dl (32.0-35.9); MEAN CELL VOLUME 75.2 fl (80-96); MEAN PLT VOLUME 9.5 fl (7.5-11.1); PLATELET COUNT 144 K/MM3 (134-434); RBC 4.61 M/mm3 (4.00-5.60); RDW 18.9 % (11.9-15.9); WHITE BLOOD COUNT 4.6 K/mm3 (4.0-10.0)
[2019-02-21 18:05] LABS: ALBUMIN 3.6 g/dl (3.4-5.0); BILIRUBIN,TOTAL 0.2 mg/dL (0.2-1); BLOOD UREA NITROGEN 4.9 mg/dL (7-18); CALCIUM 8.2 mg/dL (8.5-10.1); CREATININE 0.7 mg/dL (0.55-1.3); POTASSIUM 3.7 mmol/L (3.5-5.1); TOT PROT 8.2 g/dl (6.4-8.2)
[2019-02-21] MEDS: LORazepam 2 MG TABLET PO SCH ×2 (18:20→22:28)
[2019-02-21] MEDS: hydrOXYzine HCL 25 MG TABLET (FP) PO SCH (22:28)
[2019-02-21] MEDS: levETIRAcetam 500 MG TABLET (FP) PO SCH (22:28)
[2019-02-21] MEDS: MELATONIN 5 MG TABLETS PO PRN (22:29)
[2019-02-21] MEDS: THIAMINE HCL 100 MG TABLET (FP) PO SCH (22:30)
[2019-02-22] MEDS: LORazepam 2 MG TABLET PO SCH ×4 (05:40→22:05)
[2019-02-22] MEDS: GABAPENTIN 100 MG CAPSULE (FP) PO SCH ×3 (05:40→22:05)
--- NOTE | 2019-02-22 07:45 | CONSULT ---
[facility] Psychiatric Consult - Data Date of interview: 02/22/19 Admission source: Self-referred Identifying data: Mr Owens is a 49 years old [place]-born male, father of 2 children, unemployed receiving public assistance, homeless seeking detox treatment for alcohol and benzo Substance Abuse History: Reports history of alcohol and xanax use. Refer to addiction counselor's summary for further information Medical History: Significant for anemia, hypertension, seizure disorder, GERD, left knee pain, history of treatment positive PPD, syphilis, lap cholecystectomy and orthosurgery for fracture left leg. Psychiatric History: Patient is well known to this facility from multiple previous admissions. He is a poor historian. Reportedly he is diagnosed with Bipolar Disorder/MDD with one previous psychiatric hospitalization at [facility]. History of chronic non-adherence to psychiatric aftercare. He gets scripts for Prozac, Vistaril and Seroquel (doses not recalled) from his primary care doctor. During most recent admission to this facilty, he was seen by Dr Miller on 01/21/19 and he was prescribed Prozac 20 mg/ day and Seroquel 100 mg/hs. Denies previous suicide attempt. At present, denies experiencing psychotic, manic or depressive symptoms, S/H ideations. However, reports feeling anxious and sleeping poorly. Requests to resume Prozac and Seroquel Physical/Sexual Abuse/Trauma History: Denies history of emotional, physical or sexual abuse as well as DV relationship Mental Status Exam - Mental Status Exam Alert and Oriented to: Time, Place, Person Cognitive Function: Fair Patient Appearance: Well Groomed Mood: Anxious Affect: Appropriate Patient Behavior: Cooperative Speech Pattern: Clear Voice Loudness: Normal Thought Process: Intact, Goal Oriented Thought Disorder: Not Present Hallucinations: Denies Suicidal Ideation: Denies Homicidal Ideation: Denies Insight/Judgement: Poor Sleep: Poorly Appetite: Fair Muscle strength/Tone: Normal Gait/Station: Normal Psychiatric Findings - Problem List ([place] 1, 2,3) (1) MDD (major depressive disorder) Current Visit: Yes Status: Chronic (2) Bipolar II disorder Current Visit: Yes Status: Ruled-out (3) Alcohol-induced anxiety disorder Current Visit: No Status: Acute (4) Alcohol-induced sleep disorder Current Visit: No Status: Acute (5) Alcohol dependence with withdrawal, uncomplicated Current Visit: No Status: Acute Comment: . (6) Sedative, hypnotic or anxiolytic abuse Current Visit: Yes Status: Acute (7) Chronic pain of left knee Current Visit: No Status: Chronic (8) Anemia Current Visit: No Status: Chronic Qualifiers: Anemia type: unspecified type Qualified Code(s): D64.9 - Anemia, unspecified (9) GERD (gastroesophageal reflux disease) Current Visit: No Status: Chronic Qualifiers: Esophagitis presence: esophagitis presence not specified Qualified Code(s) : K21.9 - Gastro-esophageal reflux disease without esophagitis (10) HTN (hypertension), benign Current Visit: No Status: Chronic (11) Obese Current Visit: No Status: Chronic Qualifiers: Obesity type: unspecified obesity type Obesity classification: adult class 1 (BMI 30 - 34.9) Body mass index: BMI 33.0-33.9 (12) Positive RPR test Current Visit: No Status: Chronic (13) Seizure Current Visit: No Status: Chronic (14) History of positive PPD Current Visit: No Status: Resolved - Initial Treatment Plan Initial Treatment Plan: 1) Resume Prozac 20 mg po daily and Seroquel 100 mg po HS. 2) Continue inpatient detoxification
[2019-02-22] MEDS ORDERED: PANTOPRAZOLE 20 MG TABLET (FP) PO SCH (10:00)
[2019-02-22] MEDS: PRENATAL VITAMINS W/ FOLIC ACID TABLET (FP) PO SCH (10:23)
[2019-02-22] MEDS: levETIRAcetam 500 MG TABLET (FP) PO SCH ×2 (10:23→22:05)
[2019-02-22] MEDS: hydrOXYzine HCL 25 MG TABLET (FP) PO SCH ×2 (10:24→22:05)
[2019-02-22 12:00] LABS: RPR REACTIVE 1:1 (NONREACTIVE); TREPONEMA ANTIBODY PREVIOUSLY REACTIVE (NONREACTIVE)
--- NOTE | 2019-02-22 15:46 | PN ---
S CIWA - CIWA Score Nausea/Vomitin Muscle Tremors: 3 Anxiety: 3 Agitation: 2 Paroxysmal Sweats: 3 Orientation: 0-Oriented Tacttile Disturbances: 1-Very Mild Itch/Numbness Auditory Disturbances: 0-None Visual Disturbances: 0-None Headache: 0-None Present CIWA-Ar Total Score: 14 S Progress Note (SOAP) Subjective: interrupted sleep, sweats , shakes, Objective: 02/22/19 15:44 Vital Signs Temperature 98.4 F 02/22/19 13:07 Pulse Rate 85 02/22/19 13:07 Respiratory Rate 18 02/22/19 13:07 Blood Pressure 128/87 02/22/19 13:07 O2 Sat by Pulse Oximetry (%) Laboratory Tests 02/21/19 02/21/19 02/21/19 13:20 13:20 13:20 WBC 4.6 RBC 4.61 Hgb 10.7 L Hct 34.7 L MCV 75.2 L MCH 23.3 L MCHC 30.9 L RDW 18.9 H Plt Count 144 MPV 9.5 Sodium 140 Potassium 3.7 Chloride 107 Carbon Dioxide 26 Anion Gap 8 BUN 4.9 L Creatinine 0.7 Est GFR (CKD-EPI)AfAm 130.25 Est GFR (CKD-EPI)NonAf 112.38 Random Glucose 164 H Calcium 8.2 L Total Bilirubin 0.2 AST 103 H ALT 88 H Alkaline Phosphatase 100 Total Protein 8.2 Albumin 3.6 RPR Titer Reactive 1:1 H T.pallidum Ab (MHA) Previously reactive M pt lying in bed aox3 mild tremor Assessment: 02/22/19 15:45 withdrawal sx's elevated transaminases anemia 02/22/19 15:46 Plan: cont. detox increase fluids d/c tylenol repeat cbc, sgot, sgpt fe, tibc
[2019-02-22] MEDS: THIAMINE HCL 100 MG TABLET (FP) PO SCH (22:05)
[2019-02-23] MEDS: LORazepam 1 MG TABLET PO SCH ×4 (06:02→22:15)
[2019-02-23] MEDS: GABAPENTIN 100 MG CAPSULE (FP) PO SCH ×3 (06:03→21:28)
[2019-02-23 10:11] LABS: SGOT/AST 71 U/L (15-37); SGPT/ALT 75 U/L (13-61)
[2019-02-23 10:17] LABS: BASO % 1.4 % (0-2.0); EOS % 2.6 % (0-4.5); HEMATOCRIT 36.1 % (35.4-49); HEMOGLOBIN 11.4 GM/dL (11.7-16.9); LYMPH % 28.9 % (8-40); MCH 23.5 pg (25.7-33.7); MCHC 31.7 g/dl (32.0-35.9); MEAN CELL VOLUME 74.3 fl (80-96); MEAN PLT VOLUME 9.4 fl (7.5-11.1); MONO % 10.7 % (3.8-10.2); NEUT % 56.4 % (42.8-82.8); PLATELET COUNT 161 K/MM3 (134-434); RBC 4.86 M/mm3 (4.00-5.60); RDW 18.8 % (11.9-15.9); WHITE BLOOD COUNT 4.6 K/mm3 (4.0-10.0)
[2019-02-23] MEDS: hydrOXYzine HCL 25 MG TABLET (FP) PO SCH ×2 (10:28→21:28)
[2019-02-23] MEDS: PRENATAL VITAMINS W/ FOLIC ACID TABLET (FP) PO SCH (10:28)
[2019-02-23] MEDS: PANTOPRAZOLE 40 MG TABLET (FP) PO SCH (10:28)
[2019-02-23] MEDS: levETIRAcetam 500 MG TABLET (FP) PO SCH ×2 (10:30→21:28)
--- NOTE | 2019-02-23 12:14 | PN ---
[facility] CIWA - CIWA Score Nausea/Vomitin-No Nausea/No Vomiting Muscle Tremors: 3 Anxiety: 3 Agitation: 3 Paroxysmal Sweats: 2 Orientation: 0-Oriented Tacttile Disturbances: 0-None Auditory Disturbances: 0-None Visual Disturbances: 0-None Headache: 0-None Present CIWA-Ar Total Score: 11 S Progress Note (SOAP) Subjective: I need my seroquel the psychiatrist was suppose to order it yesterday. sweats anxiety irritable Objective: 02/23/19 12:12 Vital Signs Temperature 98.6 F 02/23/19 09:05 Pulse Rate 97 H 02/23/19 09:05 Respiratory Rate 18 02/23/19 09:05 Blood Pressure 122/77 02/23/19 09:05 O2 Sat by Pulse Oximetry (%) Laboratory Tests 02/21/19 02/21/19 02/21/19 13:20 13:20 13:20 WBC 4.6 RBC 4.61 Hgb 10.7 L Hct 34.7 L MCV 75.2 L MCH 23.3 L MCHC 30.9 L RDW 18.9 H Plt Count 144 MPV 9.5 Absolute Neuts (auto) Neutrophils % Lymphocytes % Monocytes % Eosinophils % Basophils % Nucleated RBC % Sodium 140 Potassium 3.7 Chloride 107 Carbon Dioxide 26 Anion Gap 8 BUN 4.9 L Creatinine 0.7 Est GFR (CKD-EPI)AfAm 130.25 Est GFR (CKD-EPI)NonAf 112.38 Random Glucose 164 H Calcium 8.2 L Total Bilirubin 0.2 AST 103 H ALT 88 H Alkaline Phosphatase 100 Total Protein 8.2 Albumin 3.6 RPR Titer Reactive 1:1 H T.pallidum Ab (MHA) Previously reactive 02/23/19 02/23/19 08:00 08:00 WBC 4.6 RBC 4.86 Hgb 11.4 L Hct 36.1 MCV 74.3 L MCH 23.5 L MCHC 31.7 L RDW 18.8 H Plt Count 161 MPV 9.4 Absolute Neuts (auto) 2.6 Neutrophils % 56.4 Lymphocytes % 28.9 Monocytes % 10.7 H Eosinophils % 2.6 Basophils % 1.4 Nucleated RBC % 0 Sodium Potassium Chloride Carbon Dioxide Anion Gap BUN Creatinine Est GFR (CKD-EPI)AfAm Est GFR (CKD-EPI)NonAf Random Glucose Calcium Total Bilirubin AST 71 H ALT 75 H Alkaline Phosphatase Total Protein Albumin RPR Titer T.pallidum Ab ([facility]) liver enzymes improving aaox3 ambulating no acute distress Assessment: 02/23/19 12:13 withdrawals Plan: continue detox psych consultation ordered increase fluids
[2019-02-23] MEDS: THIAMINE HCL 100 MG TABLET (FP) PO SCH (21:28)
[2019-02-23] MEDS: MELATONIN 5 MG TABLETS PO PRN (21:30)
[2019-02-24] MEDS ORDERED: LORazepam 0.5 MG TABLET PO PRN
[2019-02-24 01:25] LABS: IRON SERUM 29 ug/dL (50-175); TOTAL IRON BINDING CAPACITY 452 ug/dL (250-450)
[2019-02-24] MEDS: LORazepam 0.5 MG TABLET PO SCH ×4 (05:51→22:22)
[2019-02-24] MEDS: GABAPENTIN 100 MG CAPSULE (FP) PO SCH ×3 (05:51→22:20)
[2019-02-24] MEDS: hydrOXYzine HCL 25 MG TABLET (FP) PO SCH ×2 (10:16→22:20)
[2019-02-24] MEDS: levETIRAcetam 500 MG TABLET (FP) PO SCH ×2 (10:17→22:21)
[2019-02-24] MEDS: PANTOPRAZOLE 40 MG TABLET (FP) PO SCH (10:17)
[2019-02-24] MEDS: PRENATAL VITAMINS W/ FOLIC ACID TABLET (FP) PO SCH (10:18)
--- NOTE | 2019-02-24 12:41 | PN ---
Psychiatric Progress Note Vital Signs: Vital Signs Period Temp Pulse Resp BP Sys/Fox Pulse Ox Last 24 Hr 97.0 F-98.4 F 69-99 16-20 108-145/68-89 Date of Session: 02/24/19 Chief Complaint:: " I need my medications." HPI: Patient admitted to for alcohol and benzodiazepine dependence. Patient requesting his psychotropic medications. ROS: Patient is coherent, alert + oriented X3. Current Medications: Active Medications Generic Name Dose Route Start Last Admin Trade Name Freq PRN Reason Stop Dose Admin Acetaminophen 650 mg 02/21/19 13:05 Tylenol - PO Q6H PRN FEVER Al Hydroxide/Mg Hydroxide 30 ml 02/21/19 13:05 02/24/19 07:49 Mylanta Oral Suspension - PO 30 ml Q6H PRN Administration DYSPEPSIA Bismuth Subsalicylate 524 mg 02/21/19 13:05 Pepto-Bismol - PO Q1H PRN DIARRHEA Eucalyptus/Menthol/Phenol/Sorbitol 1 each 02/21/19 13:05 Cepastat Lozenge - MM 02/27/19 13:05 Q4H PRN SORE THROAT Fluoxetine HCl 20 mg 02/24/19 12:00 Prozac - PO DAILY CASI Gabapentin 100 mg 02/21/19 14:00 02/24/19 05:51 Neurontin - PO 100 mg TID CASI Administration Hydroxyzine HCl 50 mg 02/21/19 22:00 02/24/19 10:16 Atarax - PO 50 mg BID CASI Administration Ibuprofen 400 mg 02/21/19 13:05 Motrin - PO Q6H PRN PAIN LEVEL 1 - 3 Levetiracetam 500 mg 02/21/19 22:00 02/24/19 10:17 Keppra - PO 500 mg BID CASI Administration Lorazepam 0.5 mg 02/24/19 05:00 02/24/19 10:18 Ativan - PO 02/24/19 23:01 0.5 mg Q6H CASI Administration Lorazepam 0.5 mg 02/24/19 00:00 02/24/19 01:17 Ativan - PO 02/25/19 00:00 0.5 mg Q4H PRN Administration Symptoms of Withdrawal Lorazepam 0.5 mg 02/25/19 05:00 Ativan - PO 02/25/19 05:01 ONCE ONE Magnesium Citrate 300 ml 02/21/19 13:05 Citroma - PO Q48H PRN CONSTIPATION Magnesium Hydroxide 30 ml 02/21/19 13:05 02/23/19 17:22 Milk Of Magnesia - PO 30 ml PRN PRN Administration CONSTIPATION Melatonin 5 mg 02/21/19 13:05 02/23/19 21:30 Melatonin PO 5 mg HS PRN Administration INSOMNIA Methocarbamol 500 mg 02/21/19 13:05 Robaxin - PO 02/27/19 13:05 Q6H PRN MUSCLE SPASMS Pantoprazole Sodium 40 mg 02/23/19 10:00 02/24/19 10:17 Protonix - PO 40 mg DAILY CASI Administration Multivit/Folic Acid/Iron 1 tab 02/22/19 10:00 02/24/19 10:18 Vitamins (Sjr) - PO 1 tab DAILY CASI Administration Quetiapine Fumarate 100 mg 02/24/19 22:00 Seroquel - PO HS CASI Thiamine HCl 100 mg 02/21/19 22:00 02/23/19 21:28 Vitamin B1 - PO 100 mg HS CASI Administration Medication(s) Change(s): Yes. Current Side Effect: No Lab tests ordered: No Lab tests reviewed: Yes Provider note:: Patient requesting to resume prozac 20mg + Seroquel 100mg HS. Patient seen by Dr. Ho. Dr. Ho's note read and appreciated. Patient reports receiving Prozac 20mg + Seroquel 100mg HS from his PCP. Previous notes and chart reviewed. Will order Prozac 20mg + Seroquel. Benefits and side effects discussed. Verbal consent given. Total face to face time:: 20 Mental Status Exam - Mental Status Exam Alert and Oriented to: Time, Place, Person Cognitive Function: Good Patient Appearance: Well Groomed Mood: Withdrawn Affect: Mood Congruent Patient Behavior: Cooperative Speech Pattern: Appropriate Voice Loudness: Normal Thought Process: Goal Oriented Thought Disorder: Not Present Hallucinations: Denies Suicidal Ideation: Denies Homicidal Ideation: Denies Insight/Judgement: Poor Sleep: Poorly Appetite: Fair Muscle strength/Tone: Normal Gait/Station: Normal Psychiatric Treatment Plan - Problem List (1) Sedative, hypnotic or anxiolytic abuse Current Visit: Yes (2) MDD (major depressive disorder) Current Visit: Yes (3) Alcohol-induced sleep disorder Current Visit: Yes
[2019-02-24] MEDS: FLUoxetine HCL 20 MG CAPSULE (FP) PO SCH (12:56)
--- NOTE | 2019-02-24 13:28 | PN ---
S CIWA - CIWA Score Nausea/Vomitin-No Nausea/No Vomiting Muscle Tremors: None Anxiety: 2 Agitation: 3 Paroxysmal Sweats: 2 Orientation: 0-Oriented Tacttile Disturbances: 0-None Auditory Disturbances: 0-None Visual Disturbances: 0-None Headache: 0-None Present CIWA-Ar Total Score: 7 BHS Progress Note (SOAP) Subjective: Interrupted sleep, sweating, chills, irritable, anxious Objective: 02/24/19 13:23 Last Vital Signs Temp Pulse Resp BP Pulse Ox 98.1 F 96 H 16 126/91 02/24/19 13:14 02/24/19 13:14 02/24/19 13:14 02/24/19 13:14 Laboratory Tests 02/21/19 02/21/19 02/21/19 13:20 13:20 13:20 WBC 4.6 RBC 4.61 Hgb 10.7 L Hct 34.7 L MCV 75.2 L MCH 23.3 L MCHC 30.9 L RDW 18.9 H Plt Count 144 MPV 9.5 Absolute Neuts (auto) Neutrophils % Lymphocytes % Monocytes % Eosinophils % Basophils % Nucleated RBC % Sodium 140 Potassium 3.7 Chloride 107 Carbon Dioxide 26 Anion Gap 8 BUN 4.9 L Creatinine 0.7 Est GFR (CKD-EPI)AfAm 130.25 Est GFR (CKD-EPI)NonAf 112.38 Random Glucose 164 H Calcium 8.2 L Iron TIBC Iron Saturation Unsaturated IBC Total Bilirubin 0.2 AST 103 H ALT 88 H Alkaline Phosphatase 100 Total Protein 8.2 Albumin 3.6 RPR Titer Reactive 1:1 H T.pallidum Ab (A) Previously reactive 02/23/19 02/23/19 08:00 08:00 WBC 4.6 RBC 4.86 Hgb 11.4 L Hct 36.1 MCV 74.3 L MCH 23.5 L MCHC 31.7 L RDW 18.8 H Plt Count 161 MPV 9.4 Absolute Neuts (auto) 2.6 Neutrophils % 56.4 Lymphocytes % 28.9 Monocytes % 10.7 H Eosinophils % 2.6 Basophils % 1.4 Nucleated RBC % 0 Sodium Potassium Chloride Carbon Dioxide Anion Gap BUN Creatinine Est GFR (CKD-EPI)AfAm Est GFR (CKD-EPI)NonAf Random Glucose Calcium Iron 29 L TIBC 452 H Iron Saturation 6 L Unsaturated IBC 423 H Total Bilirubin AST 71 H ALT 75 H Alkaline Phosphatase Total Protein Albumin RPR Titer T.pallidum Ab ([facility]) Labs reviewed: serum glucose 164 (high), iron level 29 (low) Assessment: 02/24/19 13:28 Withdrawal sxs Note with hyperglycemia and iron deficiency anemia Plan: Continue detox Encouraged PO water intake Hyperglycemia: denies DM/Prediabetes; could be r/t withdrawal, need to rule out DM, repeat fasting glucose and send HbA1c Iron deficiency anemia: start FESO4 325mg PO bid, follow up with PCP for management
[2019-02-24] MEDS ORDERED: QUEtiapine FUMARATE 50 MG TABLET PO SCH (22:00)
[2019-02-24] MEDS ORDERED: FERROUS SO4 325 MG TABLET (FP) PO SCH (22:00)
[2019-02-24] MEDS: THIAMINE HCL 100 MG TABLET (FP) PO SCH (22:20)
[2019-02-25] MEDS ORDERED: LORazepam 0.5 MG TABLET PO ONE (05:00)
[2019-02-25] MEDS: GABAPENTIN 100 MG CAPSULE (FP) PO SCH (05:45)
[2019-02-25 07:10] VITALS: BP 107/60; PULSE 77; TEMP 98.1
[2019-02-25] MEDS: levETIRAcetam 500 MG TABLET (FP) PO SCH (09:18)
[2019-02-25] MEDS: FLUoxetine HCL 20 MG CAPSULE (FP) PO SCH (09:19)
[2019-02-25] MEDS: PRENATAL VITAMINS W/ FOLIC ACID TABLET (FP) PO SCH (09:19)
[2019-02-25] MEDS: hydrOXYzine HCL 25 MG TABLET (FP) PO SCH (09:19)
--- NOTE | 2019-02-25 09:19 | DS ---
[facility] Detox Discharge Summary Admission Date: 02/21/19 Discharge Date: 02/25/19 - History Present History: Alcohol Dependence, Sedative Dependence - Physical Exam Results Vital Signs: Vital Signs Temperature 98.1 F 02/25/19 07:09 Pulse Rate 77 02/25/19 07:09 Respiratory Rate 20 02/25/19 07:09 Blood Pressure 107/60 02/25/19 07:09 O2 Sat by Pulse Oximetry (%) Pertinent Admission Physical Exam Findings: pt arrived in withdrawals Laboratory Tests 02/21/19 02/21/19 02/21/19 13:20 13:20 13:20 WBC 4.6 RBC 4.61 Hgb 10.7 L Hct 34.7 L MCV 75.2 L MCH 23.3 L MCHC 30.9 L RDW 18.9 H Plt Count 144 MPV 9.5 Absolute Neuts (auto) Neutrophils % Lymphocytes % Monocytes % Eosinophils % Basophils % Nucleated RBC % Sodium 140 Potassium 3.7 Chloride 107 Carbon Dioxide 26 Anion Gap 8 BUN 4.9 L Creatinine 0.7 Est GFR (CKD-EPI)AfAm 130.25 Est GFR (CKD-EPI)NonAf 112.38 Random Glucose 164 H Calcium 8.2 L Iron TIBC Iron Saturation Unsaturated IBC Total Bilirubin 0.2 AST 103 H ALT 88 H Alkaline Phosphatase 100 Total Protein 8.2 Albumin 3.6 RPR Titer Reactive 1:1 H T.pallidum Ab ([facility]) Previously reactive 02/23/19 02/23/19 08:00 08:00 WBC 4.6 RBC 4.86 Hgb 11.4 L Hct 36.1 MCV 74.3 L MCH 23.5 L MCHC 31.7 L RDW 18.8 H Plt Count 161 MPV 9.4 Absolute Neuts (auto) 2.6 Neutrophils % 56.4 Lymphocytes % 28.9 Monocytes % 10.7 H Eosinophils % 2.6 Basophils % 1.4 Nucleated RBC % 0 Sodium Potassium Chloride Carbon Dioxide Anion Gap BUN Creatinine Est GFR (CKD-EPI)AfAm Est GFR (CKD-EPI)NonAf Random Glucose Calcium Iron 29 L TIBC 452 H Iron Saturation 6 L Unsaturated IBC 423 H Total Bilirubin AST 71 H ALT 75 H Alkaline Phosphatase Total Protein Albumin RPR Titer T.pallidum Ab (MHA) pt is aaox3 ambulating no acute distress no s/s of withdrawals - Treatment Hospital Course: Detox Protocol Followed, Detoxed Safely, Responded well, Discharged Condition Good, Rehab Referral Accepted - Medication Discharge Medications: Ambulatory Orders Gabapentin 100 mg PO TID 07/23/18 Omeprazole 20 mg PO DAILY 07/23/18 Hydroxyzine HCl 50 mg PO BID 09/06/18 Quetiapine Fumarate [Seroquel -] 200 mg PO HS 01/20/19 levETIRAcetam [Keppra -] 500 mg PO BID 01/20/19 Fluoxetine HCl [Prozac -] 20 mg PO BID 02/21/19 - Diagnosis (1) Alcohol-induced sleep disorder Current Visit: Yes Status: Acute (2) Sedative, hypnotic or anxiolytic abuse Current Visit: Yes Status: Chronic (3) MDD (major depressive disorder) Current Visit: Yes Status: Chronic (4) Bipolar II disorder Current Visit: Yes Status: Ruled-out (5) Alcohol dependence with withdrawal, uncomplicated Current Visit: Yes Status: Chronic (6) Alcohol-induced anxiety disorder Current Visit: No Status: Acute (7) Alcohol-induced mood disorder Current Visit: No Status: Acute (8) Elevated liver enzymes Current Visit: Yes Status: Chronic (9) Anemia Current Visit: No Status: Chronic Qualifiers: Anemia type: unspecified type Qualified Code(s): D64.9 - Anemia, unspecified (10) Chronic pain of left knee Current Visit: No Status: Chronic (11) Depression (emotion) Current Visit: No Status: Chronic Qualifiers: (12) GERD (gastroesophageal reflux disease) Current Visit: No Status: Chronic Qualifiers: Esophagitis presence: esophagitis presence not specified Qualified Code(s) : K21.9 - Gastro-esophageal reflux disease without esophagitis (13) HTN (hypertension), benign Current Visit: No Status: Chronic (14) History of major depression Current Visit: No Status: Chronic (15) Insomnia Current Visit: No Status: Chronic Qualifiers: Insomnia type: alcohol-induced Qualified Code(s): F10.982 - Alcohol use, unspecified with alcohol-induced sleep disorder (16) Insomnia Current Visit: No Status: Chronic (17) Knee pain, left Current Visit: No Status: Chronic Qualifiers: Chronicity: chronic Qualified Code(s): M25.562 - Pain in left knee; G89.29 - Other chronic pain (18) Non compliance w medication regimen Current Visit: No Status: Chronic (19) Obese Current Visit: No Status: Chronic Qualifiers: Obesity type: unspecified obesity type Obesity classification: adult class 1 (BMI 30 - 34.9) Body mass index: BMI 33.0-33.9 (20) Positive RPR test Current Visit: No Status: Chronic (21) Seizure Current Visit: No Status: Chronic (22) Substance induced mood disorder Current Visit: No Status: Suspected (23) History of positive PPD Current Visit: No Status: Resolved - AMA Did Patient Leave Against Medical Advice: No
[2019-02-25] MEDS: PANTOPRAZOLE 40 MG TABLET (FP) PO SCH (09:20)
== END 2019-02-25 09:32 | disposition home or self-care (01) | DRG 775 ==
LOC: YASAS 09:11 → Y6N 13:19
PROVIDERS: ADMIT Allergy & Immunology; ATTEND Allergy & Immunology
PROC: HZ2ZZZZ Detoxification Services for Substance Abuse Treatment (ICD-10-PCS; principal; 2019-02-21)
DX: F10.230 Alcohol dependence with withdrawal, uncomplicated (principal); F13.230 Sedative, hypnotic or anxiolytic dependence with withdrawal, uncomplicated; F10.280 Alcohol dependence with alcohol-induced anxiety disorder; F10.282 Alcohol dependence with alcohol-induced sleep disorder; F10.24 Alcohol dependence with alcohol-induced mood disorder; F31.81 Bipolar II disorder; F33.9 Major depressive disorder, recurrent, unspecified; F34.1 Dysthymic disorder; D50.9 Iron deficiency anemia, unspecified; I10 Essential (primary) hypertension; K21.9 Gastro-esophageal reflux disease without esophagitis; G40.909 Epilepsy, unspecified, not intractable, without status epilepticus; R73.9 Hyperglycemia, unspecified; R94.5 Abnormal results of liver function studies; M25.561 Pain in right knee; G89.29 Other chronic pain; R76.11 Nonspecific reaction to tuberculin skin test without active tuberculosis; E66.9 Obesity, unspecified; Z68.34 Body mass index [BMI] 34.0-34.9, adult; Z91.013 Allergy to seafood; Z91.018 Allergy to other foods; Z91.02 Food additives allergy status
CPT/HCPCS: 36415; 80053; 83540; 83550; 84450; 84460; 85025; 85027; 86593; 86780

== ENCOUNTER 2019-05-05 08:50 | Inpatient (IN) | payer OTHER ==
[2019-05-05 09:30] VITALS: BMI 35.2
--- NOTE | 2019-05-05 09:46 | HP ---
CIWA Score Nausea/Vomitin Muscle Tremors: 3 Anxiety: 3 Agitation: 3 Paroxysmal Sweats: 1-Minimal Palms Moist Orientation: 0-Oriented Tacttile Disturbances: 1-Very Mild Itch/Numbness Auditory Disturbances: 0-None Visual Disturbances: 0-None Headache: 2-Mild CIWA-Ar Total Score: 15 - Admission Criteria OASAS Guidelines: Admission for Medically Managed Detox: Requires at least one of the followin. CIWA greater than 12 2. Seizures within the past 24 hours 3. Delirium tremens within the past 24 hours 4. Hallucinations within the past 24 hours 5. Acute intervention needed for co occurring medical disorder 6. Acute intervention needed for co occurring psychiatric disorder 7. Severe withdrawal that cannot be handled at a lower level of care (continued vomiting, continued diarrhea, abnormal vital signs) requiring intravenous medication and/or fluids 8. 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 Gastrointestinal: Yes: GERD Psych: Yes: Other (insomnia) - Past Surgical History Past Surgical History: Yes: Cholecystectomy (lap cholecystectomy in 2014 at [facility]) - Smoking History Smoking history: Former smoker Have you smoked in the past 12 months: No Aproximately how many cigarettes per day: 0 If you are a former smoker, when did you quit?: at age 32 - Alcohol/Substance Use Hx Alcohol Use: Yes - Social History Usual Living Arrangement: Yes: Other (homeless) ADL: Support Services Occupation: unemployed History of Recent Travel: No Other Social History: this 49 years old amle with alcohol dependence,homeless, unemployed,. need help to stop drinking Admission ROS [facility] - HPI Chief Complaint: i need help to stop drinking alcohol Allergies/Adverse Reactions: Allergies Allergy/AdvReac Type Severity Reaction Status Date / Time Fish Containing Products Allergy Severe Rash Verified 05/05/19 09:13 No Known Drug Allergies Allergy Verified 05/05/19 09:13 lactose AdvReac Lactose Verified 05/05/19 09:13 Intolerance tomato sauce AdvReac Mild Swelling Uncoded 05/05/19 09:13 History of Present Illness: this 49 years old male with alcohol dependence,seeking detox,withdrawal symptom, multiple admissions in detox,last 02/21/19 to 02/25/19 [facility] but keep relapsing seizure syncope homeless insomnia longest sobriety 6 months Exam Limitations: No Limitations - Ebola screening Have you traveled outside of the country in the last 21 days: No (N) Have you had contact with anyone from an Ebola affected area: No - Review of Systems Constitutional: Loss of Appetite, Malaise, Night Sweats, Changes in sleep, Weakness EENT: reports: Nose Congestion Respiratory: reports: No Symptoms reported Cardiac: reports: No Symptoms Reported GI: reports: Nausea, Poor Appetite, Abdominal cramping : reports: No Symptoms Reported Musculoskeletal: reports: Back Pain, Muscle Pain Integumentary: reports: Dryness Neuro: reports: Headache, Tremors Endocrine: reports: No Symptoms Reported Hematology: reports: No Symptoms Reported Psychiatric: reports: No Sypmtoms Reported, Judgement Intact, Mood/Affect Appropiate, Orientated x3, other (insomnia) Patient History - Patient Medical History Hx Anemia: No Hx Asthma: No Hx Chronic Obstructive Pulmonary Disease (COPD): No Hx Cancer: No Hx Cardiac Disorders: No Hx Congestive Heart Failure: No Hx Hypertension: No Hx Hypercholesterolemia: No Hx Pacemaker: No HX Cerebrovascular Accident: No Hx Seizures: Yes (etoh related last in 08/31) Hx Dementia: No Hx Diabetes: No Hx Gastrointestinal Disorders: Yes (hx of GERD) Hx Liver Disease: No Hx Genitourinary Disorders: No Hx Sexually Transmitted Disorders: No Hx Renal Disease (ESRD): No Hx Thyroid Disease: No Hx Human Immunodeficiency Virus (HIV): No (10/31 negative) Hx Hepatitis C: No Hx Depression: Yes Hx Suicide Attempt: No Hx Bipolar Disorder: No Hx Schizophrenia: No Other Medical History: insomnia,no suicidal,no homicidal - Patient Surgical History Past Surgical History: Yes Hx Neurologic Surgery: No Hx Cataract Extraction: No Hx Cardiac Surgery: No Hx Lung Surgery: No Hx Breast Surgery: No Hx Breast Biopsy: No Hx Abdominal Surgery: No Hx Appendectomy: No Hx Cholecystectomy: Yes (laproscopic 5 yrs ago) Hx Genitourinary Surgery: No Hx Section: No Hx Orthopedic Surgery: Yes (fx, left leg at age 21) Anesthesia Reaction: No - PPD History Documented Results: Positive w/proof Implanted On Prior [facility] Admission?: No Results: CXR(-)02/28/18 PPD to be Administered?: No - Smoking Cessation Smoking history: Former smoker Have you smoked in the past 12 months: No Aproximately how many cigarettes per day: 0 If you are a former smoker, when did you quit?: at age 32 Cigars Per Day: 0 Hx Chewing Tobacco Use: No Initiated information on smoking cessation: Yes 'Breaking Loose' booklet given: 05/05/19 - Substance & Tx. History Hx Alcohol Use: Yes Hx Substance Use: No Substance Use Type: Alcohol Hx Substance Use Treatment: Yes ([facility] 02/21/19 to 02/25/19) - Substances abused Alcohol Substance route: Oral Frequency: Daily Amount used: 10 CANS OF BEER (12 OUNCES)/1 PINT OF VODKA Age of first use: 17 Date of last use: 05/04/19 Admission Physical Exam [facility] - Vital Signs Vital Signs: Vital Signs - 24 hr 05/05/19 09:27 Temperature 97.1 F L Pulse Rate 106 H Respiratory 18 Rate Blood Pressure 139/81 - Physical General Appearance: Yes: Moderate Distress, Tremorous, Irritable, Sweating HEENTM: Yes: Normal ENT Inspection, Normocephalic, Normal Voice, AG Respiratory: Yes: Lungs Clear, Normal Breath Sounds, No Respiratory Distress Neck: Yes: Within Normal Limits, Supple, Trachea in good position Breast: Yes: Within Normal Limits Cardiology: Yes: Tachycardia Abdominal: Yes: Within Normal Limits, Normal Bowel Sounds, Non Tender, Flat, Soft, Surgical Scar Genitourinary: Yes: Within Normal Limits Back: Yes: Muscle Spasm Musculoskeletal: Yes: Back pain, Muscle Pain Extremities: Yes: Tremors 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 (2) Alcohol dependence with intoxication, uncomplicated Current Visit: Yes Status: Acute (3) Chronic pain of left knee Current Visit: No Status: Chronic (4) GERD (gastroesophageal reflux disease) Current Visit: No Status: Chronic Qualifiers: Esophagitis presence: esophagitis presence not specified Qualified Code(s) : K21.9 - Gastro-esophageal reflux disease without esophagitis (5) Insomnia Current Visit: No Status: Chronic (6) Knee pain, left Current Visit: No Status: Chronic Qualifiers: Chronicity: chronic Qualified Code(s): M25.562 - Pain in left knee; G89.29 - Other chronic pain (7) Seizure Current Visit: No Status: Chronic (8) History of positive PPD Current Visit: No Status: Resolved (9) Syncope Current Visit: Yes Status: Acute Cleared for Admission [facility] - Detox or Rehab [facility] Level of Care: Medically Managed Detox Regimen/Protocol: Ativan Breathalyzer - Breathalyzer Breathalyzer: 0.132 Urine Drug Screen - Test Device Lot number: [id number] Expiration date: 12/12/20 - Control Is test valid?: Yes - Results Drug screen NEGATIVE: No Urine drug screen results: BZO-Benzodiazepines Inpatient Rehab Admission - Rehab Decision to Admit Inpatient rehab admission?: No
[2019-05-05] MEDS ORDERED: MAGNESIUM CITRATE 300 ML BOTTLE PO PRN (10:00)
[2019-05-05] MEDS ORDERED: BISMUTH SUBSALICYLATE 524 MG/30 ML UD PO PRN (10:00)
[2019-05-05] MEDS ORDERED: MAG HYDROX/AL HYDROX/SIMETH 30 ML UNIT-DOSE CUP PO PRN (10:00)
[2019-05-05] MEDS ORDERED: LORazepam 1 MG TABLET PO PRN (10:00)
[2019-05-05] MEDS ORDERED: ACETAMINOPHEN 325 MG TABLET (FP) PO PRN ×2 (10:00)
[2019-05-05] MEDS ORDERED: MENTHOL/PHENOL 1 EACH UD MM PRN (10:00)
[2019-05-05] MEDS ORDERED: IBUPROFEN 400 MG TABLET (FP) PO PRN (10:00)
[2019-05-05] MEDS: levETIRAcetam 500 MG TABLET (FP) PO SCH (11:34)
[2019-05-05] MEDS: FAMOTIDINE 20 MG TABLET PO SCH (11:35)
[2019-05-05] MEDS: LORazepam 2 MG TABLET PO SCH ×3 (11:35→22:15)
[2019-05-05] MEDS: MAGNESIUM HYDROX 2400MG/30ML ORAL SUSPENSION 30 ML CUP PO PRN (11:36)
[2019-05-05] MEDS: PRENATAL VITAMINS W/ FOLIC ACID TABLET (FP) PO SCH (11:36)
[2019-05-05] MEDS: hydrOXYzine PAMOATE 25 MG CAPSULE (FP) PO PRN (11:55)
[2019-05-05] MEDS: VITAMINS A AND D TOPICAL OINTMENT 60 GM TUBE TP SCH ×2 (15:11→22:15)
[2019-05-05] MEDS: THIAMINE HCL 100 MG TABLET (FP) PO SCH (22:15)
[2019-05-05] MEDS: traZODone HCL 100 MG TABLET (FP) PO SCH (22:15)
[2019-05-06] MEDS: LORazepam 2 MG TABLET PO SCH ×4 (05:22→22:04)
--- NOTE | 2019-05-06 09:22 | PN ---
[facility] CIWA - CIWA Score Nausea/Vomitin Muscle Tremors: 3 Anxiety: 2 Agitation: 1-Slight > Activity Paroxysmal Sweats: 2 Orientation: 1-Uncertain about Date Tacttile Disturbances: 1-Very Mild Itch/Numbness Auditory Disturbances: 0-None Visual Disturbances: 0-None Headache: 1-Very Mild CIWA-Ar Total Score: 13 BHS Progress Note (SOAP) Subjective: 49 years old male admitted on 05/05/19 for alcohol withdrawal sx management treating with ativan detox regimen long history of seizure treated with keppra 1000mg po daily resume home medication neurontin 100mg po tid Objective: 05/06/19 09:29 Vital Signs Temperature 97.8 F 05/06/19 09:18 Pulse Rate 64 05/06/19 09:18 Respiratory Rate 18 05/06/19 09:18 Blood Pressure 100/62 05/06/19 09:18 O2 Sat by Pulse Oximetry (%) 05/06/19 09:29 lab pending Assessment: 05/06/19 09:29 alcohol withdrawal Plan: ativan regimen
[2019-05-06] MEDS: VITAMINS A AND D TOPICAL OINTMENT 60 GM TUBE TP SCH ×2 (10:16→22:04)
[2019-05-06] MEDS: PRENATAL VITAMINS W/ FOLIC ACID TABLET (FP) PO SCH (10:16)
[2019-05-06] MEDS: levETIRAcetam 500 MG TABLET (FP) PO SCH (10:16)
[2019-05-06] MEDS: FAMOTIDINE 20 MG TABLET PO SCH (10:17)
[2019-05-06] MEDS: MAGNESIUM HYDROX 2400MG/30ML ORAL SUSPENSION 30 ML CUP PO PRN (10:17)
[2019-05-06] MEDS: hydrOXYzine PAMOATE 25 MG CAPSULE (FP) PO PRN (10:19)
[2019-05-06 10:38] LABS: HEMATOCRIT 35.8 % (35.4-49); MCH 22.4 pg (25.7-33.7); MCHC 30.7 g/dl (32.0-35.9); MEAN CELL VOLUME 72.9 fl (80-96); MEAN PLT VOLUME 9.4 fl (7.5-11.1); PLATELET COUNT 141 K/MM3 (134-434); RDW 21.7 % (11.9-15.9); WHITE BLOOD COUNT 3.2 K/mm3 (4.0-10.0)
[2019-05-06 10:44] LABS: ALBUMIN 3.2 g/dl (3.4-5.0); BILIRUBIN,TOTAL 0.4 mg/dL (0.2-1); BLOOD UREA NITROGEN 6.3 mg/dL (7-18); CALCIUM 8.7 mg/dL (8.5-10.1); CREATININE 0.7 mg/dL (0.55-1.3); POTASSIUM 3.6 mmol/L (3.5-5.1); TOT PROT 7.5 g/dl (6.4-8.2)
[2019-05-06 11:33] LABS: RPR REACTIVE 1:1 (NONREACTIVE)
[2019-05-06 11:34] LABS: TREPONEMA ANTIBODY PREVIOUSLY REACTIVE (NONREACTIVE)
[2019-05-06] MEDS ORDERED: SODIUM PHOSPHATE/NA BIPHOS 133 ML ENEMA PR ONE (12:00)
[2019-05-06] MEDS ORDERED: MAGNESIUM HYDROX 2400MG/30ML ORAL SUSPENSION 30 ML CUP PO ONE (12:00)
[2019-05-06] MEDS: GABAPENTIN 100 MG CAPSULE (FP) PO SCH ×2 (13:45→22:04)
[2019-05-06] MEDS: DOCUSATE SODIUM 100 MG CAPSULE (FP) PO SCH ×2 (13:45→22:04)
[2019-05-06] MEDS: SENNOSIDES 8.6MG TABLET (FP) PO SCH (22:04)
[2019-05-06] MEDS: THIAMINE HCL 100 MG TABLET (FP) PO SCH (22:04)
[2019-05-06] MEDS: traZODone HCL 100 MG TABLET (FP) PO SCH (22:04)
[2019-05-07] MEDS: GABAPENTIN 100 MG CAPSULE (FP) PO SCH ×3 (05:28→22:30)
[2019-05-07] MEDS: LORazepam 1 MG TABLET PO SCH ×4 (05:28→22:30)
[2019-05-07] MEDS: DOCUSATE SODIUM 100 MG CAPSULE (FP) PO SCH ×3 (05:28→22:30)
[2019-05-07] MEDS: hydrOXYzine PAMOATE 25 MG CAPSULE (FP) PO PRN ×2 (05:30→13:18)
[2019-05-07] MEDS: PRENATAL VITAMINS W/ FOLIC ACID TABLET (FP) PO SCH (10:20)
[2019-05-07] MEDS: FAMOTIDINE 20 MG TABLET PO SCH (10:20)
[2019-05-07] MEDS: VITAMINS A AND D TOPICAL OINTMENT 60 GM TUBE TP SCH ×2 (10:20→22:30)
[2019-05-07] MEDS: levETIRAcetam 500 MG TABLET (FP) PO SCH (10:20)
--- NOTE | 2019-05-07 10:52 | PN ---
[facility] CIWA - CIWA Score Nausea/Vomitin-No Nausea/No Vomiting Muscle Tremors: 2 Anxiety: 3 Agitation: 1-Slight > Activity Paroxysmal Sweats: 3 Orientation: 0-Oriented Tacttile Disturbances: 0-None Auditory Disturbances: 0-None Visual Disturbances: 0-None Headache: 2-Mild CIWA-Ar Total Score: 11 S Progress Note (SOAP) Subjective: c/o anxiety, shakes, anxiety, sweats, and headache. Objective: 05/07/19 10:51 Vital Signs 05/07/19 05/07/19 05/07/19 03:30 06:13 09:06 Temperature 97.6 F 97.0 F L Pulse Rate 60 113 H Respiratory 18 18 18 Rate Blood Pressure 99/56 L 119/84 Laboratory Last Values WBC 3.2 K/mm3 (4.0-10.0) L 05/06/19 07:45 RBC 4.90 M/mm3 (4.00-5.60) 05/06/19 07:45 Hgb 11.0 GM/dL (11.7-16.9) L 05/06/19 07:45 Hct 35.8 % (35.4-49) 05/06/19 07:45 MCV 72.9 fl (80-96) L 05/06/19 07:45 MCH 22.4 pg (25.7-33.7) L 05/06/19 07:45 MCHC 30.7 g/dl (32.0-35.9) L 05/06/19 07:45 RDW 21.7 % (11.9-15.9) H 05/06/19 07:45 Plt Count 141 K/MM3 (134-434) 05/06/19 07:45 MPV 9.4 fl (7.5-11.1) 05/06/19 07:45 Sodium 141 mmol/L (136-145) 05/06/19 07:45 Potassium 3.6 mmol/L (3.5-5.1) 05/06/19 07:45 Chloride 104 mmol/L (98-107) 05/06/19 07:45 Carbon Dioxide 29 mmol/L (21-32) 05/06/19 07:45 Anion Gap 8 MMOL/L (8-16) 05/06/19 07:45 BUN 6.3 mg/dL (7-18) L 05/06/19 07:45 Creatinine 0.7 mg/dL (0.55-1.3) 05/06/19 07:45 Est GFR (CKD-EPI)AfAm 130.25 05/06/19 07:45 Est GFR (CKD-EPI)NonAf 112.38 05/06/19 07:45 Random Glucose 147 mg/dL (74-106) H 05/06/19 07:45 Calcium 8.7 mg/dL (8.5-10.1) 05/06/19 07:45 Total Bilirubin 0.4 mg/dL (0.2-1) 05/06/19 07:45 AST 40 U/L (15-37) H 05/06/19 07:45 ALT 42 U/L (13-61) 05/06/19 07:45 Alkaline Phosphatase 88 U/L (45-117) 05/06/19 07:45 Total Protein 7.5 g/dl (6.4-8.2) 05/06/19 07:45 Albumin 3.2 g/dl (3.4-5.0) L 05/06/19 07:45 RPR Titer Reactive 1:1 (NONREACTIVE) H 05/06/19 07:45 T.pallidum Ab (MHA) Previously reactive (NONREACTIVE) 05/06/19 07:45 Labs noted. Assessment: 05/07/19 10:51 AOX3, in no acute respiratory distress. Full ROM, ambulating in the unit. Withdrawal symptoms. Plan: continue detox.
--- NOTE | 2019-05-07 16:59 | PN ---
[facility] Progress Note Note: irritation at the tip of penis,no ulcer,no bleeding,no discharge treatment bacitracin ointment bid
[2019-05-07] MEDS: BACITRACIN 15 GM TUBE TOPICAL OINTMENT TP SCH (22:29)
[2019-05-07] MEDS: SENNOSIDES 8.6MG TABLET (FP) PO SCH (22:30)
[2019-05-07] MEDS: traZODone HCL 100 MG TABLET (FP) PO SCH (22:30)
[2019-05-07] MEDS: THIAMINE HCL 100 MG TABLET (FP) PO SCH (22:30)
[2019-05-08] MEDS ORDERED: LORazepam 0.5 MG TABLET PO PRN
[2019-05-08] MEDS: METHOCARBAMOL 500 MG TABLET PO PRN ×2 (00:46→22:05)
[2019-05-08] MEDS: MELATONIN 5 MG TABLETS PO PRN ×2 (00:46→23:59)
[2019-05-08] MEDS: LORazepam 0.5 MG TABLET PO SCH ×4 (05:25→22:05)
[2019-05-08] MEDS: DOCUSATE SODIUM 100 MG CAPSULE (FP) PO SCH ×3 (05:25→22:05)
[2019-05-08] MEDS: GABAPENTIN 100 MG CAPSULE (FP) PO SCH ×3 (05:25→22:05)
[2019-05-08] MEDS: hydrOXYzine PAMOATE 25 MG CAPSULE (FP) PO PRN (05:26)
[2019-05-08] MEDS: PRENATAL VITAMINS W/ FOLIC ACID TABLET (FP) PO SCH (10:20)
[2019-05-08] MEDS: FAMOTIDINE 20 MG TABLET PO SCH (10:21)
[2019-05-08] MEDS: VITAMINS A AND D TOPICAL OINTMENT 60 GM TUBE TP SCH ×2 (10:21→22:04)
[2019-05-08] MEDS: BACITRACIN 15 GM TUBE TOPICAL OINTMENT TP SCH ×2 (10:21→22:05)
[2019-05-08] MEDS: levETIRAcetam 500 MG TABLET (FP) PO SCH (10:21)
--- NOTE | 2019-05-08 12:30 | PN ---
[facility] CIWA - CIWA Score Nausea/Vomitin-No Nausea/No Vomiting Muscle Tremors: 2 Anxiety: 2 Agitation: 1-Slight > Activity Paroxysmal Sweats: 1-Minimal Palms Moist Orientation: 0-Oriented Tacttile Disturbances: 0-None Auditory Disturbances: 0-None Visual Disturbances: 0-None Headache: 0-None Present CIWA-Ar Total Score: 6 BHS Progress Note (SOAP) Subjective: 49 years old male admitted on 05/05/19 for alcohol withdrawal sx management treating with ativan detox regimen feeling better today requests to leave the detox unit around 8 am to social service for housing application Objective: 05/08/19 12:31 Vital Signs Temperature 96.9 F L 05/08/19 09:09 Pulse Rate 121 H 05/08/19 09:09 Respiratory Rate 18 05/08/19 09:09 Blood Pressure 113/78 05/08/19 09:09 O2 Sat by Pulse Oximetry (%) Laboratory Last Values WBC 3.2 K/mm3 (4.0-10.0) L 05/06/19 07:45 RBC 4.90 M/mm3 (4.00-5.60) 05/06/19 07:45 Hgb 11.0 GM/dL (11.7-16.9) L 05/06/19 07:45 Hct 35.8 % (35.4-49) 05/06/19 07:45 MCV 72.9 fl (80-96) L 05/06/19 07:45 MCH 22.4 pg (25.7-33.7) L 05/06/19 07:45 MCHC 30.7 g/dl (32.0-35.9) L 05/06/19 07:45 RDW 21.7 % (11.9-15.9) H 05/06/19 07:45 Plt Count 141 K/MM3 (134-434) 05/06/19 07:45 MPV 9.4 fl (7.5-11.1) 05/06/19 07:45 Sodium 141 mmol/L (136-145) 05/06/19 07:45 Potassium 3.6 mmol/L (3.5-5.1) 05/06/19 07:45 Chloride 104 mmol/L (98-107) 05/06/19 07:45 Carbon Dioxide 29 mmol/L (21-32) 05/06/19 07:45 Anion Gap 8 MMOL/L (8-16) 05/06/19 07:45 BUN 6.3 mg/dL (7-18) L 05/06/19 07:45 Creatinine 0.7 mg/dL (0.55-1.3) 05/06/19 07:45 Est GFR (CKD-EPI)AfAm 130.25 05/06/19 07:45 Est GFR (CKD-EPI)NonAf 112.38 05/06/19 07:45 Random Glucose 147 mg/dL (74-106) H 05/06/19 07:45 Calcium 8.7 mg/dL (8.5-10.1) 05/06/19 07:45 Total Bilirubin 0.4 mg/dL (0.2-1) 05/06/19 07:45 AST 40 U/L (15-37) H 05/06/19 07:45 ALT 42 U/L (13-61) 05/06/19 07:45 Alkaline Phosphatase 88 U/L (45-117) 05/06/19 07:45 Total Protein 7.5 g/dl (6.4-8.2) 05/06/19 07:45 Albumin 3.2 g/dl (3.4-5.0) L 05/06/19 07:45 RPR Titer Reactive 1:1 (NONREACTIVE) H 05/06/19 07:45 T.pallidum Ab (MHA) Previously reactive (NONREACTIVE) 05/06/19 07:45 lab noted glucose elevation history of syphilis treated 05/08/19 12:32 Assessment: 05/08/19 12:33 alcohol withdrawal Plan: ativan regimen
[2019-05-08] MEDS: THIAMINE HCL 100 MG TABLET (FP) PO SCH (22:05)
[2019-05-08] MEDS: SENNOSIDES 8.6MG TABLET (FP) PO SCH (22:05)
[2019-05-08] MEDS: traZODone HCL 100 MG TABLET (FP) PO SCH (22:05)
[2019-05-09] MEDS ORDERED: LORazepam 0.5 MG TABLET PO ONE (05:00)
[2019-05-09] MEDS: DOCUSATE SODIUM 100 MG CAPSULE (FP) PO SCH (05:36)
[2019-05-09] MEDS: GABAPENTIN 100 MG CAPSULE (FP) PO SCH (05:37)
[2019-05-09] MEDS: hydrOXYzine PAMOATE 25 MG CAPSULE (FP) PO PRN (05:37)
[2019-05-09 06:02] VITALS: BP 105/68; PULSE 62; TEMP 97
--- NOTE | 2019-05-09 11:09 | DS ---
[facility] Detox Discharge Summary Admission Date: 05/05/19 Discharge Date: 05/09/19 - History Present History: Alcohol Dependence Additional Comments: Pt is medically cleared and is discharged today. Pt completed the detox protocol. Pt is encouraged to follow-up with outpatient CD program and also to follow-up with his pmd. Pt verbalized understanding. Pt is alert and oriented and in no respiratory distress. Pertinent Past History: h/o seizure, syncope, and alcohol use disorder. - Physical Exam Results Vital Signs: Vital Signs Temperature 97 F L 05/09/19 06:02 Pulse Rate 62 05/09/19 06:02 Respiratory Rate 18 05/09/19 06:02 Blood Pressure 105/68 05/09/19 06:02 O2 Sat by Pulse Oximetry (%) Vital Signs 05/09/19 05/09/19 03:30 06:02 Temperature 97 F L Pulse Rate 62 Respiratory 18 18 Rate Blood Pressure 105/68 Laboratory Last Values WBC 3.2 K/mm3 (4.0-10.0) L 05/06/19 07:45 RBC 4.90 M/mm3 (4.00-5.60) 05/06/19 07:45 Hgb 11.0 GM/dL (11.7-16.9) L 05/06/19 07:45 Hct 35.8 % (35.4-49) 05/06/19 07:45 MCV 72.9 fl (80-96) L 05/06/19 07:45 MCH 22.4 pg (25.7-33.7) L 05/06/19 07:45 MCHC 30.7 g/dl (32.0-35.9) L 05/06/19 07:45 RDW 21.7 % (11.9-15.9) H 05/06/19 07:45 Plt Count 141 K/MM3 (134-434) 05/06/19 07:45 MPV 9.4 fl (7.5-11.1) 05/06/19 07:45 Sodium 141 mmol/L (136-145) 05/06/19 07:45 Potassium 3.6 mmol/L (3.5-5.1) 05/06/19 07:45 Chloride 104 mmol/L (98-107) 05/06/19 07:45 Carbon Dioxide 29 mmol/L (21-32) 05/06/19 07:45 Anion Gap 8 MMOL/L (8-16) 05/06/19 07:45 BUN 6.3 mg/dL (7-18) L 05/06/19 07:45 Creatinine 0.7 mg/dL (0.55-1.3) 05/06/19 07:45 Est GFR (CKD-EPI)AfAm 130.25 05/06/19 07:45 Est GFR (CKD-EPI)NonAf 112.38 05/06/19 07:45 Random Glucose 147 mg/dL (74-106) H 05/06/19 07:45 Calcium 8.7 mg/dL (8.5-10.1) 05/06/19 07:45 Total Bilirubin 0.4 mg/dL (0.2-1) 05/06/19 07:45 AST 40 U/L (15-37) H 05/06/19 07:45 ALT 42 U/L (13-61) 05/06/19 07:45 Alkaline Phosphatase 88 U/L (45-117) 05/06/19 07:45 Total Protein 7.5 g/dl (6.4-8.2) 05/06/19 07:45 Albumin 3.2 g/dl (3.4-5.0) L 05/06/19 07:45 RPR Titer Reactive 1:1 (NONREACTIVE) H 05/06/19 07:45 T.pallidum Ab (MHA) Previously reactive (NONREACTIVE) 05/06/19 07:45 Labs noted. Pertinent Admission Physical Exam Findings: withdrawal symptoms. - Treatment Hospital Course: Detox Protocol Followed, Detoxed Safely, Responded well, Discharged Condition Good - Medication Discharge Medications: Ambulatory Orders Gabapentin 100 mg PO TID 07/23/18 Hydroxyzine HCl 50 mg PO BID 09/06/18 Quetiapine Fumarate [Seroquel -] 50 mg PO HS 01/20/19 levETIRAcetam [Keppra -] 1,000 mg PO DAILY 01/20/19 Fluoxetine HCl [Prozac -] 20 mg PO BID 02/21/19 Docusate Sodium [Docusate 100 mg] 100 mg PO TID 05/05/19 Pantoprazole Sodium 40 mg PO DAILY 05/05/19 traZODone HCL [Trazodone HCl] 100 mg PO HS 05/05/19 - Diagnosis (1) Alcohol dependence with intoxication, uncomplicated Status: Acute (2) Syncope Status: Acute (3) GERD (gastroesophageal reflux disease) Status: Chronic Qualifiers: Esophagitis presence: esophagitis presence not specified Qualified Code(s) : K21.9 - Gastro-esophageal reflux disease without esophagitis (4) HTN (hypertension), benign Status: Chronic (5) 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
== END 2019-05-09 08:40 | disposition home or self-care (01) | DRG 775 ==
LOC: YASAS 08:50 → Y3N 10:28
PROVIDERS: ADMIT Allergy & Immunology; ATTEND Allergy & Immunology
PROC: HZ2ZZZZ Detoxification Services for Substance Abuse Treatment (ICD-10-PCS; principal; 2019-05-05)
DX: F10.230 Alcohol dependence with withdrawal, uncomplicated (principal); F10.220 Alcohol dependence with intoxication, uncomplicated; G40.909 Epilepsy, unspecified, not intractable, without status epilepticus; I10 Essential (primary) hypertension; K21.9 Gastro-esophageal reflux disease without esophagitis; K59.04 Chronic idiopathic constipation; M25.562 Pain in left knee; G89.29 Other chronic pain; A53.0 Latent syphilis, unspecified as early or late; Z86.19 Personal history of other infectious and parasitic diseases; R76.11 Nonspecific reaction to tuberculin skin test without active tuberculosis; Z87.891 Personal history of nicotine dependence; Z90.49 Acquired absence of other specified parts of digestive tract; Z91.013 Allergy to seafood; Z59.0 Homelessness
CPT/HCPCS: 36415; 71046-TC-FY; 80053; 85027; 86593; 86780

== ENCOUNTER 2019-05-31 08:47 | Inpatient (IN) | payer OTHER ==
[2019-05-31 09:14] VITALS: BMI 35.2
--- NOTE | 2019-05-31 10:20 | HP ---
CIWA Score Nausea/Vomitin-Mild Nausea/No Vomiting Muscle Tremors: 4-Moderate,w/Arms Extend Anxiety: 1-Mildly Anxious Agitation: 0-Normal Activity Paroxysmal Sweats: 1-Minimal Palms Moist Orientation: 0-Oriented Tacttile Disturbances: 0-None Auditory Disturbances: 0-None Visual Disturbances: 2-Mild Sensitivity Headache: 3-Moderate CIWA-Ar Total Score: 12 - Admission Criteria OASAS Guidelines: Admission for Medically Managed Detox: Requires at least one of the followin. CIWA greater than 12 2. Seizures within the past 24 hours 3. Delirium tremens within the past 24 hours 4. Hallucinations within the past 24 hours 5. Acute intervention needed for co occurring medical disorder 6. Acute intervention needed for co occurring psychiatric disorder 7. Severe withdrawal that cannot be handled at a lower level of care (continued vomiting, continued diarrhea, abnormal vital signs) requiring intravenous medication and/or fluids 8. 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 Gastrointestinal: Yes: GERD Psych: Yes: Other (insomnia) - Past Surgical History Past Surgical History: Yes: Cholecystectomy (lap cholecystectomy in 2013 at [facility]) - Smoking History Smoking history: Former smoker Have you smoked in the past 12 months: No Aproximately how many cigarettes per day: 0 If you are a former smoker, when did you quit?: at age 32 - Alcohol/Substance Use Hx Alcohol Use: Yes - Social History ADL: Support Services Occupation: unemployed History of Recent Travel: No Admission [facility] - HPI Allergies/Adverse Reactions: Allergies Allergy/AdvReac Type Severity Reaction Status Date / Time Fish Containing Products Allergy Severe Rash Verified 05/31/19 09:08 lactose AdvReac Lactose Verified 05/31/19 09:08 Intolerance tomato sauce AdvReac Mild Swelling Uncoded 05/31/19 09:08 History of Present Illness: pt here requesting detox fro [facility] , relapsed after d/c from this facility . Exam Limitations: No Limitations - Ebola screening Have you traveled outside of the country in the last 21 days: No Have you had contact with anyone from an Ebola affected area: No Do you have a fever: No - Review of Systems Constitutional: See HPI EENT: reports: No Symptoms Reported Respiratory: reports: No Symptoms reported Cardiac: reports: No Symptoms Reported GI: reports: See HPI : reports: No Symptoms Reported Integumentary: reports: No Symptoms Reported Neuro: reports: See HPI, Headache Endocrine: reports: No Symptoms Reported Psychiatric: reports: Orientated x3, Anxious Patient History - Patient Medical History Hx Anemia: No Hx Asthma: No Hx Chronic Obstructive Pulmonary Disease (COPD): No Hx Cancer: No Hx Cardiac Disorders: No Hx Congestive Heart Failure: No Hx Hypertension: No Hx Hypercholesterolemia: No Hx Pacemaker: No HX Cerebrovascular Accident: No Hx Seizures: Yes (etoh related last in 08/31) Hx Dementia: No Hx Diabetes: No Hx Gastrointestinal Disorders: Yes (hx of GERD) Hx Liver Disease: No Hx Genitourinary Disorders: No Hx Sexually Transmitted Disorders: No Hx Renal Disease (ESRD): No Hx Thyroid Disease: No Hx Human Immunodeficiency Virus (HIV): No (10/31 negative) Hx Hepatitis C: No Hx Depression: Yes Hx Suicide Attempt: No Hx Bipolar Disorder: No Hx Schizophrenia: No - Patient Surgical History Past Surgical History: Yes Hx Neurologic Surgery: No Hx Cataract Extraction: No Hx Cardiac Surgery: No Hx Lung Surgery: No Hx Breast Surgery: No Hx Breast Biopsy: No Hx Abdominal Surgery: No Hx Appendectomy: No Hx Cholecystectomy: Yes (laproscopic 5 yrs ago) Hx Genitourinary Surgery: No Hx Section: No Hx Orthopedic Surgery: Yes (fx, left leg at age 21) Anesthesia Reaction: No - PPD History Results: CXR(-)02/28/18 - Smoking Cessation Smoking history: Former smoker Have you smoked in the past 12 months: No Aproximately how many cigarettes per day: 0 If you are a former smoker, when did you quit?: at age 32 Cigars Per Day: 0 Hx Chewing Tobacco Use: No Initiated information on smoking cessation: No - Substances abused Alcohol Substance route: Oral Frequency: Daily Amount used: vodka- 2 pts BEERS- 9 12oz cans Age of first use: 17 Date of last use: 05/31/19 Admission Physical Exam [facility] - Vital Signs Vital Signs: Vital Signs - 24 hr 05/31/19 09:05 Temperature 97.8 F Pulse Rate 90 Respiratory 18 Rate Blood Pressure 120/78 - Physical General Appearance: Yes: Mild Distress, Intoxicated HEENTM: Yes: EOMI, Hearing grossly Normal, Normocephalic, Normal Voice Respiratory: Yes: Chest Non-Tender, Lungs Clear, Normal Breath Sounds, No Respiratory Distress, No Accessory Muscle Use Neck: Yes: No masses,lesions,Nodules, Trachea in good position Cardiology: Yes: Regular Rhythm, Regular Rate, S1, S2 Abdominal: Yes: Non Tender, Soft Musculoskeletal: Yes: full range of Motion, Gait Steady Extremities: Yes: Normal Range of Motion, Non-Tender, Tremors Neurological: Yes: Fully Oriented, Alert, Motor Strength 5/5, Normal Mood/Affect Integumentary: Yes: Warm, Other (onychomycosis x 5 fingers right hand scar left forearm, left knee) - Diagnostic (1) Alcohol dependence with intoxication, uncomplicated Current Visit: Yes Status: Chronic Breathalyzer - Breathalyzer Breathalyzer: 0.095 Urine Drug Screen - Test Device Lot number: [id number] Expiration date: 12/12/20 - Control Is test valid?: Yes - Results Drug screen NEGATIVE: No Urine drug screen results: KASIE-Cocaine, BZO-Benzodiazepines Inpatient Rehab Admission - Rehab Decision to Admit Inpatient rehab admission?: No
[2019-05-31] MEDS ORDERED: MENTHOL/PHENOL 1 EACH UD MM PRN (10:21)
[2019-05-31] MEDS ORDERED: IBUPROFEN 400 MG TABLET (FP) PO PRN (10:21)
[2019-05-31] MEDS ORDERED: BISMUTH SUBSALICYLATE 262 MG/15 ML BTL PO PRN (10:21)
[2019-05-31] MEDS ORDERED: MAGNESIUM HYDROX 2400MG/30ML ORAL SUSPENSION 30 ML CUP PO PRN (10:21)
[2019-05-31] MEDS ORDERED: MAGNESIUM CITRATE 300 ML BOTTLE PO PRN (10:21)
[2019-05-31] MEDS ORDERED: MELATONIN 5 MG TABLETS PO PRN (10:21)
[2019-05-31] MEDS ORDERED: ACETAMINOPHEN 325 MG TABLET (FP) PO PRN ×2 (10:21)
[2019-05-31] MEDS ORDERED: chlordiazePOXIDE HCL 10 MG CAPSULE PO PRN (10:22)
[2019-05-31] MEDS: MAG HYDROX/AL HYDROX/SIMETH 30 ML UNIT-DOSE CUP PO PRN (11:44)
[2019-05-31] MEDS: hydrOXYzine PAMOATE 25 MG CAPSULE (FP) PO PRN ×2 (11:44→21:21)
[2019-05-31] MEDS: chlordiazePOXIDE HCL 25 MG CAPSULE PO SCH ×2 (12:33→21:20)
[2019-05-31 14:35] LABS: HEMATOCRIT 35.4 % (35.4-49); HEMOGLOBIN 11.2 GM/dL (11.7-16.9); MCH 22.9 pg (25.7-33.7); MCHC 31.6 g/dl (32.0-35.9); MEAN CELL VOLUME 72.4 fl (80-96); MEAN PLT VOLUME 8.7 fl (7.5-11.1); PLATELET COUNT 188 K/MM3 (134-434); RBC 4.89 M/mm3 (4.00-5.60); RDW 21.1 % (11.9-15.9); WHITE BLOOD COUNT 4.1 K/mm3 (4.0-10.0)
[2019-05-31 14:46] LABS: ALBUMIN 3.7 g/dl (3.4-5.0); BILIRUBIN,TOTAL 0.2 mg/dL (0.2-1); BLOOD UREA NITROGEN 8.2 mg/dL (7-18); CREATININE 0.8 mg/dL (0.55-1.3); POTASSIUM 3.9 mmol/L (3.5-5.1); TOT PROT 8.4 g/dl (6.4-8.2)
[2019-05-31] MEDS: PSYLLIUM 5.85 GM PACKET PO SCH ×2 (14:56→21:21)
[2019-05-31] MEDS: VITAMINS A AND D TOPICAL OINTMENT 60 GM TUBE TP SCH ×3 (14:56→23:09)
[2019-05-31] MEDS: levETIRAcetam 500 MG TABLET (FP) PO SCH (21:20)
[2019-05-31] MEDS ORDERED: THIAMINE HCL 100 MG TABLET (FP) PO SCH (22:00)
[2019-06-01] MEDS: chlordiazePOXIDE HCL 25 MG CAPSULE PO SCH (05:54)
[2019-06-01] MEDS: hydrOXYzine PAMOATE 25 MG CAPSULE (FP) PO PRN (05:54)
[2019-06-01] MEDS: VITAMINS A AND D TOPICAL OINTMENT 60 GM TUBE TP SCH ×2 (05:55→12:11)
[2019-06-01] MEDS: MAG HYDROX/AL HYDROX/SIMETH 30 ML UNIT-DOSE CUP PO PRN (05:57)
[2019-06-01 09:07] LABS: RPR REACTIVE 1:1 (NONREACTIVE)
[2019-06-01 09:11] LABS: TREPONEMA ANTIBODY PREVIOUSLY REACTIVE (NONREACTIVE)
[2019-06-01] MEDS ORDERED: ONDANSETRON *ODT* 4 MG TABLET SL PRN (09:25)
[2019-06-01 09:35] VITALS: BP 115/70; PULSE 66; TEMP 97.3
[2019-06-01] MEDS ORDERED: PRENATAL VITAMINS W/ FOLIC ACID TABLET (FP) PO SCH (10:00)
[2019-06-01] MEDS: levETIRAcetam 500 MG TABLET (FP) PO SCH (10:18)
[2019-06-01] MEDS: PSYLLIUM 5.85 GM PACKET PO SCH (10:19)
--- NOTE | 2019-06-01 19:14 | DS ---
[facility] Detox Discharge Summary Admission Date: 05/31/19 Discharge Date: 06/01/19 - History Present History: Alcohol Dependence Additional Comments: DESPITE EFFORTS BY [facility] CARRIER AND BY NURSING STAFF TO ADDRESS PATIENT'S MEDICAL NEEDS / CONCERNS, PATIENT DOES NOT WISH TO REMAIN TO COMPLETE DETOX REGIMEN. RISKS OF LEAVING DETOX UNIT AGAINST MEDICAL ADVICE AND PRIOR TO COMPLETION OF DETOX REGIMEN EXPLAINED TO PATIENT. PATIENT ADVISED TO GO IMMEDIATELY TO NEAREST ER SHOULD ANY INTOLERABLE WITHDRAWAL / DETOX SYMPTOMS DEVELOP AT ANY TIME. PATIENT ADVISED TO FOLLOW-UP WITH [facility] AFTER DISCHARGE FROM DETOX FOR GENERAL MEDICAL ASSESSMENT AND FOR ELEVATED RANDOM GLUCOSE LEVEL NOTED ON DETOX ADMISSION LABORATORY ASSESSMENT. PATIENT VERBALIZED UNDERSTANDING OF ALL INFORMATION / RECOMMENDATIONS PRESENTED TO HIM PRIOR TO DEPARTURE FROM DETOX UNIT. COPIES OF RESULTS OF ALL LABS DRAWN WHILE ADMITTED FOR DETOX GIVEN TO PATIENT AT TIME OF DISCHARGE FROM DETOX UNIT. PATIENT DOES NOTE THAT HE COMPLETED A FULL COURSE OF ANTIBIOTIC TREATMENT FOR SYPHILIS APPROX. 3 YEARS AGO. PATIENT LEFT DETOX UNIT IN STABLE MEDICAL CONDITION. Pertinent Past History: History of Seizures, History of Syncope, GERD, History of Insomnia, History of Reactive RPR, Hyperglycemia, Elevated AST Level, History of Anemia. - Physical Exam Results Vital Signs: Vital Signs Temperature 97.3 F L 06/01/19 09:34 Pulse Rate 66 06/01/19 09:34 Respiratory Rate 18 06/01/19 09:34 Blood Pressure 115/70 06/01/19 09:34 O2 Sat by Pulse Oximetry (%) Pertinent Admission Physical Exam Findings: WITHDRAWAL SYMPTOMS. Laboratory Tests 05/31/19 05/31/19 05/31/19 10:35 10:35 10:35 WBC 4.1 RBC 4.89 Hgb 11.2 L Hct 35.4 MCV 72.4 L MCH 22.9 L MCHC 31.6 L RDW 21.1 H Plt Count 188 D MPV 8.7 Sodium 140 Potassium 3.9 Chloride 106 Carbon Dioxide 26 Anion Gap 8 BUN 8.2 Creatinine 0.8 Est GFR (CKD-EPI)AfAm 123.29 Est GFR (CKD-EPI)NonAf 106.38 Random Glucose 199 H Calcium 8.0 L Total Bilirubin 0.2 AST 67 H ALT 61 Alkaline Phosphatase 129 H Total Protein 8.4 H Albumin 3.7 RPR Titer Reactive 1:1 H T.pallidum Ab (MHA) Previously reactive LABS NOTED. - Medication Discharge Medications: Ambulatory Orders Gabapentin 100 mg PO TID 07/23/18 Hydroxyzine HCl 50 mg PO QID PRN 09/06/18 Quetiapine Fumarate [Seroquel -] 50 mg PO HS 01/20/19 levETIRAcetam [Keppra -] 1,000 mg PO BID 01/20/19 Fluoxetine HCl [Prozac -] 20 mg PO BID 02/21/19 Docusate Sodium [Docusate 100 mg] 100 mg PO TID 05/05/19 Pantoprazole Sodium 40 mg PO DAILY 05/05/19 Propranolol HCl 10 mg PO TID 05/31/19 - Diagnosis (1) Alcohol dependence with intoxication, uncomplicated Status: Acute (2) Anemia Status: Chronic Qualifiers: Anemia type: unspecified type Qualified Code(s): D64.9 - Anemia, unspecified (3) Positive RPR test Status: Chronic - AMA Did Patient Leave Against Medical Advice: Yes (PATIENT DID NOT WISH TO REMAIN TO COMPLETE DETOX REGIMEN.)
[2019-06-02] MEDS ORDERED: chlordiazePOXIDE HCL 10 MG CAPSULE PO SCH (05:00)
[2019-06-03] MEDS ORDERED: chlordiazePOXIDE HCL 10 MG CAPSULE PO ONE (05:00)
== END 2019-06-01 12:50 | disposition left against medical advice (07) | DRG 770 ==
LOC: YASAS 08:47 → Y6N 10:37
PROVIDERS: ADMIT Allergy & Immunology; ATTEND Allergy & Immunology
PROC: HZ2ZZZZ Detoxification Services for Substance Abuse Treatment (ICD-10-PCS; principal; 2019-05-31)
DX: F10.230 Alcohol dependence with withdrawal, uncomplicated (principal); F10.220 Alcohol dependence with intoxication, uncomplicated; D64.9 Anemia, unspecified; G40.509 Epileptic seizures related to external causes, not intractable, without status epilepticus; G47.00 Insomnia, unspecified; K21.9 Gastro-esophageal reflux disease without esophagitis; A53.0 Latent syphilis, unspecified as early or late; R74.0 Nonspecific elevation of levels of transaminase and lactic acid dehydrogenase [LDH]; Z91.013 Allergy to seafood; Z91.018 Allergy to other foods; Z90.49 Acquired absence of other specified parts of digestive tract
CPT/HCPCS: 36415; 80053; 85027; 86593; 86780

== ENCOUNTER 2019-07-12 15:23 | Inpatient (IN) | payer OTHER ==
--- NOTE | 2019-07-12 18:37 | BHS.RME ---
Substance Use & Tx History - Last Treatment Where was last treatment: Detox CIWA Nausea/Vomitin Muscle Tremors: 4-Moderate,w/Arms Extend Anxiety: 3 Agitation: 3 Paroxysmal Sweats: 2 Orientation: 0-Oriented Tacttile Disturbances: 0-None Auditory Disturbances: 0-None Visual Disturbances: 0-None Headache: 4-Moderately Severe CIWA-Ar Total Score: 18
--- NOTE | 2019-07-12 18:40 | HP ---
CIWA Score Nausea/Vomitin Muscle Tremors: 4-Moderate,w/Arms Extend Anxiety: 3 Agitation: 3 Paroxysmal Sweats: 2 Orientation: 0-Oriented Tacttile Disturbances: 0-None Auditory Disturbances: 0-None Visual Disturbances: 0-None Headache: 4-Moderately Severe CIWA-Ar Total Score: 18 - Admission Criteria OASAS Guidelines: Admission for Medically Managed Detox: Requires at least one of the followin. CIWA greater than 12 2. Seizures within the past 24 hours 3. Delirium tremens within the past 24 hours 4. Hallucinations within the past 24 hours 5. Acute intervention needed for co occurring medical disorder 6. Acute intervention needed for co occurring psychiatric disorder 7. Severe withdrawal that cannot be handled at a lower level of care (continued vomiting, continued diarrhea, abnormal vital signs) requiring intravenous medication and/or fluids 8. Admitting History and Physical - Past Medical History [employer]UMBING [employer]SEM[employer] INST[employer]ER: Yes: Seizure, Syncope Gastrointestinal: Yes: GERD Psych: Yes: Other (insomnia) - Past Surgical History Past Surgical History: Yes: Cholecystectomy (lap cholecystectomy in 2013 at [facility]) - Smoking History Smoking history: Former smoker Have you smoked in the past 12 months: No Aproximately how many cigarettes per day: 0 If you are a former smoker, when did you quit?: at age 32 - Alcohol/Substance Use Hx Alcohol Use: Yes - Social History ADL: Support Services Occupation: unemployed History of Recent Travel: No Admission ROS [facility] Chief Complaint: alcohol withdrawal symptoms Allergies/Adverse Reactions: Allergies Allergy/AdvReac Type Severity Reaction Status Date / Time Fish Containing Products Allergy Severe Rash Verified 07/12/19 18:56 lactose AdvReac Lactose Verified 07/12/19 18:56 Intolerance tomato sauce AdvReac Mild Swelling Uncoded 07/12/19 18:56 History of Present Illness: 49 years old male with long history of alcohol dependence and multiple admissions is seeking admission to detox. Patient reports 18 months of sobriety. He has medical history of seizures, GERD, anemia, hypertension, positive PPD and psych. history of depression, bipolar and anxiety. He denies suicide attempt / suicidal ideation at this time. 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 Patient also reports elevated liver enzymes as per his PCP. Exam Limitations: No Limitations - Ebola screening Have you traveled outside of the country in the last 21 days: No Have you had contact with anyone from an Ebola affected area: No Do you have a fever: No - Review of Systems Constitutional: Chills, Diaphoresis, Malaise, Night Sweats, Changes in sleep EENT: reports: No Symptoms Reported Respiratory: reports: No Symptoms reported Cardiac: reports: No Symptoms Reported GI: reports: Nausea, Poor Appetite, Poor Fluid Intake, Vomiting, Abdominal cramping : reports: No Symptoms Reported Musculoskeletal: reports: Back Pain, Joint Pain, Muscle Pain Integumentary: reports: Dryness, Flushing Endocrine: reports: No Symptoms Reported Hematology: reports: No Symptoms Reported Psychiatric: reports: Mood/Affect Appropiate, Orientated x3, Anxious, Depressed Other Systems: Reviewed and Negative Patient History - Patient Medical History Hx Anemia: Yes Hx Asthma: No Hx Chronic Obstructive Pulmonary Disease (COPD): No Hx Cancer: No Hx Cardiac Disorders: No Hx Congestive Heart Failure: No Hx Hypertension: Yes (Not on medication) Hx Hypercholesterolemia: No Hx Pacemaker: No HX Cerebrovascular Accident: No Hx Seizures: Yes (etoh related last in 08/31) Hx Dementia: No Hx Diabetes: No Hx Gastrointestinal Disorders: Yes (hx of GERD) Hx Liver Disease: No Hx Genitourinary Disorders: No Hx Sexually Transmitted Disorders: No Hx Renal Disease (ESRD): No Hx Thyroid Disease: No Hx Human Immunodeficiency Virus (HIV): No (10/31 negative) Hx Hepatitis C: No Hx Depression: Yes Hx Suicide Attempt: No Hx Bipolar Disorder: No Hx Schizophrenia: No Other Medical History: Anxiety - Patient Surgical History Past Surgical History: Yes Hx Neurologic Surgery: No Hx Cataract Extraction: No Hx Cardiac Surgery: No Hx Lung Surgery: No Hx Breast Surgery: No Hx Breast Biopsy: No Hx Abdominal Surgery: No Hx Appendectomy: No Hx Cholecystectomy: Yes (laproscopic 5 yrs ago) Hx Genitourinary Surgery: No Hx Section: No Hx Orthopedic Surgery: Yes (fx, left leg at age 21) Anesthesia Reaction: No - PPD History Previous Implant?: Yes (PPD POSITIVE) Documented Results: Positive w/o proof Results: CXR(-)02/28/18 PPD to be Administered?: No - Reproductive History Patient is a Female of Child Bearing Age (11 -55 yrs old): No (male ) - Smoking Cessation Smoking history: Former smoker Have you smoked in the past 12 months: No Aproximately how many cigarettes per day: 0 If you are a former smoker, when did you quit?: at age 32 Cigars Per Day: 0 Hx Chewing Tobacco Use: No Initiated information on smoking cessation: No - Substance & Tx. History Hx Alcohol Use: Yes Hx Substance Use: No Substance Use Type: Alcohol Hx Substance Use Treatment: Yes ([facility]) - Substances abused Alcohol Substance route: Oral Frequency: Daily Amount used: 2 pint Vodka, 8 x 12 oz. beer Age of first use: 17 Date of last use: 07/12/19 Admission Physical Exam [facility] - Physical General Appearance: Yes: Moderate Distress, Tremorous, Sweating, Anxious HEENTM: Yes: Within Normal Limits Respiratory: Yes: Lungs Clear, Normal Breath Sounds, No Respiratory Distress Neck: Yes: Supple Breast: Yes: Breast Exam Deferred Cardiology: Yes: Regular Rhythm, Regular Rate Abdominal: Yes: Normal Bowel Sounds, Protuberent Genitourinary: Yes: Within Normal Limits Back: Yes: Normal Inspection Musculoskeletal: Yes: Back pain, Muscle Pain Extremities: Yes: Tremors Neurological: Yes: Within Normal Limits, Alert, Normal Mood/Affect Integumentary: Yes: Warm Lymphatic: Yes: Within Normal Limits - Diagnostic (1) Alcohol dependence with intoxication, uncomplicated Current Visit: Yes Status: Acute (2) Anemia Current Visit: Yes Status: Chronic Qualifiers: Anemia type: unspecified type Qualified Code(s): D64.9 - Anemia, unspecified (3) Depression (emotion) Current Visit: Yes Status: Chronic Qualifiers: (4) GERD (gastroesophageal reflux disease) Current Visit: Yes Status: Chronic Qualifiers: Esophagitis presence: esophagitis presence not specified Qualified Code(s) : K21.9 - Gastro-esophageal reflux disease without esophagitis (5) Obese Current Visit: Yes Status: Chronic Qualifiers: Obesity type: unspecified obesity type Obesity classification: adult class 1 (BMI 30 - 34.9) Body mass index: BMI 33.0-33.9 (6) Sedative, hypnotic or anxiolytic abuse Current Visit: Yes Status: Chronic Comment: .. (7) Seizure Current Visit: Yes Status: Chronic (8) History of positive PPD Current Visit: No Status: Resolved (9) HTN (hypertension) Current Visit: Yes Status: Chronic Qualifiers: Hypertension type: unspecified Qualified Code(s): I10 - Essential (primary ) hypertension Cleared for Admission [facility] - Detox or Rehab [facility] Level of Care: Medically Managed Detox Regimen/Protocol: Ativan Claeared for Rehab Admission: No Breathalyzer - Breathalyzer Breathalyzer: 0.190 Urine Drug Screen - Test Device Lot number: [id number] Expiration date: 04/13/21 - Control Is test valid?: Yes - Results Drug screen NEGATIVE: No Urine drug screen results: BZO-Benzodiazepines Inpatient Rehab Admission - Rehab Decision to Admit Inpatient rehab admission?: No
[2019-07-12] MEDS ORDERED: MAGNESIUM CITRATE 300 ML BOTTLE PO PRN (19:02)
[2019-07-12] MEDS ORDERED: ACETAMINOPHEN 325 MG TABLET (FP) PO PRN ×2 (19:02)
[2019-07-12] MEDS ORDERED: MAGNESIUM HYDROX 2400MG/30ML ORAL SUSPENSION 30 ML CUP PO PRN (19:02)
[2019-07-12] MEDS ORDERED: MENTHOL/PHENOL 1 EACH UD MM PRN (19:02)
[2019-07-12] MEDS ORDERED: LORazepam 1 MG TABLET PO PRN (19:02)
[2019-07-12] MEDS ORDERED: IBUPROFEN 400 MG TABLET (FP) PO PRN (19:02)
[2019-07-12] MEDS ORDERED: BISMUTH SUBSALICYLATE 524 MG/30 ML UD PO PRN (19:02)
[2019-07-12 19:26] VITALS: BMI 34.9
[2019-07-12] MEDS ORDERED: MELATONIN 5 MG TABLETS PO PRN (22:00)
[2019-07-12] MEDS: levETIRAcetam 500 MG TABLET (FP) PO SCH (23:08)
[2019-07-12] MEDS: THIAMINE HCL 100 MG TABLET (FP) PO SCH (23:08)
[2019-07-12] MEDS: LORazepam 2 MG TABLET PO SCH (23:09)
[2019-07-13] MEDS: LORazepam 2 MG TABLET PO SCH ×4 (05:42→22:40)
[2019-07-13 09:45] LABS: HEMATOCRIT 33.7 % (35.4-49); HEMOGLOBIN 10.9 GM/dL (11.7-16.9); MCH 23.7 pg (25.7-33.7); MCHC 32.4 g/dl (32.0-35.9); MEAN CELL VOLUME 73.1 fl (80-96); MEAN PLT VOLUME 8.8 fl (7.5-11.1); PLATELET COUNT 150 K/MM3 (134-434); RBC 4.61 M/mm3 (4.00-5.60); WHITE BLOOD COUNT 3.1 K/mm3 (4.0-10.0)
[2019-07-13 10:31] LABS: ALBUMIN 3.2 g/dl (3.4-5.0); BILIRUBIN,TOTAL 0.4 mg/dL (0.2-1); BLOOD UREA NITROGEN 7.8 mg/dL (7-18); CALCIUM 7.7 mg/dL (8.5-10.1); CREATININE 0.8 mg/dL (0.55-1.3); POTASSIUM 4.1 mmol/L (3.5-5.1); TOT PROT 7.7 g/dl (6.4-8.2)
[2019-07-13] MEDS: PRENATAL VITAMINS W/ FOLIC ACID TABLET (FP) PO SCH (10:35)
[2019-07-13] MEDS: levETIRAcetam 500 MG TABLET (FP) PO SCH ×2 (10:35→22:39)
[2019-07-13] MEDS ORDERED: DOCUSATE SODIUM 100 MG CAPSULE (FP) PO ONE (10:40)
[2019-07-13] MEDS: hydrOXYzine PAMOATE 25 MG CAPSULE (FP) PO PRN ×2 (11:12→21:26)
[2019-07-13 11:30] LABS: RPR REACTIVE 1:1 (NONREACTIVE); TREPONEMA ANTIBODY PREVIOUSLY REACTIVE (NONREACTIVE)
--- NOTE | 2019-07-13 13:12 | EKG ---
Test Reason : Blood Pressure : / mmHG Vent. Rate : 106 BPM Atrial Rate : 106 BPM P-R Int : 162 ms QRS Dur : 096 ms QT Int : 354 ms P-R-T Axes : 066 -02 050 degrees QTc Int : 470 ms SINUS TACHYCARDIA POSSIBLE INFERIOR INFARCT (CITED ON OR BEFORE 21-JAN-2019) ABNORMAL ECG WHEN COMPARED WITH ECG OF 21-JAN-2019 11:08, NO SIGNIFICANT CHANGE WAS FOUND Confirmed by RICHARD PARSONS MD ([id number]) on 07/13/2019 1:11:58 PM Referred By: RONNIE Confirmed By:RICHARD PARSONS MD
[2019-07-13] MEDS: DOCUSATE SODIUM 100 MG CAPSULE (FP) PO SCH ×2 (14:18→22:40)
--- NOTE | 2019-07-13 16:14 | CONSULT ---
[facility] Psychiatric Consult - Data Date of interview: 07/13/19 Admission source: [facility] Identifying data: Revisit to [facility] and admission to [address] [place] [address] for this 49 y/o [place]-born male, self-referred for detoxification treatment (alcohol). Patient is , a father of two, domiciled (lives with a cousin), unemployed and supported on Public Assistance. Substance Abuse History: Discussed with the patient. Details in current [facility] report as follows : Smoking history: Former smoker. Have you smoked in the past 12 months: No. Aproximately how many cigarettes per day: 0. If you are a former smoker, when did you quit?: at age 32. Cigars Per Day: 0. Hx Chewing Tobacco Use: No. Initiated information on smoking cessation: No. - Substance & Tx. History. Hx Alcohol Use: Yes. Hx Substance Use: No. Substance Use Type : Alcohol. Hx Substance Use Treatment: Yes ([facility]). - Substances abused. Alcohol. Substance route: Oral. Frequency: Daily. Amount used: 2 pint Vodka, 8 x 12 oz. beer. Age of first use: 17. Date of last use: 07/12/19 Medical History: Medical profile is remarkable for obesity, hypertension, seizure disorder, history of positive PPD, antecedent of cholecystectomy and treatment for syphilis. Psychiatric History: Patient denies history of psychiatric hospitalizations (as per [facility] records, this patient has reported history of one psychiatric hospitalization at [facility] + diagnosis of bipolar disorder/ MDD). Mr Owens admits to chronic non-adherence to psychiatric aftercare. Has no affiliation with psychiatric care providers. Gets refills for prozac + vistaril + seroquel from his primary care doctor. Patient denies history of suicide attempts. Physical/Sexual Abuse/Trauma History: Stressors : chronic unemployment, divorce , financial difficulties, lack of vocational skills and addiction to alcohol. Additional Comment: Urine drug screen results: BZO-Benzodiazepines. Noted. Mental Status Exam - Mental Status Exam Alert and Oriented to: Time, Place, Person Cognitive Function: Good Patient Appearance: Well Groomed (obese) Mood: Nervous, Withdrawn, Irritable Affect: Mood Congruent, Constricted Patient Behavior: Fatigued, Cooperative Speech Pattern: Clear, Appropriate Voice Loudness: Normal Thought Process: Goal Oriented Thought Disorder: Not Present Hallucinations: Denies Suicidal Ideation: Denies Homicidal Ideation: Denies Insight/Judgement: Poor Sleep: Poorly, Difficulty falling asleep Appetite: Good Gait/Station: Normal Psychiatric Findings - Problem List ([place] 1, 2,3) (1) Alcohol dependence with withdrawal, uncomplicated Current Visit: Yes Status: Chronic Comment: . (2) Substance induced mood disorder Current Visit: Yes Status: Chronic (3) History of depression Current Visit: Yes Status: Chronic (4) Insomnia Current Visit: Yes Status: Chronic Qualifiers: Insomnia type: alcohol-induced Qualified Code(s): F10.982 - Alcohol use, unspecified with alcohol-induced sleep disorder Comment: . (5) Non compliance w medication regimen Current Visit: Yes Status: Chronic Comment: As an outpatient. - Initial Treatment Plan Initial Treatment Plan: Psychoeducation. Sleep hygiene. Support. Detoxification in progress. AA meetings. MAT services explained to patient : not receptive. Contact made with [facility] pharmacy on file : no refills for psychotropics + last visit was in June 2018. Will resume seroquel 50 mg po hs + prozac 10 mg po daily. Side effects/benefits of both drugs are discussed with this patient. Noted trazodone on the regimen (patient is reminded of the risk of priapism as well). Mr Owens is in agreement with plan of care. MD received informed consent (verbal) from the patient. Observation.
--- NOTE | 2019-07-13 16:39 | PN ---
[facility] CIWA - CIWA Score Nausea/Vomitin-No Nausea/No Vomiting Muscle Tremors: None Anxiety: 4-Mod. Anxious/Guarded Agitation: 3 Paroxysmal Sweats: No Perspiration Orientation: 0-Oriented Tacttile Disturbances: 1-Very Mild Itch/Numbness Auditory Disturbances: 0-None Visual Disturbances: 2-Mild Sensitivity Headache: 0-None Present CIWA-Ar Total Score: 10 S Progress Note (SOAP) Subjective: Insomnia, Constipation, Anxious. Objective: PATIENT A & O X 3, OBSERVED AMBULATING ON DETOX UNIT UNASSISTED. IN NO ACUTE DISTRESS. 07/13/19 16:35 Vital Signs Temperature 98.1 F 07/13/19 10:32 Pulse Rate 79 07/13/19 10:32 Respiratory Rate 20 07/13/19 10:32 Blood Pressure 136/78 07/13/19 10:32 O2 Sat by Pulse Oximetry (%) Laboratory Tests 07/13/19 07/13/19 07/13/19 07:20 07:20 07:20 WBC 3.1 L RBC 4.61 Hgb 10.9 L Hct 33.7 L MCV 73.1 L MCH 23.7 L MCHC 32.4 RDW 20.0 H Plt Count 150 D MPV 8.8 Sodium 141 Potassium 4.1 Chloride 107 Carbon Dioxide 28 Anion Gap 6 L BUN 7.8 Creatinine 0.8 Est GFR (CKD-EPI)AfAm 123.29 Est GFR (CKD-EPI)NonAf 106.38 Random Glucose 154 H Calcium 7.7 L Total Bilirubin 0.4 AST 68 H ALT 77 H Alkaline Phosphatase 124 H Total Protein 7.7 Albumin 3.2 L RPR Titer Reactive 1:1 H T.pallidum Ab (MHA) Previously reactive HIV 1&2 Antibody Screen HIV P24 Antigen 07/13/19 07:20 WBC RBC Hgb Hct MCV MCH MCHC RDW Plt Count MPV Sodium Potassium Chloride Carbon Dioxide Anion Gap BUN Creatinine Est GFR (CKD-EPI)AfAm Est GFR (CKD-EPI)NonAf Random Glucose Calcium Total Bilirubin AST ALT Alkaline Phosphatase Total Protein Albumin RPR Titer T.pallidum Ab (MHA) HIV 1&2 Antibody Screen Negative HIV P24 Antigen Negative LABS NOTED. DETOX ADMISSION RPR RESULT NOTED: REACTIVE 1:1 ([facility]ATP: PREVIOUSLY REACTIVE). PATIENT REPORTS THAT HE COMPLETED A FULL COURSE OF TREATMENT FOR SYPHILIS IN THE PAST. 07/13/19 16:37 Assessment: 07/13/19 16:37 WITHDRAWAL SYMPTOMS. HYPOCALCEMIA. ANEMIA. LEUKOPENIA. REACTIVE RPR. ELEVATED ALT, AST, AND ALK. PHOS. LEVELS. 07/13/19 16:38 Plan: CONTINUE DETOX. INCREASE DAILY ORAL WATER INTAKE. OSCAL, 500 MG ORALLY BID FOR LOW CA LEVEL NOTED ON DETOX ADMISSION LABORATORY ASSESSMENT. FASTING GLUCOSE LEVEL ORDERED FOR TOMORROW AM DUE TO ELEVATED ADMISSION RANDOM GLUCOSE LEVEL.
[2019-07-13] MEDS: METHOCARBAMOL 500 MG TABLET PO PRN (17:51)
[2019-07-13] MEDS ORDERED: NITROGLYCERIN SUBLINGUAL 1/150 0.4 MG TAB ONE (21:01)
[2019-07-13] MEDS ORDERED: traZODone HCL 50 MG TABLET (FP) PO SCH (22:00)
[2019-07-13] MEDS ORDERED: QUEtiapine FUMARATE 50 MG TABLET PO SCH (22:00)
[2019-07-13] MEDS: CALCIUM 500MG/VIT-D 200 UNITS COMBO TABLET (FP) PO SCH (22:41)
[2019-07-13] MEDS: THIAMINE HCL 100 MG TABLET (FP) PO SCH (22:41)
[2019-07-14] MEDS: LORazepam 1 MG TABLET PO SCH ×4 (05:40→22:17)
[2019-07-14] MEDS: METHOCARBAMOL 500 MG TABLET PO PRN (05:40)
[2019-07-14] MEDS: DOCUSATE SODIUM 100 MG CAPSULE (FP) PO SCH ×3 (05:40→22:18)
[2019-07-14] MEDS: PRENATAL VITAMINS W/ FOLIC ACID TABLET (FP) PO SCH (10:24)
[2019-07-14] MEDS: FLUoxetine HCL 10 MG CAPSULE PO SCH (10:24)
[2019-07-14] MEDS: CALCIUM 500MG/VIT-D 200 UNITS COMBO TABLET (FP) PO SCH ×2 (10:24→22:19)
[2019-07-14] MEDS: hydrOXYzine PAMOATE 25 MG CAPSULE (FP) PO PRN ×2 (10:25→21:23)
[2019-07-14] MEDS: levETIRAcetam 500 MG TABLET (FP) PO SCH ×2 (12:44→22:17)
[2019-07-14] MEDS: MAG HYDROX/AL HYDROX/SIMETH 30 ML UNIT-DOSE CUP PO PRN ×2 (12:45→18:17)
--- NOTE | 2019-07-14 13:22 | PN ---
Psychiatric Progress Note Vital Signs: Vital Signs Period Temp Pulse Resp BP Sys/Fxo Pulse Ox Last 24 Hr 97 F-98.2 F 51-80 16-20 126-147/80-91 Date of Session: 07/14/19 Chief Complaint:: "I take trazodone 100mg " HPI: Patient admitted to for alcohol dependence. ROS: Patient is alert +oriented X3. Current Medications: Active Medications Generic Name Dose Route Start Last Admin Trade Name Freq PRN Reason Stop Dose Admin Acetaminophen 650 mg 07/12/19 19:02 Tylenol - PO Q6H PRN PAIN LEVEL 4 - 6 Acetaminophen 650 mg 07/12/19 19:02 Tylenol - PO Q6H PRN FEVER Al Hydroxide/Mg Hydroxide 30 ml 07/12/19 19:02 07/14/19 12:45 Mylanta Oral Suspension - PO 30 ml Q6H PRN Administration DYSPEPSIA Bismuth Subsalicylate 524 mg 07/12/19 19:02 Pepto-Bismol - PO Q1H PRN DIARRHEA Calcium Carbonate/Cholecalciferol 1 tab 07/13/19 22:00 07/14/19 10:24 Os-Aron 500+D - PO 1 tab BID CASI Administration Docusate Sodium 100 mg 07/13/19 14:00 07/14/19 13:04 Colace - PO 100 mg TID CASI Administration Eucalyptus/Menthol/Phenol/Sorbitol 1 each 07/12/19 19:02 Cepastat Lozenge - MM 07/18/19 19:02 Q4H PRN SORE THROAT Fluoxetine HCl 10 mg 07/14/19 10:00 07/14/19 10:24 Prozac - PO 10 mg DAILY CASI Administration Hydroxyzine Pamoate 25 mg 07/13/19 10:41 07/14/19 10:25 Vistaril - PO 25 mg Q6HPO PRN Administration ANXIETY Ibuprofen 400 mg 07/12/19 19:02 07/13/19 05:43 Motrin - PO 400 mg Q6H PRN Administration PAIN LEVEL 1 - 3 Levetiracetam 1,000 mg 07/12/19 22:00 07/14/19 12:44 Keppra - PO 1,000 mg BID CASI Administration Lorazepam 0.5 mg 07/15/19 05:00 Ativan - PO 07/15/19 23:01 Q6H CASI Lorazepam 0.5 mg 07/15/19 00:00 Ativan - PO 07/15/19 23:59 Q4H PRN Symptoms of Withdrawal Lorazepam 0.5 mg 07/16/19 05:00 Ativan - PO 07/16/19 05:01 ONCE ONE Lorazepam 1 mg 07/14/19 05:00 07/14/19 10:24 Ativan - PO 07/14/19 23:01 1 mg 0500,1100,1700,2300 CASI Administration Lorazepam 1 mg 07/12/19 19:02 Ativan - PO 07/14/19 23:59 Q4H PRN Symptoms of Withdrawal Magnesium Citrate 300 ml 07/12/19 19:02 07/14/19 07:49 Citroma - PO 300 ml Q48H PRN Administration CONSTIPATION Magnesium Hydroxide 30 ml 07/12/19 19:02 Milk Of Magnesia - PO PRN PRN CONSTIPATION Melatonin 5 mg 07/12/19 22:00 Melatonin PO HS PRN INSOMNIA Methocarbamol 500 mg 07/12/19 19:02 07/14/19 05:40 Robaxin - PO 07/18/19 19:02 500 mg Q6H PRN Administration MUSCLE SPASMS Multivit/Folic Acid/Iron 1 tab 07/13/19 10:00 07/14/19 10:24 Vitamins (Sjr) - PO 1 tab DAILY CASI Administration Propranolol HCl 10 mg 07/12/19 22:00 07/14/19 13:04 Inderal - PO 10 mg TID CASI Administration Quetiapine Fumarate 50 mg 07/13/19 22:00 07/13/19 22:39 Seroquel - PO 50 mg HS CASI Administration Thiamine HCl 100 mg 07/12/19 22:00 07/13/19 22:41 Vitamin B1 - PO 100 mg HS CASI Administration Trazodone HCl 50 mg 07/13/19 22:00 07/13/19 22:40 Desyrel - PO 50 mg HS CASI Administration Medication(s) Change(s): Yes. Will d/c seroquel 50mg. Will order Trazodone 100mg HS. Current Side Effect: No Lab tests ordered: No Lab tests reviewed: Yes Provider note:: Patient seen by Dr. Miller. Dr. Paul note read and appreciated. Patient reports difficulty sleeping after accepting Seroquel 50mg HS. Patient states that he takes trazodone 100mg HS for insomnia. Will d/c seroquel 50mg HS and will order Trazodone 100mg HS. Patient made aware of the risk of priapism. Mr. Owens also educated on the importance of proper sleep hygiene. Benefits and side effects discussed. Verbal consent given. Total face to face time:: 25 Mental Status Exam - Mental Status Exam Alert and Oriented to: Time, Place, Person Cognitive Function: Good Patient Appearance: Well Groomed Mood: Euthymic Affect: Appropriate Patient Behavior: Appropriate, Cooperative Speech Pattern: Appropriate Voice Loudness: Normal Thought Process: Intact, Goal Oriented Thought Disorder: Not Present Hallucinations: Denies Suicidal Ideation: Denies Homicidal Ideation: Denies Insight/Judgement: Poor Sleep: Poorly Appetite: Fair Muscle strength/Tone: Normal Gait/Station: Normal Psychiatric Treatment Plan - Problem List (1) Alcohol dependence with withdrawal, uncomplicated Current Visit: Yes Comment: . (2) History of depression Current Visit: Yes (3) Insomnia Current Visit: Yes Qualifiers: Insomnia type: alcohol-induced Qualified Code(s): F10.982 - Alcohol use, unspecified with alcohol-induced sleep disorder Comment: .
--- NOTE | 2019-07-14 13:53 | PN ---
S CIWA - CIWA Score Nausea/Vomitin-No Nausea/No Vomiting Muscle Tremors: 2 Anxiety: 2 Agitation: 1-Slight > Activity Paroxysmal Sweats: 2 Orientation: 0-Oriented Tacttile Disturbances: 0-None Auditory Disturbances: 0-None Visual Disturbances: 0-None Headache: 0-None Present CIWA-Ar Total Score: 7 BHS Progress Note (SOAP) Subjective: Interrupted sleep, anxious, sweating. Patient requesting to see Psychiatrist re : sleeping medication as he is unable to sleep Objective: 07/14/19 13:49 Last Vital Signs Temp Pulse Resp BP Pulse Ox 98.2 F 74 16 141/81 07/14/19 12:45 07/14/19 12:45 07/14/19 12:45 07/14/19 12:45 Elevated b/p noted Laboratory Tests 07/13/19 07/13/19 07/13/19 07:20 07:20 07:20 WBC 3.1 L RBC 4.61 Hgb 10.9 L Hct 33.7 L MCV 73.1 L MCH 23.7 L MCHC 32.4 RDW 20.0 H Plt Count 150 D MPV 8.8 Sodium 141 Potassium 4.1 Chloride 107 Carbon Dioxide 28 Anion Gap 6 L BUN 7.8 Creatinine 0.8 Est GFR (CKD-EPI)AfAm 123.29 Est GFR (CKD-EPI)NonAf 106.38 Random Glucose 154 H Calcium 7.7 L Total Bilirubin 0.4 AST 68 H ALT 77 H Alkaline Phosphatase 124 H Total Protein 7.7 Albumin 3.2 L RPR Titer Reactive 1:1 H T.pallidum Ab (MHA) Previously reactive HIV 1&2 Antibody Screen HIV P24 Antigen 07/13/19 07:20 WBC RBC Hgb Hct MCV MCH MCHC RDW Plt Count MPV Sodium Potassium Chloride Carbon Dioxide Anion Gap BUN Creatinine Est GFR (CKD-EPI)AfAm Est GFR (CKD-EPI)NonAf Random Glucose Calcium Total Bilirubin AST ALT Alkaline Phosphatase Total Protein Albumin RPR Titer T.pallidum Ab (MHA) HIV 1&2 Antibody Screen Negative HIV P24 Antigen Negative Labs reviewed: noted with hypocalcemia, hyperglycemia, elevated LFTs, mild anemia Assessment: 07/14/19 13:51 Withdrawal sxs Noted with hypocalcemia, hyperglycemia, elevated LFTs, mild anemia Plan: Continue detox Encouraged PO water intake Hypocalcemia: continue Oscal Hyperglycemia: repeat fasting glucose, check A1c Elevated LFTs: most likely due to alcoholism, repeat hepatic function panel Mild anemia: encourage to eat more green leafy vegetables, follow up with PCP for management
[2019-07-14] MEDS: THIAMINE HCL 100 MG TABLET (FP) PO SCH (22:17)
[2019-07-14] MEDS: traZODone HCL 50 MG TABLET (FP) PO SCH (22:17)
[2019-07-15] MEDS ORDERED: LORazepam 0.5 MG TABLET PO PRN
[2019-07-15] MEDS: LORazepam 0.5 MG TABLET PO SCH ×4 (05:32→22:16)
[2019-07-15] MEDS: hydrOXYzine PAMOATE 25 MG CAPSULE (FP) PO PRN ×2 (05:32→11:55)
[2019-07-15] MEDS: DOCUSATE SODIUM 100 MG CAPSULE (FP) PO SCH ×3 (05:32→22:16)
--- NOTE | 2019-07-15 09:37 | PN ---
[facility] CIWA - CIWA Score Nausea/Vomitin-Mild Nausea/No Vomiting Muscle Tremors: 1-None Visible, but [place] Anxiety: 2 Agitation: 2 Paroxysmal Sweats: No Perspiration Orientation: 0-Oriented Tacttile Disturbances: 0-None Auditory Disturbances: 0-None Visual Disturbances: 0-None Headache: 1-Very Mild CIWA-Ar Total Score: 7 S Progress Note (SOAP) Subjective: alert,irritable,anxious,interrupted sleep,history of gerd Objective: 07/15/19 09:35 Vital Signs Temperature 97.9 F 07/15/19 05:27 Pulse Rate 73 07/15/19 07:07 Respiratory Rate 18 07/15/19 05:27 Blood Pressure 116/77 07/15/19 07:07 O2 Sat by Pulse Oximetry (%) Assessment: 07/15/19 09:35 withdrawal symptom Plan: continue detox ativan regimen,discharge in am
[2019-07-15] MEDS ORDERED: PANTOPRAZOLE 40 MG TABLET PO SCH (10:00)
[2019-07-15] MEDS: PRENATAL VITAMINS W/ FOLIC ACID TABLET (FP) PO SCH (10:05)
[2019-07-15] MEDS: levETIRAcetam 500 MG TABLET (FP) PO SCH ×2 (10:05→22:16)
[2019-07-15] MEDS: FLUoxetine HCL 10 MG CAPSULE PO SCH (10:05)
[2019-07-15] MEDS: CALCIUM 500MG/VIT-D 200 UNITS COMBO TABLET (FP) PO SCH ×2 (10:06→22:17)
[2019-07-15] MEDS: MAG HYDROX/AL HYDROX/SIMETH 30 ML UNIT-DOSE CUP PO PRN (15:40)
[2019-07-15] MEDS: THIAMINE HCL 100 MG TABLET (FP) PO SCH (22:15)
[2019-07-15] MEDS: traZODone HCL 50 MG TABLET (FP) PO SCH (22:15)
[2019-07-16] MEDS ORDERED: LORazepam 0.5 MG TABLET PO ONE (05:00)
[2019-07-16] MEDS: DOCUSATE SODIUM 100 MG CAPSULE (FP) PO SCH (05:38)
[2019-07-16] MEDS: hydrOXYzine PAMOATE 25 MG CAPSULE (FP) PO PRN (05:40)
[2019-07-16 07:08] VITALS: BP 125/78; PULSE 71; TEMP 97.9
--- NOTE | 2019-07-16 09:04 | DS ---
[facility] Detox Discharge Summary Admission Date: 07/12/19 Discharge Date: 07/16/19 - History Present History: Alcohol Dependence, Sedative Dependence - Physical Exam Results Vital Signs: Vital Signs Temperature 97.9 F 07/16/19 05:35 Pulse Rate 71 07/16/19 05:35 Respiratory Rate 17 07/16/19 05:35 Blood Pressure 125/78 07/16/19 05:35 O2 Sat by Pulse Oximetry (%) Pertinent Admission Physical Exam Findings: Vital Signs Temperature 97.9 F 07/16/19 05:35 Pulse Rate 71 07/16/19 05:35 Respiratory Rate 17 07/16/19 05:35 Blood Pressure 125/78 07/16/19 05:35 O2 Sat by Pulse Oximetry (%) Laboratory Tests 07/13/19 07/13/19 07/13/19 07:20 07:20 07:20 WBC 3.1 L RBC 4.61 Hgb 10.9 L Hct 33.7 L MCV 73.1 L MCH 23.7 L MCHC 32.4 RDW 20.0 H Plt Count 150 D MPV 8.8 Sodium 141 Potassium 4.1 Chloride 107 Carbon Dioxide 28 Anion Gap 6 L BUN 7.8 Creatinine 0.8 Est GFR (CKD-EPI)AfAm 123.29 Est GFR (CKD-EPI)NonAf 106.38 Random Glucose 154 H Calcium 7.7 L Total Bilirubin 0.4 AST 68 H ALT 77 H Alkaline Phosphatase 124 H Total Protein 7.7 Albumin 3.2 L RPR Titer Reactive 1:1 H T.pallidum Ab (MHA) Previously reactive HIV 1&2 Antibody Screen HIV P24 Antigen 07/13/19 07:20 WBC RBC Hgb Hct MCV MCH MCHC RDW Plt Count MPV Sodium Potassium Chloride Carbon Dioxide Anion Gap BUN Creatinine Est GFR (CKD-EPI)AfAm Est GFR (CKD-EPI)NonAf Random Glucose Calcium Total Bilirubin AST ALT Alkaline Phosphatase Total Protein Albumin RPR Titer T.pallidum Ab (MHA) HIV 1&2 Antibody Screen Negative HIV P24 Antigen Negative aaox3 ambulating no acute distress lungs CTA - Treatment Hospital Course: Detox Protocol Followed, Detoxed Safely, Responded well, Discharged Condition Good, Rehab Referral Accepted - Medication Discharge Medications: Ambulatory Orders Hydroxyzine HCl 50 mg PO QID PRN 09/06/18 levETIRAcetam [Keppra -] 1,000 mg PO BID 01/20/19 Fluoxetine HCl [Prozac -] 20 mg PO BID 02/21/19 Docusate Sodium [Docusate 100 mg] 100 mg PO TID 05/05/19 Pantoprazole Sodium 40 mg PO DAILY 05/05/19 Propranolol HCl 10 mg PO TID 05/31/19 Calcium Carbonate/Vitamin D3 [Oyster Shell Calcium-Vit D Tab] 1 each PO DAILY Clotrimazole 30 ml TP DAILY 07/12/19 Folic Acid - 1 mg PO DAILY 07/12/19 Multivitamins [Tab-A-Vit -] 1 tab PO DAILY 07/12/19 traZODone HCL [Trazodone HCl] 100 mg PO HS 07/12/19 - Diagnosis (1) Alcohol dependence with intoxication, uncomplicated Current Visit: Yes Status: Acute (2) Alcohol dependence with withdrawal, uncomplicated Current Visit: Yes Status: Chronic (3) Anemia Current Visit: Yes Status: Chronic Qualifiers: Anemia type: unspecified type Qualified Code(s): D64.9 - Anemia, unspecified (4) Depression (emotion) Current Visit: Yes Status: Chronic Qualifiers: (5) GERD (gastroesophageal reflux disease) Current Visit: Yes Status: Chronic Qualifiers: Esophagitis presence: esophagitis presence not specified Qualified Code(s) : K21.9 - Gastro-esophageal reflux disease without esophagitis (6) HTN (hypertension) Current Visit: Yes Status: Chronic Qualifiers: Hypertension type: unspecified Qualified Code(s): I10 - Essential (primary ) hypertension (7) History of depression Current Visit: Yes Status: Chronic (8) Insomnia Current Visit: Yes Status: Chronic Qualifiers: Insomnia type: alcohol-induced Qualified Code(s): F10.982 - Alcohol use, unspecified with alcohol-induced sleep disorder (9) Non compliance w medication regimen Current Visit: Yes Status: Chronic (10) Obese Current Visit: Yes Status: Chronic Qualifiers: Obesity type: unspecified obesity type Obesity classification: adult class 1 (BMI 30 - 34.9) Body mass index: BMI 33.0-33.9 (11) Sedative, hypnotic or anxiolytic abuse Current Visit: Yes Status: Chronic (12) Seizure Current Visit: Yes Status: Chronic (13) Substance induced mood disorder Current Visit: Yes Status: Chronic (14) Bipolar II disorder Current Visit: Yes Status: Ruled-out (15) Alcohol-induced anxiety disorder Current Visit: No Status: Acute (16) Alcohol-induced mood disorder Current Visit: No Status: Acute (17) Alcohol-induced sleep disorder Current Visit: No Status: Acute (18) Syncope Current Visit: No Status: Acute (19) Chronic pain of left knee Current Visit: No Status: Chronic (20) Elevated liver enzymes Current Visit: No Status: Chronic (21) HTN (hypertension), benign Current Visit: No Status: Chronic (22) History of major depression Current Visit: No Status: Chronic (23) Insomnia Current Visit: No Status: Chronic (24) Knee pain, left Current Visit: No Status: Chronic Qualifiers: Chronicity: chronic Qualified Code(s): M25.562 - Pain in left knee; G89.29 - Other chronic pain (25) MDD (major depressive disorder) Current Visit: No Status: Chronic (26) Positive RPR test Current Visit: No Status: Chronic (27) History of positive PPD Current Visit: No Status: Resolved - AMA Did Patient Leave Against Medical Advice: No
== END 2019-07-16 08:55 | disposition home or self-care (01) | DRG 775 ==
LOC: YASAS 15:23 → Y6N 19:08
PROVIDERS: ADMIT Allergy & Immunology; ATTEND Allergy & Immunology
PROC: HZ2ZZZZ Detoxification Services for Substance Abuse Treatment (ICD-10-PCS; principal; 2019-07-12)
DX: F10.230 Alcohol dependence with withdrawal, uncomplicated (principal); F13.230 Sedative, hypnotic or anxiolytic dependence with withdrawal, uncomplicated; F10.280 Alcohol dependence with alcohol-induced anxiety disorder; F10.282 Alcohol dependence with alcohol-induced sleep disorder; F10.24 Alcohol dependence with alcohol-induced mood disorder; F19.24 Other psychoactive substance dependence with psychoactive substance-induced mood disorder; F34.1 Dysthymic disorder; I10 Essential (primary) hypertension; D64.9 Anemia, unspecified; K21.9 Gastro-esophageal reflux disease without esophagitis; R94.5 Abnormal results of liver function studies; M25.562 Pain in left knee; G89.29 Other chronic pain; R76.11 Nonspecific reaction to tuberculin skin test without active tuberculosis; E73.9 Lactose intolerance, unspecified; E66.9 Obesity, unspecified; Z68.34 Body mass index [BMI] 34.0-34.9, adult; Z91.013 Allergy to seafood; Z91.018 Allergy to other foods; Z86.19 Personal history of other infectious and parasitic diseases; Z91.19 Patient's noncompliance with other medical treatment and regimen
CPT/HCPCS: 36415; 80053; 85027; 86593; 86780; 87389; 93005; 93010

== ENCOUNTER 2019-11-28 09:35 | Inpatient (IN) | payer OTHER ==
--- NOTE | 2019-11-28 10:02 | BHS.RME ---
Substance Use & Tx History - Substance Use History Alcohol Substance amount: 10 beers Frequency of use: Daily Substance route: Oral Date of Last Use: 11/27/19 (10pm) - Last Treatment Date of last treatment: 07/12-07/16/19 Treatment type: Substance Use Disorder ([facility]) Where was last treatment: Detox Physical/Psych/Mental Status - Behavior General Behavior: Increased activity (restlessness, agitation) Eye Contact: Normal - Cooperativeness Cooperativeness: Cooperative - Thinking Thought Processes: Tight, Logical, Goal Directed Thought content: Future oriented - Physical Health Problems Is patient presently having any pain?: No Does patient presently have any injuries (include location): No Does patient currently have a fever: No Is patient : No CIWA Nausea/Vomitin-No Nausea/No Vomiting Muscle Tremors: 4-Moderate,w/Arms Extend Anxiety: 3 Agitation: 3 Paroxysmal Sweats: 2 Orientation: 0-Oriented Tacttile Disturbances: 0-None Auditory Disturbances: 0-None Visual Disturbances: 0-None Headache: 3-Moderate CIWA-Ar Total Score: 15
--- NOTE | 2019-11-28 10:53 | HP ---
CIWA Score Nausea/Vomitin-No Nausea/No Vomiting Muscle Tremors: 4-Moderate,w/Arms Extend Anxiety: 3 Agitation: 3 Paroxysmal Sweats: 2 Orientation: 0-Oriented Tacttile Disturbances: 0-None Auditory Disturbances: 0-None Visual Disturbances: 0-None Headache: 3-Moderate CIWA-Ar Total Score: 15 - Admission Criteria OASAS Guidelines: Admission for Medically Managed Detox: Requires at least one of the followin. CIWA greater than 12 2. Seizures within the past 24 hours 3. Delirium tremens within the past 24 hours 4. Hallucinations within the past 24 hours 5. Acute intervention needed for co occurring medical disorder 6. Acute intervention needed for co occurring psychiatric disorder 7. Severe withdrawal that cannot be handled at a lower level of care (continued vomiting, continued diarrhea, abnormal vital signs) requiring intravenous medication and/or fluids 8. Admitting History and Physical - Admission Chief Complaint: "I want to stop drinking." History of Present Illness: 49 year old male with history of alcohol dependence with withdrawal. He was last at [facility] on 07/12-07/16/19 completed detox and then relapsed 2 months l ater. He was at [facility] earlier today and picked up to come here. He may have gotten one dose of librium while there. Has no discharge papers. Alcohol: 10 beers 12 oz daily, started drinking at 39, last used last night at 10PM. 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 Nicotine: Stopped smoking at age 32 PMH: Seizure, Syncope, GERD, HTN, Aneia and + PPD Psurg: Cholecystectomy Psych: Insomnia, Depression ( prozac, propanolol, trazodone, etc.) Lives with family in the [place], no legal issues pending. JUAN FRANCISCO= 0.137 CIWA= 15 He meets criteria for detox. 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: Seizure, Syncope Gastrointestinal: Yes: GERD Psych: Yes: Other (insomnia) - Past Surgical History Past Surgical History: Yes: Cholecystectomy (lap cholecystectomy in 2013 at [place]) - Smoking History Smoking history: Former smoker Have you smoked in the past 12 months: No Aproximately how many cigarettes per day: 0 If you are a former smoker, when did you quit?: at age 32 - Alcohol/Substance Use Hx Alcohol Use: Yes - Social History ADL: Support Services Occupation: unemployed History of Recent Travel: No Admission ROS [facility] - [facility] Allergies/Adverse Reactions: Allergies Allergy/AdvReac Type Severity Reaction Status Date / Time Fish Containing Products Allergy Severe Rash Verified 07/12/19 18:56 lactose AdvReac Lactose Verified 07/12/19 18:56 Intolerance tomato sauce AdvReac Mild Swelling Uncoded 07/12/19 18:56 Exam Limitations: No Limitations - Ebola screening Have you traveled outside of the country in the last 21 days: No Have you had contact with anyone from an Ebola affected area: No Have you been sick,other than usual withdrawal symptoms: No Do you have a fever: No - Review of Systems Constitutional: No Symptoms Reported EENT: reports: No Symptoms Reported Respiratory: reports: No Symptoms reported Cardiac: reports: No Symptoms Reported GI: reports: No Symptoms Reported : reports: No Symptoms Reported Musculoskeletal: reports: No Symptoms Reported Integumentary: reports: No Symptoms Reported Neuro: reports: No Symptoms reported Endocrine: reports: No Symptoms Reported Hematology: reports: No Symptoms Reported Psychiatric: reports: Agitated, Anxious Other Systems: Reviewed and Negative Patient History - Patient Medical History Hx Anemia: Yes Hx Asthma: No Hx Chronic Obstructive Pulmonary Disease (COPD): No Hx Cancer: No Hx Cardiac Disorders: No Hx Congestive Heart Failure: No Hx Hypertension: Yes (Not on medication) Hx Hypercholesterolemia: No Hx Pacemaker: No HX Cerebrovascular Accident: No Hx Seizures: Yes (etoh related last in 08/31) Hx Dementia: No Hx Diabetes: No Hx Gastrointestinal Disorders: Yes (hx of GERD) Hx Liver Disease: No Hx Genitourinary Disorders: No Hx Sexually Transmitted Disorders: No Hx Renal Disease (ESRD): No Hx Thyroid Disease: No Hx Human Immunodeficiency Virus (HIV): No (10/31 negative) Hx Hepatitis C: No Hx Depression: Yes Hx Suicide Attempt: No Hx Bipolar Disorder: No Hx Schizophrenia: No - Patient Surgical History Past Surgical History: Yes Hx Neurologic Surgery: No Hx Cataract Extraction: No Hx Cardiac Surgery: No Hx Lung Surgery: No Hx Breast Surgery: No Hx Breast Biopsy: No Hx Abdominal Surgery: No Hx Appendectomy: No Hx Cholecystectomy: Yes (laproscopic 5 yrs ago) Hx Genitourinary Surgery: No Hx Section: No Hx Orthopedic Surgery: Yes (fx, left leg at age 21) Anesthesia Reaction: No - PPD History Previous Implant?: Yes Documented Results: Positive w/proof Implanted On Prior [facility] Admission?: Yes Results: CXR(-)02/28/18 PPD to be Administered?: No - Smoking Cessation Smoking history: Former smoker Have you smoked in the past 12 months: No Aproximately how many cigarettes per day: 0 If you are a former smoker, when did you quit?: at age 32 Cigars Per Day: 0 Hx Chewing Tobacco Use: No Initiated information on smoking cessation: No - Substances abused Alcohol Substance route: Oral Frequency: Daily Amount used: 10 beers Age of first use: 39 Date of last use: 11/27/19 (10 pm) Admission Physical Exam BHS - Physical General Appearance: Yes: Tremorous, Irritable, Anxious HEENTM: Yes: EOMI, Hearing grossly Normal, Normal ENT Inspection, Normocephalic, Normal Voice, AG, Pharynx Normal, Tm's normal Respiratory: Yes: Chest Non-Tender, Lungs Clear, Normal Breath Sounds, No Respiratory Distress, No Accessory Muscle Use Neck: Yes: No masses,lesions,Nodules, Supple, Trachea in good position Breast: Yes: Within Normal Limits Cardiology: Yes: Regular Rhythm, Regular Rate, S1, S2 Abdominal: Yes: Normal Bowel Sounds, Non Tender, Flat, Soft Genitourinary: Yes: Within Normal Limits Back: Yes: Normal Inspection Musculoskeletal: Yes: full range of Motion, Gait Steady, Pelvis Stable Extremities: Yes: Normal Capillary Refill, Normal Inspection, Normal Range of Motion, Non-Tender Neurological: Yes: personal companion II-XII NML intact, Fully Oriented, Alert, Motor Strength 5/5, Normal Mood/Affect, Normal Response Integumentary: Yes: Normal Color, Dry, Warm Lymphatic: Yes: Within Normal Limits - Diagnostic (1) Syncope Current Visit: Yes Status: Acute (2) Alcohol dependence with withdrawal, uncomplicated Current Visit: Yes Status: Chronic Comment: . (3) Anemia Current Visit: Yes Status: Chronic Qualifiers: Anemia type: unspecified type Qualified Code(s): D64.9 - Anemia, unspecified (4) HTN (hypertension), benign Current Visit: Yes Status: Chronic (5) History of depression Current Visit: Yes Status: Chronic (6) Insomnia Current Visit: Yes Status: Chronic Qualifiers: Insomnia type: alcohol-induced Qualified Code(s): F10.982 - Alcohol use, unspecified with alcohol-induced sleep disorder Comment: . (7) Non compliance w medication regimen Current Visit: Yes Status: Chronic Comment: As an outpatient. (8) History of positive PPD Current Visit: Yes Status: Resolved (9) Bipolar II disorder Current Visit: Yes Status: Ruled-out Cleared for Admission S - Detox or Rehab [facility] Level of Care: Medically Managed Detox Regimen/Protocol: Librium Claeared for Rehab Admission: No Screened but not Admitted - Documentation of Visit Screened but not Admitted: No Breathalyzer - Breathalyzer Breathalyzer: 0.137 Urine Drug Screen - Test Device Lot number: [id number] Expiration date: 01/12/21 - Control Is test valid?: Yes - Results Drug screen NEGATIVE: No Urine drug screen results: BZO-Benzodiazepines Inpatient Rehab Admission - Rehab Decision to Admit Inpatient rehab admission?: No
[2019-11-28] MEDS ORDERED: ACETAMINOPHEN 325 MG TABLET (FP) PO PRN ×2 (11:01)
[2019-11-28] MEDS ORDERED: METHOCARBAMOL 500 MG TABLET PO PRN (11:01)
[2019-11-28] MEDS ORDERED: MAGNESIUM CITRATE 300 ML BOTTLE PO PRN (11:01)
[2019-11-28] MEDS ORDERED: BISMUTH SUBSALICYLATE 262 MG/15 ML BTL PO PRN (11:01)
[2019-11-28] MEDS ORDERED: ONDANSETRON *ODT* 4 MG TABLET SL ONE (11:01)
[2019-11-28] MEDS ORDERED: chlordiazePOXIDE HCL 25 MG CAPSULE PO PRN (11:01)
[2019-11-28] MEDS ORDERED: MENTHOL/PHENOL 1 EACH UD MM PRN (11:01)
[2019-11-28] MEDS ORDERED: IBUPROFEN 400 MG TABLET (FP) PO PRN (11:01)
[2019-11-28] MEDS ORDERED: NICOTINE POLACRILEX 2 MG GUM BUC PRN (11:01)
[2019-11-28 11:32] VITALS: BMI 31.9
[2019-11-28] MEDS: chlordiazePOXIDE HCL 25 MG CAPSULE PO SCH ×3 (12:22→22:26)
[2019-11-28] MEDS: NICOTINE 7 MG/24 HOURS TOPICAL PATCH TD SCH (12:24)
[2019-11-28] MEDS: PRENATAL VITAMINS W/ FOLIC ACID TABLET (FP) PO SCH (12:24)
--- NOTE | 2019-11-28 12:50 | CONSULT ---
[facility] Psychiatric Consult - Data Date of interview: 11/28/19 Admission source: [facility] Identifying data: Mr Roman Bolton is a 49 years old [place]-born male, father of 2 children, unemployed receiving public assistance, domiciled seeking detox treatment for alcohol Substance Abuse History: Reports history of alcohol use. Refer to addiction counselor's summary for further information Medical History: Significant for obesity, hypertension, seizure disorder, history of positive PPD, history of cholecystectomy and treatment for syphilis and cholecystectomy in 2013. Psychiatric History: Patient is known for multiple previous admissions to this facility. He reports that his first psychiatric contact occured approximately 15 years ago when he was admitted to [facility] for alcohol withdrawal because no bed was available in detox. He reports that he was diagnosed with Bipolar Disorder 5 years ago and he was started on psychotropic medications. Reports that due to chronic non adherence,he has been receiving psychiatric sercices sporadically since. He denies that he currently receives OPD care but refills of medications were recently provided by some doctor. He claims to be Prozac, Vistaril, Seroquel and Trazadone. [facility] [address] [place] [address] [phone]. According to pharmacist scripts for Prozac 20 mg & 10 mg and Vistaril 50 mg/bidwere filled on 10/30/19 and 5 days supply of Trazadone 100 mg/hs filled on 10/26/19. No refill of Seroquel reported. Patient denies previous suicide attempts. At present, denies experiencing psychotic, manic symptoms, S/H ideations. However, he is very irritable and reports sleeping poorly. Requests to resume Trazadone and Vistaril Physical/Sexual Abuse/Trauma History: Stressors : chronic unemployment, divorce, financial difficulties, lack of vocational skills and addiction to alcohol. Psychiatric Findings - Problem List ([place] 1, 2,3) (1) Mood disorder Current Visit: Yes Status: Chronic (2) Bipolar disorder Current Visit: Yes Status: Ruled-out (3) MDD (major depressive disorder) Current Visit: No Status: Ruled-out Comment: .. (4) Alcohol-induced mood disorder Current Visit: No Status: Acute (5) Alcohol-induced sleep disorder Current Visit: No Status: Acute Comment: .. (6) Alcohol dependence with withdrawal, uncomplicated Current Visit: Yes Status: Chronic Comment: . (7) Anemia Current Visit: Yes Status: Chronic Qualifiers: Anemia type: unspecified type Qualified Code(s): D64.9 - Anemia, unspecified (8) HTN (hypertension), benign Current Visit: Yes Status: Chronic (9) GERD (gastroesophageal reflux disease) Current Visit: No Status: Chronic Qualifiers: Esophagitis presence: esophagitis presence not specified Qualified Code(s): K21.9 - Gastro-esophageal reflux disease without esophagitis (10) Obese Current Visit: No Status: Chronic Qualifiers: Obesity type: unspecified obesity type Obesity classification: adult class 1 (BMI 30 - 34.9) Body mass index: BMI 33.0-33.9 (11) Seizure Current Visit: No Status: Chronic - Initial Treatment Plan Initial Treatment Plan: 1) Resume Trazadone 100 mg po HS. 2) Start Vistaril 50 mg po Q 4hrs prn for anxiety. 3) Continue inpatient detoxification
[2019-11-28] MEDS ORDERED: hydrOXYzine PAMOATE 25 MG CAPSULE (FP) PO SCH (14:00)
[2019-11-28 17:17] LABS: HEMATOCRIT 32.6 % (35.4-49); HEMOGLOBIN 10.2 GM/dL (11.7-16.9); MCHC 31.3 g/dl (32.0-35.9); MEAN CELL VOLUME 76.7 fl (80-96); MEAN PLT VOLUME 9.4 fl (7.5-11.1); PLATELET COUNT 112 K/MM3 (134-434); RBC 4.25 M/mm3 (4.00-5.60); RDW 20.6 % (11.9-15.9); WHITE BLOOD COUNT 5.6 K/mm3 (4.0-10.0)
[2019-11-28] MEDS: DOCUSATE SODIUM 100 MG CAPSULE (FP) PO SCH ×2 (17:24→22:26)
[2019-11-28 17:34] LABS: ALBUMIN 3.5 g/dl (3.4-5.0); BILIRUBIN,TOTAL 0.6 mg/dL (0.2-1); BLOOD UREA NITROGEN 4.7 mg/dL (7-18); CALCIUM 8.5 mg/dL (8.5-10.1); CREATININE 0.7 mg/dL (0.55-1.3); POTASSIUM 3.1 mmol/L (3.5-5.1); TOT PROT 8.8 g/dl (6.4-8.2)
[2019-11-28] MEDS: THIAMINE HCL 100 MG TABLET (FP) PO SCH (22:26)
[2019-11-28] MEDS: levETIRAcetam 500 MG TABLET (FP) PO SCH (22:26)
[2019-11-28] MEDS: traZODone HCL 100 MG TABLET (FP) PO SCH (22:27)
[2019-11-28] MEDS: MELATONIN 5 MG TABLETS PO SCH (22:27)
[2019-11-29] MEDS: chlordiazePOXIDE HCL 25 MG CAPSULE PO SCH ×4 (05:45→22:39)
[2019-11-29] MEDS: DOCUSATE SODIUM 100 MG CAPSULE (FP) PO SCH ×3 (05:45→22:40)
[2019-11-29] MEDS: PRENATAL VITAMINS W/ FOLIC ACID TABLET (FP) PO SCH (10:53)
[2019-11-29] MEDS: PANTOPRAZOLE 40 MG TABLET PO SCH (10:55)
[2019-11-29] MEDS: hydrOXYzine PAMOATE 50 MG CAPSULE (FP) PO PRN ×2 (10:56→17:54)
[2019-11-29] MEDS: NICOTINE 7 MG/24 HOURS TOPICAL PATCH TD SCH (10:57)
--- NOTE | 2019-11-29 11:35 | PN ---
S CIWA - CIWA Score Nausea/Vomitin-No Nausea/No Vomiting Muscle Tremors: 4-Moderate,w/Arms Extend Anxiety: 4-Mod. Anxious/Guarded Agitation: 3 Paroxysmal Sweats: 1-Minimal Palms Moist Orientation: 0-Oriented Tacttile Disturbances: 0-None Auditory Disturbances: 0-None Visual Disturbances: 0-None Headache: 0-None Present CIWA-Ar Total Score: 12 BHS Progress Note (SOAP) Subjective: Pt is a 49 y/o male admitted to detox for alcohol withdrawal sx. c/o Tremors anxiety Joint pain intermittent sleep Objective: 11/29/19 11:31 Vital Signs - 24 hr 11/28/19 11/28/19 11/28/19 12:16 12:31 17:02 Temperature 97.7 F 97.7 F 97.7 F Pulse Rate 105 H 105 H 75 Respiratory 18 18 16 Rate Blood Pressure 125/69 125/69 114/67 O2 Sat by Pulse 96 96 Oximetry (%) 11/28/19 11/29/19 20:58 05:41 Temperature 97.3 F L 97.5 F L Pulse Rate 73 61 Respiratory 16 16 Rate Blood Pressure 108/62 108/74 O2 Sat by Pulse 97 97 Oximetry (%) Laboratory Tests 11/28/19 11/28/19 11/28/19 11:15 11:15 11:15 WBC 5.6 RBC 4.25 Hgb 10.2 L Hct 32.6 L MCV 76.7 L MCH 24.0 L MCHC 31.3 L RDW 20.6 H Plt Count 112 L D MPV 9.4 Sodium 138 Potassium 3.1 L Chloride 105 Carbon Dioxide 23 Anion Gap 10 BUN 4.7 L Creatinine 0.7 Est GFR (CKD-EPI)AfAm 130.25 Est GFR (CKD-EPI)NonAf 112.38 Random Glucose 174 H Calcium 8.5 Total Bilirubin 0.6 AST 254 H ALT 85 H Alkaline Phosphatase 157 H Total Protein 8.8 H Albumin 3.5 Syphilis Serology Reactive A* RPR Titer 11/28/19 11:15 WBC RBC Hgb Hct MCV MCH MCHC RDW Plt Count MPV Sodium Potassium Chloride Carbon Dioxide Anion Gap BUN Creatinine Est GFR (CKD-EPI)AfAm Est GFR (CKD-EPI)NonAf Random Glucose Calcium Total Bilirubin AST ALT Alkaline Phosphatase Total Protein Albumin Syphilis Serology RPR Titer Reactive 1:2 H D labs noted elevated liver enzymes RPR 1:2 long hx of previously reactive alert o x 3 nad laying in bed and communicating coherently Assessment: 11/29/19 11:35 withdrawal sx Chronic Anemia Chronic Transaminase enzyme elevation RPR previously reactive 11/29/19 11:52 Plan: cont detox increase po fluids maintain safety Repeat CMP,CBC;INR on 11/30/19
[2019-11-29] MEDS: levETIRAcetam 500 MG TABLET (FP) PO SCH ×3 (12:14→22:40)
[2019-11-29] MEDS ORDERED: POTASSIUM CHLORIDE TABS 20 MEQ TABLET.ER (FP) PO ONE (14:45)
[2019-11-29] MEDS: MAGNESIUM HYDROX 2400MG/30ML ORAL SUSPENSION 30 ML CUP PO PRN (15:52)
[2019-11-29] MEDS: MAG HYDROX/AL HYDROX/SIMETH 30 ML UNIT-DOSE CUP PO PRN ×2 (17:54→22:56)
[2019-11-29] MEDS: THIAMINE HCL 100 MG TABLET (FP) PO SCH (22:39)
[2019-11-29] MEDS: traZODone HCL 100 MG TABLET (FP) PO SCH (22:40)
[2019-11-29] MEDS: POTASSIUM CHLORIDE TABS 20 MEQ TABLET.ER (FP) PO SCH (22:40)
[2019-11-29] MEDS: MELATONIN 5 MG TABLETS PO SCH (22:40)
[2019-11-30] MEDS: chlordiazePOXIDE HCL 25 MG CAPSULE PO SCH ×4 (06:18→22:01)
[2019-11-30] MEDS: DOCUSATE SODIUM 100 MG CAPSULE (FP) PO SCH ×3 (06:18→22:02)
[2019-11-30] MEDS: PRENATAL VITAMINS W/ FOLIC ACID TABLET (FP) PO SCH (10:17)
[2019-11-30] MEDS: hydrOXYzine PAMOATE 50 MG CAPSULE (FP) PO PRN (10:18)
[2019-11-30] MEDS: NICOTINE 7 MG/24 HOURS TOPICAL PATCH TD SCH (10:18)
[2019-11-30] MEDS: levETIRAcetam 500 MG TABLET (FP) PO SCH ×2 (10:18→22:01)
[2019-11-30] MEDS: POTASSIUM CHLORIDE TABS 20 MEQ TABLET.ER (FP) PO SCH ×2 (10:18→22:01)
[2019-11-30] MEDS: PANTOPRAZOLE 40 MG TABLET PO SCH (10:18)
[2019-11-30 10:28] LABS: HEMATOCRIT 34.2 % (35.4-49); HEMOGLOBIN 10.5 GM/dL (11.7-16.9); MCH 23.4 pg (25.7-33.7); MCHC 30.8 g/dl (32.0-35.9); MEAN CELL VOLUME 76.1 fl (80-96); MEAN PLT VOLUME 9.2 fl (7.5-11.1); PLATELET COUNT 96 K/MM3 (134-434); RBC 4.49 M/mm3 (4.00-5.60); RDW 21.5 % (11.9-15.9); WHITE BLOOD COUNT 3.6 K/mm3 (4.0-10.0)
[2019-11-30 10:35] LABS: INR 1.03 (0.83-1.09); PROTHROMBIN TIME (PATIENT) 12.1 SEC (9.7-13.0)
[2019-11-30 10:40] LABS: ALBUMIN 3.2 g/dl (3.4-5.0); BILIRUBIN,TOTAL 0.7 mg/dL (0.2-1); BLOOD UREA NITROGEN 6.7 mg/dL (7-18); CALCIUM 8.9 mg/dL (8.5-10.1); CREATININE 0.7 mg/dL (0.55-1.3); POTASSIUM 4.1 mmol/L (3.5-5.1); TOT PROT 8.8 g/dl (6.4-8.2)
--- NOTE | 2019-11-30 10:46 | PN ---
[facility] CIWA - CIWA Score Nausea/Vomitin-No Nausea/No Vomiting Muscle Tremors: 2 Anxiety: 3 Agitation: 2 Paroxysmal Sweats: No Perspiration Orientation: 0-Oriented Tacttile Disturbances: 0-None Auditory Disturbances: 0-None Visual Disturbances: 2-Mild Sensitivity Headache: 0-None Present CIWA-Ar Total Score: 9 BHS Progress Note (SOAP) Subjective: Complaints of sweats. tremors and anxiety. Objective: 11/30/19 10:44 Vital Signs 11/30/19 11/30/19 05:40 08:35 Temperature 98.0 F 98.0 F Pulse Rate 64 70 Respiratory 18 18 Rate Blood Pressure 108/70 113/72 O2 Sat by Pulse 95 98 Oximetry (%) Laboratory Last Values WBC 3.6 K/mm3 (4.0-10.0) L 11/30/19 07:20 RBC 4.49 M/mm3 (4.00-5.60) 11/30/19 07:20 Hgb 10.5 GM/dL (11.7-16.9) L 11/30/19 07:20 Hct 34.2 % (35.4-49) L 11/30/19 07:20 MCV 76.1 fl (80-96) L 11/30/19 07:20 MCH 23.4 pg (25.7-33.7) L 11/30/19 07:20 MCHC 30.8 g/dl (32.0-35.9) L 11/30/19 07:20 RDW 21.5 % (11.9-15.9) H 11/30/19 07:20 Plt Count 96 K/MM3 (134-434) L 11/30/19 07:20 MPV 9.2 fl (7.5-11.1) 11/30/19 07:20 PT with INR 12.10 SEC (9.7-13.0) 11/30/19 07:20 INR 1.03 (0.83-1.09) 11/30/19 07:20 Sodium 139 mmol/L (136-145) 11/30/19 07:20 Potassium 4.1 mmol/L (3.5-5.1) 11/30/19 07:20 Chloride 105 mmol/L (98-107) 11/30/19 07:20 Carbon Dioxide 25 mmol/L (21-32) 11/30/19 07:20 Anion Gap 9 MMOL/L (8-16) 11/30/19 07:20 BUN 6.7 mg/dL (7-18) L 11/30/19 07:20 Creatinine 0.7 mg/dL (0.55-1.3) 11/30/19 07:20 Est GFR (CKD-EPI)AfAm 130.25 11/30/19 07:20 Est GFR (CKD-EPI)NonAf 112.38 11/30/19 07:20 Random Glucose 140 mg/dL (74-106) H 11/30/19 07:20 Calcium 8.9 mg/dL (8.5-10.1) 11/30/19 07:20 Total Bilirubin 0.7 mg/dL (0.2-1) 11/30/19 07:20 AST 176 U/L (15-37) H 11/30/19 07:20 ALT 81 U/L (13-61) H 11/30/19 07:20 Alkaline Phosphatase 142 U/L (45-117) H 11/30/19 07:20 Total Protein 8.8 g/dl (6.4-8.2) H 11/30/19 07:20 Albumin 3.2 g/dl (3.4-5.0) L 11/30/19 07:20 Syphilis Serology Reactive (NONREACTIVE) A* 11/28/19 11:15 RPR Titer Reactive 1:2 (NONREACTIVE) H D 11/28/19 11:15 COVID-19 (KELLY) Not detected (Not Detected) 11/28/19 12:00 Labs noted. Assessment: 11/30/19 10:45 Alert and oriented x 3, in no acute respiratory distress. Full ROM, ambulating in the unit without assistance. Withdrawal symptoms. Plan: Continue detox protocol.
[2019-11-30] MEDS: MAGNESIUM HYDROX 2400MG/30ML ORAL SUSPENSION 30 ML CUP PO PRN (19:43)
[2019-11-30] MEDS: THIAMINE HCL 100 MG TABLET (FP) PO SCH (22:01)
[2019-11-30] MEDS: MELATONIN 5 MG TABLETS PO SCH (22:01)
[2019-11-30] MEDS: traZODone HCL 100 MG TABLET (FP) PO SCH (22:01)
[2019-12-01] MEDS ORDERED: chlordiazePOXIDE HCL 10 MG CAPSULE PO PRN
[2019-12-01] MEDS: chlordiazePOXIDE HCL 10 MG CAPSULE PO SCH ×2 (06:25→10:23)
[2019-12-01] MEDS: DOCUSATE SODIUM 100 MG CAPSULE (FP) PO SCH ×3 (06:25→21:43)
[2019-12-01] MEDS: hydrOXYzine PAMOATE 50 MG CAPSULE (FP) PO PRN ×2 (06:29→10:22)
[2019-12-01] MEDS: levETIRAcetam 500 MG TABLET (FP) PO SCH ×2 (10:22→21:43)
[2019-12-01] MEDS: PANTOPRAZOLE 40 MG TABLET PO SCH (10:22)
[2019-12-01] MEDS: PRENATAL VITAMINS W/ FOLIC ACID TABLET (FP) PO SCH (10:22)
[2019-12-01] MEDS: NICOTINE 7 MG/24 HOURS TOPICAL PATCH TD SCH (10:23)
[2019-12-01] MEDS: POTASSIUM CHLORIDE TABS 20 MEQ TABLET.ER (FP) PO SCH ×2 (10:24→21:43)
[2019-12-01] MEDS: MAGNESIUM HYDROX 2400MG/30ML ORAL SUSPENSION 30 ML CUP PO PRN (12:30)
--- NOTE | 2019-12-01 12:40 | PN ---
S CIWA - CIWA Score Nausea/Vomitin-Mild Nausea/No Vomiting Muscle Tremors: 2 Anxiety: 2 Agitation: 2 Paroxysmal Sweats: No Perspiration Orientation: 0-Oriented Tacttile Disturbances: 0-None (49 years old mal) Auditory Disturbances: 0-None Visual Disturbances: 1-Very Mild Sensitivity Headache: 0-None Present CIWA-Ar Total Score: 8 BHS Progress Note (SOAP) Subjective: 49 years old male admitted on 11/28/19 for alcohol withdrawal sx management treating with librium detox regiment reports dry itchy eyes limbus well demarcated sclera clear no erythema no palpebral fissure edematous artifical tears given Objective: 12/01/19 12:40 Vital Signs - 24 hr 11/30/19 11/30/19 11/30/19 14:00 16:53 20:41 Temperature 96.8 F L 98.1 F 98 F Pulse Rate 71 64 64 Respiratory 18 18 18 Rate Blood Pressure 116/81 119/75 122/78 O2 Sat by Pulse 98 98 98 Oximetry (%) 12/01/19 12/01/19 05:56 08:25 Temperature 97.5 F L 97.7 F Pulse Rate 72 72 Respiratory 18 16 Rate Blood Pressure 115/73 100/56 L O2 Sat by Pulse 97 Oximetry (%) Laboratory Tests 11/28/19 11/28/19 11/28/19 11:15 11:15 11:15 WBC 5.6 RBC 4.25 Hgb 10.2 L Hct 32.6 L MCV 76.7 L MCH 24.0 L MCHC 31.3 L RDW 20.6 H Plt Count 112 L D MPV 9.4 PT with INR INR Sodium 138 Potassium 3.1 L Chloride 105 Carbon Dioxide 23 Anion Gap 10 BUN 4.7 L Creatinine 0.7 Est GFR (CKD-EPI)AfAm 130.25 Est GFR (CKD-EPI)NonAf 112.38 Random Glucose 174 H Calcium 8.5 Total Bilirubin 0.6 AST 254 H ALT 85 H Alkaline Phosphatase 157 H Total Protein 8.8 H Albumin 3.5 Syphilis Serology Reactive A* RPR Titer COVID-19 (KELLY) 11/28/19 11/28/19 11/30/19 11:15 12:00 07:20 WBC 3.6 L RBC 4.49 Hgb 10.5 L Hct 34.2 L MCV 76.1 L MCH 23.4 L MCHC 30.8 L RDW 21.5 H Plt Count 96 L MPV 9.2 PT with INR INR Sodium Potassium Chloride Carbon Dioxide Anion Gap BUN Creatinine Est GFR (CKD-EPI)AfAm Est GFR (CKD-EPI)NonAf Random Glucose Calcium Total Bilirubin AST ALT Alkaline Phosphatase Total Protein Albumin Syphilis Serology RPR Titer Reactive 1:2 H D COVID-19 (KELLY) Not detected 11/30/19 11/30/19 07:20 07:20 WBC RBC Hgb Hct MCV MCH MCHC RDW Plt Count MPV PT with INR 12.10 INR 1.03 Sodium 139 Potassium 4.1 Chloride 105 Carbon Dioxide 25 Anion Gap 9 BUN 6.7 L Creatinine 0.7 Est GFR (CKD-EPI)AfAm 130.25 Est GFR (CKD-EPI)NonAf 112.38 Random Glucose 140 H Calcium 8.9 Total Bilirubin 0.7 AST 176 H ALT 81 H Alkaline Phosphatase 142 H Total Protein 8.8 H Albumin 3.2 L Syphilis Serology RPR Titer COVID-19 (KELLY) glucose elevation bgm before breakfast fasting glucose pending ast elevation discontinue librium begin ativan for alcohol withdrawal management discontinue tylenal 12/01/19 12:42 12/01/19 12:52 Assessment: 12/01/19 12:53 alcohol withdrawal Plan: ativan regiment
[2019-12-01] MEDS ORDERED: LORazepam 0.5 MG TABLET PO PRN (12:51)
[2019-12-01] MEDS: LORazepam 0.5 MG TABLET PO SCH ×2 (14:13→21:43)
[2019-12-01] MEDS: ARTIFICIAL TEARS (POLYVINYL ALCOHOL) OPTH DROPS OU SCH ×3 (15:26→21:46)
[2019-12-01] MEDS: THIAMINE HCL 100 MG TABLET (FP) PO SCH (21:43)
[2019-12-01] MEDS: traZODone HCL 100 MG TABLET (FP) PO SCH (21:43)
[2019-12-01] MEDS: MELATONIN 5 MG TABLETS PO SCH (21:46)
[2019-12-02] MEDS ORDERED: chlordiazePOXIDE HCL 10 MG CAPSULE PO SCH (05:00)
[2019-12-02 06:24] VITALS: TEMP 97.5
[2019-12-02] MEDS: DOCUSATE SODIUM 100 MG CAPSULE (FP) PO SCH (06:24)
[2019-12-02] MEDS: LORazepam 0.5 MG TABLET PO SCH ×2 (06:25→10:30)
[2019-12-02] MEDS ORDERED: ONDANSETRON *ODT* 4 MG TABLET SL PRN (08:55)
[2019-12-02] MEDS: MAG HYDROX/AL HYDROX/SIMETH 30 ML UNIT-DOSE CUP PO PRN (09:00)
--- NOTE | 2019-12-02 10:04 | DS ---
[facility] Detox Discharge Summary Admission Date: 11/28/19 Discharge Date: 12/02/19 - History Present History: Alcohol Dependence Additional Comments: Pt requesting to discharge today instead of tomorrow. Pt met with his counselor, Ms Tyree Ortiz and CD aftercare arrangement and referral given to pt to follow up after discharge. Pt was instructed to follow up with his PCP at [facility] for medical management. Call placed to pt's home pharmacy, [facility] on [address] who confirmed pt has refills of his medications to be picked up and continue meds as directed. Pt reports he also has his meds at home and does not need any courtesy Rx. Medically stable for discharge today. Pertinent Past History: Hx Anemia HTN Seizure disorder GERD Hx Gastric Ulcer Elevated Liver Enzymes Hypokalemia Obesity Insomnia Depression - Physical Exam Results Vital Signs: Vital Signs Temperature 97.5 F L 12/02/19 05:51 Pulse Rate 74 12/02/19 05:51 Respiratory Rate 16 12/02/19 05:51 Blood Pressure 89/51 L 12/02/19 05:51 O2 Sat by Pulse Oximetry (%) 94 L 12/02/19 05:51 VSS Alert o x 3 nad oob ambulating with steady gait cardiac:s1 s1,rrr lungs:ctab Abdomen:soft,+bs,nt,+++fatty extremities:no edema, skin intact. Active ROM all extremities. Pertinent Admission Physical Exam Findings: Laboratory Tests 11/28/19 11/28/19 11/28/19 11:15 11:15 11:15 WBC 5.6 RBC 4.25 Hgb 10.2 L Hct 32.6 L MCV 76.7 L MCH 24.0 L MCHC 31.3 L RDW 20.6 H Plt Count 112 L D MPV 9.4 PT with INR INR Sodium 138 Potassium 3.1 L Chloride 105 Carbon Dioxide 23 Anion Gap 10 BUN 4.7 L Creatinine 0.7 Est GFR (CKD-EPI)AfAm 130.25 Est GFR (CKD-EPI)NonAf 112.38 Random Glucose 174 H Calcium 8.5 Total Bilirubin 0.6 AST 254 H ALT 85 H Alkaline Phosphatase 157 H Total Protein 8.8 H Albumin 3.5 Syphilis Serology Reactive A* RPR Titer COVID-19 (KELLY) 11/28/19 11/28/19 11/30/19 11:15 12:00 07:20 WBC 3.6 L RBC 4.49 Hgb 10.5 L Hct 34.2 L MCV 76.1 L MCH 23.4 L MCHC 30.8 L RDW 21.5 H Plt Count 96 L MPV 9.2 PT with INR INR Sodium Potassium Chloride Carbon Dioxide Anion Gap BUN Creatinine Est GFR (CKD-EPI)AfAm Est GFR (CKD-EPI)NonAf Random Glucose Calcium Total Bilirubin AST ALT Alkaline Phosphatase Total Protein Albumin Syphilis Serology RPR Titer Reactive 1:2 H D COVID-19 (KELLY) Not detected 11/30/19 11/30/19 07:20 07:20 WBC RBC Hgb Hct MCV MCH MCHC RDW Plt Count MPV PT with INR 12.10 INR 1.03 Sodium 139 Potassium 4.1 Chloride 105 Carbon Dioxide 25 Anion Gap 9 BUN 6.7 L Creatinine 0.7 Est GFR (CKD-EPI)AfAm 130.25 Est GFR (CKD-EPI)NonAf 112.38 Random Glucose 140 H Calcium 8.9 Total Bilirubin 0.7 AST 176 H ALT 81 H Alkaline Phosphatase 142 H Total Protein 8.8 H Albumin 3.2 L Syphilis Serology RPR Titer COVID-19 (KELLY) Pt reports he has PCP and goes to [facility] for medical management. Pt instructed to follow up with primary care at [facility]. - Treatment Hospital Course: Detox Protocol Followed, Detoxed Safely, Responded well, Discharged Condition Good, Rehab Referral Accepted Patient has Accepted a Rehab Referral to: [facility] - Medication Discharge Medications: Ambulatory Orders Hydroxyzine HCl 50 mg PO QID PRN 09/06/18 levETIRAcetam [Keppra -] 500 mg PO BID 01/20/19 Fluoxetine HCl [Prozac -] 20 mg PO BID 02/21/19 Docusate Sodium [Docusate 100 mg] 100 mg PO TID 05/05/19 Pantoprazole Sodium 40 mg PO DAILY 05/05/19 Propranolol HCl 10 mg PO TID 05/31/19 Calcium Carbonate/Vitamin D3 [Oyster Shell Calcium-Vit D Tab] 1 each PO DAILY 07/12/19 Clotrimazole 30 ml TP DAILY 07/12/19 Folic Acid - 1 mg PO DAILY 07/12/19 Multivitamins [Tab-A-Vit -] 1 tab PO DAILY 07/12/19 traZODone HCL [Trazodone HCl] 100 mg PO HS 07/12/19 Ferrous Sulfate [Feosol] 325 mg PO DAILY #30 tablet 12/02/19 traZODone HCL [Desyrel -] 100 mg PO HS #30 tablet 12/02/19 - Diagnosis (1) Alcohol dependence with withdrawal, uncomplicated Status: Acute (2) Anemia Status: Chronic Qualifiers: Anemia type: unspecified type Qualified Code(s): D64.9 - Anemia, unspecified (3) Chronic pain of left knee Status: Chronic (4) Elevated liver enzymes Status: Chronic (5) GERD (gastroesophageal reflux disease) Status: Chronic Qualifiers: Esophagitis presence: esophagitis presence not specified Qualified Code(s): K21.9 - Gastro-esophageal reflux disease without esophagitis (6) HTN (hypertension) Status: Chronic Qualifiers: Hypertension type: unspecified Qualified Code(s): I10 - Essential (primary) hypertension (7) Obese Status: Chronic Qualifiers: Obesity type: unspecified obesity type Obesity classification: adult class 1 (BMI 30 - 34.9) Body mass index: BMI 33.0-33.9 (8) Seizure Status: Chronic - AMA Did Patient Leave Against Medical Advice: No
[2019-12-02] MEDS: ARTIFICIAL TEARS (POLYVINYL ALCOHOL) OPTH DROPS OU SCH (10:31)
[2019-12-02] MEDS: PRENATAL VITAMINS W/ FOLIC ACID TABLET (FP) PO SCH (10:31)
[2019-12-02] MEDS: POTASSIUM CHLORIDE TABS 20 MEQ TABLET.ER (FP) PO SCH (10:31)
[2019-12-02] MEDS: NICOTINE 7 MG/24 HOURS TOPICAL PATCH TD SCH (10:31)
[2019-12-02] MEDS: PANTOPRAZOLE 40 MG TABLET PO SCH (10:31)
[2019-12-02] MEDS: levETIRAcetam 500 MG TABLET (FP) PO SCH (10:31)
[2019-12-02 10:51] VITALS: BP 103/62; PULSE 69
--- NOTE | 2019-12-02 10:51 | PN ---
S Progress Note Note: Patient is scheduled for discharge today. Script for 30 days supply of Trazadone 100 mg/hs is electronically transmitted to [facility], [address] [place] [id number]
[2019-12-03] MEDS ORDERED: LORazepam 0.5 MG TABLET PO ONE (05:00)
[2019-12-03] MEDS ORDERED: chlordiazePOXIDE HCL 10 MG CAPSULE PO ONE (05:00)
== END 2019-12-02 11:05 | disposition home or self-care (01) | DRG 775 ==
LOC: YASAS 09:35 → Y5N DETOX 11:25
PROVIDERS: ADMIT Allergy & Immunology; ATTEND Allergy & Immunology
PROC: HZ2ZZZZ Detoxification Services for Substance Abuse Treatment (ICD-10-PCS; principal; 2019-11-28)
DX: F10.230 Alcohol dependence with withdrawal, uncomplicated (principal); F10.24 Alcohol dependence with alcohol-induced mood disorder; F10.282 Alcohol dependence with alcohol-induced sleep disorder; F39 Unspecified mood [affective] disorder; F32.9 Major depressive disorder, single episode, unspecified; E87.6 Hypokalemia; G40.909 Epilepsy, unspecified, not intractable, without status epilepticus; D64.9 Anemia, unspecified; R74.0 Nonspecific elevation of levels of transaminase and lactic acid dehydrogenase [LDH]; K21.9 Gastro-esophageal reflux disease without esophagitis; M25.562 Pain in left knee; G89.29 Other chronic pain; E66.9 Obesity, unspecified; E73.9 Lactose intolerance, unspecified; Z68.32 Body mass index [BMI] 32.0-32.9, adult; Z86.19 Personal history of other infectious and parasitic diseases; Z90.49 Acquired absence of other specified parts of digestive tract; Z87.19 Personal history of other diseases of the digestive system; Z91.013 Allergy to seafood; Z91.018 Allergy to other foods
CPT/HCPCS: 36415; 80053; 85027; 85610; 86593; 86780; Q0162; U0003

== ENCOUNTER 2020-02-13 11:24 | Inpatient (IN) | payer OTHER ==
--- NOTE | 2020-02-13 11:40 | BHS.RME ---
Substance Use & Tx History - Substance Use History Alcohol Substance amount: 8-10 beers 12 oz Frequency of use: Daily Substance route: Oral Date of Last Use: 02/13/20 (started age 39) Nicotine Substance amount: 1/2 pack Frequency of use: Daily Substance route: Smoking Date of Last Use: 02/13/20 (age 20) Physical/Psych/Mental Status - Behavior General Behavior: Increased activity (restlessness, agitation) Eye Contact: Normal - Cooperativeness Cooperativeness: Cooperative - Thinking Thought Processes: Tight, Logical, Goal Directed - Physical Health Problems Is patient presently having any pain?: No Does patient presently have any injuries (include location): No CIWA Nausea/Vomitin Muscle Tremors: 4-Moderate,w/Arms Extend Anxiety: 3 Agitation: 3 Paroxysmal Sweats: 3 Orientation: 1-Uncertain about Date Tacttile Disturbances: 0-None Auditory Disturbances: 0-None Visual Disturbances: 0-None Headache: 0-None Present CIWA-Ar Total Score: 16
--- NOTE | 2020-02-13 12:14 | HP ---
CIWA Score Nausea/Vomitin Muscle Tremors: 4-Moderate,w/Arms Extend Anxiety: 3 Agitation: 3 Paroxysmal Sweats: 3 Orientation: 1-Uncertain about Date Tacttile Disturbances: 0-None Auditory Disturbances: 0-None Visual Disturbances: 0-None Headache: 0-None Present CIWA-Ar Total Score: 16 - Admission Criteria OASAS Guidelines: Admission for Medically Managed Detox: Requires at least one of the followin. CIWA greater than 12 2. Seizures within the past 24 hours 3. Delirium tremens within the past 24 hours 4. Hallucinations within the past 24 hours 5. Acute intervention needed for co occurring medical disorder 6. Acute intervention needed for co occurring psychiatric disorder 7. Severe withdrawal that cannot be handled at a lower level of care (continued vomiting, continued diarrhea, abnormal vital signs) requiring intravenous medication and/or fluids 8. 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 " Allergies/Adverse Reactions: Allergies Allergy/AdvReac Type Severity Reaction Status Date / Time Fish Containing Products Allergy Severe Rash Verified 01/06/20 12:53 No Known Drug Allergies Allergy Verified 01/06/20 12:58 lactose AdvReac Lactose Verified 01/06/20 12:53 Intolerance tomato sauce AdvReac Mild Swelling Uncoded 01/06/20 12:53 History of Present Illness: 50 year old male with history of alcohol dependence with withdrawal. He was seen at [facility] yesterday and given one dose of librium. He was just at [facility] from 01/05-01/10 and completed detox but did not follow up with relapse. He relapsed 1 week later after discharge from detox. - Substance Use History Alcohol Substance amount: 8-10 beers 12 oz Frequency of use: Daily Substance route: Oral Date of Last Use: 02/13/20 (started age 39) Patient admits to blackouts multiple, last one 1 month ago, and seizures 5 months ago from withdrawing, and endorses the need for an eye seo associate daily Nicotine Substance amount: 1/2 pack former smoker stopped 2 years ago Frequency of use: Daily Substance route: Smoking Date of Last Use: 02/13/20 (age 20) PMH: Seizure Disorder, Syncope, GERD, HTN, Anemia, + PPD Psurg: Cholecystectomy Psych: Depression, Insomnia ( prozac, Propanolol, Trazodone, etc.) Lives with family in [place]. Has no legal problems. JUAN FRANCISCO=0.089 CIWA=16 Urine Tox: + BZO Patient meets criteria for detox as he has multiple medical and psychiatric comorbidities Exam Limitations: No Limitations - Ebola screening Have you traveled outside of the country in the last 21 days: No Have you had contact with anyone from an Ebola affected area: No Have you been sick,other than usual withdrawal symptoms: No Do you have a fever: No - Review of Systems Constitutional: Diaphoresis EENT: reports: No Symptoms Reported Respiratory: reports: No Symptoms reported Cardiac: reports: No Symptoms Reported GI: reports: No Symptoms Reported : reports: No Symptoms Reported Musculoskeletal: reports: No Symptoms Reported Integumentary: reports: No Symptoms Reported Neuro: reports: Tremors Endocrine: reports: No Symptoms Reported Hematology: reports: No Symptoms Reported Psychiatric: reports: Judgement Intact, Mood/Affect Appropiate, Orientated x3, Agitated, Anxious Other Systems: Reviewed and Negative Patient History - Patient Medical History Hx Anemia: Yes Hx Asthma: No Hx Chronic Obstructive Pulmonary Disease (COPD): No Hx Cancer: No Hx Cardiac Disorders: No Hx Congestive Heart Failure: No Hx Hypertension: Yes (Not on medication) Hx Hypercholesterolemia: No Hx Pacemaker: No HX Cerebrovascular Accident: No Hx Seizures: Yes (last seizure 2 weeks ago 12/2019) Hx Dementia: No Hx Diabetes: No Hx Gastrointestinal Disorders: Yes (hx of GERD) Hx Liver Disease: No Hx Genitourinary Disorders: No Hx Sexually Transmitted Disorders: No Hx Renal Disease (ESRD): No Hx Thyroid Disease: No Hx Human Immunodeficiency Virus (HIV): No (10/31 negative) Hx Hepatitis C: No Hx Depression: Yes Hx Suicide Attempt: No Hx Bipolar Disorder: No Hx Schizophrenia: No - Patient Surgical History Past Surgical History: Yes Hx Neurologic Surgery: No Hx Cataract Extraction: No Hx Cardiac Surgery: No Hx Lung Surgery: No Hx Breast Surgery: No Hx Breast Biopsy: No Hx Abdominal Surgery: No Hx Appendectomy: No Hx Cholecystectomy: Yes (laproscopic 5 yrs ago) Hx Genitourinary Surgery: No Hx Section: No Hx Orthopedic Surgery: Yes (fx, left leg at age 21) Anesthesia Reaction: No - PPD History Previous Implant?: No Documented Results: Positive w/proof Results: CXR 05/06/19 ne PPD to be Administered?: No - Smoking Cessation Smoking history: Former smoker Have you smoked in the past 12 months: No Aproximately how many cigarettes per day: 0 If you are a former smoker, when did you quit?: at age 32 Cigars Per Day: 0 Hx Chewing Tobacco Use: No Initiated information on smoking cessation: No - Substances abused Alcohol Substance route: Oral Frequency: Daily (8) Amount used: 8-10 beers 12 oz Age of first use: 39 Date of last use: 02/13/20 Admission Physical Exam [facility] - Physical General Appearance: Yes: Obese, Tremorous, Irritable, Sweating, Anxious HEENTM: Yes: EOMI, Hearing grossly Normal, Normal ENT Inspection, Normocephalic, Normal Voice, AG, Pharynx Normal, Tm's normal Respiratory: Yes: Chest Non-Tender, Lungs Clear, Normal Breath Sounds, No Respiratory Distress, No Accessory Muscle Use Neck: Yes: No masses,lesions,Nodules, Supple, Trachea in good position Breast: Yes: Within Normal Limits Cardiology: Yes: Regular Rhythm, S1, S2, Tachycardia Abdominal: Yes: Normal Bowel Sounds, Non Tender, Soft, Protuberent Genitourinary: Yes: Within Normal Limits Back: Yes: Normal Inspection Musculoskeletal: Yes: full range of Motion, Gait Steady, Pelvis Stable, Other (Right knee with a healing abrasion scabbed) Extremities: Yes: Normal Capillary Refill, Normal Inspection, Normal Range of Motion, Non-Tender 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 (3) Osteoarthritis of left knee Current Visit: Yes Status: Acute (4) Anemia Current Visit: Yes Status: Chronic Qualifiers: Anemia type: unspecified type Qualified Code(s): D64.9 - Anemia, unspecified (5) Depression (emotion) Current Visit: Yes Status: Chronic Qualifiers: (6) GERD (gastroesophageal reflux disease) Current Visit: Yes Status: Chronic Qualifiers: Esophagitis presence: esophagitis presence not specified Qualified Code(s): K21.9 - Gastro-esophageal reflux disease without esophagitis (7) HTN (hypertension), benign Current Visit: Yes Status: Chronic (8) History of depression Current Visit: Yes Status: Chronic (9) Insomnia Current Visit: Yes Status: Chronic Qualifiers: Insomnia type: alcohol-induced Qualified Code(s): F10.982 - Alcohol use, unspecified with alcohol-induced sleep disorder Comment: . (10) Obese Current Visit: Yes Status: Chronic Qualifiers: Obesity type: unspecified obesity type Obesity classification: adult class 1 (BMI 30 - 34.9) Body mass index: BMI 33.0-33.9 (11) Seizure Current Visit: Yes Status: Chronic (12) Syncope Current Visit: Yes Status: Chronic Cleared for Admission S - Detox or Rehab S Level of Care: Medically Managed Detox Regimen/Protocol: Librium Claeared for Rehab Admission: No Screened but not Admitted - Documentation of Visit Screened but not Admitted: No Breathalyzer - Breathalyzer Breathalyzer: 0.089 Vital Signs - Vital Signs Vital signs refused: No Temperature: 98.1 F Pulse Rate: 87 Respiratory Rate: 12 Blood Pressure: 116/79 BP Location: Right Arm Blood Pressure position: Sitting - Height Height: 5 ft 7 in - Weight Weight: 213 lb Weight measurement method: Standing scale - BMI Body Mass Index (BMI): 33.3 - Bowel Function Bowel Movement: No Urine Drug Screen - Test Device Lot number: [id number] Expiration date: 12/16/21 - Control Is test valid?: Yes - Results Drug screen NEGATIVE: No Urine drug screen results: BZO-Benzodiazepines Inpatient Rehab Admission - Rehab Decision to Admit Inpatient rehab admission?: No
[2020-02-13 12:24] VITALS: BMI 33.3
[2020-02-13] MEDS ORDERED: BISMUTH SUBSALICYLATE 262 MG/15 ML BTL PO PRN (12:24)
[2020-02-13] MEDS ORDERED: MENTHOL/PHENOL 1 EACH UD MM PRN (12:24)
[2020-02-13] MEDS ORDERED: chlordiazePOXIDE HCL 25 MG CAPSULE PO PRN (12:24)
[2020-02-13] MEDS ORDERED: ACETAMINOPHEN 325 MG TABLET (FP) PO PRN ×2 (12:24)
[2020-02-13] MEDS ORDERED: METHOCARBAMOL 500 MG TABLET PO PRN (12:24)
[2020-02-13] MEDS ORDERED: NICOTINE POLACRILEX 2 MG GUM BUC PRN (12:24)
[2020-02-13] MEDS ORDERED: MAGNESIUM CITRATE 300 ML BOTTLE PO PRN (12:24)
[2020-02-13] MEDS: NICOTINE 7 MG/24 HOURS TOPICAL PATCH TD SCH (13:26)
[2020-02-13] MEDS: PRENATAL VITAMINS W/ FOLIC ACID TABLET (FP) PO SCH (13:26)
[2020-02-13] MEDS: chlordiazePOXIDE HCL 25 MG CAPSULE PO SCH ×3 (13:30→22:40)
[2020-02-13] MEDS ORDERED: hydrOXYzine PAMOATE 25 MG CAPSULE (FP) PO SCH (14:00)
[2020-02-13 15:10] LABS: HEMATOCRIT 29.4 % (35.4-49); MCH 23.8 pg (25.7-33.7); MCHC 30.7 g/dl (32.0-35.9); MEAN CELL VOLUME 77.4 fl (80-96); MEAN PLT VOLUME 8.4 fl (7.5-11.1); PLATELET COUNT 143 K/MM3 (134-434); RDW 19.8 % (11.9-15.9); WHITE BLOOD COUNT 3.4 K/mm3 (4.0-10.0)
[2020-02-13 15:21] LABS: ALBUMIN 3.1 g/dl (3.4-5.0); BILIRUBIN,TOTAL 0.5 mg/dL (0.2-1); BLOOD UREA NITROGEN 5.3 mg/dL (7-18); CALCIUM 7.9 mg/dL (8.5-10.1); CREATININE 0.6 mg/dL (0.55-1.3); POTASSIUM 3.6 mmol/L (3.5-5.1); TOT PROT 8.2 g/dl (6.4-8.2)
--- OUTSIDE RECORDS SUMMARY | 2020-02-13 17:40 | XMS ---
:1970 Author Organization [facility] Care Team Providers Name Role Phone Other, Doctor Unavailable Unavailable John, Tigre Unavailable Unavailable Re-disclosure Warning The records that you are about to access may contain information from federally- assisted alcohol or drug abuse programs. If such information is present, then the following federally mandated warning applies: This information has been disclosed to you from records protected by federal confidentiality rules (42 CFR part 2). The federal rules prohibit you from making any further disclosure of this information unless further disclosure is expressly permitted by the written consent of the person to whom it pertains or as otherwise permitted by 42 CFR part 2. A general authorization for the release of medical or other information is NOT sufficient for this purpose. The Federal rules restrict any use of the information to criminally investigate or prosecute any alcohol or drug abuse patient.The records that you are about to access may contain highly sensitive health information, the redisclosure of which is protected by Article 27-F of the [facility] Public [facility] law. If you continue you may haveaccess to information: Regarding HIV / AIDS; Provided by facilities licensed or operated by the [facility] Office of Mental Health; or Provided by the [facility] Office for People With Developmental Disabilities. If such information is present, then the following [facility] mandated warning applies: This information has been disclosed to you from confidential records which are protected by state law. State law prohibits you from making any further disclosure of this information without the specific written consent of the person to whom it pertains, or as otherwise permitted by law. Any unauthorized further disclosure in violation of state law may result in a fine or skilled nursing sentence or both. A general authorization for the release of medical or other information is NOT sufficient authorization for further disclosure. Encounters Encounter Providers Location Date Indications Data Source(s ) Emergency Attender: Tigre [id number] 04/28/2019 [facility] [place] 04[facility]00 PM [facility] Doctor Other EST - 04/28/2019 07:55:00 PM EST POSSIBLE WITHDRAW Patient discharged. Insurance Providers Payer name Policy type Policy ID Covered Covered republican's Policy P ligia / Coverage republican ID relationship to Vitale Inf ormation type vitale [employer] [id number] SP [id number] [place] Medicaid Medicaid [id number] 1 [id number] [employer] Medicaid [id number] Medicaid [place] [id number] SP [id number] [place] [employer] [id number] SP [id number] [place] Problems, Conditions, and Diagnoses Code Display Name Description Problem Type Effective Dates Data Source(s) F41.9 Anxious mood Anxious mood 49905-9 04/28/2019 [facility] 12:00:00 AM EST Health Sy stem R25.1 Tremor Tremor 92973-7 04/28/2019 [facility] 12:[facility]:00 AM EST Health Sy stem R25.1 Tremor, Tremor Diagnosis 04/28/2019 [facility] 04:46:00 PM EST [facility] POSSIBLE WITHDRAW POSSIBLE WITHDRAW Diagnosis 04/28/2019 [facility] 04:46:00 PM EST [facility] F41.9 Anxiety disorder, Anxious mood Diagnosis 04/28/2019 [facility] unspecified 04:46:00 PM EST [facility] Z90.49 Acquired absence Acquired absence Diagnosis 04/28/2019 [facility] of other of other parts of 04:46:00 PM EST [facility] specified parts digestive tract of digestive tract FLU LIKE FLU LIKE Diagnosis 04/28/2019 [facility] SYMPTOMS; SYMPTOMS; 04:46:00 PM EST [facility] POSSIBLE WITHDRAW POSSIBLE WITHDRAW Surgeries/Procedures Procedure Description Date Indications Data Source(s) US Abdomen Limited US 08/17/2014 [facility] Abdomen Limited 05:42:00 PM EDT - System 08/17/2014 05:42:00 PM EDT US Abdomen Complete US 07/29/2014 [facility] Abdomen Complete 10:28:00 AM EDT - System 07/29/2014 10:28:00 AM EDT Results ID Date Data Source [id number] 01/31/2020 05:04:00 AM EDT [facility] Name Value Range Interpretation Description Data Sup porting Code Source(s) Document(s ) SARS [facility] Coronavirus 2 RNA Presence Respiratory Specimen KELLY Probe Detection This lab was ordered by [place] and rep orted by [facility]. ID Date Data Source [id number] 01/27/2020 07:16:00 AM EDT [facility] Name Value Range Interpretation Code Description Data Angelique rce(s) Supporting Document(s ) Overall [facility] Result: This lab was ordered by [facility] and reported by [facility]. ID Date Data Source [id number] 01/06/2020 01:50:00 PM EDT [facility] Name Value Range Interpretation Description Data Sup porting Code Source(s) Document(s ) SARS [facility] coronavirus 2 RNA This lab was ordered by [facility] and reported by [facility]. ID Date Data Source [id number] 12/30/2019 09:07:00 AM EDT [facility] Name Value Range Interpretation Code Description Data Angelique rce(s) Supporting Document(s ) SARS-CoV-2 [facility] RNA Resp Ql KELLY+probe This lab was ordered by [facility] and sandie siegel by [facility]. ID Date Data Source [id number] 11/28/2019 12:00:00 PM EDT [facility] Name Value Range Interpretation Description Data Sup porting Code Source(s) Document(s ) SARS [facility] coronavirus 2 RNA This lab was ordered by [facility] and reported by [facility]. ID Date Data Source [id number] 11/24/2019 01:02:00 PM EDT [facility] Name Value Range Interpretation Code Description Data Angelique rce(s) Supporting Document(s ) SARS-COV-2 [facility] PCR This lab was ordered by JAME[facility] CO[facility] and reported by [facility]. ID Date Data Source [id number] 09/11/2019 12:00:00 AM EDT [facility] Name Value Range Interpretation Code Description Data Angelique rce(s) Supporting Document(s ) 2019-nCoV [facility] RNA XXX KELLY+probe- Imp This lab was ordered by [facility] and reported by [facility]. ID Date Data Source [id number] 04/28/2019 08:57:03 PM EST [facility] Name Value Range Interpretation Description Data Sup porting Code Source(s) Document(s ) pH.. 7.0 Normal (applies pH.. [facility] {pH_units} to non-numeric Health results) System Specific gravity 1.015 Normal (applies Urine Specific [facility] of Urine to non-numeric [facility] results) System Appearance of CLEAR Normal (applies Urine [facility] Urine to non-numeric Appearance Health results) System Glucose,UA NEGATIVE Normal (applies Glucose, UA [facility] to non-numeric Health results) System Color YELLOW Normal (applies Color [facility] to non-numeric Health results) System BilirubinUrine NEGATIVE Normal (applies Bilirubin [facility] to non-numeric Urine Health results) System Protein NEGATIVE Normal (applies Protein [facility] [Mass/volume] in to non-numeric Health Serum or Plasma results) System Nitrate+Nitrite NEGATIVE Normal (applies Nitrite [facility] [Mass/volume] in to non-numeric Health Unspecified results) System specimen Ketones NEGATIVE Normal (applies Ketones UA [facility] [Mass/volume] in to non-numeric Health Urine results) System Urobilinogen 0.2 mg/dL Normal (applies Urobilinogen [facility] [Mass/volume] in to non-numeric UA Health Urine results) System Leukocyte NEGATIVE Normal (applies Leukocyte [facility] esterase to non-numeric Esterase [facility] [Units/volume] results) Concentration System in Urine UrineBlood NEGATIVE Normal (applies Urine Blood [facility] to non-numeric Health results) System ID Date Data Source [id number] 04/28/2019 08:57:03 PM EST [facility] Name Value Range Interpretation Description Data Sup porting Code Source(s) Document(s ) Leukocytes 5.6 10 Normal (applies WBC Count [facility] [#/volume] in to non-numeric Health Unspecified results) System specimen by Automated count Erythrocyte mean 85.0 fl Normal (applies MCV [facility] corpuscular to non-numeric Health volume [Entitic results) System volume] by Automated count Hematocrit 44.3 % Normal (applies Hematocrit [facility] [Volume to non-numeric Health Fraction] of results) System Blood Erythrocyte mean 29.8 pg Normal (applies MCH [facility] corpuscular to non-numeric Health hemoglobin results) System [Entitic mass] by Automated count Erythrocytes 5.21 10 Normal (applies RBC Count [facility] [#/volume] in to non-numeric Health Blood by results) System Automated count Hemoglobin 15.5 Normal (applies Hemoglobin [facility] [Mass/volume] in {gm/dL} to non-numeric Health Blood results) System Erythrocyte 14.1 % Normal (applies RDW-CV [facility] distribution to non-numeric Health width [Entitic results) System volume] by Automated count Platelets 152 10 Normal (applies Platelet [facility] [#/volume] in to non-numeric Count Health Plasma by results) System Automated count Platelet mean 11.5 fl Above high normal MPV [facility] volume [Entitic Health volume] in Blood System by Automated count Erythrocyte mean 35.0 Normal (applies MCHC [facility] corpuscular {gm/dL} to non-numeric Health hemoglobin results) System concentration [Mass/volume] by Automated count Lymphocyte 1.6 10 Normal (applies Lymphocyte # [facility] percent to non-numeric Health differential results) System count (procedure) Basophils 0.02 10 Normal (applies Basophil # [facility] [#/volume] in to non-numeric Health Blood by results) System Automated count Monocytes 0.4 10 Normal (applies Monocyte # [facility] [#/volume] in to non-numeric Health Blood by Manual results) System count Eosinophils 0.05 10 Normal (applies Eosinophil # [facility] [#/volume] in to non-numeric Health Blood results) System Neutrophils 3.5 10 Normal (applies Neutrophil # [facility] [#/volume] in to non-numeric Health Body fluid results) System Basophils/100 0.4 % Normal (applies Basophil % [facility] leukocytes in to non-numeric Health Unspecified results) System specimen by Manual count Neutrophils/100 62.3 % Normal (applies Neutrophil % Priyank jinny leukocytes in to non-numeric Health Blood by results) System Automated count Lymphocytes 29.4 % Normal (applies Lymphocyte % [facility] [#/volume] in to non-numeric Health Blood by results) System Automated count Monocytes/100 7.0 % Normal (applies Monocyte % [facility] leukocytes in to non-numeric Health Blood results) System Eosinophils/100 0.9 % Below low normal Eosinophil % [facility] leukocytes in Health Unspecified System specimen ID Date Data Source [id number] 04/28/2019 08:57:03 PM EST [facility] Name Value Range Interpretation Description Data Sup porting Code Source(s) Document(s ) Potassium 4.5 Normal (applies Potassium, [facility] [Mass/volume] in mmol/L to non-numeric Serum Health Serum or Plasma results) System Sodium 137 Normal (applies Sodium, Serum [facility] [Moles/volume] in mmol/L to non-numeric Health Serum or Plasma results) System TotalProtein 8.6 Above high Total Protein [facility] mg/dl normal Health System Carbon dioxide, 22.0 Normal (applies CO2, Serum [facility] total mmol/L to non-numeric Health [Moles/volume] in results) System Serum or Plasma Glucose 89 Normal (applies Glucose, [facility] [Mass/volume] in mg/dL to non-numeric Serum Health Serum or Plasma results) System Chloride 105 Normal (applies Chloride, [facility] [Moles/volume] in mmol/L to non-numeric Serum Health Serum or Plasma results) System Alkaline 85 Normal (applies Alkaline [facility] phosphatase {IU/L} to non-numeric Phosphatase, Health isoenzymes results) Serum System [Enzymatic activity/volume] in Serum or Plasma by Heat stability Creatinine 0.70 Below low normal Creatinine, [facility] [Mass/volume] in mg/dl Serum Health Serum or Plasma System Urea nitrogen 13 Normal (applies Blood Urea [facility] [Mass/volume] in mg/dl to non-numeric Nitrogen, Health Serum or Plasma results) Serum System Albumin 4.5 Normal (applies Albumin, [facility] [Mass/volume] in {gm/dl} to non-numeric Serum Health Serum or Plasma results) System Aspartate 43 Above high Aspartate [facility] aminotransferase {IU/L} normal Transaminase, Health [Enzymatic Serum System activity/volume] in Serum or Plasma by With P-5'-P DirectBilirubin 0.2 Normal (applies Direct [facility] mg/dl to non-numeric Bilirubin Health results) System Bilirubin direct 0.9 Normal (applies Bilirubin, [facility] and total panel mg/dl to non-numeric Serum Total Health [Mass/volume] - results) System Serum or Plasma A/GRatio 1.10 Normal (applies A/G Ratio [facility] to non-numeric Health results) System Calcium 9.3 Normal (applies Calcium, [facility] [Mass/volume] in mg/dl to non-numeric Total Serum Health Serum or Plasma results) System Alanine 32 Normal (applies Alanine [facility] aminotransferase {IU/L} to non-numeric Aminotransfer Heal th [Enzymatic results) ase, Serum System activity/volume] in Serum or Plasma I.Phosphorus 3.9 Normal (applies I. Phosphorus [facility] mg/dl to non-numeric Health results) System Glomerular > 90 Normal (applies GFR [facility] filtration to non-numeric Health rate/1.73 sq results) System M.predicted [Volume Rate/Area] in Serum or Plasma by Creatinine-based formula (CKD-EPI) eGFR will provide clinicians with a more accurate indicator of renal function then the serum creatinine. The eGFR is automa tically calculated from an empiric formula (endorsed by the National Kid[employer] ion) which incorporates age, sex, and race.Clinicians may notice surprisingly low GFR's with serum creatinine valueswithin normal range- particularly in elderly wo men (with low muscle mass).In the hospital setting, the eGFR should add an element of safety in drug dosing, in assessing the risk of IV contrast administration, and in assessing vascular risk.The NKF staging system is as follows:Normal: eGFR >90 with no kidney markersStage 1: eGFR >90 with kidney markers*Stage 2: eGFR 60- 89Stage 3: eGFR 30-59Stage 4: eGFR 15-29Stage 5: eGFR <15 (usually requir ing dialysis)*Markers include: Proteinuria, Hematuria, abnormal imaging-studies, or other blood or urine test abnormalities Urate [Mass/volume] 7.1 mg/dl Normal (applies to Uric Acid, [facility] in Serum or Plasma non-numeric Serum System results) Anion gap in Serum or 10.00 mmol/L Normal (applies to Anio n Gap [facility] Plasma non-numeric System results) ID Date Data Source [id number] 04/28/2019 08:57:03 PM EST [facility] Name Value Range Interpretation Description Data Source(s ) Supporting Code Document(s ) Lipase 49 U/L Normal (applies to Lipase, Serum [facility] [Enzymatic non-numeric Health System activity/vo results) lume] in Serum or Plasma Result Reporting|Telephone|.....| 015 at 9:16 AMCalled to:Tech Name:.....Readback by: 07/29/2014 / 9:15 AM ID Date Data Source [id number] 04/28/2019 08:57:03 PM EST [facility] Name Value Range Interpretation Description Data Sup porting Code Source(s) Document(s ) Amylase 67 {IU/L} Normal (applies to Amylase, Serum [facility] [Enzymatic non-numeric Health System activity/vo results) lume] in Serum or Plasma Result Reporting|Telephone|.....| 015 at 9:16 AMCalled to:Tech Name:.....Readback by: 07/29/2014 / 9:15 AM ID Date Data Source [id number] 04/28/2019 08:57:03 PM EST [facility] Name Value Range Interpretation Description Data Sup porting Code Source(s) Document(s ) Leukocytes 6.8 10 Normal (applies WBC Count [facility] [#/volume] in to non-numeric Health Unspecified results) System specimen by Automated count Erythrocytes 4.90 10 Normal (applies RBC Count [facility] [#/volume] in to non-numeric Health Blood by results) System Automated count Hemoglobin 14.6 Normal (applies Hemoglobin [facility] [Mass/volume] in {gm/dL} to non-numeric Health Blood results) System Hematocrit 41.7 % Normal (applies Hematocrit [facility] [Volume to non-numeric Health Fraction] of results) System Blood Erythrocyte mean 29.8 pg Normal (applies MCH [facility] corpuscular to non-numeric Health hemoglobin results) System [Entitic mass] by Automated count Erythrocyte mean 35.0 Normal (applies MCHC [facility] corpuscular {gm/dL} to non-numeric Health hemoglobin results) System concentration [Mass/volume] by Automated count Erythrocyte mean 85.1 fl Normal (applies MCV [facility] corpuscular to non-numeric Health volume [Entitic results) System volume] by Automated count Platelets 144 10 Normal (applies Platelet [facility] [#/volume] in to non-numeric Count Health Plasma by results) System Automated count Monocytes 0.5 10 Normal (applies Monocyte # [facility] [#/volume] in to non-numeric Health Blood by Manual results) System count Erythrocyte 13.8 % Normal (applies RDW-CV [facility] distribution to non-numeric Health width [Entitic results) System volume] by Automated count Platelet mean 11.0 fl Above high normal MPV [facility] volume [Entitic Health volume] in Blood System by Automated count Basophils 0.01 10 Normal (applies Basophil # [facility] [#/volume] in to non-numeric Health Blood by results) System Automated count Neutrophils 5.2 10 Normal (applies Neutrophil # [facility] [#/volume] in to non-numeric Health Body fluid results) System Eosinophils 0.06 10 Normal (applies Eosinophil # [facility] [#/volume] in to non-numeric Health Blood results) System Neutrophils/100 73.4 % Normal (applies Neutrophil % Priyank jinny leukocytes in to non-numeric Health Blood by results) System Automated count Lymphocyte 1.3 10 Normal (applies Lymphocyte # [facility] percent to non-numeric Health differential results) System count (procedure) Monocytes/100 7.1 % Normal (applies Monocyte % [facility] leukocytes in to non-numeric Health Blood results) System Eosinophils/100 0.8 % Below low normal Eosinophil % [facility] leukocytes in Health Unspecified System specimen Basophils/100 0.1 % Normal (applies Basophil % [facility] leukocytes in to non-numeric Health Unspecified results) System specimen by Manual count Lymphocytes 18.6 % Below low normal Lymphocyte % [facility] [#/volume] in Health Blood by System Automated count ID Date Data Source [id number] 04/28/2019 08:57:03 PM EST [facility] Name Value Range Interpretation Description Data Sup porting Code Source(s) Document(s ) Sodium 139 Normal (applies Sodium, Serum [facility] [Moles/volume] in mmol/L to non-numeric Health Serum or Plasma results) System Chloride 105 Normal (applies Chloride, [facility] [Moles/volume] in mmol/L to non-numeric Serum Health Serum or Plasma results) System Potassium 4.0 Normal (applies Potassium, [facility] [Mass/volume] in mmol/L to non-numeric Serum Health Serum or Plasma results) System Carbon dioxide, 25.0 Normal (applies CO2, Serum [facility] total mmol/L to non-numeric Health [Moles/volume] in results) System Serum or Plasma TotalProtein 8.1 Normal (applies Total Protein [facility] mg/dl to non-numeric Health results) System Glucose 97 Normal (applies Glucose, [facility] [Mass/volume] in mg/dL to non-numeric Serum Health Serum or Plasma results) System Alkaline 118 Normal (applies Alkaline [facility] phosphatase {IU/L} to non-numeric Phosphatase, Health isoenzymes results) Serum System [Enzymatic activity/volume] in Serum or Plasma by Heat stability Creatinine 0.82 Normal (applies Creatinine, [facility] [Mass/volume] in mg/dl to non-numeric Serum Health Serum or Plasma results) System Urea nitrogen 14 Normal (applies Blood Urea [facility] [Mass/volume] in mg/dl to non-numeric Nitrogen, Health Serum or Plasma results) Serum System DirectBilirubin 0.6 Above high Direct [facility] mg/dl normal Bilirubin Health System VERIFIED Bilirubin direct and 1.2 mg/dl Normal (applies Bilirubin, Se rum [facility] total panel to non-numeric Total Health System [Mass/volume] - Serum results) or Plasma Aspartate 92 {IU/L} Above high normal Aspartate [facility] aminotransferase Transaminase, Health Sy stem [Enzymatic Serum activity/volume] in Serum or Plasma by With P-5'-P Alanine 61 {IU/L} Above high normal Alanine [facility] aminotransferase Aminotransferase Health System [Enzymatic , Serum activity/volume] in Serum or Plasma Albumin [Mass/volume] 4.4 {gm/dl} Normal (applies Albumin, S jerad [facility] in Serum or Plasma to non-numeric Health System results) I.Phosphorus 3.2 mg/dl Normal (applies I. Phosphorus [facility] to non-numeric Health System results) A/GRatio 1.19 Normal (applies A/G Ratio [facility] to non-numeric Health System results) Urate [Mass/volume] in 6.2 mg/dl Normal (applies Uric Acid, Serum [facility] Serum or Plasma to non-numeric Health Sy stem results) Calcium [Mass/volume] 9.5 mg/dl Normal (applies Calcium, Tot al [facility] in Serum or Plasma to non-numeric Serum Health System results) Glomerular filtration > 90 Normal (applies GFR [facility] rate/1.73 sq to non-numeric Health Syste m M.predicted [Volume results) Rate/Area] in Serum or Plasma by Creatinine-based formula (CKD-EPI) eGFR will provide clinicians with a more accurate indicator of renal function then the serum creatinine. The eGFR is automa tically calculated from an empiric formula (endorsed by the National Kidney [employer] ion) which incorporates age, sex, and race.Clinicians may notice surprisingly low GFR's with serum creatinine valueswithin normal range- particularly in elderly wo men (with low muscle mass).In the hospital setting, the eGFR should add an element of safety in drug dosing, in assessing the risk of IV contrast administration, and in assessing vascular risk.The NKF staging system is as follows:Normal: eGFR >90 with no kidney markersStage 1: eGFR >90 with kidney markers*Stage 2: eGFR 60- 89Stage 3: eGFR 30-59Stage 4: eGFR 15-29Stage 5: eGFR <15 (usually requir ing dialysis)*Markers include: Proteinuria, Hematuria, abnormal imaging-studies, or other blood or urine test abnormalities Anion gap in 9.00 mmol/L Normal (applies to Anion Gap [facility] Serum or Plasma non-numeric results) Sys tem ID Date Data Source [id number] 04/28/2019 08:57:03 PM EST [facility] Name Value Range Interpretation Description Data Source(s ) Supporting Code Document(s ) Lipase 61 U/L Normal (applies to Lipase, Serum [facility] [Enzymatic non-numeric Health System activity/vo results) lume] in Serum or Plasma ID Date Data Source [id number] 04/28/2019 08:57:03 PM EST [facility] Name Value Range Interpretation Description Data Sup porting Code Source(s) Document(s ) Amylase 79 {IU/L} Normal (applies to Amylase, Serum [facility] [Enzymatic non-numeric Health System activity/vo results) lume] in Serum or Plasma ID Date Data Source [id number] 04/28/2019 08:57:03 PM EST [facility] Name Value Range Interpretation Description Data Sup porting Code Source(s) Document(s ) Influenza virus Negative Normal (applies Flu B Viral [facility] B RNA [Presence] to non-numeric RNA Health in Unspecified results) System specimen by Probe and target amplification method Influenza virus Negative Normal (applies Flu A Viral [facility] A RNA [Presence] to non-numeric RNA Health in Unspecified results) System specimen by Probe and target amplification method ID Date Data Source [id number] 04/28/2019 08:57:03 PM EST [facility] Name Value Range Interpretation Description Data Sup porting Code Source(s) Document(s ) Amphetamine Negative Normal (applies Amphetamine [facility] [Mass/volume] to non-numeric Level, Urine Health in Urine results) System Cut-off = 1000 ng/mL Benzodiazepines Positive Abnormal Benzodiazepines, [facility] [Mass/volume] in (applies to Urine Health Syst em Urine non-numeric results) Cut-off = 200 ng/mL Barbiturates Negative Normal (applies to Barbiturate [facility] [Mass/volume] in non-numeric Screen, Urine Health System Urine by Screen results) method Cut-off = 200 ng/mL Cocaine Negative Normal (applies Cocaine [facility] metabolites.other to non-numeric Metabolite Health System [Mass/volume] in Urine results) Screen, Urine Cut-off = 300 ng/mL Methadone Negative Normal (applies to Methadone Level, [facility] [Mass/volume] in non-numeric Urine System Urine results) Cut-off = 300 ng/mL Phencyclidine Negative Normal (applies Phencyclidine, Urine [facility] [Mass/volume] in to non-numeric Health S ystem Urine results) Cut-off = 25 ng/mL [id number],Urine Negative Normal (applies to Opiate 300, [facility] non-numeric results) Urine System Cut-off = 300 ng/mL Cannabinoid(THC) Negative Normal (applies to Cannabinoid (THC) [facility] non-numeric System results) Cutt-off = 50These results are for medic al treatment only. The positive findings are unconfirmed. Request confirmatory/quanti tative test if needed. ID Date Data Source [id number] 04/28/2019 08:57:03 PM EST [facility] Name Value Range Interpretation Description Data Sup porting Code Source(s) Document(s ) Leukocytes [#/volume] 6.9 Normal (applies WBC Count [facility] in Unspecified {10^3_ to non-numeric Health specimen by Automated uL} results) System count Erythrocytes 5.08 Normal (applies RBC Count [facility] [#/volume] in Blood by {10^6_ to non-numeric He alth Automated count uL} results) System Hemoglobin 11.4 Below low Hemoglobin [facility] [Mass/volume] in Blood {gm/dL normal Health } System Erythrocyte mean 74.8 Below low MCV [facility] corpuscular volume fl normal Health [Entitic volume] by System Automated count Hematocrit [Volume 38.0 % Below low Hematocrit [facility] Fraction] of Blood normal Health System Erythrocyte 19.7 % Above high RDW-CV [facility] distribution width normal Health [Entitic volume] by System Automated count Erythrocyte mean 22.4 Below low MCH [facility] corpuscular hemoglobin pg normal Health [Entitic mass] by System Automated count Erythrocyte mean 30.0 Below low MCHC [facility] corpuscular hemoglobin {gm/dL normal Health concentration } System [Mass/volume] by Automated count Platelet mean volume 11.3 Above high MPV [facility] [Entitic volume] in fl normal Health Blood by Automated System count Platelets [#/volume] 167 Normal (applies Platelet [facility] in Plasma by Automated {10^3_ to non-numeric Count He alth count uL} results) System Eosinophils [#/volume] 0.04 Below low Eosinophil # [facility] in Blood {10^3_ normal Health uL} System Neutrophils [#/volume] 4.9 Normal (applies Neutrophil # [facility] in Body fluid {10^3_ to non-numeric Health uL} results) System Monocytes [#/volume] 0.6 Normal (applies Monocyte # [facility] in Blood by Manual {10^3_ to non-numeric Health count uL} results) System Lymphocyte percent 1.3 Normal (applies Lymphocyte # [facility] differential count {10^3_ to non-numeric Health (procedure) uL} results) System Basophils [#/volume] 0.04 Normal (applies Basophil # [facility] in Blood by Automated {10^3_ to non-numeric Hea lth count uL} results) System Neutrophils/100 71.7 % Normal (applies Neutrophil % Priyank jinny leukocytes in Blood by to non-numeric He alth Automated count results) System Monocytes/100 8.6 % Normal (applies Monocyte % [facility] leukocytes in Blood to non-numeric Healt h results) System Eosinophils/100 0.6 % Normal (applies Eosinophil % Priyank jinny leukocytes in to non-numeric Health Unspecified specimen results) System Basophils/100 0.6 % Normal (applies Basophil % [facility] leukocytes in to non-numeric Health Unspecified specimen results) System by Manual count Lymphocytes [#/volume] 18.2 % Below low Lymphocyte % [facility] in Blood by Automated normal Health count System Nucleated erythrocytes 0.0 Normal (applies NRBC % [facility] [#/volume] in Body {/100_ to non-numeric Health fluid WBC} results) System ImmaturePlateletFracti 5.70 % Normal (applies Immature [facility] on to non-numeric Platelet Health results) Fraction System ImmatureGranulocytes% 0.3 % Normal (applies Immature [facility] to non-numeric Granulocytes Health results) % System NRBC# 0.00 Below low NRBC # [facility] {10^3_ normal Health uL} System ImmatureGranulocytes# 0.02 Normal (applies Immature [facility] {10^3_ to non-numeric Granulocytes Health uL} results) # System ID Date Data Source [id number] 04/28/2019 08:57:03 PM EST [facility] P[facility]a alth System Name Value Range Interpretation Description Data Sup porting Code Source(s) Document(s ) AlcoholE NON DETECTED Normal (applies to Alcohol Ethyl, [facility] thyl,Blo None non-numeric Blood Health System od Detected results) ID Date Data Source [id number] 04/28/2019 08:57:03 PM EST [facility] Pinead al[facility] System Name Value Range Interpretation Description Data Sup porting Code Source(s) Document(s ) Magnesium 1.9 Normal (applies Magnesium, [facility] [Mass/volume] {mEq/L} to non-numeric Serum Health Syst em in Serum or results) Plasma ID Date Data Source [id number] 04/28/2019 08:57:03 PM EST [facility] System Name Value Range Interpretation Description Data Sup porting Code Source(s) Document(s ) Sodium 137 Normal (applies Sodium, Serum [facility] [Moles/volume] in mmol/L to non-numeric Health Serum or Plasma results) System Potassium 3.9 Normal (applies Potassium, [facility] [Mass/volume] in mmol/L to non-numeric Serum Health Serum or Plasma results) System Chloride 103 Normal (applies Chloride, [facility] [Moles/volume] in mmol/L to non-numeric Serum Health Serum or Plasma results) System TotalProtein 8.4 Above high Total Protein [facility] mg/dl normal Health System Carbon dioxide, 22.0 Normal (applies CO2, Serum [facility] total mmol/L to non-numeric Health [Moles/volume] in results) System Serum or Plasma Urea nitrogen 9 mg/dl Normal (applies Blood Urea [facility] [Mass/volume] in to non-numeric Nitrogen, Health Serum or Plasma results) Serum System Glucose 101 Normal (applies Glucose, [facility] [Mass/volume] in mg/dL to non-numeric Serum Health Serum or Plasma results) System Alkaline 94 Normal (applies Alkaline [facility] phosphatase {IU/L} to non-numeric Phosphatase, Health isoenzymes results) Serum System [Enzymatic activity/volume] in Serum or Plasma by Heat stability Creatinine 0.70 Below low normal Creatinine, [facility] [Mass/volume] in mg/dl Serum Health Serum or Plasma System DirectBilirubin 0.2 Normal (applies Direct [facility] mg/dl to non-numeric Bilirubin Health results) System Bilirubin.total 0.4 Normal (applies Bilirubin, [facility] [Mass/volume] in mg/dl to non-numeric Serum Total Health Serum or Plasma results) System Albumin 4.1 Normal (applies Albumin, [facility] [Mass/volume] in {gm/dl} to non-numeric Serum Health Serum or Plasma results) System Aspartate 65 Above high Aspartate [facility] aminotransferase {IU/L} normal Transaminase, Health [Enzymatic Serum System activity/volume] in Serum or Plasma by With P-5'-P I.Phosphorus 3.7 Normal (applies I. Phosphorus [facility] mg/dl to non-numeric Health results) System Calcium 9.3 Normal (applies Calcium, [facility] [Mass/volume] in mg/dl to non-numeric Total Serum Health Serum or Plasma results) System Alanine 52 Normal (applies Alanine [facility] aminotransferase {IU/L} to non-numeric Aminotransfer Heal th [Enzymatic results) ase, Serum System activity/volume] in Serum or Plasma Urate 5.5 Normal (applies Uric Acid, [facility] [Mass/volume] in mg/dl to non-numeric Serum Health Serum or Plasma results) System A/GRatio 0.95 Normal (applies A/G Ratio [facility] to non-numeric Health results) System Anion gap in Serum 12.00 Normal (applies Anion Gap Priyank jinny or Plasma mmol/L to non-numeric Health results) System Glomerular > 90 Normal (applies GFR [facility] filtration to non-numeric Health rate/1.73 sq results) System M.predicted [Volume Rate/Area] in Serum or Plasma by Creatinine-based formula (CKD-EPI) eGFR will provide clinicians with a more accurate indicator of renal function then the serum creatinine. The eGFR is automa tically calculated from an empiric formula (endorsed by the National Kid[employer] ion) which incorporates age, sex, and race.Clinicians may notice surprisingly low GFR's with serum creatinine valueswithin normal range- particularly in elderly wo men (with low muscle mass).In the hospital setting, the eGFR should add an element of safety in drug dosing, in assessing the risk of IV contrast administration, and in assessing vascular risk.The NKF staging system is as follows:Normal: eGFR >90 with no kidney markersStage 1: eGFR >90 with kidney markers*Stage 2: eGFR 60- 89Stage 3: eGFR 30-59Stage 4: eGFR 15-29Stage 5: eGFR <15 (usually requir ing dialysis)*Markers include: Proteinuria, Hematuria, abnormal imaging-studies, or other blood or urine test abnormalities ID Date Data Source [id number] 04/28/2019 08:57:03 PM EST Magi[facility] Pineda al[facility] System Name Value Range Interpretation Description Data Sup porting Code Source(s) Document(s ) aPTT in Blood 27.1 Normal (applies Activated [facility] by Coagulation {Seconds to non-numeric Partial Health assay } results) Thromboplastin System Time ID Date Data Source [id number] 04/28/2019 08:57:03 PM EST [facility] Name Value Range Interpretation Description Data Sup porting Code Source(s) Document(s ) Prothrombintim 11.50 Normal (applies Prothrombin [facility](PT) {seconds to non-numeric time (PT) Health System } results) INR in Blood 1.09 Normal (applies INR Result [facility] by Coagulation {Ratio} to non-numeric Health Sys tem assay results) Normal = 0.7-1.1Therapeutic = 2.0-3.0Mec hanical Heart = 3.0-4.5 Procedure Vital Signs ID Date Data Source UNK Name Value Range Interpretation Code Description Data Source(s) Body surface area 2 m2 2 m2 [facility] ore Derived from Health Syste m formula Body mass index 32.2 kg/m2 32.2 kg/m2 [facility] (BMI[facility] [Ratio] Health Syst em Body weight 90.[address] [facility] System Body height 167.[address] [facility] System Body temperature 98 [degF] 0 - 200 Normal (applies to 98 [degF] [facility] non-numeric results) [facility] Body temperature 36.6 Latasha 0 - 99.9 Normal (applies to 36.6 Latasha [facility] non-numeric results) [facility] Diastolic blood 92 mm[Hg] 0 - 999 Above high normal 92 mm[Hg] [facility] pressure [facility] Systolic blood 166 mm[Hg] 0 - 999 Above high normal 166 mm[Hg] [facility] pressure [facility] Oxygen saturation 100 % 0 - 999 Normal (applies to 100 % [facility] in Arterial blood non-numeric results) [facility] System by Pulse oximetry Respiratory rate 18 0 - 999 Above high normal 18 [facility] Heart rate 98 0 - 999 Normal (applies to 98 [facility] non-numeric results) [facility]"
[2020-02-13] MEDS: MELATONIN 5 MG TABLETS PO SCH (22:40)
[2020-02-13] MEDS: THIAMINE HCL 100 MG TABLET (FP) PO SCH (22:40)
[2020-02-13] MEDS: levETIRAcetam 500 MG TABLET (FP) PO SCH (22:40)
[2020-02-13] MEDS: hydrOXYzine PAMOATE 25 MG CAPSULE (FP) PO PRN (22:41)
[2020-02-14] MEDS: IBUPROFEN 400 MG TABLET (FP) PO PRN (05:48)
[2020-02-14] MEDS: chlordiazePOXIDE HCL 25 MG CAPSULE PO SCH ×4 (05:49→22:17)
[2020-02-14] MEDS ORDERED: levETIRAcetam 250 MG TABLET PO ONE (09:43)
--- NOTE | 2020-02-14 10:14 | CONSULT ---
[facility] Psychiatric Consult - Data Date of interview: 02/14/20 Admission source: [facility] Identifying data: Mr Owens is a 50 years old [place]-born male, father of 2 children, unemployed receiving public assistance, living with family seeking detox treatment for alcohol Substance Abuse History: Reports history of alcohol use. Refer to addiction counselor's summary for further information Medical History: Significant for anemia, GERD, hypertension, osteoarthritis left knee, obesity, history of alcohol related seizure, treatment for positive PPD, syphilis and cholecystectomy in 2013. Psychiatric History: Patient is known for multiple previous admissions to this facility. He reports that his first psychiatric contact occured approximately 15 years ago when he was admitted to [facility] for alcohol withdrawal because no bed was available in detox. He reports that he was diagnosed with Bipolar Disorder 5 years ago and he was started on psychotropic medications. Reports that due to chronic non adherence, he has been receiving psychiatric sercices sporadically since. During most recent admission to this facility in December 2019, he was prescribed Trazadone 100 mg/hs and Vistaril 50 mg po Q4hrs prn for anxiety. 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 In the past, he reports that he used to prescribed Prozac, Vistaril, Seroquel and Trazadone,.Patient denies previous suicide attempts. At present, denies experiencing psychotic, manic symptoms, S/H ideations. However, he is very irritable, reports feeling anxious and sleeping poorly. Requests to resume Trazadone 150 mg/hs for insomnia Physical/Sexual Abuse/Trauma History: Stressors : chronic unemployment, divorce, financial difficulties, lack of vocational skills and addiction to alcohol. Mental Status Exam - Mental Status Exam Alert and Oriented to: Time, Place, Person Cognitive Function: Fair Patient Appearance: Disheveled Mood: Anxious, Irritable Affect: Appropriate Patient Behavior: Cooperative (superficially) Speech Pattern: Clear Voice Loudness: Normal Thought Process: Intact, Goal Oriented Hallucinations: Denies Suicidal Ideation: Denies Homicidal Ideation: Denies Insight/Judgement: Poor Sleep: Poorly Appetite: Fair Muscle strength/Tone: Normal Gait/Station: Normal Psychiatric Findings - Problem List ([place] 1, 2,3) (1) Mood disorder Current Visit: No Status: Chronic (2) Bipolar disorder Current Visit: No Status: Ruled-out (3) MDD (major depressive disorder) Current Visit: No Status: Ruled-out Comment: .. (4) Alcohol-induced mood disorder Current Visit: No Status: Acute (5) Alcohol-induced sleep disorder Current Visit: No Status: Acute Comment: .. (6) Alcohol dependence with intoxication, uncomplicated Current Visit: Yes Status: Acute (7) Osteoarthritis of left knee Current Visit: Yes Status: Acute (8) Anemia Current Visit: Yes Status: Chronic Qualifiers: Anemia type: unspecified type Qualified Code(s): D64.9 - Anemia, unspecified (9) GERD (gastroesophageal reflux disease) Current Visit: Yes Status: Chronic Qualifiers: Esophagitis presence: esophagitis presence not specified Qualified Code(s): K21.9 - Gastro-esophageal reflux disease without esophagitis (10) HTN (hypertension), benign Current Visit: Yes Status: Chronic (11) Obese Current Visit: Yes Status: Chronic Qualifiers: Obesity type: unspecified obesity type Obesity classification: adult class 1 (BMI 30 - 34.9) Body mass index: BMI 33.0-33.9 (12) Chronic pain of left knee Current Visit: No Status: Chronic (13) Positive RPR test Current Visit: No Status: Chronic (14) History of positive PPD Current Visit: No Status: Resolved (15) Alcohol related disorder Current Visit: Yes Status: Chronic (16) Seizure disorder Current Visit: Yes Status: Ruled-out - Initial Treatment Plan Initial Treatment Plan: 1) Resume Trazadone 150 mg po HS. 2) Continue inpatient detoxification
[2020-02-14] MEDS: PRENATAL VITAMINS W/ FOLIC ACID TABLET (FP) PO SCH (10:38)
[2020-02-14] MEDS: CLOTRIMAZOLE 1% 10 ML TOPICAL SOLUTION TP SCH (10:39)
[2020-02-14] MEDS: CALCIUM 250MG/VIT-D 125 UNITS 1 COMBO TABLET PO SCH (10:39)
[2020-02-14] MEDS: PANTOPRAZOLE 40 MG TABLET PO SCH (10:39)
[2020-02-14] MEDS: levETIRAcetam 500 MG TABLET (FP) PO SCH ×2 (10:39→22:17)
[2020-02-14] MEDS: NICOTINE 7 MG/24 HOURS TOPICAL PATCH TD SCH (10:40)
--- NOTE | 2020-02-14 10:48 | PN ---
[facility] CIWA - CIWA Score Nausea/Vomitin-No Nausea/No Vomiting Muscle Tremors: 3 Anxiety: 2 Agitation: 3 Paroxysmal Sweats: 2 Orientation: 0-Oriented Tacttile Disturbances: 0-None Auditory Disturbances: 0-None Visual Disturbances: 0-None Headache: 0-None Present CIWA-Ar Total Score: 10 S Progress Note (SOAP) Subjective: sweats restless wound on my knee interrupted sleep agitation body aches chills Objective: 02/14/20 10:47 Vital Signs Temperature 97.5 F L 02/14/20 09:00 Pulse Rate 76 02/14/20 09:00 Respiratory Rate 16 02/14/20 09:00 Blood Pressure 113/67 02/14/20 09:00 O2 Sat by Pulse Oximetry (%) 97 02/14/20 09:00 Laboratory Tests 02/13/20 02/13/20 02/13/20 12:30 12:30 12:30 WBC 3.4 L RBC 3.80 L Hgb 9.0 L Hct 29.4 L MCV 77.4 L MCH 23.8 L MCHC 30.7 L RDW 19.8 H Plt Count 143 D MPV 8.4 Sodium 141 Potassium 3.6 Chloride 107 Carbon Dioxide 27 Anion Gap 6 L BUN 5.3 L Creatinine 0.6 Est GFR (CKD-EPI)AfAm 137.80 Est GFR (CKD-EPI)NonAf 118.89 Random Glucose 100 Calcium 7.9 L Total Bilirubin 0.5 AST 98 H ALT 49 Alkaline Phosphatase 127 H Total Protein 8.2 Albumin 3.1 L Syphilis Serology Reactive A* RPR Titer COVID-19 (KELLY) 02/13/20 02/13/20 12:30 12:30 WBC RBC Hgb Hct MCV MCH MCHC RDW Plt Count MPV Sodium Potassium Chloride Carbon Dioxide Anion Gap BUN Creatinine Est GFR (CKD-EPI)AfAm Est GFR (CKD-EPI)NonAf Random Glucose Calcium Total Bilirubin AST ALT Alkaline Phosphatase Total Protein Albumin Syphilis Serology RPR Titer Reactive 1:1 H COVID-19 (KELLY) Not detected labs noted low H:H noted; iron supplement noted aaox3 ambulating no acute distress Assessment: 02/14/20 10:49 withdrawals right knee abrasion d/t fall a couple of weeks ago. wound healing with open abrasion noted and some scabbing to area. will order bacitracin oint. first cleanse area with N/S then apply the bacitracin. Plan: continue detox increase fluids iron supplement ordered bacitracin oint ordered
[2020-02-14] MEDS: BACITRACIN 0.9 GM PACKET TP SCH ×2 (10:53→22:16)
[2020-02-14] MEDS: FERROUS SO4 325 MG TABLET (FP) PO SCH ×2 (13:16→17:38)
[2020-02-14] MEDS: MAG HYDROX/AL HYDROX/SIMETH 30 ML UNIT-DOSE CUP PO PRN (14:12)
[2020-02-14] MEDS: hydrOXYzine PAMOATE 25 MG CAPSULE (FP) PO PRN ×3 (14:12→22:41)
[2020-02-14] MEDS: MELATONIN 5 MG TABLETS PO SCH (22:17)
[2020-02-14] MEDS: THIAMINE HCL 100 MG TABLET (FP) PO SCH (22:17)
[2020-02-14] MEDS: traZODone HCL 50 MG TABLET (FP) PO SCH (22:17)
[2020-02-15] MEDS: chlordiazePOXIDE HCL 25 MG CAPSULE PO SCH ×4 (06:04→22:22)
[2020-02-15] MEDS: hydrOXYzine PAMOATE 25 MG CAPSULE (FP) PO PRN ×3 (06:04→22:24)
[2020-02-15] MEDS: IBUPROFEN 400 MG TABLET (FP) PO PRN ×2 (06:04→17:44)
[2020-02-15] MEDS: FERROUS SO4 325 MG TABLET (FP) PO SCH ×3 (07:52→17:40)
[2020-02-15] MEDS ORDERED: levETIRAcetam 250 MG TABLET PO ONE (10:07)
[2020-02-15] MEDS: BACITRACIN 0.9 GM PACKET TP SCH ×2 (11:15→22:22)
[2020-02-15] MEDS: PANTOPRAZOLE 40 MG TABLET PO SCH (11:15)
[2020-02-15] MEDS: CALCIUM 250MG/VIT-D 125 UNITS 1 COMBO TABLET PO SCH (11:15)
[2020-02-15] MEDS: PRENATAL VITAMINS W/ FOLIC ACID TABLET (FP) PO SCH (11:15)
[2020-02-15] MEDS: NICOTINE 7 MG/24 HOURS TOPICAL PATCH TD SCH (11:15)
[2020-02-15] MEDS: levETIRAcetam 500 MG TABLET (FP) PO SCH ×2 (11:15→22:22)
[2020-02-15] MEDS: CLOTRIMAZOLE 1% 10 ML TOPICAL SOLUTION TP SCH (15:52)
--- NOTE | 2020-02-15 17:41 | PN ---
[facility] CIWA - CIWA Score Nausea/Vomitin-No Nausea/No Vomiting Muscle Tremors: None Anxiety: 3 Agitation: 3 Paroxysmal Sweats: 2 Orientation: 0-Oriented Tacttile Disturbances: 2-Mild Itch/Numbness/Burn Auditory Disturbances: 0-None Visual Disturbances: 0-None Headache: 0-None Present CIWA-Ar Total Score: 10 S Progress Note (SOAP) Subjective: Anxious, Restless, Fatigue, Interrupted Sleep, Sweating. Objective: Patient A & O X 3, Observed Ambulating on Detox Unit Unassisted. In No Acute Distress. 02/15/20 17:37 Vital Signs Temperature 98.4 F 02/15/20 12:45 Pulse Rate 96 H 02/15/20 12:45 Respiratory Rate 18 02/15/20 12:45 Blood Pressure 133/84 02/15/20 12:45 O2 Sat by Pulse Oximetry (%) 96 02/15/20 12:45 Laboratory Tests 02/13/20 02/13/20 02/13/20 12:30 12:30 12:30 WBC 3.4 L RBC 3.80 L Hgb 9.0 L Hct 29.4 L MCV 77.4 L MCH 23.8 L MCHC 30.7 L RDW 19.8 H Plt Count 143 D MPV 8.4 Sodium 141 Potassium 3.6 Chloride 107 Carbon Dioxide 27 Anion Gap 6 L BUN 5.3 L Creatinine 0.6 Est GFR (CKD-EPI)AfAm 137.80 Est GFR (CKD-EPI)NonAf 118.89 Random Glucose 100 Calcium 7.9 L Total Bilirubin 0.5 AST 98 H ALT 49 Alkaline Phosphatase 127 H Total Protein 8.2 Albumin 3.1 L Syphilis Serology Reactive A* RPR Titer COVID-19 (KELLY) 02/13/20 02/13/20 12:30 12:30 WBC RBC Hgb Hct MCV MCH MCHC RDW Plt Count MPV Sodium Potassium Chloride Carbon Dioxide Anion Gap BUN Creatinine Est GFR (CKD-EPI)AfAm Est GFR (CKD-EPI)NonAf Random Glucose Calcium Total Bilirubin AST ALT Alkaline Phosphatase Total Protein Albumin Syphilis Serology RPR Titer Reactive 1:1 H COVID-19 (KELLY) Not detected Lab results noted. Detox Admission RPR Result noted: Reactive A; Reactive; Titer 1:1. Patient reports that he completed treatment for Syphilis in the past. 02/15/20 17:38 Assessment: 02/15/20 17:39 WITHDRAWAL SYMPTOMS. ANEMIA. LEUKOPENIA. HYPOCALCEMIA. ELEVATED AST LEVEL ELEVATED ALKALINE PHOSPHATASE LEVEL. REACTIVE RPR. 02/15/20 17:40 Plan: Continue Detox. Increase Daily Oral Water Intake. Continue Calcium-Vitamin D supplement for low Ca level noted on Detox Admission laboratory assessment. Continue Feosol supplement for Anemia noted on Detox Admission laboratory assessment. Patient is currently receiving daily MVI containing B Vitamins and Iron while admitted for Detox.
[2020-02-15] MEDS: THIAMINE HCL 100 MG TABLET (FP) PO SCH (22:22)
[2020-02-15] MEDS: traZODone HCL 50 MG TABLET (FP) PO SCH (22:22)
[2020-02-15] MEDS: MELATONIN 5 MG TABLETS PO SCH (22:23)
[2020-02-16] MEDS ORDERED: chlordiazePOXIDE HCL 10 MG CAPSULE PO PRN
[2020-02-16] MEDS: hydrOXYzine PAMOATE 25 MG CAPSULE (FP) PO PRN ×2 (05:25→10:30)
[2020-02-16] MEDS: chlordiazePOXIDE HCL 10 MG CAPSULE PO SCH ×4 (05:25→22:58)
[2020-02-16] MEDS: IBUPROFEN 400 MG TABLET (FP) PO PRN (05:25)
[2020-02-16] MEDS: FERROUS SO4 325 MG TABLET (FP) PO SCH ×3 (07:15→18:45)
[2020-02-16] MEDS: BACITRACIN 0.9 GM PACKET TP SCH ×2 (10:26→23:00)
[2020-02-16] MEDS: MAGNESIUM HYDROX 2400MG/30ML ORAL SUSPENSION 30 ML CUP PO PRN (10:26)
[2020-02-16] MEDS: PANTOPRAZOLE 40 MG TABLET PO SCH (10:27)
[2020-02-16] MEDS: levETIRAcetam 500 MG TABLET (FP) PO SCH ×2 (10:27→22:58)
[2020-02-16] MEDS: PRENATAL VITAMINS W/ FOLIC ACID TABLET (FP) PO SCH (10:27)
[2020-02-16] MEDS: CLOTRIMAZOLE 1% 10 ML TOPICAL SOLUTION TP SCH (10:27)
[2020-02-16] MEDS: CALCIUM 250MG/VIT-D 125 UNITS 1 COMBO TABLET PO SCH (10:27)
[2020-02-16] MEDS: NICOTINE 7 MG/24 HOURS TOPICAL PATCH TD SCH (10:28)
[2020-02-16] MEDS: ONDANSETRON *ODT* 4 MG TABLET SL PRN (13:05)
--- NOTE | 2020-02-16 15:38 | PN ---
S CIWA - CIWA Score Nausea/Vomitin-No Nausea/No Vomiting Muscle Tremors: 2 Anxiety: 2 Agitation: 1-Slight > Activity Paroxysmal Sweats: 2 Orientation: 0-Oriented Tacttile Disturbances: 0-None Auditory Disturbances: 0-None Visual Disturbances: 0-None Headache: 0-None Present CIWA-Ar Total Score: 7 BHS Progress Note (SOAP) Subjective: Sweating a lot, agitated Objective: 02/16/20 15:34 Last Vital Signs Temp Pulse Resp BP Pulse Ox 97.8 F 71 20 110/53 L 98 02/16/20 13:08 02/16/20 13:08 02/16/20 13:08 02/16/20 13:08 02/16/20 13:08 Laboratory Tests 02/13/20 02/13/20 02/13/20 12:30 12:30 12:30 WBC 3.4 L RBC 3.80 L Hgb 9.0 L Hct 29.4 L MCV 77.4 L MCH 23.8 L MCHC 30.7 L RDW 19.8 H Plt Count 143 D MPV 8.4 Sodium 141 Potassium 3.6 Chloride 107 Carbon Dioxide 27 Anion Gap 6 L BUN 5.3 L Creatinine 0.6 Est GFR (CKD-EPI)AfAm 137.80 Est GFR (CKD-EPI)NonAf 118.89 Random Glucose 100 Calcium 7.9 L Total Bilirubin 0.5 AST 98 H ALT 49 Alkaline Phosphatase 127 H Total Protein 8.2 Albumin 3.1 L Syphilis Serology Reactive A* RPR Titer COVID-19 (KELLY) 02/13/20 02/13/20 12:30 12:30 WBC RBC Hgb Hct MCV MCH MCHC RDW Plt Count MPV Sodium Potassium Chloride Carbon Dioxide Anion Gap BUN Creatinine Est GFR (CKD-EPI)AfAm Est GFR (CKD-EPI)NonAf Random Glucose Calcium Total Bilirubin AST ALT Alkaline Phosphatase Total Protein Albumin Syphilis Serology RPR Titer Reactive 1:1 H COVID-19 (KELLY) Not detected Labs reviewed: anemia and transaminitis noted Assessment: 02/16/20 15:35 Withdrawal sxs Noted with anemia and transaminitis Plan: Continue detox Encourage PO water intake Anemia: most likely due to alcoholism, on PO iron supplement and vitamin Transaminitis: most likely due to alcoholism, repeat AST
[2020-02-16] MEDS: traZODone HCL 50 MG TABLET (FP) PO SCH (22:57)
[2020-02-16] MEDS: MELATONIN 5 MG TABLETS PO SCH (22:58)
[2020-02-16] MEDS: THIAMINE HCL 100 MG TABLET (FP) PO SCH (22:58)
[2020-02-17] MEDS: IBUPROFEN 400 MG TABLET (FP) PO PRN (06:05)
[2020-02-17] MEDS: chlordiazePOXIDE HCL 10 MG CAPSULE PO SCH ×2 (06:09→17:09)
[2020-02-17] MEDS: FERROUS SO4 325 MG TABLET (FP) PO SCH ×3 (07:05→17:12)
[2020-02-17] MEDS: NICOTINE 7 MG/24 HOURS TOPICAL PATCH TD SCH (10:34)
[2020-02-17] MEDS: BACITRACIN 0.9 GM PACKET TP SCH ×2 (10:36→21:38)
[2020-02-17] MEDS: hydrOXYzine PAMOATE 25 MG CAPSULE (FP) PO PRN ×3 (10:37→21:38)
[2020-02-17] MEDS: CALCIUM 250MG/VIT-D 125 UNITS 1 COMBO TABLET PO SCH (10:37)
[2020-02-17] MEDS: levETIRAcetam 500 MG TABLET (FP) PO SCH ×2 (10:37→21:38)
[2020-02-17] MEDS: PANTOPRAZOLE 40 MG TABLET PO SCH (10:37)
[2020-02-17] MEDS: PRENATAL VITAMINS W/ FOLIC ACID TABLET (FP) PO SCH (10:37)
--- NOTE | 2020-02-17 10:47 | PN ---
S CIWA - CIWA Score Nausea/Vomitin-No Nausea/No Vomiting Muscle Tremors: None Anxiety: 1-Mildly Anxious Agitation: 0-Normal Activity Paroxysmal Sweats: 1-Minimal Palms Moist Orientation: 0-Oriented Tacttile Disturbances: 0-None Auditory Disturbances: 0-None Visual Disturbances: 0-None Headache: 0-None Present CIWA-Ar Total Score: 2 BHS Progress Note (SOAP) Subjective: feeling better Objective: 02/17/20 10:46 Vital Signs Temperature 98.4 F 02/17/20 09:16 Pulse Rate 78 02/17/20 09:16 Respiratory Rate 18 02/17/20 09:16 Blood Pressure 107/56 L 02/17/20 09:16 O2 Sat by Pulse Oximetry (%) 96 02/17/20 09:16 aaox3 ambulating no acute distress Assessment: 02/17/20 10:46 withdrawals Plan: continue detox d/c in am
[2020-02-17] MEDS: CLOTRIMAZOLE 1% 10 ML TOPICAL SOLUTION TP SCH (14:43)
[2020-02-17] MEDS: ONDANSETRON *ODT* 4 MG TABLET SL PRN (14:44)
[2020-02-17] MEDS: MAGNESIUM HYDROX 2400MG/30ML ORAL SUSPENSION 30 ML CUP PO PRN (17:12)
[2020-02-17] MEDS: traZODone HCL 50 MG TABLET (FP) PO SCH (21:38)
[2020-02-17] MEDS: THIAMINE HCL 100 MG TABLET (FP) PO SCH (21:38)
[2020-02-17 21:58] VITALS: BP 129/75; PULSE 69; TEMP 97.7
[2020-02-17] MEDS: MELATONIN 5 MG TABLETS PO SCH (22:18)
[2020-02-18] MEDS ORDERED: chlordiazePOXIDE HCL 10 MG CAPSULE PO ONE (05:00)
[2020-02-18] MEDS: FERROUS SO4 325 MG TABLET (FP) PO SCH (07:20)
[2020-02-18] MEDS: hydrOXYzine PAMOATE 25 MG CAPSULE (FP) PO PRN (07:22)
[2020-02-18] MEDS: MAG HYDROX/AL HYDROX/SIMETH 30 ML UNIT-DOSE CUP PO PRN (07:24)
== END 2020-02-18 08:50 | disposition home or self-care (01) | DRG 775 ==
LOC: YASAS 11:24 → Y6N 12:36
PROVIDERS: ADMIT Allergy & Immunology; ATTEND Allergy & Immunology
PROC: HZ2ZZZZ Detoxification Services for Substance Abuse Treatment (ICD-10-PCS; principal; 2020-02-13)
DX: F10.230 Alcohol dependence with withdrawal, uncomplicated (principal); F10.220 Alcohol dependence with intoxication, uncomplicated; F17.211 Nicotine dependence, cigarettes, in remission; F31.9 Bipolar disorder, unspecified; F39 Unspecified mood [affective] disorder; F10.24 Alcohol dependence with alcohol-induced mood disorder; F10.282 Alcohol dependence with alcohol-induced sleep disorder; F34.1 Dysthymic disorder; D50.9 Iron deficiency anemia, unspecified; D72.819 Decreased white blood cell count, unspecified; E83.51 Hypocalcemia; A53.0 Latent syphilis, unspecified as early or late; I10 Essential (primary) hypertension; K21.9 Gastro-esophageal reflux disease without esophagitis; M17.12 Unilateral primary osteoarthritis, left knee; G40.909 Epilepsy, unspecified, not intractable, without status epilepticus; R60.0 Localized edema; R74.01 Elevation of levels of liver transaminase levels; R74.8 Abnormal levels of other serum enzymes; R76.11 Nonspecific reaction to tuberculin skin test without active tuberculosis; E66.9 Obesity, unspecified; Z68.33 Body mass index [BMI] 33.0-33.9, adult; Z91.013 Allergy to seafood; Z91.018 Allergy to other foods; Z91.011 Allergy to milk products
CPT/HCPCS: 36415; 80053; 85027; 86593; 86780; Q0162; U0003

== ENCOUNTER 2020-04-17 12:52 | Inpatient (IN) | payer OTHER ==
[2020-04-17 14:45] VITALS: BMI 33.9
[2020-04-17] MEDS ORDERED: ONDANSETRON *ODT* 4 MG TABLET SL PRN (14:55)
[2020-04-17] MEDS ORDERED: NICOTINE POLACRILEX 2 MG GUM BUC PRN (14:55)
[2020-04-17] MEDS ORDERED: BISMUTH SUBSALICYLATE 524 MG/30 ML UD PO PRN (14:55)
[2020-04-17] MEDS ORDERED: ACETAMINOPHEN 325 MG TABLET (FP) PO PRN ×2 (14:55)
[2020-04-17] MEDS ORDERED: IBUPROFEN 400 MG TABLET (FP) PO PRN (14:55)
[2020-04-17] MEDS ORDERED: chlordiazePOXIDE HCL 25 MG CAPSULE PO PRN (14:55)
[2020-04-17] MEDS ORDERED: MENTHOL/PHENOL 1 EACH UD MM PRN (14:55)
[2020-04-17] MEDS: chlordiazePOXIDE HCL 25 MG CAPSULE PO SCH ×2 (16:52→22:19)
[2020-04-17] MEDS: hydrOXYzine PAMOATE 25 MG CAPSULE (FP) PO SCH ×2 (17:00→22:19)
[2020-04-17] MEDS: MAGNESIUM HYDROX 2400MG/30ML ORAL SUSPENSION 30 ML CUP PO PRN (17:16)
[2020-04-17] MEDS: PRENATAL VITAMINS W/ FOLIC ACID TABLET (FP) PO SCH (17:16)
[2020-04-17] MEDS: traZODone HCL 100 MG TABLET (FP) PO SCH (22:19)
[2020-04-17] MEDS: THIAMINE HCL 100 MG TABLET (FP) PO SCH (22:19)
[2020-04-17] MEDS: MELATONIN 5 MG TABLETS PO SCH (22:22)
[2020-04-18] MEDS: hydrOXYzine PAMOATE 25 MG CAPSULE (FP) PO SCH ×5 (05:51→22:21)
[2020-04-18] MEDS: chlordiazePOXIDE HCL 25 MG CAPSULE PO SCH ×4 (05:51→22:21)
[2020-04-18] MEDS: PRENATAL VITAMINS W/ FOLIC ACID TABLET (FP) PO SCH (10:12)
[2020-04-18] MEDS: METHOCARBAMOL 500 MG TABLET PO PRN ×2 (10:42→22:23)
[2020-04-18] MEDS ORDERED: COLLOIDAL OATMEAL 1 BAR EACH TP PRN (12:43)
[2020-04-18] MEDS: FLUoxetine HCL 10 MG CAPSULE PO SCH (13:10)
[2020-04-18] MEDS: MAGNESIUM CITRATE 300 ML BOTTLE PO PRN (15:49)
[2020-04-18] MEDS: traZODone HCL 100 MG TABLET (FP) PO SCH (22:21)
[2020-04-18] MEDS: THIAMINE HCL 100 MG TABLET (FP) PO SCH (22:21)
[2020-04-18] MEDS: MELATONIN 5 MG TABLETS PO SCH (22:22)
[2020-04-19] MEDS: chlordiazePOXIDE HCL 25 MG CAPSULE PO SCH ×4 (05:45→22:07)
[2020-04-19] MEDS: hydrOXYzine PAMOATE 25 MG CAPSULE (FP) PO SCH ×5 (05:46→22:07)
[2020-04-19] MEDS: METHOCARBAMOL 500 MG TABLET PO PRN ×3 (05:47→22:14)
[2020-04-19] MEDS: PRENATAL VITAMINS W/ FOLIC ACID TABLET (FP) PO SCH (10:47)
[2020-04-19] MEDS: FLUoxetine HCL 10 MG CAPSULE PO SCH (10:48)
[2020-04-19] MEDS ORDERED: PANTOPRAZOLE 40 MG TABLET PO ONE (11:55)
[2020-04-19] MEDS: levETIRAcetam 500 MG TABLET (FP) PO SCH ×2 (12:32→22:10)
[2020-04-19] MEDS: MAG HYDROX/AL HYDROX/SIMETH 30 ML UNIT-DOSE CUP PO PRN ×2 (14:01→22:12)
[2020-04-19] MEDS: THIAMINE HCL 100 MG TABLET (FP) PO SCH (22:07)
[2020-04-19] MEDS: traZODone HCL 100 MG TABLET (FP) PO SCH (22:07)
[2020-04-19] MEDS: DOCUSATE SODIUM 100 MG CAPSULE (FP) PO SCH (22:09)
[2020-04-19] MEDS: MELATONIN 5 MG TABLETS PO SCH (22:10)
[2020-04-19] MEDS: TOLNAFTATE 1% CREAM 15 GM TUBE TP SCH (22:11)
[2020-04-20] MEDS ORDERED: chlordiazePOXIDE HCL 10 MG CAPSULE PO PRN
[2020-04-20] MEDS: hydrOXYzine PAMOATE 25 MG CAPSULE (FP) PO SCH ×3 (06:04→13:09)
[2020-04-20] MEDS: MAGNESIUM HYDROX 2400MG/30ML ORAL SUSPENSION 30 ML CUP PO PRN (06:04)
[2020-04-20] MEDS: chlordiazePOXIDE HCL 10 MG CAPSULE PO SCH ×4 (06:04→22:14)
[2020-04-20] MEDS: PANTOPRAZOLE 40 MG TABLET PO SCH (06:05)
[2020-04-20] MEDS: DOCUSATE SODIUM 100 MG CAPSULE (FP) PO SCH ×2 (10:13→22:14)
[2020-04-20] MEDS: PRENATAL VITAMINS W/ FOLIC ACID TABLET (FP) PO SCH (10:14)
[2020-04-20] MEDS: FLUoxetine HCL 10 MG CAPSULE PO SCH (10:14)
[2020-04-20] MEDS: TOLNAFTATE 1% CREAM 15 GM TUBE TP SCH ×2 (10:14→22:15)
[2020-04-20] MEDS: levETIRAcetam 500 MG TABLET (FP) PO SCH ×2 (10:14→22:14)
[2020-04-20] MEDS: METHOCARBAMOL 500 MG TABLET PO PRN (10:15)
[2020-04-20 10:35] LABS: BASO % 0.9 % (0-2.0); HEMATOCRIT 36.3 % (35.4-49); HEMOGLOBIN 11.6 GM/dL (11.7-16.9); LYMPH % 28.3 % (8-40); MCHC 31.9 g/dl (32.0-35.9); MEAN CELL VOLUME 75.4 fl (80-96); MEAN PLT VOLUME 9.5 fl (7.5-11.1); MONO % 8.3 % (3.8-10.2); NEUT % 60.5 % (42.8-82.8); PLATELET COUNT 152 K/MM3 (134-434); RBC 4.81 M/mm3 (4.00-5.60); RDW 20.3 % (11.9-15.9); WHITE BLOOD COUNT 4.6 K/mm3 (4.0-10.0)
[2020-04-20 10:40] LABS: POTASSIUM 4.1 mmol/L (3.5-5.1)
[2020-04-20 10:41] LABS: CALCIUM 9.1 mg/dL (8.5-10.1)
[2020-04-20 10:42] LABS: ALBUMIN 3.8 g/dl (3.4-5.0); BLOOD UREA NITROGEN 10.3 mg/dL (7-18)
[2020-04-20 10:46] LABS: CREATININE 0.8 mg/dL (0.55-1.3)
[2020-04-20 10:48] LABS: BILIRUBIN,TOTAL 0.5 mg/dL (0.2-1); TOT PROT 9.2 g/dl (6.4-8.2)
[2020-04-20] MEDS: metFORMIN HCL 500 MG TABLET (FP) PO SCH (17:08)
[2020-04-20] MEDS: hydrOXYzine PAMOATE 50 MG CAPSULE (FP) PO PRN ×2 (17:09→22:17)
[2020-04-20] MEDS: MAGNESIUM CITRATE 300 ML BOTTLE PO PRN (18:51)
[2020-04-20] MEDS: traZODone HCL 100 MG TABLET (FP) PO SCH (22:14)
[2020-04-20] MEDS: MELATONIN 5 MG TABLETS PO SCH (22:15)
[2020-04-20] MEDS: THIAMINE HCL 100 MG TABLET (FP) PO SCH (22:15)
[2020-04-21] MEDS ORDERED: chlordiazePOXIDE HCL 10 MG CAPSULE PO SCH (05:00)
[2020-04-21] MEDS: metFORMIN HCL 500 MG TABLET (FP) PO SCH (06:11)
[2020-04-21] MEDS: PANTOPRAZOLE 40 MG TABLET PO SCH (06:11)
[2020-04-21] MEDS: hydrOXYzine PAMOATE 50 MG CAPSULE (FP) PO PRN (06:13)
[2020-04-21 07:24] VITALS: BP 128/79; PULSE 63; TEMP 98.2
[2020-04-22] MEDS ORDERED: chlordiazePOXIDE HCL 10 MG CAPSULE PO ONE (05:00)
== END 2020-04-21 08:51 | disposition home or self-care (01) | DRG 775 ==
LOC: YASAS 12:52 → Y6N 15:49
PROVIDERS: ADMIT Allergy & Immunology; ATTEND Allergy & Immunology
PROC: HZ2ZZZZ Detoxification Services for Substance Abuse Treatment (ICD-10-PCS; principal; 2020-04-17)
DX: F10.230 Alcohol dependence with withdrawal, uncomplicated (principal); F10.220 Alcohol dependence with intoxication, uncomplicated; F10.280 Alcohol dependence with alcohol-induced anxiety disorder; F10.24 Alcohol dependence with alcohol-induced mood disorder; F10.282 Alcohol dependence with alcohol-induced sleep disorder; F39 Unspecified mood [affective] disorder; I10 Essential (primary) hypertension; E11.9 Type 2 diabetes mellitus without complications; D64.9 Anemia, unspecified; K21.9 Gastro-esophageal reflux disease without esophagitis; M17.12 Unilateral primary osteoarthritis, left knee; E73.9 Lactose intolerance, unspecified; R00.0 Tachycardia, unspecified; E66.9 Obesity, unspecified; Z68.33 Body mass index [BMI] 33.0-33.9, adult; Z91.013 Allergy to seafood; Z91.018 Allergy to other foods; Z86.69 Personal history of other diseases of the nervous system and sense organs; Z79.84 Long term (current) use of oral hypoglycemic drugs; Z86.19 Personal history of other infectious and parasitic diseases; Z87.891 Personal history of nicotine dependence
CPT/HCPCS: 36415; 71046-TC-FY; 80053; 82962; 83036; 85025; 86593; 86780; C9803; Q0162; U0003

== ENCOUNTER 2020-05-13 10:05 | Inpatient (IN) | payer OTHER ==
[2020-05-13 10:39] VITALS: BMI 33.2
[2020-05-13] MEDS ORDERED: chlordiazePOXIDE HCL 25 MG CAPSULE PO SCH (11:00)
[2020-05-13] MEDS ORDERED: ACETAMINOPHEN 325 MG TABLET (FP) PO PRN ×2 (11:26)
[2020-05-13] MEDS ORDERED: MENTHOL/PHENOL 1 EACH UD MM PRN (11:26)
[2020-05-13] MEDS ORDERED: NICOTINE POLACRILEX 2 MG GUM BUC PRN (11:26)
[2020-05-13] MEDS ORDERED: IBUPROFEN 400 MG TABLET (FP) PO PRN (11:26)
[2020-05-13] MEDS ORDERED: chlordiazePOXIDE HCL 25 MG CAPSULE PO PRN (11:26)
[2020-05-13] MEDS ORDERED: BISMUTH SUBSALICYLATE 262 MG/15 ML BTL PO PRN (11:26)
[2020-05-13] MEDS ORDERED: MAGNESIUM CITRATE 300 ML BOTTLE PO PRN (11:26)
[2020-05-13] MEDS ORDERED: MAGNESIUM HYDROX 2400MG/30ML ORAL SUSPENSION 30 ML CUP PO PRN (11:26)
[2020-05-13] MEDS ORDERED: COLLOIDAL OATMEAL 1 BAR EACH TP PRN (11:28)
[2020-05-13] MEDS ORDERED: PRENATAL VITAMINS W/ FOLIC ACID TABLET (FP) PO SCH (11:30)
[2020-05-13] MEDS: METHOCARBAMOL 500 MG TABLET PO PRN (12:25)
[2020-05-13 14:07] LABS: HEMATOCRIT 31.8 % (35.4-49); HEMOGLOBIN 10.2 GM/dL (11.7-16.9); MCH 24.2 pg (25.7-33.7); MEAN CELL VOLUME 75.5 fl (80-96); MEAN PLT VOLUME 8.5 fl (7.5-11.1); RBC 4.21 M/mm3 (4.00-5.60); RDW 20.6 % (11.9-15.9)
[2020-05-13 14:16] LABS: CALCIUM 7.8 mg/dL (8.5-10.1)
[2020-05-13 14:18] LABS: ALBUMIN 3.4 g/dl (3.4-5.0); BLOOD UREA NITROGEN 4.7 mg/dL (7-18)
[2020-05-13 14:20] LABS: CREATININE 0.6 mg/dL (0.55-1.3)
[2020-05-13 14:21] LABS: BILIRUBIN,TOTAL 0.9 mg/dL (0.2-1)
[2020-05-13 14:22] LABS: TOT PROT 8.5 g/dl (6.4-8.2)
[2020-05-13 14:32] LABS: PLATELET COUNT 35 K/MM3 (134-434); WHITE BLOOD COUNT 1.1 K/mm3 (4.0-10.0)
[2020-05-13 14:43] LABS: POTASSIUM 3.3 mmol/L (3.5-5.1)
[2020-05-13] MEDS: hydrOXYzine PAMOATE 25 MG CAPSULE (FP) PO SCH ×3 (15:06→22:24)
[2020-05-13] MEDS ORDERED: LORazepam 1 MG TABLET PO PRN (16:17)
[2020-05-13] MEDS: LORazepam 2 MG TABLET PO SCH ×2 (17:10→22:24)
[2020-05-13] MEDS: ONDANSETRON *ODT* 4 MG TABLET SL PRN (17:10)
[2020-05-13] MEDS: levETIRAcetam 500 MG TABLET (FP) PO SCH (22:24)
[2020-05-13] MEDS: THIAMINE HCL 100 MG TABLET (FP) PO SCH (22:24)
[2020-05-13] MEDS: MELATONIN 5 MG TABLETS PO SCH (22:24)
[2020-05-13] MEDS: MAG HYDROX/AL HYDROX/SIMETH 30 ML UNIT-DOSE CUP PO PRN (22:25)
[2020-05-14] MEDS: hydrOXYzine PAMOATE 25 MG CAPSULE (FP) PO SCH ×5 (05:09→21:46)
[2020-05-14] MEDS: LORazepam 2 MG TABLET PO SCH ×4 (05:09→22:08)
[2020-05-14 09:15] LABS: POTASSIUM 3.3 mmol/L (3.5-5.1)
[2020-05-14 09:17] LABS: HEMATOCRIT 32.1 % (35.4-49); HEMOGLOBIN 10.2 GM/dL (11.7-16.9); MCH 23.9 pg (25.7-33.7); MCHC 31.8 g/dl (32.0-35.9); MEAN CELL VOLUME 75.2 fl (80-96); MEAN PLT VOLUME 9.1 fl (7.5-11.1); PLATELET COUNT 43 K/MM3 (134-434); RBC 4.27 M/mm3 (4.00-5.60); RDW 20.7 % (11.9-15.9)
[2020-05-14 09:22] LABS: BLOOD UREA NITROGEN 5.2 mg/dL (7-18); CALCIUM 8.3 mg/dL (8.5-10.1)
[2020-05-14 09:25] LABS: INR 1.24 (0.83-1.09); PROTHROMBIN TIME (PATIENT) 15.1 SEC (9.7-13.0)
[2020-05-14 09:26] LABS: CREATININE 0.6 mg/dL (0.55-1.3)
[2020-05-14 09:27] LABS: BILIRUBIN,TOTAL 1.3 mg/dL (0.2-1); TOT PROT 7.5 g/dl (6.4-8.2)
[2020-05-14] MEDS ORDERED: PANTOPRAZOLE 40 MG TABLET PO SCH (10:00)
[2020-05-14] MEDS ORDERED: MULTIVITAMINS (DAILY MVI) TABLET (FP) PO SCH (10:00)
[2020-05-14] MEDS: levETIRAcetam 500 MG TABLET (FP) PO SCH ×2 (10:13→21:46)
[2020-05-14] MEDS: MAG HYDROX/AL HYDROX/SIMETH 30 ML UNIT-DOSE CUP PO PRN (10:14)
[2020-05-14] MEDS: POTASSIUM CHLORIDE ORAL LIQUID 20 MEQ/15 ML PO SCH ×2 (10:18→21:47)
[2020-05-14] MEDS: LACTULOSE 20 GM/30 ML UDC (FOR ORAL USE ONLY) PO SCH ×4 (10:50→21:50)
[2020-05-14] MEDS: ONDANSETRON *ODT* 4 MG TABLET SL PRN (11:07)
[2020-05-14] MEDS: FLUoxetine HCL 10 MG CAPSULE PO SCH (12:22)
[2020-05-14] MEDS: THIAMINE HCL 100 MG TABLET (FP) PO SCH (21:46)
[2020-05-14] MEDS: traZODone HCL 100 MG TABLET (FP) PO SCH (21:46)
[2020-05-14] MEDS: MELATONIN 5 MG TABLETS PO SCH (21:53)
[2020-05-15] MEDS ORDERED: chlordiazePOXIDE HCL 25 MG CAPSULE PO SCH (05:00)
[2020-05-15] MEDS: LORazepam 1 MG TABLET PO SCH ×4 (05:27→22:08)
[2020-05-15] MEDS: hydrOXYzine PAMOATE 25 MG CAPSULE (FP) PO SCH ×5 (05:27→22:12)
[2020-05-15] MEDS: METHOCARBAMOL 500 MG TABLET PO PRN (05:28)
[2020-05-15 09:45] LABS: HEMATOCRIT 30.6 % (35.4-49); HEMOGLOBIN 9.7 GM/dL (11.7-16.9); MCH 24.1 pg (25.7-33.7); MCHC 31.8 g/dl (32.0-35.9); MEAN CELL VOLUME 75.7 fl (80-96); MEAN PLT VOLUME 8.8 fl (7.5-11.1); PLATELET COUNT 47 K/MM3 (134-434); RBC 4.04 M/mm3 (4.00-5.60)
[2020-05-15 09:50] LABS: POTASSIUM 3.3 mmol/L (3.5-5.1)
[2020-05-15 09:53] LABS: INR 1.29 (0.83-1.09); PROTHROMBIN TIME (PATIENT) 15.5 SEC (9.7-13.0)
[2020-05-15 09:58] LABS: BLOOD UREA NITROGEN 4.5 mg/dL (7-18)
[2020-05-15 10:01] LABS: CALCIUM 8.4 mg/dL (8.5-10.1)
[2020-05-15 10:03] LABS: CREATININE 0.7 mg/dL (0.55-1.3)
[2020-05-15 10:04] LABS: BILIRUBIN,TOTAL 0.8 mg/dL (0.2-1); TOT PROT 7.3 g/dl (6.4-8.2)
[2020-05-15] MEDS: levETIRAcetam 500 MG TABLET (FP) PO SCH ×2 (10:11→22:08)
[2020-05-15] MEDS: LACTULOSE 20 GM/30 ML UDC (FOR ORAL USE ONLY) PO SCH ×4 (10:11→22:09)
[2020-05-15] MEDS: PRENATAL VITAMINS W/ FOLIC ACID TABLET (FP) PO SCH (10:12)
[2020-05-15] MEDS: FLUoxetine HCL 10 MG CAPSULE PO SCH (10:12)
[2020-05-15] MEDS: POTASSIUM CHLORIDE ORAL LIQUID 20 MEQ/15 ML PO SCH ×2 (10:13→22:08)
[2020-05-15] MEDS: FAMOTIDINE 20 MG TABLET PO SCH ×2 (10:14→22:09)
[2020-05-15] MEDS: ONDANSETRON *ODT* 4 MG TABLET SL PRN (11:49)
[2020-05-15] MEDS: FERROUS SO4 325 MG TABLET (FP) PO SCH (16:55)
[2020-05-15] MEDS: THIAMINE HCL 100 MG TABLET (FP) PO SCH (22:08)
[2020-05-15] MEDS: traZODone HCL 100 MG TABLET (FP) PO SCH (22:08)
[2020-05-15] MEDS: MELATONIN 5 MG TABLETS PO SCH (22:12)
[2020-05-16] MEDS ORDERED: chlordiazePOXIDE HCL 10 MG CAPSULE PO PRN
[2020-05-16] MEDS ORDERED: LORazepam 0.5 MG TABLET PO PRN
[2020-05-16] MEDS ORDERED: chlordiazePOXIDE HCL 10 MG CAPSULE PO SCH (05:00)
[2020-05-16] MEDS: LORazepam 0.5 MG TABLET PO SCH ×4 (05:22→22:12)
[2020-05-16] MEDS: hydrOXYzine PAMOATE 25 MG CAPSULE (FP) PO SCH ×6 (05:22→22:12)
[2020-05-16] MEDS: FERROUS SO4 325 MG TABLET (FP) PO SCH ×2 (07:03→17:33)
[2020-05-16] MEDS: LACTULOSE 20 GM/30 ML UDC (FOR ORAL USE ONLY) PO SCH ×5 (10:16→22:12)
[2020-05-16] MEDS: FLUoxetine HCL 10 MG CAPSULE PO SCH (10:17)
[2020-05-16] MEDS: levETIRAcetam 500 MG TABLET (FP) PO SCH ×2 (10:17→22:12)
[2020-05-16] MEDS: POTASSIUM CHLORIDE ORAL LIQUID 20 MEQ/15 ML PO SCH ×2 (10:18→22:12)
[2020-05-16] MEDS: FAMOTIDINE 20 MG TABLET PO SCH ×2 (10:18→22:12)
[2020-05-16] MEDS: PRENATAL VITAMINS W/ FOLIC ACID TABLET (FP) PO SCH (10:18)
[2020-05-16] MEDS: ONDANSETRON *ODT* 4 MG TABLET SL PRN (12:18)
[2020-05-16] MEDS: traZODone HCL 100 MG TABLET (FP) PO SCH (22:11)
[2020-05-16] MEDS: THIAMINE HCL 100 MG TABLET (FP) PO SCH (22:12)
[2020-05-16] MEDS: MELATONIN 5 MG TABLETS PO SCH (22:12)
[2020-05-16] MEDS: METHOCARBAMOL 500 MG TABLET PO PRN (22:16)
[2020-05-17] MEDS ORDERED: chlordiazePOXIDE HCL 10 MG CAPSULE PO SCH (05:00)
[2020-05-17] MEDS ORDERED: LORazepam 0.5 MG TABLET PO ONE (05:00)
[2020-05-17] MEDS: hydrOXYzine PAMOATE 25 MG CAPSULE (FP) PO SCH ×5 (05:30→22:07)
[2020-05-17] MEDS: METHOCARBAMOL 500 MG TABLET PO PRN ×3 (05:33→22:09)
[2020-05-17] MEDS: FERROUS SO4 325 MG TABLET (FP) PO SCH ×2 (07:16→18:16)
[2020-05-17] MEDS: PRENATAL VITAMINS W/ FOLIC ACID TABLET (FP) PO SCH (10:03)
[2020-05-17] MEDS: FLUoxetine HCL 10 MG CAPSULE PO SCH (10:03)
[2020-05-17] MEDS: FAMOTIDINE 20 MG TABLET PO SCH ×2 (10:03→22:10)
[2020-05-17] MEDS: levETIRAcetam 500 MG TABLET (FP) PO SCH ×2 (10:03→22:07)
[2020-05-17] MEDS: POTASSIUM CHLORIDE ORAL LIQUID 20 MEQ/15 ML PO SCH ×2 (10:03→22:10)
[2020-05-17] MEDS: LACTULOSE 20 GM/30 ML UDC (FOR ORAL USE ONLY) PO SCH ×4 (10:03→22:10)
[2020-05-17] MEDS: MAG HYDROX/AL HYDROX/SIMETH 30 ML UNIT-DOSE CUP PO PRN (13:22)
[2020-05-17] MEDS: ONDANSETRON *ODT* 4 MG TABLET SL PRN (16:32)
[2020-05-17] MEDS: THIAMINE HCL 100 MG TABLET (FP) PO SCH (22:07)
[2020-05-17] MEDS: traZODone HCL 100 MG TABLET (FP) PO SCH (22:07)
[2020-05-17] MEDS: MELATONIN 5 MG TABLETS PO SCH ×2 (22:10→23:40)
[2020-05-18] MEDS ORDERED: chlordiazePOXIDE HCL 10 MG CAPSULE PO ONE (05:00)
[2020-05-18] MEDS: hydrOXYzine PAMOATE 25 MG CAPSULE (FP) PO SCH ×2 (07:30→09:45)
[2020-05-18] MEDS: FERROUS SO4 325 MG TABLET (FP) PO SCH (07:30)
[2020-05-18 09:19] VITALS: BP 97/64; PULSE 77; TEMP 97.7
[2020-05-18] MEDS: levETIRAcetam 500 MG TABLET (FP) PO SCH (09:45)
[2020-05-18] MEDS: LACTULOSE 20 GM/30 ML UDC (FOR ORAL USE ONLY) PO SCH (09:45)
[2020-05-18] MEDS: FLUoxetine HCL 10 MG CAPSULE PO SCH (09:47)
[2020-05-18] MEDS: ONDANSETRON *ODT* 4 MG TABLET SL PRN (09:48)
[2020-05-18] MEDS: PRENATAL VITAMINS W/ FOLIC ACID TABLET (FP) PO SCH (09:49)
[2020-05-18] MEDS: FAMOTIDINE 20 MG TABLET PO SCH (09:49)
== END 2020-05-18 10:25 | disposition home or self-care (01) | DRG 775 ==
LOC: YASAS 10:05 → Y6N 11:13
PROVIDERS: ADMIT Allergy & Immunology; ATTEND Allergy & Immunology
PROC: HZ2ZZZZ Detoxification Services for Substance Abuse Treatment (ICD-10-PCS; principal; 2020-05-13)
DX: F10.230 Alcohol dependence with withdrawal, uncomplicated (principal); F10.282 Alcohol dependence with alcohol-induced sleep disorder; F10.24 Alcohol dependence with alcohol-induced mood disorder; F31.9 Bipolar disorder, unspecified; F39 Unspecified mood [affective] disorder; F41.9 Anxiety disorder, unspecified; D61.818 Other pancytopenia; D69.6 Thrombocytopenia, unspecified; D64.9 Anemia, unspecified; I10 Essential (primary) hypertension; K21.9 Gastro-esophageal reflux disease without esophagitis; E87.6 Hypokalemia; M17.12 Unilateral primary osteoarthritis, left knee; R79.89 Other specified abnormal findings of blood chemistry; R74.01 Elevation of levels of liver transaminase levels; E66.9 Obesity, unspecified; Z68.33 Body mass index [BMI] 33.0-33.9, adult; Z90.49 Acquired absence of other specified parts of digestive tract; Z86.19 Personal history of other infectious and parasitic diseases; Z91.011 Allergy to milk products; Z91.013 Allergy to seafood; Z86.69 Personal history of other diseases of the nervous system and sense organs
CPT/HCPCS: 36415; 80053; 82140; 82962; 85027; 85610; 86593; 86780; C9803; Q0162; U0003

== ENCOUNTER 2020-06-16 13:07 | Inpatient (IN) | payer OTHER ==
[2020-06-16 14:16] VITALS: BMI 31.1
[2020-06-16] MEDS ORDERED: MAGNESIUM HYDROX 2400MG/30ML ORAL SUSPENSION 30 ML CUP PO PRN (14:17)
[2020-06-16] MEDS ORDERED: MENTHOL/PHENOL 1 EACH UD MM PRN (14:17)
[2020-06-16] MEDS ORDERED: MAGNESIUM CITRATE 300 ML BOTTLE PO PRN (14:17)
[2020-06-16] MEDS ORDERED: ACETAMINOPHEN 325 MG TABLET (FP) PO PRN ×2 (14:17)
[2020-06-16] MEDS ORDERED: BISMUTH SUBSALICYLATE 262 MG/15 ML BTL PO PRN (14:17)
[2020-06-16] MEDS ORDERED: COLLOIDAL OATMEAL 1 BAR EACH TP PRN (14:19)
[2020-06-16] MEDS: IBUPROFEN 400 MG TABLET (FP) PO PRN (15:55)
[2020-06-16] MEDS: LORazepam 1 MG TABLET PO PRN (15:56)
[2020-06-16] MEDS: METHOCARBAMOL 500 MG TABLET PO PRN (15:56)
[2020-06-16] MEDS: PRENATAL VITAMINS W/ FOLIC ACID TABLET (FP) PO SCH (15:57)
[2020-06-16] MEDS ORDERED: MASKS NR ONE (16:50)
[2020-06-16] MEDS: LORazepam 2 MG TABLET PO SCH ×2 (16:51→23:34)
[2020-06-16] MEDS: hydrOXYzine PAMOATE 25 MG CAPSULE (FP) PO SCH ×2 (18:21→23:29)
[2020-06-16] MEDS: VITAMINS A AND D TOPICAL OINTMENT 60 GM TUBE TP SCH (18:21)
[2020-06-16 18:54] LABS: HEMATOCRIT 31.9 % (35.4-49); HEMOGLOBIN 9.9 GM/dL (11.7-16.9); MCHC 31.2 g/dl (32.0-35.9); MEAN PLT VOLUME 8.3 fl (7.5-11.1); PLATELET COUNT 104 K/MM3 (134-434); RBC 4.14 M/mm3 (4.00-5.60); RDW 20.2 % (11.9-15.9); WHITE BLOOD COUNT 3.4 K/mm3 (4.0-10.0)
[2020-06-16 18:55] LABS: POTASSIUM 3.3 mmol/L (3.5-5.1)
[2020-06-16 18:58] LABS: ALBUMIN 3.6 g/dl (3.4-5.0)
[2020-06-16 19:02] LABS: CREATININE 0.7 mg/dL (0.55-1.3)
[2020-06-16 19:03] LABS: BILIRUBIN,TOTAL 0.6 mg/dL (0.2-1); TOT PROT 9.6 g/dl (6.4-8.2)
[2020-06-16] MEDS: MELATONIN 5 MG TABLETS PO SCH (23:28)
[2020-06-16] MEDS: THIAMINE HCL 100 MG TABLET (FP) PO SCH (23:29)
[2020-06-17] MEDS: VITAMINS A AND D TOPICAL OINTMENT 60 GM TUBE TP SCH ×4 (03:01→17:24)
[2020-06-17] MEDS: LORazepam 2 MG TABLET PO SCH ×4 (05:18→22:08)
[2020-06-17] MEDS: IBUPROFEN 400 MG TABLET (FP) PO PRN ×2 (05:19→14:10)
[2020-06-17] MEDS: hydrOXYzine PAMOATE 25 MG CAPSULE (FP) PO SCH ×2 (05:19→10:20)
[2020-06-17] MEDS: METHOCARBAMOL 500 MG TABLET PO PRN ×2 (10:20→17:25)
[2020-06-17] MEDS: PRENATAL VITAMINS W/ FOLIC ACID TABLET (FP) PO SCH (10:21)
[2020-06-17] MEDS: FERROUS SO4 325 MG TABLET (FP) PO SCH ×2 (13:03→17:23)
[2020-06-17] MEDS: POTASSIUM CHLORIDE TABS 20 MEQ TABLET.ER (FP) PO SCH ×2 (13:04→22:08)
[2020-06-17] MEDS: LIDOCAINE 5% TOPICAL PATCH TP SCH (13:04)
[2020-06-17] MEDS: LORazepam 1 MG TABLET PO PRN (13:07)
[2020-06-17] MEDS: ONDANSETRON *ODT* 4 MG TABLET SL PRN (14:11)
[2020-06-17] MEDS: LACTULOSE 20 GM/30 ML UDC (FOR ORAL USE ONLY) PO SCH ×2 (17:23→22:11)
[2020-06-17] MEDS: hydrOXYzine PAMOATE 25 MG CAPSULE (FP) PO PRN ×2 (17:24→22:11)
[2020-06-17] MEDS: MELATONIN 5 MG TABLETS PO SCH (22:08)
[2020-06-17] MEDS: THIAMINE HCL 100 MG TABLET (FP) PO SCH (22:08)
[2020-06-17] MEDS: traZODone HCL 100 MG TABLET (FP) PO SCH (22:08)
[2020-06-17] MEDS: LIDOCAINE PATCH REMOVAL MC SCH (22:09)
[2020-06-18] MEDS: VITAMINS A AND D TOPICAL OINTMENT 60 GM TUBE TP SCH ×5 (00:55→22:59)
[2020-06-18] MEDS: LORazepam 1 MG TABLET PO SCH ×4 (05:59→22:09)
[2020-06-18] MEDS: IBUPROFEN 400 MG TABLET (FP) PO PRN ×3 (06:01→17:35)
[2020-06-18] MEDS: hydrOXYzine PAMOATE 25 MG CAPSULE (FP) PO PRN ×4 (06:03→22:07)
[2020-06-18] MEDS: FERROUS SO4 325 MG TABLET (FP) PO SCH ×3 (07:09→17:33)
[2020-06-18] MEDS: PRENATAL VITAMINS W/ FOLIC ACID TABLET (FP) PO SCH (10:08)
[2020-06-18] MEDS: LIDOCAINE 5% TOPICAL PATCH TP SCH (10:08)
[2020-06-18] MEDS: LACTULOSE 20 GM/30 ML UDC (FOR ORAL USE ONLY) PO SCH ×5 (10:08→22:06)
[2020-06-18] MEDS: POTASSIUM CHLORIDE TABS 20 MEQ TABLET.ER (FP) PO SCH ×2 (10:09→22:06)
[2020-06-18] MEDS: FLUoxetine HCL 10 MG CAPSULE PO SCH (10:09)
[2020-06-18] MEDS: METHOCARBAMOL 500 MG TABLET PO PRN (10:12)
[2020-06-18] MEDS: LORazepam 1 MG TABLET PO PRN (12:24)
[2020-06-18] MEDS: MAG HYDROX/AL HYDROX/SIMETH 30 ML UNIT-DOSE CUP PO PRN (15:50)
[2020-06-18] MEDS: LIDOCAINE PATCH REMOVAL MC SCH (22:06)
[2020-06-18] MEDS: traZODone HCL 100 MG TABLET (FP) PO SCH (22:06)
[2020-06-18] MEDS: THIAMINE HCL 100 MG TABLET (FP) PO SCH (22:06)
[2020-06-18] MEDS: MELATONIN 5 MG TABLETS PO SCH (22:06)
[2020-06-19] MEDS ORDERED: LORazepam 0.5 MG TABLET PO PRN
[2020-06-19] MEDS: IBUPROFEN 400 MG TABLET (FP) PO PRN ×3 (06:00→17:37)
[2020-06-19] MEDS: LORazepam 0.5 MG TABLET PO SCH ×4 (06:21→22:51)
[2020-06-19] MEDS: hydrOXYzine PAMOATE 25 MG CAPSULE (FP) PO PRN ×4 (06:23→22:49)
[2020-06-19] MEDS: VITAMINS A AND D TOPICAL OINTMENT 60 GM TUBE TP SCH ×3 (07:45→17:45)
[2020-06-19] MEDS: FERROUS SO4 325 MG TABLET (FP) PO SCH ×3 (07:46→17:36)
[2020-06-19] MEDS: LACTULOSE 20 GM/30 ML UDC (FOR ORAL USE ONLY) PO SCH ×4 (10:12→22:49)
[2020-06-19] MEDS: FLUoxetine HCL 10 MG CAPSULE PO SCH (10:12)
[2020-06-19] MEDS: POTASSIUM CHLORIDE TABS 20 MEQ TABLET.ER (FP) PO SCH (10:12)
[2020-06-19] MEDS: LIDOCAINE 5% TOPICAL PATCH TP SCH (10:13)
[2020-06-19] MEDS: PRENATAL VITAMINS W/ FOLIC ACID TABLET (FP) PO SCH (10:13)
[2020-06-19] MEDS: MAG HYDROX/AL HYDROX/SIMETH 30 ML UNIT-DOSE CUP PO PRN (10:14)
[2020-06-19] MEDS: METHOCARBAMOL 500 MG TABLET PO PRN ×2 (10:15→22:51)
[2020-06-19 11:10] LABS: POTASSIUM 4.2 mmol/L (3.5-5.1)
[2020-06-19 11:12] LABS: ALBUMIN 3.4 g/dl (3.4-5.0); BASO % 0.8 % (0-2.0); BLOOD UREA NITROGEN 7.6 mg/dL (7-18); CALCIUM 8.7 mg/dL (8.5-10.1); HEMATOCRIT 33.8 % (35.4-49); HEMOGLOBIN 10.5 GM/dL (11.7-16.9); LYMPH % 26.5 % (8-40); MCH 23.9 pg (25.7-33.7); MCHC 31.1 g/dl (32.0-35.9); MEAN CELL VOLUME 77.1 fl (80-96); MEAN PLT VOLUME 8.9 fl (7.5-11.1); MONO % 8.7 % (3.8-10.2); PLATELET COUNT 107 K/MM3 (134-434); RBC 4.38 M/mm3 (4.00-5.60); RDW 20.2 % (11.9-15.9); WHITE BLOOD COUNT 2.7 K/mm3 (4.0-10.0)
[2020-06-19 11:16] LABS: CREATININE 0.6 mg/dL (0.55-1.3)
[2020-06-19 11:17] LABS: BILIRUBIN,TOTAL 0.6 mg/dL (0.2-1); TOT PROT 8.9 g/dl (6.4-8.2)
[2020-06-19] MEDS: ONDANSETRON *ODT* 4 MG TABLET SL PRN (14:23)
[2020-06-19 21:07] VITALS: BP 128/73; PULSE 83; TEMP 97.7
[2020-06-19] MEDS: LIDOCAINE PATCH REMOVAL MC SCH (22:48)
[2020-06-19] MEDS: traZODone HCL 100 MG TABLET (FP) PO SCH (22:48)
[2020-06-19] MEDS: MELATONIN 5 MG TABLETS PO SCH (22:48)
[2020-06-19] MEDS: THIAMINE HCL 100 MG TABLET (FP) PO SCH (22:48)
[2020-06-20] MEDS: VITAMINS A AND D TOPICAL OINTMENT 60 GM TUBE TP SCH ×2 (01:01→06:47)
[2020-06-20] MEDS ORDERED: LORazepam 0.5 MG TABLET PO ONE (05:00)
[2020-06-20] MEDS: hydrOXYzine PAMOATE 25 MG CAPSULE (FP) PO PRN (06:26)
[2020-06-20] MEDS: METHOCARBAMOL 500 MG TABLET PO PRN (06:27)
[2020-06-20] MEDS: IBUPROFEN 400 MG TABLET (FP) PO PRN (06:29)
[2020-06-20] MEDS: LIDOCAINE 5% TOPICAL PATCH TP SCH (09:02)
[2020-06-20] MEDS: ONDANSETRON *ODT* 4 MG TABLET SL PRN (09:05)
== END 2020-06-20 09:20 | disposition home or self-care (01) | DRG 775 ==
LOC: YASAS 13:07 → Y3N 15:14
PROVIDERS: ADMIT Allergy & Immunology; ATTEND Allergy & Immunology
PROC: HZ2ZZZZ Detoxification Services for Substance Abuse Treatment (ICD-10-PCS; principal; 2020-06-16)
DX: F10.230 Alcohol dependence with withdrawal, uncomplicated (principal); F19.282 Other psychoactive substance dependence with psychoactive substance-induced sleep disorder; F19.24 Other psychoactive substance dependence with psychoactive substance-induced mood disorder; F10.280 Alcohol dependence with alcohol-induced anxiety disorder; F10.24 Alcohol dependence with alcohol-induced mood disorder; F10.282 Alcohol dependence with alcohol-induced sleep disorder; F32.9 Major depressive disorder, single episode, unspecified; D61.818 Other pancytopenia; A53.0 Latent syphilis, unspecified as early or late; I10 Essential (primary) hypertension; K21.9 Gastro-esophageal reflux disease without esophagitis; K74.60 Unspecified cirrhosis of liver; R74.01 Elevation of levels of liver transaminase levels; R74.8 Abnormal levels of other serum enzymes; E66.9 Obesity, unspecified; Z68.31 Body mass index [BMI] 31.0-31.9, adult; Z90.49 Acquired absence of other specified parts of digestive tract; Z56.0 Unemployment, unspecified; Z59.0 Homelessness; Z91.011 Allergy to milk products; Z91.013 Allergy to seafood; Z91.14 Patient's other noncompliance with medication regimen; S42.91XD Fracture of right shoulder girdle, part unspecified, subsequent encounter for fracture with routine healing; W00.2XXD Other fall from one level to another due to ice and snow, subsequent encounter
CPT/HCPCS: 36415; 80053; 82140; 85025; 85027; 86593; 86780; C9803; Q0162; U0003

== ENCOUNTER 2020-07-13 19:15 | Inpatient (IN) | payer OTHER ==
[2020-07-13] MEDS ORDERED: MAG HYDROX/AL HYDROX/SIMETH 30 ML UNIT-DOSE CUP PO PRN (21:51)
[2020-07-13] MEDS ORDERED: METHOCARBAMOL 500 MG TABLET PO PRN (21:51)
[2020-07-13] MEDS ORDERED: ACETAMINOPHEN 325 MG TABLET (FP) PO PRN ×2 (21:51)
[2020-07-13] MEDS ORDERED: MENTHOL/PHENOL 1 EACH UD MM PRN (21:51)
[2020-07-13] MEDS ORDERED: BISMUTH SUBSALICYLATE 524 MG/30 ML UD PO PRN (21:51)
[2020-07-13] MEDS ORDERED: MAGNESIUM HYDROX 2400MG/30ML ORAL SUSPENSION 30 ML CUP PO PRN (21:51)
[2020-07-13] MEDS ORDERED: ONDANSETRON *ODT* 4 MG TABLET SL PRN (21:51)
[2020-07-13] MEDS ORDERED: MAGNESIUM CITRATE 300 ML BOTTLE PO PRN (21:51)
[2020-07-13] MEDS ORDERED: NICOTINE POLACRILEX 2 MG GUM BUC PRN (21:51)
[2020-07-13] MEDS ORDERED: traZODone HCL 100 MG TABLET (FP) PO ONE (21:53)
[2020-07-13] MEDS ORDERED: chlordiazePOXIDE HCL 25 MG CAPSULE PO PRN (21:53)
[2020-07-13] MEDS ORDERED: COLLOIDAL OATMEAL 1 BAR EACH TP PRN (21:54)
[2020-07-13 22:16] VITALS: BMI 31.0
[2020-07-14] MEDS: chlordiazePOXIDE HCL 25 MG CAPSULE PO SCH ×5 (00:38→22:19)
[2020-07-14] MEDS: THIAMINE HCL 100 MG TABLET (FP) PO SCH ×2 (00:39→22:20)
[2020-07-14] MEDS: MELATONIN 5 MG TABLETS PO SCH ×2 (00:39→22:20)
[2020-07-14] MEDS ORDERED: PRENATAL VITAMINS W/ FOLIC ACID TABLET (FP) PO SCH (10:00)
[2020-07-14 10:36] LABS: POTASSIUM 3.5 mmol/L (3.5-5.1)
[2020-07-14 10:37] LABS: HEMATOCRIT 32.1 % (35.4-49); HEMOGLOBIN 10.3 GM/dL (11.7-16.9); MCH 24.7 pg (25.7-33.7); MEAN CELL VOLUME 77.2 fl (80-96); MEAN PLT VOLUME 9.4 fl (7.5-11.1); PLATELET COUNT 104 K/MM3 (134-434); RBC 4.16 M/mm3 (4.00-5.60); RDW 21.1 % (11.9-15.9); WHITE BLOOD COUNT 2.5 K/mm3 (4.0-10.0)
[2020-07-14] MEDS: hydrOXYzine PAMOATE 25 MG CAPSULE (FP) PO PRN ×2 (10:37→17:53)
[2020-07-14 10:38] LABS: ALBUMIN 3.1 g/dl (3.4-5.0); BLOOD UREA NITROGEN 6.8 mg/dL (7-18)
[2020-07-14] MEDS: IBUPROFEN 400 MG TABLET (FP) PO PRN ×3 (10:38→22:21)
[2020-07-14 10:42] LABS: CREATININE 0.6 mg/dL (0.55-1.3)
[2020-07-14 10:43] LABS: BILIRUBIN,TOTAL 0.2 mg/dL (0.2-1); TOT PROT 7.8 g/dl (6.4-8.2)
[2020-07-14] MEDS ORDERED: FLUoxetine HCL 10 MG CAPSULE PO SCH (11:00)
[2020-07-14] MEDS: hydrOXYzine PAMOATE 50 MG CAPSULE (FP) PO PRN (17:25)
[2020-07-14] MEDS ORDERED: traZODone HCL 100 MG TABLET (FP) PO SCH (22:00)
[2020-07-15] MEDS: hydrOXYzine PAMOATE 50 MG CAPSULE (FP) PO PRN (00:27)
[2020-07-15] MEDS ORDERED: chlordiazePOXIDE HCL 25 MG CAPSULE PO SCH (05:00)
[2020-07-15 06:32] VITALS: BP 128/85; PULSE 59; TEMP 96.6
[2020-07-15] MEDS ORDERED: levETIRAcetam 500 MG TABLET (FP) PO SCH (10:00)
[2020-07-16] MEDS ORDERED: chlordiazePOXIDE HCL 10 MG CAPSULE PO PRN
[2020-07-16] MEDS ORDERED: chlordiazePOXIDE HCL 10 MG CAPSULE PO SCH (05:00)
[2020-07-17] MEDS ORDERED: chlordiazePOXIDE HCL 10 MG CAPSULE PO SCH (05:00)
[2020-07-18] MEDS ORDERED: chlordiazePOXIDE HCL 10 MG CAPSULE PO ONE (05:00)
== END 2020-07-15 09:36 | disposition left against medical advice (07) | DRG 770 ==
LOC: YASAS 19:15 → Y6N 22:37
PROVIDERS: ADMIT Allergy & Immunology; ATTEND Allergy & Immunology
PROC: HZ2ZZZZ Detoxification Services for Substance Abuse Treatment (ICD-10-PCS; principal; 2020-07-13)
DX: F10.230 Alcohol dependence with withdrawal, uncomplicated (principal); F10.220 Alcohol dependence with intoxication, uncomplicated; F41.9 Anxiety disorder, unspecified; F32.9 Major depressive disorder, single episode, unspecified; D64.9 Anemia, unspecified; I10 Essential (primary) hypertension; A53.0 Latent syphilis, unspecified as early or late; R74.01 Elevation of levels of liver transaminase levels; F10.280 Alcohol dependence with alcohol-induced anxiety disorder; F10.282 Alcohol dependence with alcohol-induced sleep disorder; G40.909 Epilepsy, unspecified, not intractable, without status epilepticus; M17.12 Unilateral primary osteoarthritis, left knee; M25.562 Pain in left knee; R76.11 Nonspecific reaction to tuberculin skin test without active tuberculosis; E66.9 Obesity, unspecified; Z68.31 Body mass index [BMI] 31.0-31.9, adult; Z90.49 Acquired absence of other specified parts of digestive tract; Z86.19 Personal history of other infectious and parasitic diseases; Z91.011 Allergy to milk products; Z91.013 Allergy to seafood
CPT/HCPCS: 36415; 80053; 85027; 86593; 86780; C9803; Q0162; U0003

== ENCOUNTER 2020-09-03 09:54 | Inpatient (IN) | payer OTHER ==
[2020-09-03 10:57] VITALS: BMI 32.3
[2020-09-03] MEDS ORDERED: MAGNESIUM HYDROX 2400MG/30ML ORAL SUSPENSION 30 ML CUP PO PRN (13:11)
[2020-09-03] MEDS ORDERED: IBUPROFEN 400 MG TABLET (FP) PO PRN (13:11)
[2020-09-03] MEDS ORDERED: NICOTINE POLACRILEX 2 MG GUM BUC PRN (13:11)
[2020-09-03] MEDS ORDERED: MAG HYDROX/AL HYDROX/SIMETH 30 ML UNIT-DOSE CUP PO PRN (13:11)
[2020-09-03] MEDS ORDERED: MENTHOL/PHENOL 1 EACH UD MM PRN (13:11)
[2020-09-03] MEDS ORDERED: MAGNESIUM CITRATE 300 ML BOTTLE PO PRN (13:11)
[2020-09-03] MEDS ORDERED: BISMUTH SUBSALICYLATE 524 MG/30 ML UD PO PRN (13:11)
[2020-09-03] MEDS ORDERED: ACETAMINOPHEN 325 MG TABLET (FP) PO PRN ×2 (13:11)
[2020-09-03] MEDS: hydrOXYzine PAMOATE 25 MG CAPSULE (FP) PO SCH ×3 (14:31→23:12)
[2020-09-03] MEDS: PRENATAL VITAMINS W/ FOLIC ACID TABLET (FP) PO SCH (14:32)
[2020-09-03] MEDS: LORazepam 2 MG TABLET PO SCH ×2 (17:19→23:12)
[2020-09-03 17:46] LABS: HEMATOCRIT 25.7 % (35.4-49); MCH 25.2 pg (25.7-33.7); MCHC 31.3 g/dl (32.0-35.9); MEAN CELL VOLUME 80.4 fl (80-96); MEAN PLT VOLUME 9.1 fl (7.5-11.1); PLATELET COUNT 37 K/MM3 (134-434); RDW 20.2 % (11.9-15.9)
[2020-09-03 17:48] LABS: ALBUMIN 3.4 g/dl (3.4-5.0); CALCIUM 8.5 mg/dL (8.5-10.1)
[2020-09-03 17:50] LABS: CREATININE 0.6 mg/dL (0.55-1.3)
[2020-09-03 17:53] LABS: BILIRUBIN,TOTAL 0.5 mg/dL (0.2-1); TOT PROT 8.6 g/dl (6.4-8.2)
[2020-09-03 18:13] LABS: WHITE BLOOD COUNT 1.6 K/mm3 (4.0-10.0)
[2020-09-03] MEDS: MELATONIN 5 MG TABLETS PO SCH (23:11)
[2020-09-03] MEDS: levETIRAcetam 500 MG TABLET (FP) PO SCH (23:11)
[2020-09-03] MEDS: THIAMINE HCL 100 MG TABLET (FP) PO SCH (23:12)
[2020-09-04] MEDS: LORazepam 2 MG TABLET PO SCH ×4 (06:08→22:01)
[2020-09-04] MEDS: hydrOXYzine PAMOATE 25 MG CAPSULE (FP) PO SCH ×5 (06:08→22:02)
[2020-09-04] MEDS: PRENATAL VITAMINS W/ FOLIC ACID TABLET (FP) PO SCH (12:15)
[2020-09-04] MEDS: levETIRAcetam 500 MG TABLET (FP) PO SCH ×2 (12:15→22:02)
[2020-09-04] MEDS: LORazepam 1 MG TABLET PO PRN (15:05)
[2020-09-04] MEDS ORDERED: COLLOIDAL OATMEAL 1 BAR EACH TP PRN (16:03)
[2020-09-04] MEDS: MELATONIN 5 MG TABLETS PO SCH (22:02)
[2020-09-04] MEDS: THIAMINE HCL 100 MG TABLET (FP) PO SCH (22:02)
[2020-09-05] MEDS: hydrOXYzine PAMOATE 25 MG CAPSULE (FP) PO SCH ×5 (06:10→22:06)
[2020-09-05] MEDS: LORazepam 1 MG TABLET PO SCH ×4 (06:10→22:06)
[2020-09-05] MEDS: levETIRAcetam 500 MG TABLET (FP) PO SCH ×2 (10:22→22:06)
[2020-09-05] MEDS: PRENATAL VITAMINS W/ FOLIC ACID TABLET (FP) PO SCH (10:23)
[2020-09-05] MEDS: LORazepam 1 MG TABLET PO PRN (15:22)
[2020-09-05] MEDS: ONDANSETRON *ODT* 4 MG TABLET SL PRN (15:22)
[2020-09-05] MEDS: METHOCARBAMOL 500 MG TABLET PO PRN (18:00)
[2020-09-05] MEDS: THIAMINE HCL 100 MG TABLET (FP) PO SCH (22:06)
[2020-09-05] MEDS: MELATONIN 5 MG TABLETS PO SCH (22:06)
[2020-09-06] MEDS ORDERED: LORazepam 0.5 MG TABLET PO PRN
[2020-09-06] MEDS: hydrOXYzine PAMOATE 25 MG CAPSULE (FP) PO SCH ×5 (05:59→22:12)
[2020-09-06] MEDS: LORazepam 0.5 MG TABLET PO SCH ×4 (05:59→22:11)
[2020-09-06] MEDS: ONDANSETRON *ODT* 4 MG TABLET SL PRN (05:59)
[2020-09-06] MEDS: PRENATAL VITAMINS W/ FOLIC ACID TABLET (FP) PO SCH (10:12)
[2020-09-06] MEDS: levETIRAcetam 500 MG TABLET (FP) PO SCH ×2 (10:12→22:11)
[2020-09-06] MEDS: METHOCARBAMOL 500 MG TABLET PO PRN (10:12)
[2020-09-06 14:07] LABS: SARS-CoV-2 NAA Not Detected (Not Detected)
[2020-09-06] MEDS: FLUoxetine HCL 10 MG CAPSULE PO SCH (15:30)
[2020-09-06] MEDS ORDERED: GABAPENTIN 100 MG CAPSULE PO ONE (22:00)
[2020-09-06] MEDS ORDERED: traZODone HCL 100 MG TABLET (FP) PO SCH (22:00)
[2020-09-06] MEDS: THIAMINE HCL 100 MG TABLET (FP) PO SCH (22:11)
[2020-09-06] MEDS: MELATONIN 5 MG TABLETS PO SCH (22:11)
[2020-09-07] MEDS ORDERED: LORazepam 0.5 MG TABLET PO ONE (05:00)
[2020-09-07] MEDS: hydrOXYzine PAMOATE 25 MG CAPSULE (FP) PO SCH ×2 (06:14→09:58)
[2020-09-07] MEDS: METHOCARBAMOL 500 MG TABLET PO PRN (06:15)
[2020-09-07] MEDS: levETIRAcetam 500 MG TABLET (FP) PO SCH (09:58)
[2020-09-07] MEDS: PRENATAL VITAMINS W/ FOLIC ACID TABLET (FP) PO SCH (09:58)
[2020-09-07] MEDS: ONDANSETRON *ODT* 4 MG TABLET SL PRN (09:59)
[2020-09-07] MEDS: FLUoxetine HCL 10 MG CAPSULE PO SCH (09:59)
[2020-09-07 11:02] VITALS: BP 117/71; PULSE 74; TEMP 98.4
== END 2020-09-07 12:47 | disposition other institution (70) | DRG 775 ==
LOC: YASAS 09:54 → Y6N 12:23
PROVIDERS: ADMIT Allergy & Immunology; ATTEND Allergy & Immunology
PROC: HZ2ZZZZ Detoxification Services for Substance Abuse Treatment (ICD-10-PCS; principal; 2020-09-03)
DX: F10.230 Alcohol dependence with withdrawal, uncomplicated (principal); F19.24 Other psychoactive substance dependence with psychoactive substance-induced mood disorder; F10.24 Alcohol dependence with alcohol-induced mood disorder; F10.280 Alcohol dependence with alcohol-induced anxiety disorder; F10.282 Alcohol dependence with alcohol-induced sleep disorder; F41.9 Anxiety disorder, unspecified; D61.818 Other pancytopenia; D69.6 Thrombocytopenia, unspecified; D64.9 Anemia, unspecified; D72.819 Decreased white blood cell count, unspecified; I10 Essential (primary) hypertension; K21.9 Gastro-esophageal reflux disease without esophagitis; A53.0 Latent syphilis, unspecified as early or late; R74.01 Elevation of levels of liver transaminase levels; R76.11 Nonspecific reaction to tuberculin skin test without active tuberculosis; K74.60 Unspecified cirrhosis of liver; E66.9 Obesity, unspecified; Z68.32 Body mass index [BMI] 32.0-32.9, adult; Z90.49 Acquired absence of other specified parts of digestive tract
CPT/HCPCS: 36415; 80053; 85027; 86593; 86780; 93005; 93010; C9803; Q0162; U0003; U0005

== ENCOUNTER 2020-09-03 20:48 | Emergency (ER) | payer OTHER ==
[2020-09-03 20:54] VITALS: BMI 28.2
[2020-09-03] MEDS ORDERED: diazePAM CARPU-JECT 10 MG/2 ML DISP.SYRIN IVPUSH ONE (21:43)
[2020-09-03] MEDS ORDERED: ONDANSETRON 4 MG/2 ML VIAL IVPUSH ONE (22:00)
[2020-09-03] MEDS ORDERED: ONDANSETRON 4 MG/2 ML VIAL ONE (22:08)
[2020-09-03] MEDS ORDERED: diazePAM CARPU-JECT 10 MG/2 ML DISP.SYRIN ONE (22:08)
[2020-09-03 22:45] LABS: BASO % 1.3 % (0-2.0); EOS % 1.5 % (0-4.5); HEMATOCRIT 25.2 % (35.4-49); LYMPH % 38.9 % (8-40); MCHC 31.6 g/dl (32.0-35.9); MEAN CELL VOLUME 79.1 fl (80-96); MEAN PLT VOLUME 9.5 fl (7.5-11.1); MONO % 18.8 % (3.8-10.2); NEUT % 39.5 % (42.8-82.8); RBC 3.19 M/mm3 (4.00-5.60); RDW 20.5 % (11.9-15.9)
[2020-09-03 22:48] LABS: PLATELET COUNT 35 K/MM3 (134-434); WHITE BLOOD COUNT 1.7 K/mm3 (4.0-10.0)
[2020-09-03 23:07] LABS: ALBUMIN 3.2 g/dl (3.4-5.0); BLOOD UREA NITROGEN 4.2 mg/dL (7-18)
[2020-09-03 23:10] LABS: CREATININE 0.6 mg/dL (0.55-1.3)
[2020-09-03 23:12] LABS: BILIRUBIN,TOTAL 0.6 mg/dL (0.2-1); TOT PROT 7.9 g/dl (6.4-8.2)
[2020-09-03 23:52] LABS: ANISOCYTOSIS 1+; MACROCYTOSIS 0; PLATELET ESTIMATE DECREASED; TARGET CELLS 1+
[2020-09-04] MEDS ORDERED: diazePAM 5 MG TABLET PO ONE (01:37)
[2020-09-04] MEDS ORDERED: diazePAM 5 MG TABLET ONE (01:39)
[2020-09-04 01:51] VITALS: BP 144/83; PULSE 86; TEMP 98.2
== END 2020-09-04 04:56 | disposition home or self-care (01) ==
LOC: JER 20:48
PROC: 3E033NZ Introduction of Analgesics, Hypnotics, Sedatives into Peripheral Vein, Percutaneous Approach (ICD-10-PCS; principal; 2020-09-03)
DX: D61.818 Other pancytopenia (principal); F10.239 Alcohol dependence with withdrawal, unspecified; D72.819 Decreased white blood cell count, unspecified
CPT/HCPCS: 36415; 80053; 83690; 85025; 99284-25

== ENCOUNTER 2020-09-07 11:17 | Inpatient (IN) | payer OTHER ==
[2020-09-07] MEDS ORDERED: MAGNESIUM HYDROX 2400MG/30ML ORAL SUSPENSION 30 ML CUP PO PRN (13:37)
[2020-09-07] MEDS ORDERED: ACETAMINOPHEN 325 MG TABLET (FP) PO PRN (13:37)
[2020-09-07] MEDS ORDERED: guaiFENesin 200 MG/10 ML 10 ML UNIT-DOSE CUPS PO PRN (13:37)
[2020-09-07] MEDS ORDERED: NICOTINE POLACRILEX 2 MG GUM BUC PRN (13:37)
[2020-09-07] MEDS ORDERED: MAGNESIUM CITRATE 300 ML BOTTLE PO PRN (13:37)
[2020-09-07] MEDS ORDERED: MENTHOL/PHENOL 1 EACH UD MM PRN (13:37)
[2020-09-07] MEDS ORDERED: P-EPHED 60MG/TRIPROLIDI 2.5MG TABLET PO PRN (13:37)
[2020-09-07] MEDS ORDERED: IBUPROFEN 400 MG TABLET (FP) PO PRN (13:37)
[2020-09-07] MEDS ORDERED: GABAPENTIN 100 MG CAPSULE PO SCH (13:45)
[2020-09-07] MEDS ORDERED: PT OWN MED DRAWER 7, Y5N ONE (15:16)
[2020-09-07] MEDS: MAG HYDROX/AL HYDROX/SIMETH 30 ML UNIT-DOSE CUP PO PRN (17:29)
[2020-09-07] MEDS: MELATONIN 5 MG TABLETS PO SCH (21:13)
[2020-09-07] MEDS: THIAMINE HCL 100 MG TABLET (FP) PO SCH (21:13)
[2020-09-07] MEDS: hydrOXYzine PAMOATE 25 MG CAPSULE (FP) PO PRN (21:14)
[2020-09-07] MEDS: traZODone HCL 100 MG TABLET (FP) PO SCH (21:15)
[2020-09-07] MEDS: GABAPENTIN 100 MG CAPSULE PO SCH (21:15)
[2020-09-07] MEDS: levETIRAcetam 500 MG TABLET (FP) PO SCH (21:15)
[2020-09-08] MEDS: GABAPENTIN 100 MG CAPSULE PO SCH ×3 (06:31→21:06)
[2020-09-08] MEDS: hydrOXYzine PAMOATE 25 MG CAPSULE (FP) PO PRN ×2 (06:32→21:06)
[2020-09-08] MEDS ORDERED: PT OWN MED DRAWER 7, Y5N ONE ×3 (09:10→19:23)
[2020-09-08] MEDS: PRENATAL VITAMINS W/ FOLIC ACID TABLET (FP) PO SCH (09:46)
[2020-09-08] MEDS: METHOCARBAMOL 500 MG TABLET PO PRN ×2 (09:46→21:07)
[2020-09-08] MEDS: levETIRAcetam 500 MG TABLET (FP) PO SCH ×2 (09:46→21:06)
[2020-09-08] MEDS: FLUoxetine HCL 10 MG CAPSULE PO SCH (09:46)
[2020-09-08] MEDS: DOCUSATE SODIUM 100 MG CAPSULE (FP) PO PRN (09:47)
[2020-09-08] MEDS ORDERED: NICOTINE 7 MG/24 HOURS TOPICAL PATCH TD SCH (10:00)
[2020-09-08 13:50] LABS: HEMATOCRIT 28.4 % (35.4-49); HEMOGLOBIN 8.8 GM/dL (11.7-16.9); MCH 25.5 pg (25.7-33.7); MEAN CELL VOLUME 82.3 fl (80-96); PLATELET COUNT 87 K/MM3 (134-434); RBC 3.46 M/mm3 (4.00-5.60); RDW 21.7 % (11.9-15.9); WHITE BLOOD COUNT 4.6 K/mm3 (4.0-10.0)
[2020-09-08] MEDS: ONDANSETRON *ODT* 4 MG TABLET SL PRN (17:01)
[2020-09-08] MEDS: THIAMINE HCL 100 MG TABLET (FP) PO SCH (21:06)
[2020-09-08] MEDS: traZODone HCL 100 MG TABLET (FP) PO SCH (21:06)
[2020-09-08] MEDS: MELATONIN 5 MG TABLETS PO SCH (21:06)
[2020-09-09] MEDS ORDERED: PT OWN MED DRAWER 7, Y5N ONE ×4 (02:16→20:33)
[2020-09-09] MEDS: GABAPENTIN 100 MG CAPSULE PO SCH ×3 (06:17→21:30)
[2020-09-09] MEDS: hydrOXYzine PAMOATE 25 MG CAPSULE (FP) PO PRN ×2 (06:17→21:31)
[2020-09-09] MEDS: FLUoxetine HCL 10 MG CAPSULE PO SCH (09:44)
[2020-09-09] MEDS: levETIRAcetam 500 MG TABLET (FP) PO SCH ×2 (09:44→21:30)
[2020-09-09] MEDS: PRENATAL VITAMINS W/ FOLIC ACID TABLET (FP) PO SCH (09:44)
[2020-09-09] MEDS: METHOCARBAMOL 500 MG TABLET PO PRN ×2 (09:46→21:32)
[2020-09-09] MEDS: MAG HYDROX/AL HYDROX/SIMETH 30 ML UNIT-DOSE CUP PO PRN (09:46)
[2020-09-09 10:14] LABS: EPI CELLS >36 /uL (0-25.1); HYALINE CASTS 4 /uL (0-3.1); PH,URINE 6.5 (5.0-8.0); URINE APPEARANCE CLEAR; URINE BACTERIA 48 /uL (0-1359); URINE BILIRUBIN NEGATIVE (NEGATIVE); URINE COLOR YELLOW; URINE GLUCOSE (UA) NEGATIVE (NEGATIVE); URINE KETONE NEGATIVE (NEGATIVE); URINE LEUK ESTERASE 2+ (NEGATIVE); URINE NITRITE NEGATIVE (NEGATIVE); URINE PROTEIN NEGATIVE (NEGATIVE); URINE RBC 2 /uL (0-23.9); URINE UROBILINOGEN 0.2 mg/dL (0.2-1.0); URINE WBC 133 /uL (0-25.8)
[2020-09-09] MEDS: PANTOPRAZOLE 40 MG TABLET PO SCH (11:14)
[2020-09-09] MEDS: MELATONIN 5 MG TABLETS PO SCH (21:30)
[2020-09-09] MEDS: traZODone HCL 100 MG TABLET (FP) PO SCH (21:30)
[2020-09-09] MEDS: THIAMINE HCL 100 MG TABLET (FP) PO SCH (21:32)
[2020-09-10] MEDS: hydrOXYzine PAMOATE 25 MG CAPSULE (FP) PO PRN ×3 (06:37→21:06)
[2020-09-10] MEDS: GABAPENTIN 100 MG CAPSULE PO SCH ×3 (06:37→21:06)
[2020-09-10] MEDS: DOCUSATE SODIUM 100 MG CAPSULE (FP) PO PRN ×2 (06:38→21:06)
[2020-09-10] MEDS ORDERED: PT OWN MED DRAWER 7, Y5N ONE ×2 (08:54→12:53)
[2020-09-10] MEDS: levETIRAcetam 500 MG TABLET (FP) PO SCH ×2 (09:52→21:06)
[2020-09-10] MEDS: FLUoxetine HCL 10 MG CAPSULE PO SCH (09:53)
[2020-09-10] MEDS: PANTOPRAZOLE 40 MG TABLET PO SCH (09:53)
[2020-09-10] MEDS: PRENATAL VITAMINS W/ FOLIC ACID TABLET (FP) PO SCH (09:53)
[2020-09-10] MEDS: METHOCARBAMOL 500 MG TABLET PO PRN ×2 (09:55→21:06)
[2020-09-10] MEDS: MELATONIN 5 MG TABLETS PO SCH (21:06)
[2020-09-10] MEDS: THIAMINE HCL 100 MG TABLET (FP) PO SCH (21:06)
[2020-09-10] MEDS: traZODone HCL 100 MG TABLET (FP) PO SCH (21:07)
[2020-09-11] MEDS ORDERED: PT OWN MED DRAWER 7, Y5N ONE (05:39)
[2020-09-11 06:06] LABS: SARS-CoV-2 NAA Not Detected (Not Detected)
[2020-09-11] MEDS: GABAPENTIN 100 MG CAPSULE PO SCH ×3 (06:15→21:17)
[2020-09-11] MEDS: hydrOXYzine PAMOATE 25 MG CAPSULE (FP) PO PRN ×2 (06:16→21:17)
[2020-09-11] MEDS: FLUoxetine HCL 10 MG CAPSULE PO SCH (09:43)
[2020-09-11] MEDS: levETIRAcetam 500 MG TABLET (FP) PO SCH ×2 (09:43→21:18)
[2020-09-11] MEDS: PRENATAL VITAMINS W/ FOLIC ACID TABLET (FP) PO SCH (09:43)
[2020-09-11] MEDS: PANTOPRAZOLE 40 MG TABLET PO SCH (09:43)
[2020-09-11] MEDS: DOCUSATE SODIUM 100 MG CAPSULE (FP) PO PRN (09:44)
[2020-09-11] MEDS: METHOCARBAMOL 500 MG TABLET PO PRN (10:14)
[2020-09-11] MEDS: MAG HYDROX/AL HYDROX/SIMETH 30 ML UNIT-DOSE CUP PO PRN (13:10)
[2020-09-11] MEDS: traZODone HCL 100 MG TABLET (FP) PO SCH (21:17)
[2020-09-11] MEDS: MELATONIN 5 MG TABLETS PO SCH (21:17)
[2020-09-11] MEDS: THIAMINE HCL 100 MG TABLET (FP) PO SCH (21:17)
[2020-09-12] MEDS ORDERED: PT OWN MED DRAWER 7, Y5N ONE ×4 (02:33→20:37)
[2020-09-12] MEDS: hydrOXYzine PAMOATE 25 MG CAPSULE (FP) PO PRN ×3 (06:41→21:16)
[2020-09-12] MEDS: GABAPENTIN 100 MG CAPSULE PO SCH ×3 (06:41→21:16)
[2020-09-12] MEDS: FLUoxetine HCL 10 MG CAPSULE PO SCH (10:04)
[2020-09-12] MEDS: levETIRAcetam 500 MG TABLET (FP) PO SCH ×2 (10:04→21:16)
[2020-09-12] MEDS: PANTOPRAZOLE 40 MG TABLET PO SCH (10:04)
[2020-09-12] MEDS: PRENATAL VITAMINS W/ FOLIC ACID TABLET (FP) PO SCH (10:04)
[2020-09-12] MEDS: DOCUSATE SODIUM 100 MG CAPSULE (FP) PO PRN (10:07)
[2020-09-12] MEDS: METHOCARBAMOL 500 MG TABLET PO PRN ×2 (10:07→21:16)
[2020-09-12] MEDS: traZODone HCL 100 MG TABLET (FP) PO SCH (21:16)
[2020-09-12] MEDS: MAG HYDROX/AL HYDROX/SIMETH 30 ML UNIT-DOSE CUP PO PRN (21:16)
[2020-09-12] MEDS: MELATONIN 5 MG TABLETS PO SCH (21:16)
[2020-09-12] MEDS: THIAMINE HCL 100 MG TABLET (FP) PO SCH (21:16)
[2020-09-13] MEDS ORDERED: PT OWN MED DRAWER 7, Y5N ONE ×3 (03:21→19:26)
[2020-09-13] MEDS: hydrOXYzine PAMOATE 25 MG CAPSULE (FP) PO PRN ×3 (06:13→21:21)
[2020-09-13] MEDS: GABAPENTIN 100 MG CAPSULE PO SCH ×3 (06:13→21:21)
[2020-09-13] MEDS: levETIRAcetam 500 MG TABLET (FP) PO SCH ×2 (09:42→21:21)
[2020-09-13] MEDS: PANTOPRAZOLE 40 MG TABLET PO SCH (09:42)
[2020-09-13] MEDS: PRENATAL VITAMINS W/ FOLIC ACID TABLET (FP) PO SCH (09:43)
[2020-09-13] MEDS: FLUoxetine HCL 10 MG CAPSULE PO SCH (09:43)
[2020-09-13] MEDS: METHOCARBAMOL 500 MG TABLET PO PRN ×2 (09:44→21:23)
[2020-09-13] MEDS: MAG HYDROX/AL HYDROX/SIMETH 30 ML UNIT-DOSE CUP PO PRN (09:44)
[2020-09-13] MEDS: ONDANSETRON *ODT* 4 MG TABLET SL PRN (12:07)
[2020-09-13] MEDS: LOPERAMIDE HCL 2 MG CAPSULE PO PRN (19:21)
[2020-09-13] MEDS: THIAMINE HCL 100 MG TABLET (FP) PO SCH (21:21)
[2020-09-13] MEDS: traZODone HCL 100 MG TABLET (FP) PO SCH (21:21)
[2020-09-13] MEDS: MELATONIN 5 MG TABLETS PO SCH (21:21)
[2020-09-14] MEDS ORDERED: PT OWN MED DRAWER 7, Y5N ONE ×2 (02:26→13:04)
[2020-09-14] MEDS: hydrOXYzine PAMOATE 25 MG CAPSULE (FP) PO PRN ×3 (06:37→21:21)
[2020-09-14] MEDS: GABAPENTIN 100 MG CAPSULE PO SCH ×3 (06:37→21:20)
[2020-09-14] MEDS: levETIRAcetam 500 MG TABLET (FP) PO SCH ×2 (09:06→21:20)
[2020-09-14] MEDS: FLUoxetine HCL 10 MG CAPSULE PO SCH (09:07)
[2020-09-14] MEDS: PANTOPRAZOLE 40 MG TABLET PO SCH (09:07)
[2020-09-14] MEDS: PRENATAL VITAMINS W/ FOLIC ACID TABLET (FP) PO SCH (09:07)
[2020-09-14] MEDS: ONDANSETRON *ODT* 4 MG TABLET SL PRN (09:07)
[2020-09-14] MEDS: METHOCARBAMOL 500 MG TABLET PO PRN ×2 (09:08→21:21)
[2020-09-14] MEDS: LOPERAMIDE HCL 2 MG CAPSULE PO PRN ×2 (17:46→23:48)
[2020-09-14] MEDS: traZODone HCL 100 MG TABLET (FP) PO SCH (21:20)
[2020-09-14] MEDS: MELATONIN 5 MG TABLETS PO SCH (21:20)
[2020-09-14] MEDS: THIAMINE HCL 100 MG TABLET (FP) PO SCH (21:20)
[2020-09-15] MEDS ORDERED: PANTOPRAZOLE 40 MG TABLET PO SCH (06:00)
[2020-09-15] MEDS: GABAPENTIN 100 MG CAPSULE PO SCH (06:36)
[2020-09-15] MEDS: hydrOXYzine PAMOATE 25 MG CAPSULE (FP) PO PRN (06:36)
[2020-09-15 06:59] VITALS: TEMP 97.9
[2020-09-15 09:05] VITALS: BP 112/73; PULSE 84
[2020-09-15] MEDS: FLUoxetine HCL 10 MG CAPSULE PO SCH (09:24)
[2020-09-15] MEDS: LOPERAMIDE HCL 2 MG CAPSULE PO PRN (09:25)
[2020-09-15] MEDS: ONDANSETRON *ODT* 4 MG TABLET SL PRN (09:25)
== END 2020-09-15 09:30 | disposition home or self-care (01) | DRG 772 ==
LOC: YASAS 11:17 → Y3E 11:18 → Y3W 09-14 14:18
PROVIDERS: ADMIT Allergy & Immunology; ATTEND Allergy & Immunology
PROC: HZ42ZZZ Group Counseling for Substance Abuse Treatment, Cognitive-Behavioral (ICD-10-PCS; principal; 2020-09-07)
DX: F10.20 Alcohol dependence, uncomplicated (principal); F31.9 Bipolar disorder, unspecified; D61.818 Other pancytopenia; G40.909 Epilepsy, unspecified, not intractable, without status epilepticus; I10 Essential (primary) hypertension; K21.9 Gastro-esophageal reflux disease without esophagitis; K59.00 Constipation, unspecified; M17.12 Unilateral primary osteoarthritis, left knee; E66.9 Obesity, unspecified; Z68.32 Body mass index [BMI] 32.0-32.9, adult; Z91.011 Allergy to milk products
CPT/HCPCS: 36415; 81003; 85027; C9803; Q0162; U0003; U0005

== ENCOUNTER 2023-11-26 17:35 | Inpatient (IN) | payer OTHER ==
[2023-11-26 18:05] VITALS: BMI 30.2
[2023-11-26] MEDS ORDERED: BENZONATATE 200 MG CAPSULE PO PRN (19:09)
[2023-11-26] MEDS ORDERED: POLYETHYLENE GLYCOL (HEALTHYLAX) 3350 17 GM PACKET PO PRN (19:09)
[2023-11-26] MEDS ORDERED: NALOXONE HCL 0.4 MG/ML VIAL IM PRN (19:09)
[2023-11-26] MEDS ORDERED: BENZOCAINE/MENTHOL (CHLORASEPTIC ) LOZENGE MM PRN (19:09)
[2023-11-26] MEDS ORDERED: BISMUTH SUBSALICYLATE 524 MG/30 ML PO PRN (19:09)
[2023-11-26] MEDS ORDERED: NALOXONE (NARCAN) HCL 4 MG/0.1 ML SPRAY NS PRN (19:09)
[2023-11-26] MEDS ORDERED: guaiFENesin 600 MG TABLET.ER (FP) PO PRN (19:09)
[2023-11-26] MEDS ORDERED: DICYCLOMINE HCL 10 MG CAPSULE PO PRN (19:09)
[2023-11-26] MEDS ORDERED: LOPERAMIDE HCL 2 MG CAPSULE PO PRN (19:09)
[2023-11-26] MEDS ORDERED: IBUPROFEN 400 MG TABLET (FP) PO PRN (19:09)
[2023-11-26] MEDS ORDERED: LORazepam 1 MG TABLET PO PRN (19:12)
[2023-11-26] MEDS: THIAMINE 100 MG TABLET PO SCH (22:11)
[2023-11-26] MEDS: MELATONIN 5 MG TABLETS PO SCH (22:11)
[2023-11-26] MEDS: LORazepam 2 MG TABLET PO SCH (22:11)
[2023-11-26] MEDS: METHOCARBAMOL 500 MG TABLET PO PRN (22:11)
[2023-11-26] MEDS: MAGNESIUM HYDROX 2400MG/30ML ORAL SUSPENSION 30 ML CUP PO PRN (22:12)
[2023-11-26] MEDS: ACETAMINOPHEN 325 MG TABLET (FP) PO PRN (22:12)
[2023-11-27] MEDS: ONDANSETRON *ODT* 4 MG TABLET SL PRN (10:19)
[2023-11-27] MEDS: PRENATAL VITAMINS W/ FOLIC ACID TABLET (FP) PO SCH (10:19)
[2023-11-27] MEDS: hydrOXYzine PAMOATE 25 MG CAPSULE (FP) PO PRN (10:22)
[2023-11-27 11:47] LABS: HEMATOCRIT 38.7 % (35.4-49); HEMOGLOBIN 13.2 GM/dL (11.7-16.9); MCH 29.9 pg (25.7-33.7); MCHC 34.2 g/dl (32.0-35.9); MEAN CELL VOLUME 87.6 fl (80-96); PLATELET COUNT 80 10^3/uL (134-434); RBC 4.42 M/mm3 (4.00-5.60); RDW 14.6 % (11.9-15.9); WHITE BLOOD COUNT 2.9 K/mm3 (4.0-10.0)
[2023-11-27 11:55] LABS: CHLORIDE 109 mmol/L (98-107); POTASSIUM 3.8 mmol/L (3.5-5.1); SODIUM 141 mmol/L (136-145)
[2023-11-27 12:06] LABS: CALCIUM 8.6 mg/dL (8.5-10.1)
[2023-11-27 12:07] LABS: ALBUMIN 3.5 g/dl (3.4-5.0); ANION GAP 3 mmol/L (4-13); BLOOD UREA NITROGEN 14.5 mg/dL (7-18); CO2 30 mmol/L (21-32); GLUCOSE,RANDOM 157 mg/dL (74-106)
[2023-11-27 12:10] LABS: CREATININE 0.7 mg/dL (0.55-1.3); SGOT/AST 39 U/L (15-37); SGPT/ALT 37 U/L (13-61)
[2023-11-27 12:12] LABS: TOT PROT 6.3 g/dl (6.4-8.2)
[2023-11-27 12:13] LABS: ALK PHOS 68 U/L (45-117)
[2023-11-27 12:16] LABS: BILIRUBIN,TOTAL 0.3 mg/dL (0.2-1)
[2023-11-27] MEDS: MAG HYDROX/AL HYDROX/SIMETH 30 ML UNIT-DOSE CUP PO PRN (20:08)
[2023-11-27] MEDS: traZODone HCL 100 MG TABLET (FP) PO SCH (22:15)
[2023-11-28] MEDS: LORazepam 1 MG TABLET PO SCH (05:18)
[2023-11-28] MEDS: IBUPROFEN 600 MG TABLET (FP) PO PRN (10:17)
[2023-11-29] MEDS ORDERED: LORazepam 0.5 MG TABLET PO PRN
[2023-11-29] MEDS: LORazepam 0.5 MG TABLET PO SCH (05:44)
[2023-11-29 06:17] VITALS: RESP 16
[2023-11-29 12:01] VITALS: BP 111/73; PULSE 66; TEMP 98.9
[2023-11-29] MEDS ORDERED: propRANOLol HCL 10 MG TABLET PO SCH (14:00)
[2023-11-29] MEDS ORDERED: levETIRAcetam 500 MG TABLET (FP) PO SCH (22:00)
[2023-11-30] MEDS ORDERED: LORazepam 0.5 MG TABLET PO ONE (05:00)
[2023-11-30] MEDS ORDERED: PANTOPRAZOLE 40 MG TABLET PO SCH (06:00)
== END 2023-11-29 10:23 | disposition home or self-care (01) | DRG 775 ==
LOC: YASAS 17:35 → Y3N 19:18
PROVIDERS: ADMIT Allergy & Immunology; ATTEND Surgery
PROC: HZ2ZZZZ Detoxification Services for Substance Abuse Treatment (ICD-10-PCS; principal; 2023-11-29)
DX: F10.230 Alcohol dependence with withdrawal, uncomplicated (principal); F10.982 Alcohol use, unspecified with alcohol-induced sleep disorder; F10.280 Alcohol dependence with alcohol-induced anxiety disorder; F10.24 Alcohol dependence with alcohol-induced mood disorder; I10 Essential (primary) hypertension; K21.9 Gastro-esophageal reflux disease without esophagitis; D72.819 Decreased white blood cell count, unspecified; K74.60 Unspecified cirrhosis of liver; M17.12 Unilateral primary osteoarthritis, left knee
CPT/HCPCS: 36415; 71046-TC-FY; 80053; 80305; 80307; 85027; 86593; 86780; 93005; 93010; Q0162

== ENCOUNTER 2023-12-30 12:59 | Inpatient (IN) | payer OTHER ==
[2023-12-30 14:09] VITALS: BMI 28.7
[2023-12-30] MEDS ORDERED: chlordiazePOXIDE HCL 25 MG CAPSULE PO PRN (14:12)
[2023-12-30] MEDS ORDERED: POLYETHYLENE GLYCOL (HEALTHYLAX) 3350 17 GM PACKET PO PRN (14:19)
[2023-12-30] MEDS ORDERED: ACETAMINOPHEN 325 MG TABLET (FP) PO PRN (14:19)
[2023-12-30] MEDS ORDERED: BENZOCAINE/MENTHOL (CHLORASEPTIC ) LOZENGE MM PRN (14:19)
[2023-12-30] MEDS ORDERED: DICYCLOMINE HCL 10 MG CAPSULE PO PRN (14:19)
[2023-12-30] MEDS ORDERED: LOPERAMIDE HCL 2 MG CAPSULE PO PRN (14:19)
[2023-12-30] MEDS ORDERED: ONDANSETRON *ODT* 4 MG TABLET SL PRN (14:19)
[2023-12-30] MEDS ORDERED: BISMUTH SUBSALICYLATE 524 MG/30 ML PO PRN (14:19)
[2023-12-30] MEDS ORDERED: BENZONATATE 200 MG CAPSULE PO PRN (14:19)
[2023-12-30] MEDS ORDERED: guaiFENesin 600 MG TABLET.ER (FP) PO PRN (14:19)
[2023-12-30] MEDS: chlordiazePOXIDE HCL 25 MG CAPSULE PO SCH (17:05)
[2023-12-30] MEDS: AMOXICILLIN 500 MG CAPSULE (FP) PO SCH (22:37)
[2023-12-30] MEDS: levETIRAcetam 500 MG TABLET (FP) PO SCH (22:37)
[2023-12-30] MEDS: propRANOLol HCL 10 MG TABLET PO PRN (22:37)
[2023-12-30] MEDS: THIAMINE 100 MG TABLET PO SCH (22:37)
[2023-12-30] MEDS: MELATONIN 5 MG TABLETS PO SCH (22:38)
[2023-12-30] MEDS: MAGNESIUM HYDROX 2400MG/30ML ORAL SUSPENSION 30 ML CUP PO PRN (22:38)
[2023-12-31] MEDS: PANTOPRAZOLE 40 MG TABLET PO SCH (06:04)
[2023-12-31] MEDS: PRENATAL VITAMINS W/ FOLIC ACID TABLET (FP) PO SCH (10:04)
[2023-12-31] MEDS: IBUPROFEN 600 MG TABLET (FP) PO PRN (10:07)
[2023-12-31 16:49] VITALS: RESP 18
[2023-12-31] MEDS: METHOCARBAMOL 500 MG TABLET PO PRN (17:34)
[2023-12-31] MEDS: CHLORHEXIDINE GLUCONATE 4% CLEANSER FOR DECOLONIZATION TP SCH (23:34)
[2024-01-01] MEDS: chlordiazePOXIDE HCL 25 MG CAPSULE PO SCH (05:50)
[2024-01-01] MEDS: IBUPROFEN 400 MG TABLET (FP) PO PRN (05:51)
[2024-01-01 06:20] VITALS: PULSE 79
[2024-01-01 09:02] VITALS: BP 108/63; TEMP 98.4
[2024-01-01] MEDS: MAG HYDROX/AL HYDROX/SIMETH 30 ML UNIT-DOSE CUP PO PRN (10:53)
[2024-01-01] MEDS: hydrOXYzine PAMOATE 25 MG CAPSULE (FP) PO PRN (11:16)
[2024-01-02] MEDS ORDERED: chlordiazePOXIDE HCL 10 MG CAPSULE PO PRN
[2024-01-02] MEDS ORDERED: chlordiazePOXIDE HCL 10 MG CAPSULE PO SCH (05:00)
[2024-01-03] MEDS ORDERED: chlordiazePOXIDE HCL 10 MG CAPSULE PO SCH (05:00)
[2024-01-04] MEDS ORDERED: chlordiazePOXIDE HCL 10 MG CAPSULE PO ONE (05:00)
== END 2024-01-01 10:25 | disposition left against medical advice (07) | DRG 770 ==
LOC: YASAS 12:59 → Y6N 14:51
PROVIDERS: ADMIT Allergy & Immunology; ATTEND Surgery
PROC: HZ2ZZZZ Detoxification Services for Substance Abuse Treatment (ICD-10-PCS; principal; 2023-12-30)
DX: F10.230 Alcohol dependence with withdrawal, uncomplicated (principal); F10.220 Alcohol dependence with intoxication, uncomplicated; F14.20 Cocaine dependence, uncomplicated; F31.9 Bipolar disorder, unspecified; F41.9 Anxiety disorder, unspecified; I10 Essential (primary) hypertension; G40.909 Epilepsy, unspecified, not intractable, without status epilepticus; K21.9 Gastro-esophageal reflux disease without esophagitis; R73.03 Prediabetes; G47.00 Insomnia, unspecified; R00.0 Tachycardia, unspecified; Z91.011 Allergy to milk products; Z91.013 Allergy to seafood; Z86.11 Personal history of tuberculosis; Z56.0 Unemployment, unspecified
CPT/HCPCS: 80305; 80307; 82962

== ENCOUNTER 2024-07-29 14:20 | Inpatient (IN) | payer OTHER ==
[2024-07-29 14:48] VITALS: BMI 28.2
[2024-07-29] MEDS ORDERED: NALOXONE (NARCAN) HCL 4 MG/0.1 ML SPRAY NS PRN (14:54)
[2024-07-29] MEDS ORDERED: IBUPROFEN 600 MG TABLET (FP) PO PRN (14:54)
[2024-07-29] MEDS ORDERED: LORazepam 1 MG TABLET PO PRN (14:54)
[2024-07-29] MEDS ORDERED: LORazepam 2 MG TABLET PO ONE (14:54)
[2024-07-29] MEDS ORDERED: BISMUTH SUBSALICYLATE 524 MG/30 ML PO PRN (14:54)
[2024-07-29] MEDS ORDERED: ACETAMINOPHEN 325 MG TABLET (FP) PO PRN (14:54)
[2024-07-29] MEDS ORDERED: IBUPROFEN 400 MG TABLET (FP) PO PRN (14:54)
[2024-07-29] MEDS ORDERED: MAG HYDROX/AL HYDROX/SIMETH 30 ML UNIT-DOSE CUP PO PRN (14:54)
[2024-07-29] MEDS ORDERED: DICYCLOMINE HCL 10 MG CAPSULE PO PRN (14:54)
[2024-07-29] MEDS ORDERED: BENZONATATE 200 MG CAPSULE PO PRN (14:54)
[2024-07-29] MEDS ORDERED: guaiFENesin 600 MG TABLET.ER (FP) PO PRN (14:54)
[2024-07-29] MEDS ORDERED: POLYETHYLENE GLYCOL (HEALTHYLAX) 3350 17 GM PACKET PO PRN (14:54)
[2024-07-29] MEDS ORDERED: NICOTINE POLACRILEX 2 MG GUM BUC PRN (14:54)
[2024-07-29] MEDS ORDERED: LOPERAMIDE HCL 2 MG CAPSULE PO PRN (14:54)
[2024-07-29] MEDS ORDERED: BENZOCAINE/MENTHOL (CHLORASEPTIC ) LOZENGE MM PRN (14:54)
[2024-07-29] MEDS ORDERED: LORazepam 2 MG TABLET ONE (18:52)
[2024-07-29] MEDS: LORazepam 2 MG TABLET PO SCH (18:54)
[2024-07-29] MEDS: PRENATAL VITAMINS W/ FOLIC ACID TABLET (FP) PO SCH (18:54)
[2024-07-29] MEDS: hydrOXYzine PAMOATE 25 MG CAPSULE (FP) PO PRN (20:04)
[2024-07-29] MEDS: ONDANSETRON *ODT* 4 MG TABLET SL PRN (20:05)
[2024-07-29] MEDS ORDERED: levETIRAcetam 250 MG TABLET PO ONE (22:01)
[2024-07-29] MEDS: propRANOLol HCL 10 MG TABLET PO SCH (22:47)
[2024-07-29] MEDS: traZODone HCL 100 MG TABLET (FP) PO SCH (22:47)
[2024-07-29] MEDS: levETIRAcetam 500 MG TABLET (FP) PO SCH (22:47)
[2024-07-29] MEDS: THIAMINE 100 MG TABLET PO SCH (22:47)
[2024-07-29] MEDS: MELATONIN 5 MG TABLETS PO SCH (22:47)
[2024-07-30] MEDS: PANTOPRAZOLE 40 MG TABLET PO SCH (06:18)
[2024-07-30 13:05] LABS: CHLORIDE 110 mmol/L (98-107); POTASSIUM 3.9 mmol/L (3.5-5.1); SODIUM 143 mmol/L (136-145)
[2024-07-30 13:10] LABS: CALCIUM 8.4 mg/dL (8.5-10.1)
[2024-07-30 13:11] LABS: ALBUMIN 3.3 g/dl (3.4-5.0); ANION GAP 5 mmol/L (4-13); BLOOD UREA NITROGEN 13.5 mg/dL (7-18); CO2 28 mmol/L (21-32); GLUCOSE,RANDOM 122 mg/dL (74-106)
[2024-07-30 13:13] LABS: SGPT/ALT 26 U/L (13-61)
[2024-07-30 13:14] LABS: CREATININE 0.8 mg/dL (0.55-1.3); SGOT/AST 24 U/L (15-37)
[2024-07-30 13:15] LABS: BILIRUBIN,TOTAL 0.5 mg/dL (0.2-1); TOT PROT 6.5 g/dl (6.4-8.2)
[2024-07-30 13:16] LABS: ALK PHOS 68 U/L (45-117)
[2024-07-30 13:17] LABS: HEMATOCRIT 42.1 % (35.4-49); HEMOGLOBIN 14.2 GM/dL (11.7-16.9); MCH 29.2 pg (25.7-33.7); MCHC 33.8 g/dl (32.0-35.9); MEAN CELL VOLUME 86.4 fl (80-96); MEAN PLT VOLUME 9.5 fl (7.5-11.1); PLATELET COUNT 109 10^3/uL (134-434); RBC 4.87 M/mm3 (4.00-5.60); WHITE BLOOD COUNT 4.5 K/mm3 (4.0-10.0)
[2024-07-30] MEDS: LACTULOSE 20 GM/30 ML UDC (FOR ORAL USE ONLY) PO SCH (17:32)
[2024-07-30] MEDS: traZODone HCL 50 MG TABLET (FP) PO SCH (22:15)
[2024-07-31] MEDS: MAGNESIUM HYDROX 2400MG/30ML ORAL SUSPENSION 30 ML CUP PO PRN (06:00)
[2024-07-31] MEDS: LORazepam 1 MG TABLET PO SCH (06:00)
[2024-07-31] MEDS: METHOCARBAMOL 500 MG TABLET PO PRN (17:24)
[2024-08-01] MEDS ORDERED: LORazepam 0.5 MG TABLET PO PRN
[2024-08-01] MEDS: LORazepam 0.5 MG TABLET PO SCH (06:00)
[2024-08-01 21:08] VITALS: TEMP 97.7
[2024-08-02] MEDS: LORazepam 0.5 MG TABLET PO ONE (06:34)
[2024-08-02 07:00] VITALS: BP 103/61; PULSE 60; RESP 16
== END 2024-08-02 09:12 | disposition home or self-care (01) | DRG 775 ==
LOC: YASAS 14:20 → Y6N 19:04
PROVIDERS: ADMIT Allergy & Immunology; ATTEND Allergy & Immunology
PROC: HZ2ZZZZ Detoxification Services for Substance Abuse Treatment (ICD-10-PCS; principal; 2024-07-29)
DX: F10.230 Alcohol dependence with withdrawal, uncomplicated (principal); F17.210 Nicotine dependence, cigarettes, uncomplicated; F31.9 Bipolar disorder, unspecified; F41.9 Anxiety disorder, unspecified; G47.00 Insomnia, unspecified; I10 Essential (primary) hypertension; K21.9 Gastro-esophageal reflux disease without esophagitis; K74.60 Unspecified cirrhosis of liver; M17.12 Unilateral primary osteoarthritis, left knee; R94.8 Abnormal results of function studies of other organs and systems; R56.9 Unspecified convulsions; R76.11 Nonspecific reaction to tuberculin skin test without active tuberculosis
CPT/HCPCS: 36415; 80053; 80305; 80307; 82140; 85027; 86593; 86780; 93005; 93010; Q0162

== ENCOUNTER 2024-10-21 10:53 | Inpatient (IN) | payer OTHER ==
[2024-10-21 11:13] VITALS: BMI 27.4
[2024-10-21] MEDS ORDERED: BENZONATATE 200 MG CAPSULE PO PRN (11:29)
[2024-10-21] MEDS ORDERED: guaiFENesin 600 MG TABLET.ER (FP) PO PRN (11:29)
[2024-10-21] MEDS ORDERED: ACETAMINOPHEN 325 MG TABLET (FP) PO PRN (11:29)
[2024-10-21] MEDS ORDERED: LOPERAMIDE HCL 2 MG CAPSULE PO PRN (11:29)
[2024-10-21] MEDS ORDERED: NALOXONE (NARCAN) HCL 4 MG/0.1 ML SPRAY NS PRN (11:29)
[2024-10-21] MEDS ORDERED: DICYCLOMINE HCL 10 MG CAPSULE PO PRN (11:29)
[2024-10-21] MEDS ORDERED: IBUPROFEN 400 MG TABLET (FP) PO PRN (11:29)
[2024-10-21] MEDS ORDERED: BISMUTH SUBSALICYLATE 262 MG/15 ML BTL PO PRN (11:29)
[2024-10-21] MEDS ORDERED: POLYETHYLENE GLYCOL (HEALTHYLAX) 3350 17 GM PACKET PO PRN (11:29)
[2024-10-21] MEDS ORDERED: BENZOCAINE/MENTHOL (CHLORASEPTIC ) LOZENGE MM PRN (11:29)
[2024-10-21] MEDS ORDERED: NICOTINE POLACRILEX 2 MG GUM BUC PRN (11:29)
[2024-10-21] MEDS: diazePAM 5 MG TABLET PO PRN (13:42)
[2024-10-21] MEDS: propRANOLol HCL 10 MG TABLET PO SCH (13:42)
[2024-10-21] MEDS: hydrOXYzine PAMOATE 25 MG CAPSULE (FP) PO PRN (17:12)
[2024-10-21] MEDS: diazePAM 5 MG TABLET PO SCH (17:12)
[2024-10-21] MEDS: IBUPROFEN 600 MG TABLET (FP) PO PRN (17:13)
[2024-10-21] MEDS: MELATONIN 5 MG TABLETS PO SCH (22:09)
[2024-10-21] MEDS: METHOCARBAMOL 500 MG TABLET PO PRN (22:10)
[2024-10-21] MEDS: THIAMINE 100 MG TABLET PO SCH (22:10)
[2024-10-21] MEDS: levETIRAcetam 500 MG TABLET (FP) PO SCH (22:10)
[2024-10-21] MEDS: GABAPENTIN 100 MG CAPSULE PO SCH (22:10)
[2024-10-22] MEDS: MAG HYDROX/AL HYDROX/SIMETH 30 ML UNIT-DOSE CUP PO PRN (05:06)
[2024-10-22] MEDS: PANTOPRAZOLE 40 MG TABLET PO SCH (05:15)
[2024-10-22] MEDS: PRENATAL VITAMINS W/ FOLIC ACID TABLET (FP) PO SCH (10:04)
[2024-10-22] MEDS: MAGNESIUM HYDROX 2400MG/30ML ORAL SUSPENSION 30 ML CUP PO PRN (10:04)
[2024-10-22] MEDS: ONDANSETRON *ODT* 4 MG TABLET SL PRN (10:06)
[2024-10-22 11:23] LABS: HEMATOCRIT 44.9 % (40.1-51.0); HEMOGLOBIN 14.7 g/dL (13.7-17.5); MCHC 32.7 g/dl (32.3-36.5); MEAN CELL VOLUME 86.5 fl (79.0-92.2); MEAN PLT VOLUME 12.3 fl (9.4-12.4); PLATELET COUNT 145 x10^3/uL (163-337); RDW 13.9 % (12.2-16.1)
[2024-10-22 11:27] LABS: POTASSIUM 3.8 mmol/L (3.5-5.1)
[2024-10-22 11:43] LABS: ALBUMIN 3.8 g/dl (3.4-5.0); BLOOD UREA NITROGEN 14.6 mg/dL (7-18); CALCIUM 9.4 mg/dL (8.5-10.1)
[2024-10-22 11:46] LABS: CREATININE 0.7 mg/dL (0.55-1.3)
[2024-10-22 11:47] LABS: BILIRUBIN,TOTAL 0.4 mg/dL (0.2-1); TOT PROT 7.4 g/dl (6.4-8.2)
[2024-10-22] MEDS ORDERED: traZODone HCL 100 MG TABLET (FP) PO SCH (22:00)
[2024-10-22] MEDS: SUVOREXANT 10 MG TABLET PO PRN (22:24)
[2024-10-23] MEDS: diazePAM 5 MG TABLET PO SCH (05:23)
[2024-10-24] MEDS: diazePAM 5 MG TABLET PO SCH (05:42)
[2024-10-25] MEDS: diazePAM 5 MG TABLET PO ONE (06:08)
[2024-10-25 09:09] VITALS: BP 106/69; PULSE 70; RESP 20; TEMP 98
== END 2024-10-25 10:12 | disposition home or self-care (01) | DRG 774 ==
LOC: YASAS 10:53 → Y3N 12:34
PROVIDERS: ADMIT Family Medicine; ATTEND Family Medicine
PROC: HZ2ZZZZ Detoxification Services for Substance Abuse Treatment (ICD-10-PCS; principal; 2024-10-21)
DX: F10.230 Alcohol dependence with withdrawal, uncomplicated (principal); F13.20 Sedative, hypnotic or anxiolytic dependence, uncomplicated; F14.20 Cocaine dependence, uncomplicated; F17.210 Nicotine dependence, cigarettes, uncomplicated; F31.9 Bipolar disorder, unspecified; F19.282 Other psychoactive substance dependence with psychoactive substance-induced sleep disorder; F19.24 Other psychoactive substance dependence with psychoactive substance-induced mood disorder; G47.00 Insomnia, unspecified; G40.909 Epilepsy, unspecified, not intractable, without status epilepticus; I10 Essential (primary) hypertension; K70.30 Alcoholic cirrhosis of liver without ascites; E11.9 Type 2 diabetes mellitus without complications; Z86.19 Personal history of other infectious and parasitic diseases
CPT/HCPCS: 36415; 71046-TC-FY; 80053; 80305; 80307; 85027; 86593; 86780; 93005; 93010; Q0162

== ENCOUNTER 2024-12-30 16:50 | Inpatient (IN) | payer OTHER ==
[2024-12-30 17:50] VITALS: BMI 25.2
[2024-12-30] MEDS ORDERED: guaiFENesin 600 MG TABLET.ER (FP) PO PRN (20:10)
[2024-12-30] MEDS ORDERED: IBUPROFEN 400 MG TABLET (FP) PO PRN (20:10)
[2024-12-30] MEDS ORDERED: LOPERAMIDE HCL 2 MG CAPSULE PO PRN (20:10)
[2024-12-30] MEDS ORDERED: BENZONATATE 200 MG CAPSULE PO PRN (20:10)
[2024-12-30] MEDS ORDERED: BENZOCAINE/MENTHOL (CHLORASEPTIC ) LOZENGE MM PRN (20:10)
[2024-12-30] MEDS ORDERED: NALOXONE HCL 0.4 MG/ML VIAL IVPUSH PRN (20:10)
[2024-12-30] MEDS ORDERED: POLYETHYLENE GLYCOL (HEALTHYLAX) 3350 17 GM PACKET PO PRN (20:10)
[2024-12-30] MEDS ORDERED: NALOXONE (NARCAN) HCL 4 MG/0.1 ML SPRAY NS PRN (20:10)
[2024-12-30] MEDS: hydrOXYzine PAMOATE 25 MG CAPSULE (FP) PO PRN (21:38)
[2024-12-30] MEDS: ATORVASTATIN CA 80 MG TABLET (FP) PO SCH (21:38)
[2024-12-30] MEDS: METHOCARBAMOL 500 MG TABLET PO PRN (21:38)
[2024-12-30] MEDS: GABAPENTIN 100 MG CAPSULE PO SCH (21:39)
[2024-12-30] MEDS: MELATONIN 5 MG TABLETS PO SCH (21:39)
[2024-12-30] MEDS: ACAMPROSATE CALCIUM 333 MG TABLET.DR PO SCH (21:39)
[2024-12-30] MEDS: THIAMINE 100 MG TABLET PO SCH (21:39)
[2024-12-30] MEDS: levETIRAcetam 500 MG TABLET (FP) PO SCH (22:29)
[2024-12-30] MEDS: traZODone HCL 100 MG TABLET (FP) PO ONE (22:30)
[2024-12-31] MEDS: PANTOPRAZOLE 40 MG TABLET PO SCH (05:22)
[2024-12-31] MEDS: PRENATAL VITAMINS W/ FOLIC ACID TABLET (FP) PO SCH (09:47)
[2024-12-31] MEDS: IBUPROFEN 600 MG TABLET (FP) PO PRN (09:53)
[2024-12-31 11:14] LABS: URINE APPEARANCE CLEAR; URINE BILIRUBIN NEGATIVE (NEGATIVE); URINE COLOR YELLOW; URINE GLUCOSE (UA) NEGATIVE (NEGATIVE); URINE KETONE NEGATIVE (NEGATIVE); URINE LEUK ESTERASE NEGATIVE (NEGATIVE); URINE NITRITE NEGATIVE (NEGATIVE); URINE PROTEIN NEGATIVE (NEGATIVE); URINE UROBILINOGEN 0.2 mg/dL (0.2-1.0)
[2024-12-31] MEDS: OXYBUTYNIN CHLORIDE 5 MG TABLET PO SCH (21:21)
[2025-01-01] MEDS: MAG HYDROX/AL HYDROX/SIMETH 30 ML UNIT-DOSE CUP PO PRN (10:11)
[2025-01-01] MEDS: INSULIN ASPART SLIDING SCALE (NOVOLOG) 1 VIAL SQ SCH (11:46)
[2025-01-01] MEDS: TAMSULOSIN HCL 0.4 MG CAP PO SCH (14:00)
[2025-01-01] MEDS: GABAPENTIN 100 MG CAPSULE PO SCH (14:00)
[2025-01-01] MEDS: traZODone HCL 100 MG TABLET (FP) PO PRN (21:14)
[2025-01-01] MEDS: MIRTAZAPINE 15 MG TABLET (FP) PO SCH (21:17)
[2025-01-02 10:46] LABS: MCHC 32.8 g/dl (32.3-36.5); MEAN CELL VOLUME 85.7 fl (79.0-92.2); MEAN PLT VOLUME 11.3 fl (9.4-12.4); RDW 13.4 % (12.2-16.1)
[2025-01-02 10:51] LABS: GLUCOSE,RANDOM 145.0 mg/dL (74-106); TOT PROT 7.2 g/dl (6.4-8.2)
[2025-01-02 10:54] LABS: ALK PHOS 71.0 U/L (40-150)
[2025-01-02 10:56] LABS: SGOT/AST 29.0 U/L (5-34); SGPT/ALT 40.0 U/L (0-55)
[2025-01-02 10:57] LABS: CREATININE 0.63 mg/dL (0.55-1.3); LDL CHOLESTEROL (ONLY SJRH) 68.0 mg/dL (5-100)
[2025-01-02 11:11] LABS: SYPHILIS W/ RPR CONF REACTIVE (NONREACTIVE)
[2025-01-02 11:13] LABS: CO2 27.0 mmol/L (21-32)
[2025-01-02 11:17] LABS: INR 1.07 (0.83-1.09); PROTHROMBIN TIME (PATIENT) 11.7 SEC (9.7-13.0)
[2025-01-02] MEDS ORDERED: INSULIN (NOVOLOG) ASPART 100 UNITS/ML 10ML VIAL SQ ONE (11:51)
[2025-01-02 13:51] LABS: RPR REFLEX REACTIVE 1:1 (NONREACTIVE)
[2025-01-03] MEDS: LACTULOSE 20 GM/30 ML UDC (FOR ORAL USE ONLY) PO SCH (13:01)
[2025-01-03] MEDS: INSULIN ASPART SLIDING SCALE (NOVOLOG) 1 VIAL SQ SCH (17:11)
[2025-01-04] MEDS: ONDANSETRON *ODT* 4 MG TABLET SL PRN (06:28)
[2025-01-06] MEDS ORDERED: INSULIN (NOVOLOG) ASPART 100 UNITS/ML 10ML VIAL SQ ONE (06:11)
[2025-01-06] MEDS: RIFAXIMIN 550 MG TABLET PO SCH (21:19)
[2025-01-06] MEDS ORDERED: LACTULOSE 20 GM/30 ML UDC (FOR ORAL USE ONLY) PO SCH (22:00)
[2025-01-07] MEDS ORDERED: INSULIN (NOVOLOG) ASPART 100 UNITS/ML 10ML VIAL SQ ONE (06:32)
[2025-01-07] MEDS ORDERED: metroNIDAZOLE 1% TOPICAL CREAM 60 GM/TUBE TP SCH (13:30)
[2025-01-07] MEDS: traZODone HCL 100 MG TABLET (FP) PO PRN (21:16)
[2025-01-07] MEDS: MAGNESIUM HYDROX 2400MG/30ML ORAL SUSPENSION 30 ML CUP PO PRN (21:17)
[2025-01-08] MEDS ORDERED: INSULIN (NOVOLOG) ASPART 100 UNITS/ML 10ML VIAL SQ ONE (06:46)
[2025-01-09] MEDS ORDERED: INSULIN (NOVOLOG) ASPART 100 UNITS/ML 10ML VIAL SQ ONE ×2 (06:28→16:49)
[2025-01-10] MEDS ORDERED: INSULIN (NOVOLOG) ASPART 100 UNITS/ML 10ML VIAL SQ ONE (06:43)
[2025-01-11] MEDS ORDERED: INSULIN (NOVOLOG) ASPART 100 UNITS/ML 10ML VIAL SQ ONE (06:38)
[2025-01-12] MEDS ORDERED: INSULIN (NOVOLOG) ASPART 100 UNITS/ML 10ML VIAL SQ ONE ×2 (05:34→06:55)
[2025-01-12] MEDS: ACETAMINOPHEN 325 MG TABLET (FP) PO PRN (17:47)
[2025-01-13] MEDS ORDERED: INSULIN (NOVOLOG) ASPART 100 UNITS/ML 10ML VIAL SQ ONE (06:25)
[2025-01-14 11:24] VITALS: BP 119/79; PULSE 75; RESP 16; TEMP 97.7
== END 2025-01-14 09:39 | disposition home or self-care (01) | DRG 772 ==
LOC: YASAS 16:50 → Y3NR 20:58 → Y3E 12-31 10:17
PROVIDERS: ADMIT Neuromusculoskeletal Medicine & OMM; ATTEND Psychiatry & Neurology Pain Medicine
PROC: HZ42ZZZ Group Counseling for Substance Abuse Treatment, Cognitive-Behavioral (ICD-10-PCS; principal; 2024-12-30)
DX: F10.20 Alcohol dependence, uncomplicated (principal); F14.20 Cocaine dependence, uncomplicated; F17.210 Nicotine dependence, cigarettes, uncomplicated; F31.9 Bipolar disorder, unspecified; F19.282 Other psychoactive substance dependence with psychoactive substance-induced sleep disorder; F19.280 Other psychoactive substance dependence with psychoactive substance-induced anxiety disorder; F19.24 Other psychoactive substance dependence with psychoactive substance-induced mood disorder; F41.9 Anxiety disorder, unspecified; E72.20 Disorder of urea cycle metabolism, unspecified; G47.00 Insomnia, unspecified; I10 Essential (primary) hypertension; K21.9 Gastro-esophageal reflux disease without esophagitis; G40.909 Epilepsy, unspecified, not intractable, without status epilepticus; M17.12 Unilateral primary osteoarthritis, left knee; N40.0 Benign prostatic hyperplasia without lower urinary tract symptoms; R73.03 Prediabetes; R76.11 Nonspecific reaction to tuberculin skin test without active tuberculosis
CPT/HCPCS: 36415; 80053; 80061; 80177; 81003; 82140; 82652; 82962; 83036; 83735; 85027; 85610; 86593; 86780; Q0162